=== PATIENT | male | born 1930 | race Two or more races ===

== ENCOUNTER 2016-12-10 23:02 | Inpatient (IN) | payer MEDICARE, MEDICAID ==
[~2016-12-10] VITALS: Ht 165.1 cm; Wt 61.0 kg
[~2016-12-10 23:02] MED LIST: ASPIR 8181 MG ORAL; COLCHICINE25 GM MC
[2016-12-11] LABS: BASOPHILS % (AUTO) 0.6 % (0.0-2.0); EOSINOPHILS % (AUTO) 0.4 % (0.0-3.0); LYMPHOCYTES % (AUTO) 7.7 % (20.0-45.0); MEAN CORPUSCULAR HEMOGLOBIN 25.7 PG (27.0-31.0); MEAN CORPUSCULAR HGB CONC 32.1 G/DL (32.0-36.0); MEAN CORPUSCULAR VOLUME 80 FL (80-99); MEAN PLATELET VOLUME 6.7 FL (6.5-10.1); NEUTROPHILS % (AUTO) 83.3 % (45.0-75.0); PLATELET COUNT 143 K/UL (150-450); RED BLOOD COUNT 4.65 M/UL (4.70-6.10); RED CELL DISTRIBUTION WIDTH 15.7 % (11.6-14.8); WHITE BLOOD COUNT 6.1 K/UL (4.8-10.8)
[2016-12-11 00:13] LABS: ALANINE AMINOTRANSFERASE 48 U/L (3-41); ALBUMIN/GLOBULIN RATIO 1.3 (1.0-2.7); ASPARTATE AMINO TRANSFERASE 95 U/L (5-40); CALCIUM 9.5 mg/dL (8.6-10.2); CARBON DIOXIDE 21 mEQ/L (20-30); CREATININE 1.8 mg/dL (0.7-1.2); HEMOLYSIS 18; INR 1.1 (0.9-1.1); PROTHROMBIN TIME 10.8 SEC (9.30-11.50); TOTAL PROTEIN 6.6 g/dL (6.6-8.7); TROPONIN I < 0.30 ng/mL (<=0.30)
[2016-12-11 00:14] LABS: ANION GAP 18 (5-15); CHLORIDE 98 mEQ/L (98-107); POTASSIUM 4.6 mEQ/L (3.4-4.9); SODIUM 137 mEQ/L (135-145)
[2016-12-11 00:24] LABS: CKMB 2.7 ng/mL (< 6.7)
[2016-12-11 00:38] VITALS: BP 106/73
[2016-12-11] MEDS ORDERED: Nitroglycerin Subl 0.4mg tab (Bottle Of 25) SL PRN (00:45)
[2016-12-11] MEDS ORDERED: Morphine Sulfate 2mg/ml Inj IVP PRN (00:45)
[2016-12-11] MEDS ORDERED: Mylanta II UD 30ml ORAL PRN (00:45)
[2016-12-11] MEDS ORDERED: Miralax 17gm pkt ORAL PRN (00:45)
[2016-12-11] MEDS ORDERED: LORazepam Inj 2mg/ml 1ml IV PRN (00:45)
[2016-12-11] MEDS ORDERED: DuoNeb 0.5-3(2.5)mg/3ml neb HHN PRN (00:45)
--- NOTE | 2016-12-11 00:53 | Emergency Room Report ---
History of Present Illness General Chief Complaint: Syncope Source: Patient, EMS Present Illness HPI Is an 86-year-old male with a history of CAD and aortic stenosis. He has previous stents. 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 He was doing well until tonight. He was watching TV and got up to go to the bathroom. He said he became very weak and dizzy. Was a little diaphoretic. [place] like his did not pass out. He sat down the toilet and was better. Now felt nauseous and weak. No had this problem before. No focal deficit. No chest pain. No palpitation. Allergies: Coded Allergies: CIPROFLOXACIN (Verified Allergy, Unknown, 12/10/16) PENICILLINS (Verified Allergy, Unknown, 12/10/16) Patient History Past Medical History: see triage record, old chart reviewed, CAD Past Surgical History: PTCA Pertinent Family History: none Social History: Denies: smoking Immunizations: other Reviewed Nursing Documentation: PMH: Agreed, PSxH: Agreed Nursing Documentation-PMH Past Medical History: No History, Except For Hx Cardiac Problems: Yes - STENTS Hx Hypertension: Yes Hx Pacemaker: No - GOUT Review of Systems Eye: Denies: blurred vision, eye pain ENT: Denies: ear pain, nose congestion, throat swelling Respiratory: Denies: cough, shortness of breath Cardiovascular: Denies: chest pain, palpitations Gastrointestinal: Denies: abdominal pain, diarrhea, nausea, vomiting Musculoskeletal: Denies: back pain, joint pain Skin: Denies: rash Neurological: Denies: headache, numbness Endocrine: Denies: increased thirst, increased urine Hematologic/Lymphatic: Denies: easy bruising All Other Systems: negative except mentioned in HPI Physical Exam Vital Signs Date Time Temp Pulse Resp B/P Pulse Ox O2 Delivery O2 Flow Rate FiO2 12/10/16 22:55 80 20 108/66 93 Room Air 12/11/16 00:38 97.1 vitals with mild hypoxia Sp02 EP Interpretation: abnormal General Appearance: well appearing, no apparent distress, alert Head: normocephalic, atraumatic Eyes: bilateral eye EOMI, bilateral eye PERRL ENT: hearing grossly normal, normal pharynx Neck: full range of motion, supple, no meningismus Respiratory: chest non-tender, rales Cardiovascular #1: regular rate, rhythm, systolic murmur Gastrointestinal: normal bowel sounds, non tender, no mass, no organomegaly, no bruit, non-distended Musculoskeletal: back normal, gait/station normal, normal range of motion Neurologic: alert, oriented x3 Psychiatric: mood/affect normal Skin: warm/dry Medical Decision Making Diagnostic Impression: Primary Impression: Syncope Qualified Codes: R55 - Syncope and collapse Additional Impressions: Aortic stenosis Qualified Codes: I35.0 - Nonrheumatic aortic (valve) stenosis CHF exacerbation Qualified Codes: I50.9 - Heart failure, unspecified Anemia in chronic illness Chronic kidney disease (CKD) Qualified Codes: N18.9 - Chronic kidney disease, unspecified ER Course Patient presents with syncope. He has severe aortic stenosis. This is concerning for poor prognosis. He may be bowel replacement sooner rather than later. He does have CHF. Lasix given. He felt better now. We'll admit for further workup. I discussed the case with Dr. Schwartz who will admit. This may be also a cardiac event. Initial troponin negative. Lab Results Impression labs with elevated bnp EKG Diagnostic Results Rate: normal Rhythm: NSR ST Segments: no acute changes Rhythm Strip Diag. Results EP Interpretation: yes Rate: 80 Rhythm: NSR, no PVC's, no ectopy Chest X-Ray Diagnostic Results EP Interpretation: Yes Findings: no consolidation, no effusion, no pneumothorax, other - cm with chf Number of Views: 1 CT/MRI/US Diagnostic Results CT/MRI/US Diagnostic Results : Imaging Test Ordered: ct head Impression neg per radiologist. Last Vital Signs Date Time Temp Pulse Resp B/P Pulse Ox O2 Delivery O2 Flow Rate FiO2 12/11/16 00:38 97.1 84 21 106/73 95 Room Air Status: improved Disposition: ADMITTED INPATIENT Condition: Serious Referrals: NOT CHOSEN ANUPAM/,REFERRING (PCP) TAMMY WAGNER M.D. Dec 11, 2016 00:53
[2016-12-11] MEDS ORDERED: ULORIC40 MG ORAL (01:44)
[2016-12-11 02:15] LABS: APPEARANCE,URINE CLEAR; KETONES,URINE NEGATIVE (NEGATIVE); LEUKOCYTE ESTERASE ,URINE NEGATIVE (NEGATIVE); NITRITE,URINE NEGATIVE (NEGATIVE); PH,URINE 6 (4.5-8.0); UROBILINOGEN,URINE NORMAL MG/DL (0.0-1.0)
[2016-12-11 02:16] LABS: PROTEIN,URINE NEGATIVE (NEGATIVE)
[2016-12-11 02:24] LABS: RBC,URINE 0-2 /HPF (0 - 0); WBC,URINE 0 /HPF (0 - 0)
[2016-12-11 04:06] VITALS: BP 105/63
[2016-12-11 07:43] VITALS: BP 107/66
[2016-12-11] MEDS: Heparin 5000 units/ml inj SUBQ SCH ×2 (08:25→22:01)
[2016-12-11 08:37] LABS: ALANINE AMINOTRANSFERASE 40 U/L (3-41); ALBUMIN/GLOBULIN RATIO 1.3 (1.0-2.7); ANION GAP 15 (5-15); ASPARTATE AMINO TRANSFERASE 45 U/L (5-40); CALCIUM 9.4 mg/dL (8.6-10.2); CARBON DIOXIDE 23 mEQ/L (20-30); CHLORIDE 101 mEQ/L (98-107); CREATININE 1.9 mg/dL (0.7-1.2); HEMOLYSIS 2; MAGNESIUM 1.9 mg/dL (1.7-2.5); PHOSPHORUS 4.1 mg/dL (2.5-4.8); POTASSIUM 4.2 mEQ/L (3.4-4.9); SODIUM 139 mEQ/L (135-145); TOTAL PROTEIN 6.7 g/dL (6.6-8.7); URIC ACID 5.7 mg/dL (3.0-7.5)
[2016-12-11 08:59] LABS: FREE T3 2.5 pg/mL (2.3-4.2); THYROID STIMULATING HORMONE 0.422 uIU/mL (0.300-4.500)
--- NOTE | 2016-12-11 10:58 | Diagnostic Imaging Report ---
Indication: SYNCOPE Technique: spiral acquisitions obtained through the brain. Angled axial and coronal 5 x 5 mm slices were reconstructed. No IV contrast utilized. Radiation dose was minimized using automated exposure control Total dose length product 1404 mGycm. CTDIvol(s) 70 mGy Comparison: none FINDINGS: No acute hemorrhage or edema. No mass effect or midline shift. There is age-related enlargement of the ventricles and extra axial CSF spaces. There is periventricular deep white matter ischemic change. Normal beckwith-white differentiation. Visualized orbits are unremarkable. Visualized sinuses are unremarkable. Intact calvarium. IMPRESSION: Chronic and age-related changes. Negative for acute intracranial bleed or mass effect This agrees with the preliminary interpretation provided overnight by [facility] teleradiology service. The CT scanner at [facility] is accredited by the [employer] and the scans are performed using protocols designed to limit radiation exposure to as low as reasonably achievable to attain images of sufficient resolution adequate for diagnostic evaluation
[2016-12-11 11:19] VITALS: BP 101/56
--- NOTE | 2016-12-11 12:13 | Cardiology Progress Note ---
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[place] to arrange has distant heart sound difficult oe clinically evlaute his arotic valve bu has known [id number] Objective Last 24 Hour Vital Signs Date Time Temp Pulse Resp B/P Pulse Ox O2 Delivery O2 Flow Rate FiO2 12/11/16 11:19 96.6 86 20 101/56 93 Room Air 12/11/16 07:43 96.1 85 20 107/66 92 Room Air 12/11/16 04:06 97.0 70 21 105/63 96 Room Air 12/11/16 04:00 79 12/11/16 01:05 84 21 106/73 95 Room Air 12/11/16 01:00 80 12/11/16 00:38 97.1 84 21 106/73 95 Room Air 12/10/16 22:55 80 20 108/66 93 Room Air Intake and Output 12/10/16 12/11/16 19:00 07:00 Output Total 600 ml Balance -600 ml Output Urine Total 600 ml Laboratory Tests Test 12/10/16 23:45 12/11/16 01:45 12/11/16 07:30 White Blood Count 6.1 K/UL (4.8-10.8) Red Blood Count 4.65 M/UL (4.70-6.10) L Hemoglobin 11.9 G/DL (14.2-18.0) L Hematocrit 37.3 % (42.0-52.0) L Mean Corpuscular Volume 80 FL (80-99) Mean Corpuscular Hemoglobin 25.7 PG (27.0-31.0) L Mean Corpuscular Hemoglobin Concent 32.1 G/DL (32.0-36.0) Red Cell Distribution Width 15.7 % (11.6-14.8) H Platelet Count 143 K/UL (150-450) L Mean Platelet Volume 6.7 FL (6.5-10.1) Neutrophils (%) (Auto) 83.3 % (45.0-75.0) H Lymphocytes (%) (Auto) 7.7 % (20.0-45.0) L Monocytes (%) (Auto) 8.0 % (1.0-10.0) Eosinophils (%) (Auto) 0.4 % (0.0-3.0) Basophils (%) (Auto) 0.6 % (0.0-2.0) Prothrombin Time 10.8 SEC (9.30-11.50) Prothromb Time International Ratio 1.1 (0.9-1.1) Activated Partial Thromboplast Time 26 SEC (23-33) Sodium Level 137 mEQ/L (135-145) 139 mEQ/L (135-145) Potassium Level 4.6 mEQ/L (3.4-4.9) 4.2 mEQ/L (3.4-4.9) Chloride Level 98 mEQ/L (98-107) 101 mEQ/L (98-107) Carbon Dioxide Level 21 mEQ/L (20-30) 23 mEQ/L (20-30) Anion Gap 18 (5-15) H 15 (5-15) Blood Urea Nitrogen 43 mg/dL (7-23) H 47 mg/dL (7-23) H Creatinine 1.8 mg/dL (0.7-1.2) H 1.9 mg/dL (0.7-1.2) H Estimat Glomerular Filtration Rate mL/min (>60) mL/min (>60) Glucose Level 200 mg/dL (74-106) H 116 mg/dL (74-106) H Calcium Level 9.5 mg/dL (8.6-10.2) 9.4 mg/dL (8.6-10.2) Total Bilirubin 0.7 mg/dL (0.0-1.2) 0.5 mg/dL (0.0-1.2) Aspartate Amino Transf (AST/SGOT) 95 U/L (5-40) H 45 U/L (5-40) H Alanine Aminotransferase (ALT/SGPT) 48 U/L (3-41) H 40 U/L (3-41) Alkaline Phosphatase 85 U/L (40-129) 83 U/L (40-129) Total Creatine Kinase 43 U/L (38-174) 38 U/L (38-174) Creatine Kinase MB 2.7 ng/mL (< 6.7) Creatine Kinase MB Relative Index 6.2 Troponin I < 0.30 ng/mL (<=0.30) Pro-B-Type Natriuretic Peptide 82810 pg/mL (0-450) H Total Protein 6.6 g/dL (6.6-8.7) 6.7 g/dL (6.6-8.7) Albumin 3.8 g/dL (3.5-5.2) 3.9 g/dL (3.5-5.2) Globulin 2.8 g/dL 2.8 g/dL Albumin/Globulin Ratio 1.3 (1.0-2.7) 1.3 (1.0-2.7) Urine Color Pale yellow Urine Appearance Clear Urine pH 6 (4.5-8.0) Urine Specific [place] 1.010 (1.005-1.035) Urine Protein Negative (NEGATIVE) Urine Glucose (UA) Negative (NEGATIVE) Urine Ketones Negative (NEGATIVE) Urine Occult Blood Negative (NEGATIVE) Urine Nitrite Negative (NEGATIVE) Urine Bilirubin Negative (NEGATIVE) Urine Urobilinogen Normal MG/DL (0.0-1.0) Urine Leukocyte Esterase Negative (NEGATIVE) Urine RBC 0-2 /HPF (0 - 0) H Urine WBC 0 /HPF (0 - 0) Urine Squamous Epithelial Cells None /LPF (NONE/OCC) Urine Bacteria None /HPF (NONE) Urine Eosinophils None seen Urine Osmolality Pending Urine Random Sodium 75 mmol/L Urine Random Chloride 90 mmol/L Urine Potassium Timed 61 mmol/L Plasma/Serum Osmolality Pending Uric Acid 5.7 mg/dL (3.0-7.5) Phosphorus Level 4.1 mg/dL (2.5-4.8) Magnesium Level 1.9 mg/dL (1.7-2.5) Thyroid Stimulating Hormone (TSH) 0.422 uIU/mL (0.300-4.500) Free Thyroxine 1.24 ng/dL (0.86-1.85) Free Triiodothyronine 2.5 pg/mL (2.3-4.2) Cortisol Pending MEY DELEON Dec 11, 2016 12:13
--- NOTE | 2016-12-11 15:36 | History and Physical ---
History of Present Illness General Date patient seen: Dec 11, 2016 Reason for Hospitalization: Syncope Present Illness HPI 86-year-old male with a history of CAD and aortic stenosis with multiple previous stents. . He was watching TV and got up to go to the bathroom. He said he became very weak and dizzy. Was a little diaphoretic. [place] like his did not pass out. He sat down the toilet and was better. He thought he is going to . He has been feeding sick for a few days with symptoms of stuffy nose and cold. Allergies: Coded Allergies: CIPROFLOXACIN (Verified Allergy, Unknown, 12/10/16) PENICILLINS (Verified Allergy, Unknown, 12/10/16) Medication History Scheduled Aspirin* (Aspir 81*), 81 MG ORAL DAILY, (Reported) Febuxostat (Uloric), 40 MG ORAL DAILY, (Reported) Miscellaneous Medications Colchicine (Colchicine), Unknown Dose MC, (Reported) Patient History History Provided By: Patient, Significant Other Healthcare decision maker Resuscitation status Full Code Advanced Directive on File Past Medical/Surgical History Past Medical/Surgical History: (1) Aortic stenosis (2) Anemia in chronic illness (3) Chronic kidney disease (CKD) Review of Systems Constitutional: Reports: no symptoms Eye: Reports: no symptoms ENT: Reports: no symptoms Respiratory: Reports: no symptoms Cardiovascular: Reports: no symptoms Gastrointestinal: Reports: no symptoms Physical Exam General Appearance: WD/WN Lines, tubes and drains: peripheral, central line HEENT: normocephalic, atraumatic Neck: non-tender, normal alignment Respiratory/Chest: chest wall non-tender, lungs clear Abdomen: normal bowel sounds, non tender Last 24 Hour Vital Signs Date Time Temp Pulse Resp B/P Pulse Ox O2 Delivery O2 Flow Rate FiO2 12/11/16 13:20 99 12/11/16 13:15 93 12/11/16 13:10 81 12/11/16 12:00 74 12/11/16 11:19 96.6 86 20 101/56 93 Room Air 12/11/16 08:00 85 12/11/16 07:43 96.1 85 20 107/66 92 Room Air 12/11/16 04:06 97.0 70 21 105/63 96 Room Air 12/11/16 04:00 79 12/11/16 01:05 84 21 106/73 95 Room Air 12/11/16 01:00 80 12/11/16 00:38 97.1 84 21 106/73 95 Room Air 12/10/16 22:55 80 20 108/66 93 Room Air Intake and Output 12/10/16 12/11/16 19:00 07:00 Output Total 600 ml Balance -600 ml Output Urine Total 600 ml Laboratory Tests Test 12/10/16 23:45 12/11/16 01:45 12/11/16 07:30 White Blood Count 6.1 K/UL (4.8-10.8) Red Blood Count 4.65 M/UL (4.70-6.10) L Hemoglobin 11.9 G/DL (14.2-18.0) L Hematocrit 37.3 % (42.0-52.0) L Mean Corpuscular Volume 80 FL (80-99) Mean Corpuscular Hemoglobin 25.7 PG (27.0-31.0) L Mean Corpuscular Hemoglobin Concent 32.1 G/DL (32.0-36.0) Red Cell Distribution Width 15.7 % (11.6-14.8) H Platelet Count 143 K/UL (150-450) L Mean Platelet Volume 6.7 FL (6.5-10.1) Neutrophils (%) (Auto) 83.3 % (45.0-75.0) H Lymphocytes (%) (Auto) 7.7 % (20.0-45.0) L Monocytes (%) (Auto) 8.0 % (1.0-10.0) Eosinophils (%) (Auto) 0.4 % (0.0-3.0) Basophils (%) (Auto) 0.6 % (0.0-2.0) Prothrombin Time 10.8 SEC (9.30-11.50) Prothromb Time International Ratio 1.1 (0.9-1.1) Activated Partial Thromboplast Time 26 SEC (23-33) Sodium Level 137 mEQ/L (135-145) 139 mEQ/L (135-145) Potassium Level 4.6 mEQ/L (3.4-4.9) 4.2 mEQ/L (3.4-4.9) Chloride Level 98 mEQ/L (98-107) 101 mEQ/L (98-107) Carbon Dioxide Level 21 mEQ/L (20-30) 23 mEQ/L (20-30) Anion Gap 18 (5-15) H 15 (5-15) Blood Urea Nitrogen 43 mg/dL (7-23) H 47 mg/dL (7-23) H Creatinine 1.8 mg/dL (0.7-1.2) H 1.9 mg/dL (0.7-1.2) H Estimat Glomerular Filtration Rate mL/min (>60) mL/min (>60) Glucose Level 200 mg/dL (74-106) H 116 mg/dL (74-106) H Calcium Level 9.5 mg/dL (8.6-10.2) 9.4 mg/dL (8.6-10.2) Total Bilirubin 0.7 mg/dL (0.0-1.2) 0.5 mg/dL (0.0-1.2) Aspartate Amino Transf (AST/SGOT) 95 U/L (5-40) H 45 U/L (5-40) H Alanine Aminotransferase (ALT/SGPT) 48 U/L (3-41) H 40 U/L (3-41) Alkaline Phosphatase 85 U/L (40-129) 83 U/L (40-129) Total Creatine Kinase 43 U/L (38-174) 38 U/L (38-174) Creatine Kinase MB 2.7 ng/mL (< 6.7) Creatine Kinase MB Relative Index 6.2 Troponin I < 0.30 ng/mL (<=0.30) Pro-B-Type Natriuretic Peptide 83567 pg/mL (0-450) H Total Protein 6.6 g/dL (6.6-8.7) 6.7 g/dL (6.6-8.7) Albumin 3.8 g/dL (3.5-5.2) 3.9 g/dL (3.5-5.2) Globulin 2.8 g/dL 2.8 g/dL Albumin/Globulin Ratio 1.3 (1.0-2.7) 1.3 (1.0-2.7) Urine Color Pale yellow Urine Appearance Clear Urine pH 6 (4.5-8.0) Urine Specific [place] 1.010 (1.005-1.035) Urine Protein Negative (NEGATIVE) Urine Glucose (UA) Negative (NEGATIVE) Urine Ketones Negative (NEGATIVE) Urine Occult Blood Negative (NEGATIVE) Urine Nitrite Negative (NEGATIVE) Urine Bilirubin Negative (NEGATIVE) Urine Urobilinogen Normal MG/DL (0.0-1.0) Urine Leukocyte Esterase Negative (NEGATIVE) Urine RBC 0-2 /HPF (0 - 0) H Urine WBC 0 /HPF (0 - 0) Urine Squamous Epithelial Cells None /LPF (NONE/OCC) Urine Bacteria None /HPF (NONE) Urine Eosinophils None seen Urine Osmolality Pending Urine Random Sodium 75 mmol/L Urine Random Chloride 90 mmol/L Urine Potassium Timed 61 mmol/L Plasma/Serum Osmolality Pending Uric Acid 5.7 mg/dL (3.0-7.5) Phosphorus Level 4.1 mg/dL (2.5-4.8) Magnesium Level 1.9 mg/dL (1.7-2.5) Thyroid Stimulating Hormone (TSH) 0.422 uIU/mL (0.300-4.500) Free Thyroxine 1.24 ng/dL (0.86-1.85) Free Triiodothyronine 2.5 pg/mL (2.3-4.2) Cortisol Pending Height (Feet): 5 Height (Inches): 5.00 Weight (Pounds): 139 Medications Current Medications Medications (Trade) Dose Ordered Sig/Curtis Route PRN Reason Start Time Stop Time Status Last Admin Dose Admin Acetaminophen (Tylenol) 650 mg Q4H PRN ORAL fever 12/11/16 00:45 01/10/17 00:44 Al Hydroxide/Mg Hydroxide (Mylanta II) 30 ml Q6H PRN ORAL dyspepsia 12/11/16 00:45 01/10/17 00:44 12/11/16 08:24 Albuterol/ Ipratropium (DuoNeb 0.5-3(2.5)mg/3ml) 3 ml EVERY 4 HOURS PRN HHN Shortness of Breath 12/11/16 00:45 12/16/16 00:44 Clonidine HCl (Catapres) 0.1 mg Q4H PRN ORAL For High Blood Pressure 12/11/16 00:45 01/10/17 00:44 Dextrose (Dextrose 50%) STAT PRN IV Hypoglycemia 12/11/16 00:45 01/10/17 00:44 Heparin Sodium (Porcine) (Heparin 5000 units/ml) 5,000 units EVERY 12 HOURS SUBQ 12/11/16 09:00 01/10/17 08:59 12/11/16 08:25 Lorazepam (Ativan 2mg/ml 1ml) 0.5 mg Q4H PRN IV For Anxiety 12/11/16 00:45 12/18/16 00:44 Morphine Sulfate (Morphine Sulfate) 1 mg EVERY 4 HOURS PRN IVP For Pain 7-10 12/11/16 00:45 12/18/16 00:44 Nitroglycerin (Ntg) 0.4 mg Q5M X 3 DOSES PRN SL Prn Chest Pain 12/11/16 00:45 01/10/17 00:44 Ondansetron HCl (Zofran) 4 mg Q6H PRN IVP Nausea & Vomiting 12/11/16 00:45 01/10/17 00:44 Polyethylene Glycol (Miralax) 17 gm HSPRN PRN ORAL Constipation 12/11/16 00:45 01/10/17 00:44 Temazepam (Restoril) 15 mg HSPRN PRN ORAL Insomnia 12/11/16 00:45 12/18/16 00:44 Assessment/Plan Problem List: (1) Acute encephalopathy ICD Codes: G93.40 - Encephalopathy, unspecified SNOMED: 5498514 (2) Pneumonia ICD Codes: J18.9 - Pneumonia, unspecified organism SNOMED: 234558479 (3) Aortic stenosis ICD Codes: I35.0 - Nonrheumatic aortic (valve) stenosis SNOMED: 45463716 Qualifiers: Qualified Codes: I35.0 - Nonrheumatic aortic (valve) stenosis (4) Anemia in chronic illness ICD Codes: D63.8 - Anemia in other chronic diseases classified elsewhere SNOMED: 252769905 (5) Chronic kidney disease (CKD) ICD Codes: N18.9 - Chronic kidney disease, unspecified SNOMED: 024640421 Qualifiers: Qualified Codes: N18.9 - Chronic kidney disease, unspecified (6) Syncope ICD Codes: R55 - Syncope and collapse SNOMED: 646006959 Qualifiers: Qualified Codes: R55 - Syncope and collapse (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
[2016-12-11 16:00] VITALS: BP 101/65
[2016-12-11] MEDS ORDERED: Promethazine/Codeine 5ml UD ORAL PRN (16:00)
[2016-12-11] MEDS ORDERED: AZTREONAM IVPB ONE (18:00)
[2016-12-11] MEDS ORDERED: NS IVPB ONE (18:00)
--- NOTE | 2016-12-11 18:37 | Consultation ---
Consult Note Consult Note asked to evaluate at the request of Dr Schwartz for renal failure- Chief Complaint: Syncope HPI Is an 86-year-old male with a history of CAD and aortic stenosis. He has previous stents. 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 He was doing well until tonight. He was watching TV and got up to go to the bathroom. He said he became very weak and dizzy. Was a little diaphoretic. [place] like his did not pass out. He sat down the toilet and was better. Now felt nauseous and weak. No had this problem before. No focal deficit. No chest pain. No palpitation. Allergies: CIPROFLOXACIN (Verified Allergy, Unknown, 12/10/16) PENICILLINS (Verified Allergy, Unknown, 12/10/16) Past Medical History: see triage record, old chart reviewed, CAD Past Surgical History: PTCA Past Medical History: No History, Except For Hx Cardiac Problems: Yes - STENTS Hx Hypertension: Yes Hx Pacemaker: No - GOUT Patient interviewed, and examined and data reviewed Assessment/Plan Renal failure , likely chronic . 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
[2016-12-11] MEDS: DuoNeb 0.5-3(2.5)mg/3ml neb HHN SCH (19:53)
[2016-12-11 20:00] VITALS: BP 114/79
--- NOTE | 2016-12-11 20:37 | Consultation ---
DATE OF CONSULTATION: 12/11/2016 REFERRING PHYSICIAN: Charlette Schwartz M.D. REASON FOR REFERRAL: Syncope. HISTORY OF PRESENT ILLNESS: This is an elderly gentleman who is a Holocaust survivor. The patient previously has been followed at [facility] for number of years and in [address] Mejia at [facility] for a second opinion regarding a bypass and aortic valve replacement, which has been recommended to him and corroborated by Dr. Mejia. However, the patient has declined to have an open heart surgery and signed himself out of [facility] insurance and has been followed by [facility] now. He has had several stents placed sometime ago at [facility], and most recently, his security attendant at [facility] has indicated that he needs to have his aortic valve taken care of. He apparently was watching TV yesterday when he suddenly developed generalized numbness. He was able to get himself up from the couch and went to the bedroom and he dropped himself on the bedroom. He started sweating significantly and he thinks he may have fallen asleep or passed out for few minutes because when he woke up, he had lost control of his urine and he finally called the paramedics. The paramedics noted a blood pressure of 106/72 with heart rate in the 80s, and the patient was transferred to the emergency room at [facility] where he was subsequently admitted and this consultation was requested. He is already feeling better. He is walking around and has no other problems. This has never happened to him before and he really has not had any chest pain. There is no PND or orthopnea. He does not have any dizziness or lightheadedness on standing. He has not had any heart pounding or palpitations. PAST MEDICAL HISTORY: Positive for history of aortic valve stenosis reported with three-vessel coronary disease as mentioned based on the records of [facility] and history of gout and possibly history of hypertension. 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 He does have history of gout as well. No heart attack. No cancer. No stroke, hepatitis, tuberculosis, asthma, emphysema, ulcers, liver problems, thyroid problems, anemia, or arthritis. ALLERGIES: He is allergic to penicillin and Cipro. SOCIAL HISTORY: He does not smoke now, he quit 50 years ago. He does not drink alcoholic beverages. No drug use. Lives with his . He has got seven daughters, one of which is here. REVIEW OF SYSTEMS: Gastrointestinal: Negative, although he did have nausea and vomiting yesterday. Genitourinary: Negative. Pulmonary: Negative. Constitutional: Negative. Neurologic: Negative. PHYSICAL EXAMINATION: VITAL SIGNS: His blood pressure has been anywhere between 101/56 and 105/63, temperature 96.6, respirations of 20, and pulse rate of 86. GENERAL: An elderly gentleman, in no apparent respiratory distress. NECK: Supple. No jugular venous distention. LUNGS: Decreased breath sounds are noted bilaterally with few basilar crackles on the left side. CARDIAC: Distant heart sounds. Regular rhythm. There is a systolic ejection murmur that is very difficult to hear. ABDOMEN: Soft and nontender. Positive bowel sounds. EXTREMITIES: There is no clubbing, cyanosis, nor is there any edema. NEUROLOGIC: He is awake, alert, responsive, and in no apparent respiratory distress. LABORATORY AND IMAGING DATA: His laboratory values here at [facility] showed chronic age-related changes, negative for acute intracranial bleed or mass effect. He has had blood tests. White count of 6.9, hemoglobin 12.9, and platelet count of 143,000. Sodium is 139, potassium 4.2, chloride 101, bicarbonate of 23, BUN of 47, creatinine 1.9, and glucose of 116. His liver function tests - AST is increased to 45, otherwise negative. His ProBNP was 18,000 at the time of admission and troponin less than 0.03. His albumin is 3.9 and his TSH is 0.42. His urinalysis appears to be fairly unremarkable. He has had an electrocardiogram that was performed showing normal sinus rhythm, right bundle-branch conduction defects, and some nonspecific T-wave changes are noted. His telemetry monitoring overnight has shown basically just sinus with occasional premature atrial complexes. ASSESSMENT AND PLAN: 1. Syncope. 2. Significant aortic stenosis. 3. History of coronary artery disease. 4. Renal insufficiency with a solitary kidney. 5. Probably a component of failure. PLAN: Dr. Schwartz, this patient was seen in cardiac consultation. The patient is known to have significant aortic stenosis and has been referred for possibly TAVR pending at [facility] possibly in month of December. In light of the fact that he has syncope, that procedure should be done sooner than later. He does have some renal insufficiency. I will not diurese him. He does not have any shortness of breath. In fact, if anything, he may need some intravenous fluid, although I am hesitant to administer that either because of his significant aortic stenosis and chance of pushing him into congestive heart failure with that. I have instructed the patient that when he gets discharged to make an appointment to see his security attendant at [facility], the plan is for a TAVR or others should be considered to be performed sooner than later. Because of aortic stenosis and possibility of pushing him into heart failure, I will recommend that he have orthostatic vitals to document that he is not orthostatic. If he is, in that case, that is the time to administer jean intravenous fluids. His heart exam is very difficult to evaluate because of the distant heart sounds. An echocardiogram maybe needed, although because of his known history of aortic stenosis, that may need to be performed in the future. Petar Garrett M.D. DR: COLLEEN JOB#: [id number] CC:
[2016-12-11] MEDS ORDERED: Theophylline ER 100mg ORAL SCH (21:00)
[2016-12-12] VITALS (42 sets, daily range): BP systolic 89–154; BP diastolic 40–98
[2016-12-12] MEDS ORDERED: Aztreonam 0.5gm in D5W 55ml IVPB SCH ×2
[2016-12-12] MEDS: DuoNeb 0.5-3(2.5)mg/3ml neb HHN SCH ×4 (00:06→18:54)
[2016-12-12] MEDS ORDERED: Amiodarone 200mg tab ORAL ONE (01:00)
[2016-12-12] MEDS ORDERED: Amiodarone 900 MG in D5W 500ml 482 ML IV SCH ×3 (03:30→06:46)
[2016-12-12] MEDS ORDERED: Nitroglycerin Subl 0.4mg tab (Bottle Of 25) SL PRN ×2 (03:30→06:30)
[2016-12-12] MEDS ORDERED: Promethazine/Codeine 5ml UD ORAL PRN (03:42)
[2016-12-12] MEDS ORDERED: Amiodarone 150mg/ml 3ml Amp ONE ×2 (03:44→03:48)
[2016-12-12] MEDS ORDERED: DuoNeb 0.5-3(2.5)mg/3ml neb HHN PRN ×2 (03:47→06:47)
[2016-12-12] MEDS ORDERED: Morphine Sulfate 2mg/ml Inj IVP PRN ×2 (03:48→06:48)
[2016-12-12] MEDS ORDERED: LORazepam Inj 2mg/ml 1ml IV PRN (03:48)
[2016-12-12] MEDS ORDERED: Miralax 17gm pkt ORAL PRN ×2 (03:49→06:49)
[2016-12-12] MEDS ORDERED: DuoNeb 0.5-3(2.5)mg/3ml neb HHN SCH (07:00)
[2016-12-12] MEDS: LORazepam Inj 2mg/ml 1ml IV PRN ×3 (07:22→20:53)
--- NOTE | 2016-12-12 07:54 | Cardiology Progress Note ---
Assessment/Plan Assessment/Plan 1. Syncope. 2. Significant aortic stenosis. 3. History of coronary artery disease. 4. Renal insufficiency with a solitary kidney. 5. Probably a component of failure. 6. afib rvr acute ui was called severl time last nite originally with in and out of afib subseq remain in afib amiod drip started pt transferred to icu this am remain in afib with rvr at times will bolus ivf limited an give metoprolol lsow dose fo hr control will need to start on anticoaguation will need cardioversion soon if not does so spont as i dont think he will tolerate this rhtym very long with keep npo repeat cardiac enzyme and ekg duration 45 min Subjective Cardiovascular: Denies: chest pain, lightheadedness Respiratory: Reports: shortness of breath - mild Gastrointestinal/Abdominal: Denies: abdominal pain Genitourinary: Denies: burning Objective Last 24 Hour Vital Signs Date Time Temp Pulse Resp B/P Pulse Ox O2 Delivery O2 Flow Rate FiO2 12/12/16 07:19 118 18 98 Nasal Cannula 4.0 12/12/16 07:17 112 16 12/12/16 07:17 112 16 99 Nasal Cannula 4.0 12/12/16 06:30 108 24 108/74 94 Nasal Cannula 2.0 12/12/16 06:00 125 22 98/82 94 Nasal Cannula 2.0 12/12/16 05:30 105 20 123/76 96 Nasal Cannula 2.0 12/12/16 05:00 120 25 116/78 96 Nasal Cannula 2.0 12/12/16 04:30 135 22 118/73 93 Nasal Cannula 2.0 12/12/16 04:00 140 12/12/16 04:00 140 25 134/77 95 Nasal Cannula 2.0 12/12/16 03:30 97.1 131 20 125/65 97 Nasal Cannula 2.0 12/12/16 00:09 105 18 99 Room Air 12/12/16 00:09 105 18 98 Room Air 12/12/16 00:08 98.5 79 20 116/77 98 Room Air 12/12/16 00:00 114 12/11/16 20:00 97.7 99 20 114/79 92 Room Air 12/11/16 20:00 97 12/11/16 19:56 91 18 99 Room Air 12/11/16 19:55 91 18 99 Room Air 12/11/16 19:54 99 18 Room Air 12/11/16 16:00 85 12/11/16 16:00 97.5 85 18 101/65 87 Room Air 12/11/16 13:20 99 12/11/16 13:15 93 12/11/16 13:10 81 12/11/16 12:00 74 12/11/16 11:19 96.6 86 20 101/56 93 Room Air 12/11/16 08:00 85 General Appearance: alert Cardiovascular: tachycardia, systolic murmur, irregularly irregular Respiratory/Chest: lungs clear Abdomen: normal bowel sounds, non tender, soft Extremities: no swelling Intake and Output 12/11/16 12/12/16 19:00 07:00 Intake Total 320 ml 986 ml Output Total 200 ml 550 ml Balance 120 ml 436 ml Intake Oral 320 ml 120 ml IV Total 866 ml Output Urine Total 200 ml 550 ml # Voids 2 # Bowel Movements 1 MEY DELEON Dec 12, 2016 07:54
[2016-12-12] MEDS ORDERED: Metoprolol 5mg/5ml Inj IVP ONE (08:00)
[2016-12-12] MEDS ORDERED: NS 250 ML IVPB ONE (08:00)
[2016-12-12] MEDS: Aztreonam Inj 0.5 GM in D5W 55 ML IVPB SCH ×2 (08:00→15:46)
[2016-12-12] MEDS ORDERED: Heparin 5000 units/ml inj IV ONE ×2 (08:00→17:45)
[2016-12-12] MEDS ORDERED: Aztreonam Inj 0.5 GM in D5W 55 ML IVPB SCH (08:00)
[2016-12-12] MEDS ORDERED: Amiodarone 200mg tab ORAL SCH ×3 (09:00→21:00)
[2016-12-12] MEDS ORDERED: Heparin 5000 units/ml inj SUBQ SCH ×2 (09:00)
[2016-12-12] MEDS ORDERED: Theophylline ER 100mg ORAL SCH (09:00)
[2016-12-12] MEDS: Theophylline ER 100mg ORAL SCH ×2 (09:35→21:00)
[2016-12-12 09:50] LABS: ALANINE AMINOTRANSFERASE 35 U/L (3-41); ALBUMIN/GLOBULIN RATIO 1.2 (1.0-2.7); ANION GAP 22 (5-15); ASPARTATE AMINO TRANSFERASE 33 U/L (5-40); CALCIUM 9.3 mg/dL (8.6-10.2); CARBON DIOXIDE 16 mEQ/L (20-30); CHLORIDE 98 mEQ/L (98-107); CHOLESTEROL 179 mg/dL (< 200); CHOLESTEROL/HDL RATIO 3.1 (3.3-4.4); CREATININE 1.9 mg/dL (0.7-1.2); HEMOLYSIS 4; LDL CHOLESTEROL (CALC.) 85 mg/dL (60-99); POTASSIUM 4.4 mEQ/L (3.4-4.9); SODIUM 136 mEQ/L (135-145); TOTAL PROTEIN 6.6 g/dL (6.6-8.7)
[2016-12-12 09:52] LABS: CRP QUANT 1.6 mg/dL (< 0.5)
[2016-12-12 09:53] LABS: TROPONIN I 0.76 ng/mL (<=0.30)
[2016-12-12 09:56] LABS: BASOPHILS % (AUTO) 0.7 % (0.0-2.0); EOSINOPHILS % (AUTO) 0.3 % (0.0-3.0); LYMPHOCYTES % (AUTO) 9.5 % (20.0-45.0); MEAN CORPUSCULAR HEMOGLOBIN 26.7 PG (27.0-31.0); MEAN CORPUSCULAR HGB CONC 32.5 G/DL (32.0-36.0); MEAN CORPUSCULAR VOLUME 82 FL (80-99); MEAN PLATELET VOLUME 6.8 FL (6.5-10.1); MONOCYTES % (AUTO) 9.3 % (1.0-10.0); NEUTROPHILS % (AUTO) 80.2 % (45.0-75.0); PLATELET COUNT 176 K/UL (150-450); RED BLOOD COUNT 5.28 M/UL (4.70-6.10); RED CELL DISTRIBUTION WIDTH 16.2 % (11.6-14.8); WHITE BLOOD COUNT 10.4 K/UL (4.8-10.8)
[2016-12-12 10:13] LABS: INR 1.1 (0.9-1.1); PROTHROMBIN TIME 10.7 SEC (9.30-11.50)
[2016-12-12] MEDS: Heparin 25,000u/D5W 500ml 500 ML IV SCH ×2 (10:21→17:47)
--- NOTE | 2016-12-12 11:05 | Pulmonolgy Critical Care Note ---
Critical Care - Asmt/Plan Problems: (1) Rapid atrial fibrillation (2) Syncope (3) Acute encephalopathy (4) Pneumonia (5) CHF exacerbation (6) Chronic kidney disease (CKD) (7) Anemia in chronic illness (8) Aortic stenosis (9) Solitary kidney Respiratory: monitor respiratory rate Cardiac: continue to monitor HR/BP, other - might need cardioversion Renal: F/U I&O Infectious Disease: check cultures, continue antibiotics Gastrointestinal: continue feedings/current rate Endocrine: monitor blood sugar, check HgA1C, continue sliding scale insulin Hematologic: transfuse if hgb<8.5 Neurologic: PRN Ativan, keep patient comfortable Affect: PRN ativan Prophylaxis: Protonix, Heparin Notes 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: 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, 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, 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 with: nurses, consultants, casework supervisormanager speech - Objective Last 24 Hour Vital Signs Date Time Temp Pulse Resp B/P Pulse Ox O2 Delivery O2 Flow Rate FiO2 12/12/16 08:20 106 110/87 12/12/16 08:00 98.5 96 29 110/87 94 Nasal Cannula 2.0 12/12/16 07:19 118 18 98 Nasal Cannula 4.0 12/12/16 07:17 112 16 12/12/16 07:17 112 16 99 Nasal Cannula 4.0 12/12/16 06:30 108 24 108/74 94 Nasal Cannula 2.0 12/12/16 06:00 125 22 98/82 94 Nasal Cannula 2.0 12/12/16 05:30 105 20 123/76 96 Nasal Cannula 2.0 12/12/16 05:00 120 25 116/78 96 Nasal Cannula 2.0 12/12/16 04:30 135 22 118/73 93 Nasal Cannula 2.0 12/12/16 04:00 140 12/12/16 04:00 140 25 134/77 95 Nasal Cannula 2.0 12/12/16 03:30 97.1 131 20 125/65 97 Nasal Cannula 2.0 12/12/16 00:09 105 18 99 Room Air 12/12/16 00:09 105 18 98 Room Air 12/12/16 00:08 98.5 79 20 116/77 98 Room Air 12/12/16 00:00 114 12/11/16 20:00 97.7 99 20 114/79 92 Room Air 12/11/16 20:00 97 12/11/16 19:56 91 18 99 Room Air 12/11/16 19:55 91 18 99 Room Air 12/11/16 19:54 99 18 Room Air 12/11/16 16:00 85 12/11/16 16:00 97.5 85 18 101/65 87 Room Air 12/11/16 13:20 99 12/11/16 13:15 93 12/11/16 13:10 81 12/11/16 12:00 74 12/11/16 11:19 96.6 86 20 101/56 93 Room Air Status: awake Condition: critical HEENT: atraumatic, normocephalic Lungs: clear Heart: HR/BP stable, HR/BP unstable Abdomen: soft, non-tender Extremities: no C/C/E Critical Care - Subjective ICU Day: 1 Interval Events: transferred to ICU because of rapid afib. low bp Drips: amiodarone I&O: Intake and Output 12/11/16 12/12/16 19:00 07:00 Intake Total 320 ml 986 ml Output Total 200 ml 550 ml Balance 120 ml 436 ml Intake Oral 320 ml 120 ml IV Total 866 ml Output Urine Total 200 ml 550 ml # Voids 2 # Bowel Movements 1 CXR: no change Labs: Laboratory Tests Test 12/12/16 08:40 White Blood Count 10.4 K/UL (4.8-10.8) # Red Blood Count 5.28 M/UL (4.70-6.10) Hemoglobin 14.1 G/DL (14.2-18.0) L Hematocrit 43.5 % (42.0-52.0) Mean Corpuscular Volume 82 FL (80-99) Mean Corpuscular Hemoglobin 26.7 PG (27.0-31.0) L Mean Corpuscular Hemoglobin Concent 32.5 G/DL (32.0-36.0) Red Cell Distribution Width 16.2 % (11.6-14.8) H Platelet Count 176 K/UL (150-450) Mean Platelet Volume 6.8 FL (6.5-10.1) Neutrophils (%) (Auto) 80.2 % (45.0-75.0) H Lymphocytes (%) (Auto) 9.5 % (20.0-45.0) L Monocytes (%) (Auto) 9.3 % (1.0-10.0) Eosinophils (%) (Auto) 0.3 % (0.0-3.0) Basophils (%) (Auto) 0.7 % (0.0-2.0) Prothrombin Time 10.7 SEC (9.30-11.50) Prothromb Time International Ratio 1.1 (0.9-1.1) Activated Partial Thromboplast Time 34 SEC (23-33) H Sodium Level 136 mEQ/L (135-145) Potassium Level 4.4 mEQ/L (3.4-4.9) Chloride Level 98 mEQ/L (98-107) Carbon Dioxide Level 16 mEQ/L (20-30) L Anion Gap 22 (5-15) H Blood Urea Nitrogen 45 mg/dL (7-23) H Creatinine 1.9 mg/dL (0.7-1.2) H Estimat Glomerular Filtration Rate mL/min (>60) Glucose Level 187 mg/dL (74-106) H Hemoglobin A1c 5.5 % (< 6.0) Calcium Level 9.3 mg/dL (8.6-10.2) Phosphorus Level 4.0 mg/dL (2.5-4.8) Magnesium Level 2.0 mg/dL (1.7-2.5) Total Bilirubin 1.0 mg/dL (0.0-1.2) Gamma Glutamyl Transpeptidase 65 U/L (8-61) H Aspartate Amino Transf (AST/SGOT) 33 U/L (5-40) Alanine Aminotransferase (ALT/SGPT) 35 U/L (3-41) Alkaline Phosphatase 87 U/L (40-129) Total Creatine Kinase 113 U/L (38-174) Troponin I 0.76 ng/mL (<=0.30) *H C-Reactive Protein, Quantitative 1.6 mg/dL (< 0.5) H Pro-B-Type Natriuretic Peptide 64531 pg/mL (0-450) H Total Protein 6.6 g/dL (6.6-8.7) Albumin 3.7 g/dL (3.5-5.2) Globulin 2.9 g/dL Albumin/Globulin Ratio 1.2 (1.0-2.7) Triglycerides Level 178 mg/dL (< 150) H Cholesterol Level 179 mg/dL (< 200) LDL Cholesterol 85 mg/dL (60-99) HDL Cholesterol 58 mg/dL (> 60) Cholesterol/HDL Ratio 3.1 (3.3-4.4) L Thyroid Stimulating Hormone (TSH) 1.050 uIU/mL (0.300-4.500) FRANNY MENDES Dec 12, 2016 11:05
--- NOTE | 2016-12-12 13:45 | Diagnostic Imaging Report ---
Indication: SYNCOPE Technique: One view of the chest Comparison: none Findings: Inspiration is suboptimal. There is infiltrate at the left mid and lower lung, as well as generalized mild interstitial prominence. Heart size is upper limits normal. The pleural spaces are probably clear. The aorta is calcified Impression: Left basilar infiltrate versus edema Nonspecific generalized mild interstitial prominence Other findings as noted This agrees with the preliminary interpretation provided by the emergency room physician
--- NOTE | 2016-12-12 15:16 | General Progress Note ---
Assessment/Plan Status: unchanged - renal status Status Narrative in ICU for management of Atrial Fib Assessment/Plan status; Renal failure , likely chronic . Has one functioning kidney- lost one after trauma in [place] at age 13- admitted for Syncope- CHF Anemia Gout Plan: Urine studies- Monitor renal parameters- Avoid Nephrotoxics- Kidney JOSÉ one liter IV Per orders Subjective ROS Limited/Unobtainable: No Constitutional: Reports: malaise, weakness Respiratory: Reports: shortness of breath Gastrointestinal/Abdominal: Reports: vomiting Allergies: Coded Allergies: CIPROFLOXACIN (Verified Allergy, Unknown, 12/10/16) PENICILLINS (Verified Allergy, Unknown, 12/10/16) Objective Last 24 Hour Vital Signs Date Time Temp Pulse Resp B/P Pulse Ox O2 Delivery O2 Flow Rate FiO2 12/12/16 15:00 76 29 109/76 92 Nasal Cannula 2.0 12/12/16 14:30 84 28 123/76 91 Nasal Cannula 2.0 12/12/16 14:00 75 30 94/63 91 Nasal Cannula 2.0 12/12/16 13:30 73 30 94/54 92 Nasal Cannula 2.0 12/12/16 13:07 73 18 96 Nasal Cannula 4.0 12/12/16 13:05 71 16 93 Nasal Cannula 4.0 12/12/16 13:00 71 30 96/62 92 Nasal Cannula 2.0 12/12/16 12:30 73 30 107/69 92 Nasal Cannula 2.0 12/12/16 12:00 98.9 80 32 98/40 94 Nasal Cannula 2.0 12/12/16 12:00 140 12/12/16 11:30 75 28 91/56 92 Nasal Cannula 2.0 12/12/16 11:00 70 29 89/57 91 Nasal Cannula 2.0 12/12/16 10:30 73 27 91/98 93 Nasal Cannula 2.0 12/12/16 10:00 71 25 99/45 92 Nasal Cannula 2.0 12/12/16 09:30 70 24 96/79 92 Nasal Cannula 2.0 12/12/16 09:00 61 24 94/82 94 Nasal Cannula 2.0 12/12/16 08:30 101 25 113/91 94 Nasal Cannula 2.0 12/12/16 08:20 106 110/87 12/12/16 08:00 98.5 96 29 110/87 94 Nasal Cannula 2.0 12/12/16 08:00 118 12/12/16 07:19 118 18 98 Nasal Cannula 4.0 12/12/16 07:17 112 16 12/12/16 07:17 112 16 99 Nasal Cannula 4.0 12/12/16 07:00 117 20 105/50 92 Nasal Cannula 2.0 12/12/16 06:30 108 24 108/74 94 Nasal Cannula 2.0 12/12/16 06:00 125 22 98/82 94 Nasal Cannula 2.0 12/12/16 05:30 105 20 123/76 96 Nasal Cannula 2.0 12/12/16 05:00 120 25 116/78 96 Nasal Cannula 2.0 12/12/16 04:30 135 22 118/73 93 Nasal Cannula 2.0 12/12/16 04:00 140 12/12/16 04:00 140 25 134/77 95 Nasal Cannula 2.0 12/12/16 03:30 97.1 131 20 125/65 97 Nasal Cannula 2.0 12/12/16 00:09 105 18 99 Room Air 12/12/16 00:09 105 18 98 Room Air 12/12/16 00:08 98.5 79 20 116/77 98 Room Air 12/12/16 00:00 114 12/11/16 20:00 97.7 99 20 114/79 92 Room Air 12/11/16 20:00 97 12/11/16 19:56 91 18 99 Room Air 12/11/16 19:55 91 18 99 Room Air 12/11/16 19:54 99 18 Room Air 12/11/16 16:00 85 12/11/16 16:00 97.5 85 18 101/65 87 Room Air Intake and Output 12/11/16 12/12/16 19:00 07:00 Intake Total 320 ml 986 ml Output Total 200 ml 550 ml Balance 120 ml 436 ml Intake Oral 320 ml 120 ml IV Total 866 ml Output Urine Total 200 ml 550 ml # Voids 2 # Bowel Movements 1 Laboratory Tests 12/12/16 08:40: White Blood Count 10.4#, Red Blood Count 5.28, Hemoglobin 14.1L, Hematocrit 43.5 , Mean Corpuscular Volume 82, Mean Corpuscular Hemoglobin 26.7L, Mean Corpuscular Hemoglobin Concent 32.5, Red Cell Distribution Width 16.2H, Platelet Count 176, Mean Platelet Volume 6.8, Neutrophils (%) (Auto) 80.2H, Lymphocytes (%) (Auto) 9.5L, Monocytes (%) (Auto) 9.3, Eosinophils (%) (Auto) 0.3, Basophils (%) (Auto) 0.7, Prothrombin Time 10.7, Prothromb Time International Ratio 1.1, Activated Partial Thromboplast Time 34H, Sodium Level 136, Potassium Level 4.4, Chloride Level 98, Carbon Dioxide Level 16L, Anion Gap 22H, Blood Urea Nitrogen 45H, Creatinine 1.9H, Estimat Glomerular Filtration Rate , Glucose Level 187H, Hemoglobin A1c 5.5, Calcium Level 9.3, Phosphorus Level 4.0, Magnesium Level 2.0, Total Bilirubin 1.0, Gamma Glutamyl Transpeptidase 65H, Aspartate Amino Transf (AST/SGOT) 33, Alanine Aminotransferase (ALT/SGPT) 35, Alkaline Phosphatase 87, Total Creatine Kinase 113, Troponin I 0.76*H, C-Reactive Protein, Quantitative 1.6H, Pro-B-Type Natriuretic Peptide 00070M, Total Protein 6.6, Albumin 3.7, Globulin 2.9, Albumin/Globulin Ratio 1.2, Triglycerides Level 178H, Cholesterol Level 179, LDL Cholesterol 85, HDL Cholesterol 58, Cholesterol/HDL Ratio 3.1L, Thyroid Stimulating Hormone (TSH) 1.050 Height (Feet): 5 Height (Inches): 5.00 Weight (Pounds): 139 General Appearance: mild distress Cardiovascular: arrhythmia Respiratory/Chest: decreased breath sounds Abdomen: soft KEESHA MOYER Dec 12, 2016 15:16
[2016-12-12] MEDS ORDERED: Heparin 25,000u/D5W 500ml 500 ML IV SCH (17:45)
[2016-12-12 17:56] LABS: TROPONIN I 2.83 ng/mL (<=0.30)
--- NOTE | 2016-12-12 19:38 | Consultation ---
Consult Note Consult Note ID Dic # [id number] ALY FALCON M.D. Dec 12, 2016 19:38
[2016-12-12 21:10] LABS: ABG PCO2 36.8 mmHg (35.0-45.0)
[2016-12-12 21:11] LABS: ABG ALLEN TEST POSITIVE; ABG BASE EXCESS -9.6
[2016-12-12 22:22] LABS: ABG BASE EXCESS -11.9
[2016-12-12 22:23] LABS: ABG ALLEN TEST POSITIVE
[2016-12-12 22:26] LABS: BASOPHILS % (AUTO) 0.8 % (0.0-2.0); EOSINOPHILS % (AUTO) 0.1 % (0.0-3.0); LYMPHOCYTES % (AUTO) 5.5 % (20.0-45.0); MEAN CORPUSCULAR HEMOGLOBIN 25.2 PG (27.0-31.0); MEAN CORPUSCULAR HGB CONC 30.5 G/DL (32.0-36.0); MEAN CORPUSCULAR VOLUME 82 FL (80-99); MEAN PLATELET VOLUME 6.7 FL (6.5-10.1); MONOCYTES % (AUTO) 9.5 % (1.0-10.0); NEUTROPHILS % (AUTO) 84.2 % (45.0-75.0); PLATELET COUNT 283 K/UL (150-450); RED BLOOD COUNT 6.17 M/UL (4.70-6.10); RED CELL DISTRIBUTION WIDTH 16.1 % (11.6-14.8); WHITE BLOOD COUNT 14.9 K/UL (4.8-10.8)
[2016-12-12 22:54] LABS: ALANINE AMINOTRANSFERASE 40 U/L (3-41); ALBUMIN/GLOBULIN RATIO 1.2 (1.0-2.7); ANION GAP 25 (5-15); ASPARTATE AMINO TRANSFERASE 44 U/L (5-40); CALCIUM 9.5 mg/dL (8.6-10.2); CARBON DIOXIDE 15 mEQ/L (20-30); CHLORIDE 96 mEQ/L (98-107); CREATININE 2.7 mg/dL (0.7-1.2); HEMOLYSIS 7; POTASSIUM 5.2 mEQ/L (3.4-4.9); SODIUM 136 mEQ/L (135-145); TOTAL PROTEIN 7.3 g/dL (6.6-8.7)
[2016-12-12 23:27] LABS: TROPONIN I 1.97 ng/mL (<=0.30)
[2016-12-12 23:39] LABS: BILIRUBIN,DIRECT 0.3 mg/dL (0.1-0.3)
[2016-12-13] VITALS (24 sets, daily range): BP systolic 90–140; BP diastolic 57–103
[2016-12-13] MEDS: DuoNeb 0.5-3(2.5)mg/3ml neb HHN SCH ×4 (01:15→19:00)
[2016-12-13] MEDS: Aztreonam Inj 0.5 GM in D5W 55 ML IVPB SCH ×3 (01:43→16:05)
[2016-12-13] MEDS: LORazepam Inj 2mg/ml 1ml IV PRN (01:44)
--- NOTE | 2016-12-13 03:07 | Consultation ---
DATE OF CONSULTATION: 12/12/2016 INFECTIOUS DISEASE CONSULTATION CONSULTING PHYSICIAN: Alex Herrera M.D. REFERRING PHYSICIAN: Charlette Schwartz M.D. REASON FOR CONSULTATION: Evaluation of patient with sepsis and antibiotic management. HISTORY OF PRESENT ILLNESS: The patient is an 86-year-old male with multiple medical problems, who has been admitted to this medical center. The patient was diagnosed for possible pneumonia and was started on intravenous antibiotics. Infectious Disease consultation has been requested for further evaluation of the patient's antibiotic management. PAST MEDICAL HISTORY: 1. History of aortic valve stenosis. 2. History of CAD. 3. Gout. 4. Hypertension. MEDICATIONS: Aztreonam. ALLERGIES: Penicillin and Cipro. SOCIAL HISTORY: Ex-smoker. No alcohol or drug abuse. FAMILY HISTORY: Noncontributory. REVIEW OF SYSTEMS: Limited.Pulmonary: The patient has cough and shortness of breath. Cardiovascular: As mentioned above. Renal: As mentioned above. PHYSICAL EXAMINATION: VITAL SIGNS: Temperature 97.6 degrees, blood pressure 114/80, pulse 86, and respiratory rate 16. HEENT: Mild pale conjunctivae. No icterus. NECK: No lymphadenopathy. CHEST: Coarse breathing sounds. HEART: S1 and S2. ABDOMEN: Soft. EXTREMITIES: No cyanosis. NEUROLOGIC: Awake. LABORATORY DATA: WBC 10, hemoglobin 14, and platelets 176,000. UA unremarkable. BUN 45 and creatinine 1.9. ALT, AST and alkaline phosphatase within normal range at 2.83. ASSESSMENT: The patient is an 86-year-old male with multiple medical problems, who was admitted to this medical center. The patient's chest x-ray showed left lower lobe basilar infiltrate. The patient has been started on aztreonam. We will add Zithromax for coverage since the patient community. PLAN: 1. We will monitor CBC. 2. We will monitor BMP. 3. Continue Aztreonam and Zithromax. 4. Monitor cultures (blood and sputum). 5. Monitor chest x-ray. 6. Based on patient's clinical course and laboratories, we will do further recommendations. Thank you, Dr. Schwartz, for allowing me to participate in the care of this patient. I will follow the patient with you during this consultation. Alex Herrera M.D. DR: SANAZ JOB#: [id number] CC:
[2016-12-13] MEDS ORDERED: Morphine Sulfate 2mg/ml Inj IVP ONE (04:45)
[2016-12-13] MEDS ORDERED: LORazepam Inj 2mg/ml 1ml IV ONE (04:45)
[2016-12-13 05:10] LABS: MEAN CORPUSCULAR HGB CONC 31.5 G/DL (32.0-36.0); MEAN CORPUSCULAR VOLUME 80 FL (80-99); MEAN PLATELET VOLUME 6.5 FL (6.5-10.1); PLATELET COUNT 179 K/UL (150-450); RED BLOOD COUNT 5.98 M/UL (4.70-6.10); RED CELL DISTRIBUTION WIDTH 16.5 % (11.6-14.8); WHITE BLOOD COUNT 14.7 K/UL (4.8-10.8)
[2016-12-13 05:34] LABS: ALANINE AMINOTRANSFERASE 384 U/L (3-41); ALBUMIN/GLOBULIN RATIO 1.1 (1.0-2.7); ANION GAP 23 (5-15); ASPARTATE AMINO TRANSFERASE 376 U/L (5-40); CALCIUM 8.9 mg/dL (8.6-10.2); CARBON DIOXIDE 15 mEQ/L (20-30); CHLORIDE 98 mEQ/L (98-107); CREATININE 2.9 mg/dL (0.7-1.2); HEMOLYSIS 12; POTASSIUM 4.7 mEQ/L (3.4-4.9); SODIUM 136 mEQ/L (135-145); TOTAL PROTEIN 6.7 g/dL (6.6-8.7)
[2016-12-13 06:53] LABS: BILIRUBIN,DIRECT 0.3 mg/dL (0.1-0.3)
[2016-12-13 07:10] LABS: TROPONIN I 3.4 ng/mL (<=0.30)
[2016-12-13 07:12] LABS: ABG ALLEN TEST POSITIVE; ABG BASE EXCESS -8.6; ABG PCO2 28.5 mmHg (35.0-45.0)
[2016-12-13] MEDS: Theophylline ER 100mg ORAL SCH ×2 (09:50→21:00)
--- NOTE | 2016-12-13 09:53 | Diagnostic Imaging Report ---
Indication: Abnormal chest sounds Technique: One view of the chest Comparison: 12/10/2016 Findings: There is increased interstitial edema, as well as some airspace edema. There may be oral fluid developing on the right. The heart is borderline enlarged. Impression: Increased interstitial and airspace edema over 2 days New or increased right-sided pleural effusion Cardiomegaly This agrees with the preliminary interpretation provided overnight by Dr. Nichole
--- NOTE | 2016-12-13 10:45 | Pulmonolgy Critical Care Note ---
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 Respiratory: monitor respiratory rate, adjust FIO2 Cardiac: continue to monitor HR/BP Renal: F/U I&O, other - start laxis drip Infectious Disease: check cultures Gastrointestinal: continue feedings/current rate Endocrine: monitor blood sugar, continue sliding scale insulin Hematologic: monitor H/H, transfuse if hgb<8.5 Neurologic: PRN Ativan, keep patient comfortable Disposition: keep in ICU 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, 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, 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 with: nurses, consultants, 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 - Objective Last 24 Hour Vital Signs Date Time Temp Pulse Resp B/P Pulse Ox O2 Delivery O2 Flow Rate FiO2 12/13/16 09:00 99.7 88 26 96/63 96 Non-Rebreather 100 12/13/16 08:00 87 26 108/66 97 Non-Rebreather 100 12/13/16 07:00 90 27 114/66 97 Non-Rebreather 100 12/13/16 06:32 Non-Rebreather 15.0 100 12/13/16 06:32 97 Non-Rebreather 15.0 100 12/13/16 06:30 87 25 95 Non-Rebreather 15.0 100 12/13/16 06:25 87 24 97 Non-Rebreather 15.0 100 12/13/16 06:00 88 28 108/70 95 Non-Rebreather 100 12/13/16 05:23 97.6 12/13/16 05:00 91 30 118/76 95 Non-Rebreather 100 12/13/16 04:00 93 12/13/16 04:00 97.8 93 30 119/75 94 Non-Rebreather 100 12/13/16 03:00 94 31 121/85 94 Non-Rebreather 100 12/13/16 02:16 97.6 12/13/16 02:00 91 31 116/74 95 Non-Rebreather 100 12/13/16 01:23 108 22 Non-Rebreather 15.0 100 12/13/16 01:15 104 22 Non-Rebreather 15.0 100 12/13/16 01:15 100 12/13/16 01:00 104 33 140/82 90 Non-Rebreather 100 12/13/16 00:00 97.8 99 38 129/103 88 Non-Rebreather 100 12/13/16 00:00 81 12/12/16 23:30 95 30 129/93 93 Non-Rebreather 100 12/12/16 23:00 98 32 119/67 91 Non-Rebreather 100 12/12/16 22:30 100 33 153/90 89 Non-Rebreather 100 12/12/16 22:00 95 33 150/98 85 Non-Rebreather 100 12/12/16 21:30 90 30 154/90 83 Non-Rebreather 100 12/12/16 21:00 88 32 112/65 82 Venturi Mask 55 12/12/16 20:30 100 33 108/60 85 Venturi Mask 55 12/12/16 20:27 95 12/12/16 20:00 97.6 95 30 114/88 92 Venturi Mask 55 12/12/16 19:30 84 29 99/52 97 Venturi Mask 14.0 55 12/12/16 19:04 88 22 93 Venturi Mask 14.0 55 12/12/16 19:00 87 29 128/78 95 Venturi Mask 14.0 55 12/12/16 18:55 88 22 92 Venturi Mask 10.0 45 12/12/16 18:55 45 12/12/16 18:30 80 33 129/74 90 Nasal Cannula 3.0 12/12/16 18:00 83 27 96/47 91 Nasal Cannula 3.0 12/12/16 17:30 90 24 100/63 90 Nasal Cannula 3.0 12/12/16 17:00 79 21 114/83 91 Nasal Cannula 2.0 12/12/16 16:30 78 33 112/69 93 Nasal Cannula 2.0 12/12/16 16:00 82 12/12/16 16:00 97.7 81 33 117/69 93 Nasal Cannula 2.0 12/12/16 15:30 79 32 100/56 91 Nasal Cannula 2.0 12/12/16 15:00 76 29 109/76 92 Nasal Cannula 2.0 12/12/16 14:30 84 28 123/76 91 Nasal Cannula 2.0 12/12/16 14:00 75 30 94/63 91 Nasal Cannula 2.0 12/12/16 13:30 73 30 94/54 92 Nasal Cannula 2.0 12/12/16 13:07 73 18 96 Nasal Cannula 4.0 12/12/16 13:05 71 16 93 Nasal Cannula 4.0 12/12/16 13:00 71 30 96/62 92 Nasal Cannula 2.0 12/12/16 12:30 73 30 107/69 92 Nasal Cannula 2.0 12/12/16 12:00 98.9 80 32 98/40 94 Nasal Cannula 2.0 12/12/16 12:00 140 12/12/16 11:30 75 28 91/56 92 Nasal Cannula 2.0 12/12/16 11:00 70 29 89/57 91 Nasal Cannula 2.0 Status: awake Condition: critical HEENT: normocephalic Neck: full ROM Heart: HR/BP stable Abdomen: soft Extremities: no C/C/E, edema Decubiti: location Critical Care - Subjective ROS Limited/Unobtainable: No ICU Day: 2 Interval Events: transferred to ICU because of rapid heart rate, 100% non-rebreathing mask Condition: critical FI02: 100 Sputum Amount: None Drips: starting lasix drip I&O: Intake and Output 12/12/16 12/13/16 19:00 07:00 Intake Total 1124.994 ml 201.50 ml Output Total 250 ml 345 ml Balance 874.994 ml -143.50 ml Intake Oral 240 ml 0 ml IV Total 884.994 ml 201.50 ml Output Urine Total 250 ml 345 ml # Bowel Movements 1 CXR: worsening pulmonary edema Labs: Laboratory Tests Test 12/12/16 16:15 12/12/16 21:05 12/12/16 21:55 12/12/16 22:15 Activated Partial Thromboplast Time 63 SEC (23-33) H Troponin I 2.83 ng/mL (<=0.30) *H 1.97 ng/mL (<=0.30) *H Arterial Blood pH 7.268 (7.350-7.450) 7.243 (7.350-7.450) Arterial Blood Partial Pressure CO2 36.8 mmHg (35.0-45.0) 34.0 mmHg (35.0-45.0) L Arterial Blood Partial Pressure O2 46.7 mmHg (75.0-100.0) 62.1 mmHg (75.0-100.0) L Arterial Blood HCO3 16.4 mmol/L (22.0-26.0) L 14.3 mmol/L (22.0-26.0) L Arterial Blood Oxygen Saturation 77.4 % (92.0-98.0) L 87.5 % (92.0-98.0) L Arterial Blood Base Excess -9.6 -11.9 Arnie Test Positive Positive White Blood Count 14.9 K/UL (4.8-10.8) H Red Blood Count 6.17 M/UL (4.70-6.10) H Hemoglobin 15.5 G/DL (14.2-18.0) Hematocrit 50.9 % (42.0-52.0) Mean Corpuscular Volume 82 FL (80-99) Mean Corpuscular Hemoglobin 25.2 PG (27.0-31.0) L Mean Corpuscular Hemoglobin Concent 30.5 G/DL (32.0-36.0) L Red Cell Distribution Width 16.1 % (11.6-14.8) H Platelet Count 283 K/UL (150-450) # Mean Platelet Volume 6.7 FL (6.5-10.1) Neutrophils (%) (Auto) 84.2 % (45.0-75.0) H Lymphocytes (%) (Auto) 5.5 % (20.0-45.0) L Monocytes (%) (Auto) 9.5 % (1.0-10.0) Eosinophils (%) (Auto) 0.1 % (0.0-3.0) Basophils (%) (Auto) 0.8 % (0.0-2.0) Sodium Level 136 mEQ/L (135-145) Potassium Level 5.2 mEQ/L (3.4-4.9) H Chloride Level 96 mEQ/L (98-107) L Carbon Dioxide Level 15 mEQ/L (20-30) L Anion Gap 25 (5-15) H Blood Urea Nitrogen 53 mg/dL (7-23) H Creatinine 2.7 mg/dL (0.7-1.2) H Estimat Glomerular Filtration Rate mL/min (>60) Glucose Level 173 mg/dL (74-106) H Calcium Level 9.5 mg/dL (8.6-10.2) Total Bilirubin 1.6 mg/dL (0.0-1.2) H Direct Bilirubin 0.3 mg/dL (0.1-0.3) Aspartate Amino Transf (AST/SGOT) 44 U/L (5-40) H Alanine Aminotransferase (ALT/SGPT) 40 U/L (3-41) Alkaline Phosphatase 98 U/L (40-129) Total Protein 7.3 g/dL (6.6-8.7) Albumin 4.0 g/dL (3.5-5.2) Globulin 3.3 g/dL Albumin/Globulin Ratio 1.2 (1.0-2.7) Test 12/12/16 23:15 12/13/16 03:00 12/13/16 06:55 12/13/16 08:00 Activated Partial Thromboplast Time 51 SEC (23-33) H White Blood Count 14.7 K/UL (4.8-10.8) H Red Blood Count 5.98 M/UL (4.70-6.10) Hemoglobin 15.0 G/DL (14.2-18.0) Hematocrit 47.5 % (42.0-52.0) Mean Corpuscular Volume 80 FL (80-99) Mean Corpuscular Hemoglobin 25.0 PG (27.0-31.0) L Mean Corpuscular Hemoglobin Concent 31.5 G/DL (32.0-36.0) L Red Cell Distribution Width 16.5 % (11.6-14.8) H Platelet Count 179 K/UL (150-450) Mean Platelet Volume 6.5 FL (6.5-10.1) Neutrophils (%) (Auto) % (45.0-75.0) Lymphocytes (%) (Auto) % (20.0-45.0) Monocytes (%) (Auto) % (1.0-10.0) Eosinophils (%) (Auto) % (0.0-3.0) Basophils (%) (Auto) % (0.0-2.0) Sodium Level 136 mEQ/L (135-145) Potassium Level 4.7 mEQ/L (3.4-4.9) Chloride Level 98 mEQ/L (98-107) Carbon Dioxide Level 15 mEQ/L (20-30) L Anion Gap 23 (5-15) H Blood Urea Nitrogen 57 mg/dL (7-23) H Creatinine 2.9 mg/dL (0.7-1.2) H Estimat Glomerular Filtration Rate mL/min (>60) Glucose Level 158 mg/dL (74-106) H Calcium Level 8.9 mg/dL (8.6-10.2) Total Bilirubin 1.6 mg/dL (0.0-1.2) H Direct Bilirubin 0.3 mg/dL (0.1-0.3) Aspartate Amino Transf (AST/SGOT) 376 U/L (5-40) H Alanine Aminotransferase (ALT/SGPT) 384 U/L (3-41) H Alkaline Phosphatase 89 U/L (40-129) Troponin I 3.40 ng/mL (<=0.30) *H Pro-B-Type Natriuretic Peptide 65862 pg/mL (0-450) H Total Protein 6.7 g/dL (6.6-8.7) Albumin 3.6 g/dL (3.5-5.2) Globulin 3.1 g/dL Albumin/Globulin Ratio 1.1 (1.0-2.7) Arterial Blood pH 7.350 (7.350-7.450) Arterial Blood Partial Pressure CO2 28.5 mmHg (35.0-45.0) L Arterial Blood Partial Pressure O2 122.3 mmHg (75.0-100.0) H Arterial Blood HCO3 15.4 mmol/L (22.0-26.0) L Arterial Blood Oxygen Saturation 98.0 % (92.0-98.0) Arterial Blood Base Excess -8.6 Arnie Test Positive Ammonia 57 umol/L (16-60) FRANNY MENDES Dec 13, 2016 10:45
--- NOTE | 2016-12-13 11:13 | Diagnostic Imaging Report ---
Indication: DYSPNEA Technique: One view of the chest Comparison: 12/12/2016 Findings: There is increased bilateral interstitial and alveolar edema. There are is increased pleural fluid on the right. Heart remains enlarged. Impression: Increased interstitial and alveolar edema and right-sided pleural effusion, over one day
--- NOTE | 2016-12-13 12:34 | Diagnostic Imaging Report ---
APPROVED REPORT CPT Code: 12782 Vascular Symptoms CVA/TIA: Doppler Spectral Velocity Analysis RightLeft RIGHT SIDE: CCA - Imaging reveals no significant plaque in the common carotid artery. ICA arteries. The Doppler signal indicates the degree of stenosis is minimal (10-20%) in the internal carotid, and external carotid arteries. VERTEBRAL - The vertebral artery is patent, without evidence of stenosis or steal. LEFT SIDE: CCA - Imaging reveals no significant plaque in the common carotid artery. ICA arteries. The Doppler signal indicates the degree of stenosis is minimal (15%) in the internal carotid, and external carotid arteries. VERTEBRAL - The vertebral artery is patent, without evidence of stenosis or steal.
--- NOTE | 2016-12-13 13:59 | Infectious Diseases Prog Note ---
Assessment/Plan Assessment/Plan A: The patient is an 86-year-old male with Leukocytosis sepsis probable Pneumonia C- x-ray: left lower lobe basilar infiltrate DANIEL CE + History of aortic valve stenosis. CAD. Gout HTN PLAN: Continue Aztreonam and Doxy d# 2 , add IV Vanco d# 1 monitor CBC. monitor BMP. Monitor cultures (blood and sputum). Monitor chest x-ray. Subjective Allergies: Coded Allergies: CIPROFLOXACIN (Verified Allergy, Unknown, 12/10/16) PENICILLINS (Verified Allergy, Unknown, 12/10/16) Objective Vital Signs Last 24 Hour Vital Signs Date Time Temp Pulse Resp B/P Pulse Ox O2 Delivery O2 Flow Rate FiO2 12/13/16 13:00 85 27 101/57 92 Non-Rebreather 100 12/13/16 12:45 88 22 97 Non-Rebreather 15.0 100 12/13/16 12:40 86 21 94 Non-Rebreather 15.0 100 12/13/16 12:00 99.4 86 27 113/71 96 Non-Rebreather 100 12/13/16 11:00 84 25 90/63 96 Non-Rebreather 100 12/13/16 10:00 86 25 111/72 96 Non-Rebreather 100 12/13/16 09:00 99.7 88 26 96/63 96 Non-Rebreather 100 12/13/16 08:00 87 26 108/66 97 Non-Rebreather 100 12/13/16 07:00 90 27 114/66 97 Non-Rebreather 100 12/13/16 06:32 Non-Rebreather 15.0 100 12/13/16 06:32 97 Non-Rebreather 15.0 100 12/13/16 06:30 87 25 95 Non-Rebreather 15.0 100 12/13/16 06:25 87 24 97 Non-Rebreather 15.0 100 12/13/16 06:00 88 28 108/70 95 Non-Rebreather 100 12/13/16 05:23 97.6 12/13/16 05:00 91 30 118/76 95 Non-Rebreather 100 12/13/16 04:00 93 12/13/16 04:00 97.8 93 30 119/75 94 Non-Rebreather 100 12/13/16 03:00 94 31 121/85 94 Non-Rebreather 100 12/13/16 02:16 97.6 12/13/16 02:00 91 31 116/74 95 Non-Rebreather 100 12/13/16 01:23 108 22 Non-Rebreather 15.0 100 12/13/16 01:15 104 22 Non-Rebreather 15.0 100 12/13/16 01:15 100 12/13/16 01:00 104 33 140/82 90 Non-Rebreather 100 12/13/16 00:00 97.8 99 38 129/103 88 Non-Rebreather 100 12/13/16 00:00 81 12/12/16 23:30 95 30 129/93 93 Non-Rebreather 100 12/12/16 23:00 98 32 119/67 91 Non-Rebreather 100 12/12/16 22:30 100 33 153/90 89 Non-Rebreather 100 12/12/16 22:00 95 33 150/98 85 Non-Rebreather 100 12/12/16 21:30 90 30 154/90 83 Non-Rebreather 100 12/12/16 21:00 88 32 112/65 82 Venturi Mask 55 12/12/16 20:30 100 33 108/60 85 Venturi Mask 55 12/12/16 20:27 95 12/12/16 20:00 97.6 95 30 114/88 92 Venturi Mask 55 12/12/16 19:30 84 29 99/52 97 Venturi Mask 14.0 55 12/12/16 19:04 88 22 93 Venturi Mask 14.0 55 12/12/16 19:00 87 29 128/78 95 Venturi Mask 14.0 55 12/12/16 18:55 88 22 92 Venturi Mask 10.0 45 12/12/16 18:55 45 12/12/16 18:30 80 33 129/74 90 Nasal Cannula 3.0 12/12/16 18:00 83 27 96/47 91 Nasal Cannula 3.0 12/12/16 17:30 90 24 100/63 90 Nasal Cannula 3.0 12/12/16 17:00 79 21 114/83 91 Nasal Cannula 2.0 12/12/16 16:30 78 33 112/69 93 Nasal Cannula 2.0 12/12/16 16:00 82 12/12/16 16:00 97.7 81 33 117/69 93 Nasal Cannula 2.0 12/12/16 15:30 79 32 100/56 91 Nasal Cannula 2.0 12/12/16 15:00 76 29 109/76 92 Nasal Cannula 2.0 12/12/16 14:30 84 28 123/76 91 Nasal Cannula 2.0 12/12/16 14:00 75 30 94/63 91 Nasal Cannula 2.0 Height (Feet): 5 Height (Inches): 5.00 Weight (Pounds): 139 Microbiology Date/Time Source Procedure Growth Status 12/12/16 02:50 Sputum Gram Stain - Final Resulted 12/12/16 02:50 Sputum Sputum Culture Pending Resulted Laboratory Tests Test 12/12/16 16:15 12/12/16 21:05 12/12/16 21:55 12/12/16 22:15 Activated Partial Thromboplast Time 63 SEC (23-33) H Troponin I 2.83 ng/mL (<=0.30) *H 1.97 ng/mL (<=0.30) *H Arterial Blood pH 7.268 (7.350-7.450) 7.243 (7.350-7.450) Arterial Blood Partial Pressure CO2 36.8 mmHg (35.0-45.0) 34.0 mmHg (35.0-45.0) L Arterial Blood Partial Pressure O2 46.7 mmHg (75.0-100.0) 62.1 mmHg (75.0-100.0) L Arterial Blood HCO3 16.4 mmol/L (22.0-26.0) L 14.3 mmol/L (22.0-26.0) L Arterial Blood Oxygen Saturation 77.4 % (92.0-98.0) L 87.5 % (92.0-98.0) L Arterial Blood Base Excess -9.6 -11.9 Arnie Test Positive Positive White Blood Count 14.9 K/UL (4.8-10.8) H Red Blood Count 6.17 M/UL (4.70-6.10) H Hemoglobin 15.5 G/DL (14.2-18.0) Hematocrit 50.9 % (42.0-52.0) Mean Corpuscular Volume 82 FL (80-99) Mean Corpuscular Hemoglobin 25.2 PG (27.0-31.0) L Mean Corpuscular Hemoglobin Concent 30.5 G/DL (32.0-36.0) L Red Cell Distribution Width 16.1 % (11.6-14.8) H Platelet Count 283 K/UL (150-450) # Mean Platelet Volume 6.7 FL (6.5-10.1) Neutrophils (%) (Auto) 84.2 % (45.0-75.0) H Lymphocytes (%) (Auto) 5.5 % (20.0-45.0) L Monocytes (%) (Auto) 9.5 % (1.0-10.0) Eosinophils (%) (Auto) 0.1 % (0.0-3.0) Basophils (%) (Auto) 0.8 % (0.0-2.0) Sodium Level 136 mEQ/L (135-145) Potassium Level 5.2 mEQ/L (3.4-4.9) H Chloride Level 96 mEQ/L (98-107) L Carbon Dioxide Level 15 mEQ/L (20-30) L Anion Gap 25 (5-15) H Blood Urea Nitrogen 53 mg/dL (7-23) H Creatinine 2.7 mg/dL (0.7-1.2) H Estimat Glomerular Filtration Rate mL/min (>60) Glucose Level 173 mg/dL (74-106) H Calcium Level 9.5 mg/dL (8.6-10.2) Total Bilirubin 1.6 mg/dL (0.0-1.2) H Direct Bilirubin 0.3 mg/dL (0.1-0.3) Aspartate Amino Transf (AST/SGOT) 44 U/L (5-40) H Alanine Aminotransferase (ALT/SGPT) 40 U/L (3-41) Alkaline Phosphatase 98 U/L (40-129) Total Protein 7.3 g/dL (6.6-8.7) Albumin 4.0 g/dL (3.5-5.2) Globulin 3.3 g/dL Albumin/Globulin Ratio 1.2 (1.0-2.7) Test 12/12/16 23:15 12/13/16 03:00 12/13/16 06:55 12/13/16 08:00 Activated Partial Thromboplast Time 51 SEC (23-33) H White Blood Count 14.7 K/UL (4.8-10.8) H Red Blood Count 5.98 M/UL (4.70-6.10) Hemoglobin 15.0 G/DL (14.2-18.0) Hematocrit 47.5 % (42.0-52.0) Mean Corpuscular Volume 80 FL (80-99) Mean Corpuscular Hemoglobin 25.0 PG (27.0-31.0) L Mean Corpuscular Hemoglobin Concent 31.5 G/DL (32.0-36.0) L Red Cell Distribution Width 16.5 % (11.6-14.8) H Platelet Count 179 K/UL (150-450) Mean Platelet Volume 6.5 FL (6.5-10.1) Neutrophils (%) (Auto) % (45.0-75.0) Lymphocytes (%) (Auto) % (20.0-45.0) Monocytes (%) (Auto) % (1.0-10.0) Eosinophils (%) (Auto) % (0.0-3.0) Basophils (%) (Auto) % (0.0-2.0) Sodium Level 136 mEQ/L (135-145) Potassium Level 4.7 mEQ/L (3.4-4.9) Chloride Level 98 mEQ/L (98-107) Carbon Dioxide Level 15 mEQ/L (20-30) L Anion Gap 23 (5-15) H Blood Urea Nitrogen 57 mg/dL (7-23) H Creatinine 2.9 mg/dL (0.7-1.2) H Estimat Glomerular Filtration Rate mL/min (>60) Glucose Level 158 mg/dL (74-106) H Calcium Level 8.9 mg/dL (8.6-10.2) Total Bilirubin 1.6 mg/dL (0.0-1.2) H Direct Bilirubin 0.3 mg/dL (0.1-0.3) Aspartate Amino Transf (AST/SGOT) 376 U/L (5-40) H Alanine Aminotransferase (ALT/SGPT) 384 U/L (3-41) H Alkaline Phosphatase 89 U/L (40-129) Troponin I 3.40 ng/mL (<=0.30) *H Pro-B-Type Natriuretic Peptide 15473 pg/mL (0-450) H Total Protein 6.7 g/dL (6.6-8.7) Albumin 3.6 g/dL (3.5-5.2) Globulin 3.1 g/dL Albumin/Globulin Ratio 1.1 (1.0-2.7) Arterial Blood pH 7.350 (7.350-7.450) Arterial Blood Partial Pressure CO2 28.5 mmHg (35.0-45.0) L Arterial Blood Partial Pressure O2 122.3 mmHg (75.0-100.0) H Arterial Blood HCO3 15.4 mmol/L (22.0-26.0) L Arterial Blood Oxygen Saturation 98.0 % (92.0-98.0) Arterial Blood Base Excess -8.6 Arnie Test Positive Ammonia 57 umol/L (16-60) Current Medications Medications (Trade) Dose Ordered Sig/Curtis Route PRN Reason Start Time Stop Time Status Last Admin Dose Admin Acetaminophen (Tylenol) 650 mg Q4H PRN ORAL fever 12/12/16 06:45 01/11/17 06:44 Albuterol/ Ipratropium (DuoNeb 0.5-3(2.5)mg/3ml) 3 ml Q4H PRN HHN Shortness of Breath 12/12/16 06:47 12/17/16 06:46 Albuterol/ Ipratropium (DuoNeb 0.5-3(2.5)mg/3ml) 3 ml Q6HRT HHN 12/12/16 07:00 12/17/16 06:59 12/13/16 12:49 Aztreonam/Dextrose (Azactam/D5W) 55 ml @ 110 mls/hr Q8H IVPB 12/12/16 08:00 12/19/16 07:59 12/13/16 08:02 Dextrose (Dextrose 50%) STAT PRN IV Hypoglycemia 12/12/16 06:47 01/11/17 06:46 Doxycycline Monohydrate 100 mg 100 mg EVERY 12 HOURS ORAL 12/12/16 22:30 12/19/16 22:29 12/13/16 09:50 Furosemide/ Dextrose (Lasix/D5W) 100 ml @ 10 mls/hr Q10H IV 12/13/16 13:00 01/12/17 12:59 12/13/16 13:44 Lorazepam (Ativan 2mg/ml 1ml) 0.5 mg Q4H PRN IV For Anxiety 12/12/16 06:48 12/19/16 06:47 12/13/16 01:44 Morphine Sulfate (Morphine Sulfate) 1 mg Q4H PRN IVP For Pain 7-10 12/12/16 06:48 12/19/16 06:47 12/13/16 01:45 Nitroglycerin (Ntg) 0.4 mg Q5M X 3 DOSES PRN SL Prn Chest Pain 12/12/16 06:30 01/11/17 06:29 Ondansetron HCl (Zofran) 4 mg Q6H PRN IVP Nausea & Vomiting 12/12/16 06:48 01/11/17 06:47 12/12/16 07:23 Polyethylene Glycol (Miralax) 17 gm HSPRN PRN ORAL Constipation 12/12/16 06:49 01/11/17 06:48 Promethazine HCl/ Codeine (Phenergan with Codeine) 5 ml Q4H PRN ORAL For Cough 12/12/16 06:49 01/11/17 06:48 Temazepam (Restoril) 15 mg HSPRN PRN ORAL Insomnia 12/12/16 06:49 12/19/16 06:48 12/12/16 09:31 Theophylline (Juan-Dur) 100 mg EVERY 12 HOURS ORAL 12/12/16 09:00 01/11/17 08:59 12/13/16 09:50 ALY FALCON M.D. Dec 13, 2016 13:59
--- NOTE | 2016-12-13 14:33 | General Progress Note ---
Assessment/Plan Status: deteriorating Status Narrative troponin gladys Assessment/Plan status; Renal failure , likely chronic . Has one functioning kidney- lost one after trauma in [place] at age 13- WORSENING ? [place] CHF worsening admitted for Syncope- Anemia Gout Plan: [place] Guillory, Optimize cardiac status Urine studies- Monitor renal parameters- Avoid Nephrotoxics- Kidney JOSÉ Per orders Subjective ROS Limited/Unobtainable: No Constitutional: Reports: malaise, other - on mask, weakness Respiratory: Reports: shortness of breath Allergies: Coded Allergies: CIPROFLOXACIN (Verified Allergy, Unknown, 12/10/16) PENICILLINS (Verified Allergy, Unknown, 12/10/16) Objective Last 24 Hour Vital Signs Date Time Temp Pulse Resp B/P Pulse Ox O2 Delivery O2 Flow Rate FiO2 12/13/16 14:00 88 28 127/71 95 Non-Rebreather 15.0 100 12/13/16 13:00 85 27 101/57 92 Non-Rebreather 100 12/13/16 12:45 88 22 97 Non-Rebreather 15.0 100 12/13/16 12:40 86 21 94 Non-Rebreather 15.0 100 12/13/16 12:00 99.4 86 27 113/71 96 Non-Rebreather 100 12/13/16 11:00 84 25 90/63 96 Non-Rebreather 100 12/13/16 10:00 86 25 111/72 96 Non-Rebreather 100 12/13/16 09:00 99.7 88 26 96/63 96 Non-Rebreather 100 12/13/16 08:00 87 26 108/66 97 Non-Rebreather 100 12/13/16 07:00 90 27 114/66 97 Non-Rebreather 100 12/13/16 06:32 Non-Rebreather 15.0 100 12/13/16 06:32 97 Non-Rebreather 15.0 100 12/13/16 06:30 87 25 95 Non-Rebreather 15.0 100 12/13/16 06:25 87 24 97 Non-Rebreather 15.0 100 12/13/16 06:00 88 28 108/70 95 Non-Rebreather 100 12/13/16 05:23 97.6 12/13/16 05:00 91 30 118/76 95 Non-Rebreather 100 12/13/16 04:00 93 12/13/16 04:00 97.8 93 30 119/75 94 Non-Rebreather 100 12/13/16 03:00 94 31 121/85 94 Non-Rebreather 100 12/13/16 02:16 97.6 12/13/16 02:00 91 31 116/74 95 Non-Rebreather 100 12/13/16 01:23 108 22 Non-Rebreather 15.0 100 12/13/16 01:15 104 22 Non-Rebreather 15.0 100 12/13/16 01:15 100 12/13/16 01:00 104 33 140/82 90 Non-Rebreather 100 12/13/16 00:00 97.8 99 38 129/103 88 Non-Rebreather 100 12/13/16 00:00 81 12/12/16 23:30 95 30 129/93 93 Non-Rebreather 100 12/12/16 23:00 98 32 119/67 91 Non-Rebreather 100 12/12/16 22:30 100 33 153/90 89 Non-Rebreather 100 12/12/16 22:00 95 33 150/98 85 Non-Rebreather 100 12/12/16 21:30 90 30 154/90 83 Non-Rebreather 100 12/12/16 21:00 88 32 112/65 82 Venturi Mask 55 12/12/16 20:30 100 33 108/60 85 Venturi Mask 55 12/12/16 20:27 95 12/12/16 20:00 97.6 95 30 114/88 92 Venturi Mask 55 12/12/16 19:30 84 29 99/52 97 Venturi Mask 14.0 55 12/12/16 19:04 88 22 93 Venturi Mask 14.0 55 12/12/16 19:00 87 29 128/78 95 Venturi Mask 14.0 55 12/12/16 18:55 88 22 92 Venturi Mask 10.0 45 12/12/16 18:55 45 12/12/16 18:30 80 33 129/74 90 Nasal Cannula 3.0 12/12/16 18:00 83 27 96/47 91 Nasal Cannula 3.0 12/12/16 17:30 90 24 100/63 90 Nasal Cannula 3.0 12/12/16 17:00 79 21 114/83 91 Nasal Cannula 2.0 12/12/16 16:30 78 33 112/69 93 Nasal Cannula 2.0 12/12/16 16:00 82 12/12/16 16:00 97.7 81 33 117/69 93 Nasal Cannula 2.0 12/12/16 15:30 79 32 100/56 91 Nasal Cannula 2.0 12/12/16 15:00 76 29 109/76 92 Nasal Cannula 2.0 Intake and Output 12/12/16 12/13/16 19:00 07:00 Intake Total 1124.994 ml 201.50 ml Output Total 250 ml 345 ml Balance 874.994 ml -143.50 ml Intake Oral 240 ml 0 ml IV Total 884.994 ml 201.50 ml Output Urine Total 250 ml 345 ml # Bowel Movements 1 Laboratory Tests 12/12/16 16:15: Activated Partial Thromboplast Time 63H, Troponin I 2.83*H 12/12/16 21:05: Arterial Blood pH 7.268L, Arterial Blood Partial Pressure CO2 36.8, Arterial Blood Partial Pressure O2 46.7*L, Arterial Blood HCO3 16.4L, Arterial Blood Oxygen Saturation 77.4L, Arterial Blood Base Excess -9.6, Arnie Test Positive 12/12/16 21:55: Troponin I 1.97*H, White Blood Count 14.9H, Red Blood Count 6.17H, Hemoglobin 15.5, Hematocrit 50.9, Mean Corpuscular Volume 82, Mean Corpuscular Hemoglobin 25.2L, Mean Corpuscular Hemoglobin Concent 30.5L, Red Cell Distribution Width 16.1H, Platelet Count 283#, Mean Platelet Volume 6.7, Neutrophils (%) (Auto) 84.2H, Lymphocytes (%) (Auto) 5.5L, Monocytes (%) (Auto) 9.5, Eosinophils (%) ( Auto) 0.1, Basophils (%) (Auto) 0.8, Sodium Level 136, Potassium Level 5.2H, Chloride Level 96L, Carbon Dioxide Level 15L, Anion Gap 25H, Blood Urea Nitrogen 53H, Creatinine 2.7H, Estimat Glomerular Filtration Rate , Glucose Level 173H, Calcium Level 9.5, Total Bilirubin 1.6H, Direct Bilirubin 0.3, Aspartate Amino Transf (AST/SGOT) 44H, Alanine Aminotransferase (ALT/SGPT) 40, Alkaline Phosphatase 98, Total Protein 7.3, Albumin 4.0, Globulin 3.3, Albumin/ Globulin Ratio 1.2 12/12/16 22:15: Arterial Blood pH 7.243*L, Arterial Blood Partial Pressure CO2 34.0L, Arterial Blood Partial Pressure O2 62.1L, Arterial Blood HCO3 14.3L, Arterial Blood Oxygen Saturation 87.5L, Arterial Blood Base Excess -11.9, Arnie Test Positive 12/12/16 23:15: Activated Partial Thromboplast Time 51H 12/13/16 03:00: White Blood Count 14.7H, Red Blood Count 5.98, Hemoglobin 15.0, Hematocrit 47.5 , Mean Corpuscular Volume 80, Mean Corpuscular Hemoglobin 25.0L, Mean Corpuscular Hemoglobin Concent 31.5L, Red Cell Distribution Width 16.5H, Platelet Count 179, Mean Platelet Volume 6.5, Neutrophils (%) (Auto) , Lymphocytes (%) (Auto) , Monocytes (%) (Auto) , Eosinophils (%) (Auto) , Basophils (%) (Auto) , Sodium Level 136, Potassium Level 4.7, Chloride Level 98 , Carbon Dioxide Level 15L, Anion Gap 23H, Blood Urea Nitrogen 57H, Creatinine 2.9H, Estimat Glomerular Filtration Rate , Glucose Level 158H, Calcium Level 8.9 , Total Bilirubin 1.6H, Direct Bilirubin 0.3, Aspartate Amino Transf (AST/SGOT) 376H, Alanine Aminotransferase (ALT/SGPT) 384H, Alkaline Phosphatase 89, Troponin I 3.40*H, Pro-B-Type Natriuretic Peptide 11082Y, Total Protein 6.7, Albumin 3.6, Globulin 3.1, Albumin/Globulin Ratio 1.1 12/13/16 06:55: Arterial Blood pH 7.350, Arterial Blood Partial Pressure CO2 28.5L, Arterial Blood Partial Pressure O2 122.3H, Arterial Blood HCO3 15.4L, Arterial Blood Oxygen Saturation 98.0, Arterial Blood Base Excess -8.6, Arnie Test Positive 12/13/16 08:00: Ammonia 57 Height (Feet): 5 Height (Inches): 5.00 Weight (Pounds): 139 General Appearance: lethargic, confused, mild distress Cardiovascular: tachycardia Respiratory/Chest: decreased breath sounds Abdomen: distended KEESHA MOYER Dec 13, 2016 14:33
--- NOTE | 2016-12-13 15:35 | Cardiology Report ---
APPROVED REPORT EKG Measurement Heart [id number] OR [id number] Normal sinus rhythm Possible Left atrial enlargement Left axis deviation Right bundle branch block Septal infarct, age undetermined Abnormal ECG
[2016-12-13] MEDS ORDERED: Vancomycin 1250mg/D5W 275ml IVPB ONE ×2 (16:00)
[2016-12-13] MEDS ORDERED: NS 275ml ONE ×2 (17:02→18:26)
[2016-12-13] MEDS ORDERED: Tubing IV Secondary IV ONE (17:02)
[2016-12-13] MEDS ORDERED: 1/2 NS 1000ml IV ONE (17:02)
[2016-12-13] MEDS ORDERED: NS 550ML IV ONE (17:02)
--- NOTE | 2016-12-13 18:03 | Cardiology Progress Note ---
Assessment/Plan Assessment/Plan 1. Syncope. 2. Significant aortic stenosis. 3. History of coronary artery disease. 4. hs of Renal insufficiency with a solitary kidney. 5. chf acute diastilic 6. afib rvr acute 7. abn lft shock liver ? 8. ARF atn related to transient hypotension due to afibb 9. transient hypotension 10. NSTEMI i checked on pt several time this am lab reviewed i dcd amiod with abn lfts lasix low dose last nite not very affective this am bp was fine oxygenation was better hr was normal now on lasix drip good response so far will need to be careful not to drop bp as sig aortic stenosis trop increased today may be related to renal failure and cad with demand is off amiod at risk of recurrent afib is being treated with abx empiric for pneumonia overall is better now than yest and certainly since my visit last nite no one form family at bedside i would transfer to [facility] for cath as well as TAVR once hemodynamically stable in near future tele reviwed ekg reviewed cxr reviewed ecotrin now that awake st depression lateral leads less remarkable d/w rn d/wdr hal duration 55 min Subjective Cardiovascular: Denies: chest pain, irregular heart rate, lightheadedness Respiratory: Denies: SOB with excertion Gastrointestinal/Abdominal: Denies: abdominal pain Genitourinary: Denies: burning Subjective much more awake now denies pain want to go home denies seeing dtr who have been here most of the day Objective Last 24 Hour Vital Signs Date Time Temp Pulse Resp B/P Pulse Ox O2 Delivery O2 Flow Rate FiO2 12/13/16 17:00 99.5 85 26 100/71 95 Non-Rebreather 15.0 100 12/13/16 16:00 88 29 119/77 96 Non-Rebreather 15.0 100 12/13/16 15:00 99.3 92 23 105/75 97 Non-Rebreather 15.0 100 12/13/16 14:00 88 28 127/71 95 Non-Rebreather 15.0 100 12/13/16 13:00 85 27 101/57 92 Non-Rebreather 100 12/13/16 12:45 88 22 97 Non-Rebreather 15.0 100 12/13/16 12:40 86 21 94 Non-Rebreather 15.0 100 12/13/16 12:00 99.4 86 27 113/71 96 Non-Rebreather 100 12/13/16 11:00 84 25 90/63 96 Non-Rebreather 100 12/13/16 10:00 86 25 111/72 96 Non-Rebreather 100 12/13/16 09:00 99.7 88 26 96/63 96 Non-Rebreather 100 12/13/16 08:00 87 26 108/66 97 Non-Rebreather 100 12/13/16 07:00 90 27 114/66 97 Non-Rebreather 100 12/13/16 06:32 Non-Rebreather 15.0 100 12/13/16 06:32 97 Non-Rebreather 15.0 100 12/13/16 06:30 87 25 95 Non-Rebreather 15.0 100 12/13/16 06:25 87 24 97 Non-Rebreather 15.0 100 12/13/16 06:00 88 28 108/70 95 Non-Rebreather 100 12/13/16 05:23 97.6 12/13/16 05:00 91 30 118/76 95 Non-Rebreather 100 12/13/16 04:00 93 12/13/16 04:00 97.8 93 30 119/75 94 Non-Rebreather 100 12/13/16 03:00 94 31 121/85 94 Non-Rebreather 100 12/13/16 02:16 97.6 12/13/16 02:00 91 31 116/74 95 Non-Rebreather 100 12/13/16 01:23 108 22 Non-Rebreather 15.0 100 12/13/16 01:15 104 22 Non-Rebreather 15.0 100 12/13/16 01:15 100 12/13/16 01:00 104 33 140/82 90 Non-Rebreather 100 12/13/16 00:00 97.8 99 38 129/103 88 Non-Rebreather 100 12/13/16 00:00 81 12/12/16 23:30 95 30 129/93 93 Non-Rebreather 100 12/12/16 23:00 98 32 119/67 91 Non-Rebreather 100 12/12/16 22:30 100 33 153/90 89 Non-Rebreather 100 12/12/16 22:00 95 33 150/98 85 Non-Rebreather 100 12/12/16 21:30 90 30 154/90 83 Non-Rebreather 100 12/12/16 21:00 88 32 112/65 82 Venturi Mask 55 12/12/16 20:30 100 33 108/60 85 Venturi Mask 55 12/12/16 20:27 95 12/12/16 20:00 97.6 95 30 114/88 92 Venturi Mask 55 12/12/16 19:30 84 29 99/52 97 Venturi Mask 14.0 55 12/12/16 19:04 88 22 93 Venturi Mask 14.0 55 12/12/16 19:00 87 29 128/78 95 Venturi Mask 14.0 55 12/12/16 18:55 88 22 92 Venturi Mask 10.0 45 12/12/16 18:55 45 12/12/16 18:30 80 33 129/74 90 Nasal Cannula 3.0 12/12/16 18:00 83 27 96/47 91 Nasal Cannula 3.0 General Appearance: no apparent distress, alert Neck: supple Cardiovascular: normal rate, regular rhythm Respiratory/Chest: crackles/rales Abdomen: normal bowel sounds, non tender, soft Extremities: no swelling Intake and Output 12/12/16 12/13/16 19:00 07:00 Intake Total 1124.994 ml 201.50 ml Output Total 250 ml 345 ml Balance 874.994 ml -143.50 ml Intake Oral 240 ml 0 ml IV Total 884.994 ml 201.50 ml Output Urine Total 250 ml 345 ml # Bowel Movements 1 Laboratory Tests Test 12/12/16 21:05 12/12/16 21:55 12/12/16 22:15 12/12/16 23:15 Arterial Blood pH 7.268 (7.350-7.450) 7.243 (7.350-7.450) Arterial Blood Partial Pressure CO2 36.8 mmHg (35.0-45.0) 34.0 mmHg (35.0-45.0) L Arterial Blood Partial Pressure O2 46.7 mmHg (75.0-100.0) 62.1 mmHg (75.0-100.0) L Arterial Blood HCO3 16.4 mmol/L (22.0-26.0) L 14.3 mmol/L (22.0-26.0) L Arterial Blood Oxygen Saturation 77.4 % (92.0-98.0) L 87.5 % (92.0-98.0) L Arterial Blood Base Excess -9.6 -11.9 Arnie Test Positive Positive White Blood Count 14.9 K/UL (4.8-10.8) H Red Blood Count 6.17 M/UL (4.70-6.10) H Hemoglobin 15.5 G/DL (14.2-18.0) Hematocrit 50.9 % (42.0-52.0) Mean Corpuscular Volume 82 FL (80-99) Mean Corpuscular Hemoglobin 25.2 PG (27.0-31.0) L Mean Corpuscular Hemoglobin Concent 30.5 G/DL (32.0-36.0) L Red Cell Distribution Width 16.1 % (11.6-14.8) H Platelet Count 283 K/UL (150-450) # Mean Platelet Volume 6.7 FL (6.5-10.1) Neutrophils (%) (Auto) 84.2 % (45.0-75.0) H Lymphocytes (%) (Auto) 5.5 % (20.0-45.0) L Monocytes (%) (Auto) 9.5 % (1.0-10.0) Eosinophils (%) (Auto) 0.1 % (0.0-3.0) Basophils (%) (Auto) 0.8 % (0.0-2.0) Sodium Level 136 mEQ/L (135-145) Potassium Level 5.2 mEQ/L (3.4-4.9) H Chloride Level 96 mEQ/L (98-107) L Carbon Dioxide Level 15 mEQ/L (20-30) L Anion Gap 25 (5-15) H Blood Urea Nitrogen 53 mg/dL (7-23) H Creatinine 2.7 mg/dL (0.7-1.2) H Estimat Glomerular Filtration Rate mL/min (>60) Glucose Level 173 mg/dL (74-106) H Calcium Level 9.5 mg/dL (8.6-10.2) Total Bilirubin 1.6 mg/dL (0.0-1.2) H Direct Bilirubin 0.3 mg/dL (0.1-0.3) Aspartate Amino Transf (AST/SGOT) 44 U/L (5-40) H Alanine Aminotransferase (ALT/SGPT) 40 U/L (3-41) Alkaline Phosphatase 98 U/L (40-129) Troponin I 1.97 ng/mL (<=0.30) *H Total Protein 7.3 g/dL (6.6-8.7) Albumin 4.0 g/dL (3.5-5.2) Globulin 3.3 g/dL Albumin/Globulin Ratio 1.2 (1.0-2.7) Activated Partial Thromboplast Time 51 SEC (23-33) H Test 12/13/16 03:00 12/13/16 06:55 12/13/16 08:00 White Blood Count 14.7 K/UL (4.8-10.8) H Red Blood Count 5.98 M/UL (4.70-6.10) Hemoglobin 15.0 G/DL (14.2-18.0) Hematocrit 47.5 % (42.0-52.0) Mean Corpuscular Volume 80 FL (80-99) Mean Corpuscular Hemoglobin 25.0 PG (27.0-31.0) L Mean Corpuscular Hemoglobin Concent 31.5 G/DL (32.0-36.0) L Red Cell Distribution Width 16.5 % (11.6-14.8) H Platelet Count 179 K/UL (150-450) Mean Platelet Volume 6.5 FL (6.5-10.1) Neutrophils (%) (Auto) % (45.0-75.0) Lymphocytes (%) (Auto) % (20.0-45.0) Monocytes (%) (Auto) % (1.0-10.0) Eosinophils (%) (Auto) % (0.0-3.0) Basophils (%) (Auto) % (0.0-2.0) Sodium Level 136 mEQ/L (135-145) Potassium Level 4.7 mEQ/L (3.4-4.9) Chloride Level 98 mEQ/L (98-107) Carbon Dioxide Level 15 mEQ/L (20-30) L Anion Gap 23 (5-15) H Blood Urea Nitrogen 57 mg/dL (7-23) H Creatinine 2.9 mg/dL (0.7-1.2) H Estimat Glomerular Filtration Rate mL/min (>60) Glucose Level 158 mg/dL (74-106) H Calcium Level 8.9 mg/dL (8.6-10.2) Total Bilirubin 1.6 mg/dL (0.0-1.2) H Direct Bilirubin 0.3 mg/dL (0.1-0.3) Aspartate Amino Transf (AST/SGOT) 376 U/L (5-40) H Alanine Aminotransferase (ALT/SGPT) 384 U/L (3-41) H Alkaline Phosphatase 89 U/L (40-129) Troponin I 3.40 ng/mL (<=0.30) *H Pro-B-Type Natriuretic Peptide 54935 pg/mL (0-450) H Total Protein 6.7 g/dL (6.6-8.7) Albumin 3.6 g/dL (3.5-5.2) Globulin 3.1 g/dL Albumin/Globulin Ratio 1.1 (1.0-2.7) Arterial Blood pH 7.350 (7.350-7.450) Arterial Blood Partial Pressure CO2 28.5 mmHg (35.0-45.0) L Arterial Blood Partial Pressure O2 122.3 mmHg (75.0-100.0) H Arterial Blood HCO3 15.4 mmol/L (22.0-26.0) L Arterial Blood Oxygen Saturation 98.0 % (92.0-98.0) Arterial Blood Base Excess -8.6 Arnie Test Positive Ammonia 57 umol/L (16-60) Microbiology Date/Time Source Procedure Growth Status 12/12/16 02:50 Sputum Gram Stain - Final Resulted 12/12/16 02:50 Sputum Sputum Culture Pending Resulted MEY DELEON Dec 13, 2016 18:03
[2016-12-13] MEDS ORDERED: D5W 550ml IV ONE (18:26)
[2016-12-13] MEDS: Aspirin EC 81mg tab ORAL SCH (18:47)
[2016-12-13] MEDS ORDERED: Metoprolol 5mg/5ml Inj IVP SCH (19:30)
[2016-12-13] MEDS: Metoprolol 5mg/5ml Inj IVP PRN (19:34)
[2016-12-13] MEDS ORDERED: Metoprolol 5mg/5ml Inj IVP ONE (20:30)
[2016-12-14] VITALS (33 sets, daily range): BP systolic 90–132; BP diastolic 50–88
[2016-12-14] MEDS: DuoNeb 0.5-3(2.5)mg/3ml neb HHN SCH ×5 (00:51→19:18)
[2016-12-14] MEDS: Aztreonam Inj 0.5 GM in D5W 55 ML IVPB SCH ×3 (01:17→17:15)
[2016-12-14] MEDS: Metoprolol 5mg/5ml Inj IVP PRN (04:41)
[2016-12-14 06:28] LABS: ABG PCO2 28.1 mmHg (35.0-45.0)
[2016-12-14 06:29] LABS: ABG ALLEN TEST POSITIVE
[2016-12-14 06:38] LABS: INR 1.2 (0.9-1.1); PROTHROMBIN TIME 12.5 SEC (9.30-11.50)
[2016-12-14 06:50] LABS: BASOPHILS % (AUTO) 0.4 % (0.0-2.0); EOSINOPHILS % (AUTO) 0.1 % (0.0-3.0); LYMPHOCYTES % (AUTO) 7.3 % (20.0-45.0); MEAN CORPUSCULAR HGB CONC 32.1 G/DL (32.0-36.0); MEAN CORPUSCULAR VOLUME 78 FL (80-99); MONOCYTES % (AUTO) 7.7 % (1.0-10.0); NEUTROPHILS % (AUTO) 84.5 % (45.0-75.0); PLATELET COUNT 173 K/UL (150-450); RED BLOOD COUNT 5.47 M/UL (4.70-6.10); WHITE BLOOD COUNT 10.2 K/UL (4.8-10.8)
[2016-12-14 07:00] LABS: CRP QUANT 21.8 mg/dL (< 0.5); URIC ACID 9.2 mg/dL (3.0-7.5)
[2016-12-14 07:27] LABS: ALANINE AMINOTRANSFERASE 14 U/L (3-41); ALBUMIN/GLOBULIN RATIO 0.6 (1.0-2.7); ANION GAP 28 (5-15); ASPARTATE AMINO TRANSFERASE 51 U/L (5-40); CALCIUM 7.5 mg/dL (8.6-10.2); CHLORIDE 85 mEQ/L (98-107); CREATININE 4.4 mg/dL (0.7-1.2); HEMOLYSIS 28; MAGNESIUM 2.2 mg/dL (1.7-2.5); PHOSPHORUS 7.8 mg/dL (2.5-4.8); POTASSIUM 4.5 mEQ/L (3.4-4.9); SODIUM 121 mEQ/L (135-145)
[2016-12-14 07:43] LABS: CARBON DIOXIDE 8 mEQ/L (20-30)
[2016-12-14 07:55] LABS: BILIRUBIN,DIRECT 0.9 mg/dL (0.1-0.3)
--- NOTE | 2016-12-14 08:20 | Cardiology Progress Note ---
Assessment/Plan Assessment/Plan 1. Syncope. 2. Significant aortic stenosis. 3. History of coronary artery disease. 4. hs of Renal insufficiency with a solitary kidney. 5. chf acute diastilic 6. afib rvr acute recurrent 7. abn lft shock liver ? imporved 8. ARF worsening 9. transient hypotension 10. NSTEMI 11. metabolic acidosis ? ? on bp is better , he is awake and responsive and abg shows good oxygenation , however bmp is abn errror ? went back into afib last nite i started bb responded to a degree but still rapid off amiod yest due to sig increase in lft now better bun / cr sig increased so i will 'will dc lasix drip will need those repeated as not make sense with her abg may be a lab error may be ok to resume amiod drip again now that lfts are better but will have ep see as well needs to be on anitcoagulation as well but will need to see if need any invasive lines in light of sig increae in bun /cr will await trop will repeat cxr ekg noted afib has tachy bb but care in light of wheezing will d/w dr de la paz if no lines needed will sstart on anticoagualtion d/w rn 45 min Subjective Cardiovascular: Denies: chest pain Respiratory: Denies: shortness of breath Gastrointestinal/Abdominal: Denies: abdominal pain Genitourinary: Denies: burning Subjective awake now denies pain want to go home overnite back into afib Objective Last 24 Hour Vital Signs Date Time Temp Pulse Resp B/P Pulse Ox O2 Delivery O2 Flow Rate FiO2 12/14/16 07:00 108 24 124/68 96 Non-Rebreather 15.0 100 12/14/16 07:00 110 22 124/68 97 Non-Rebreather 15.0 100 12/14/16 06:30 109 24 96 Non-Rebreather 15.0 100 12/14/16 06:25 98 Non-Rebreather 15.0 100 12/14/16 06:25 Non-Rebreather 15.0 100 12/14/16 06:25 116 26 96 Non-Rebreather 100 12/14/16 06:00 102 24 106/79 96 Non-Rebreather 15.0 100 12/14/16 05:00 111 24 132/67 96 Non-Rebreather 15.0 100 12/14/16 04:41 133 110/80 12/14/16 04:00 92 12/14/16 04:00 98.2 117 24 110/77 96 Non-Rebreather 15.0 100 12/14/16 03:00 119 24 116/85 96 Non-Rebreather 15.0 100 12/14/16 02:00 111 24 97/81 96 Non-Rebreather 15.0 100 12/14/16 01:10 114 18 93 Venturi Mask 15.0 55 12/14/16 01:00 120 24 90/52 96 Non-Rebreather 15.0 100 12/14/16 00:52 113 22 94 Non-Rebreather 100 12/14/16 00:00 92 12/14/16 00:00 97.5 114 24 98/64 96 Non-Rebreather 15.0 100 12/13/16 23:00 91 24 106/72 96 Non-Rebreather 15.0 100 12/13/16 22:00 90 24 96/61 96 Non-Rebreather 15.0 100 12/13/16 21:00 90 24 106/92 96 Non-Rebreather 15.0 100 12/13/16 20:31 134 135/77 12/13/16 20:20 Non-Rebreather 15.0 100 12/13/16 20:20 93 Non-Rebreather 15.0 100 12/13/16 20:20 120 12/13/16 20:19 120 24 93 Non-Rebreather 15.0 100 12/13/16 20:00 114 12/13/16 20:00 97.2 116 29 135/77 93 Non-Rebreather 15.0 100 12/13/16 19:34 130 114/97 12/13/16 19:00 126 24 106/92 96 Non-Rebreather 15.0 100 12/13/16 18:00 95 24 112/72 96 Non-Rebreather 15.0 100 12/13/16 17:00 99.5 85 26 100/71 95 Non-Rebreather 15.0 100 12/13/16 16:00 88 29 119/77 96 Non-Rebreather 15.0 100 12/13/16 15:00 99.3 92 23 105/75 97 Non-Rebreather 15.0 100 12/13/16 14:00 88 28 127/71 95 Non-Rebreather 15.0 100 12/13/16 13:00 85 27 101/57 92 Non-Rebreather 100 12/13/16 12:45 88 22 97 Non-Rebreather 15.0 100 12/13/16 12:40 86 21 94 Non-Rebreather 15.0 100 12/13/16 12:00 99.4 86 27 113/71 96 Non-Rebreather 100 12/13/16 11:00 84 25 90/63 96 Non-Rebreather 100 12/13/16 10:00 86 25 111/72 96 Non-Rebreather 100 12/13/16 09:00 99.7 88 26 96/63 96 Non-Rebreather 100 12/13/16 08:00 87 26 108/66 97 Non-Rebreather 100 General Appearance: no apparent distress, alert Neck: supple Cardiovascular: tachycardia, irregularly irregular Respiratory/Chest: expiratory wheezing Abdomen: normal bowel sounds, non tender, soft Extremities: no swelling Intake and Output 12/13/16 12/14/16 19:00 07:00 Intake Total 800 ml 280 ml Output Total 805 ml 1470 ml Balance -5 ml -1190 ml Intake Oral 790 ml 50 ml IV Total 10 ml 230 ml Output Urine Total 805 ml 1470 ml Laboratory Tests Test 12/13/16 08:00 12/14/16 05:30 12/14/16 06:20 Ammonia 57 umol/L (16-60) White Blood Count 10.2 K/UL (4.8-10.8) Red Blood Count 5.47 M/UL (4.70-6.10) Hemoglobin 13.7 G/DL (14.2-18.0) L Hematocrit 42.7 % (42.0-52.0) Mean Corpuscular Volume 78 FL (80-99) L Mean Corpuscular Hemoglobin 25.0 PG (27.0-31.0) L Mean Corpuscular Hemoglobin Concent 32.1 G/DL (32.0-36.0) Red Cell Distribution Width 16.0 % (11.6-14.8) H Platelet Count 173 K/UL (150-450) Mean Platelet Volume 7.0 FL (6.5-10.1) Neutrophils (%) (Auto) 84.5 % (45.0-75.0) H Lymphocytes (%) (Auto) 7.3 % (20.0-45.0) L Monocytes (%) (Auto) 7.7 % (1.0-10.0) Eosinophils (%) (Auto) 0.1 % (0.0-3.0) Basophils (%) (Auto) 0.4 % (0.0-2.0) Prothrombin Time 12.5 SEC (9.30-11.50) H Prothromb Time International Ratio 1.2 (0.9-1.1) H Sodium Level 121 mEQ/L (135-145) L Potassium Level 4.5 mEQ/L (3.4-4.9) Chloride Level 85 mEQ/L (98-107) L Carbon Dioxide Level 8 mEQ/L (20-30) *L Anion Gap 28 (5-15) H Blood Urea Nitrogen 95 mg/dL (7-23) #H Creatinine 4.4 mg/dL (0.7-1.2) #H Estimat Glomerular Filtration Rate mL/min (>60) Glucose Level 286 mg/dL (74-106) #H Uric Acid 9.2 mg/dL (3.0-7.5) H Calcium Level 7.5 mg/dL (8.6-10.2) L Phosphorus Level 7.8 mg/dL (2.5-4.8) H Magnesium Level 2.2 mg/dL (1.7-2.5) Total Bilirubin 1.4 mg/dL (0.0-1.2) H Direct Bilirubin 0.9 mg/dL (0.1-0.3) H Aspartate Amino Transf (AST/SGOT) 51 U/L (5-40) H Alanine Aminotransferase (ALT/SGPT) 14 U/L (3-41) Alkaline Phosphatase 202 U/L (40-129) H Total Creatine Kinase 91 U/L (38-174) C-Reactive Protein, Quantitative 21.8 mg/dL (< 0.5) H Pro-B-Type Natriuretic Peptide 02505 pg/mL (0-450) H Total Protein 4.0 g/dL (6.6-8.7) #L Albumin 1.6 g/dL (3.5-5.2) L Globulin 2.4 g/dL Albumin/Globulin Ratio 0.6 (1.0-2.7) L Random Vancomycin Level 2.9 ug/mL Arterial Blood pH 7.440 (7.350-7.450) Arterial Blood Partial Pressure CO2 28.1 mmHg (35.0-45.0) L Arterial Blood Partial Pressure O2 214.2 mmHg (75.0-100.0) H Arterial Blood HCO3 18.7 mmol/L (22.0-26.0) L Arterial Blood Oxygen Saturation 99.1 % (92.0-98.0) H Arterial Blood Base Excess -4.0 Arnie Test Positive Microbiology Date/Time Source Procedure Growth Status 12/12/16 23:15 Blood Blood Culture - Preliminary NO GROWTH AFTER 24 HOURS Resulted 12/12/16 23:10 Blood Blood Culture - Preliminary NO GROWTH AFTER 24 HOURS Resulted 12/12/16 02:50 Sputum Gram Stain - Final Complete 12/12/16 02:50 Sputum Sputum Culture - Final NORMAL UPPER RESPIRATORY EDITH AT 48 ... Complete MEY DELEON Dec 14, 2016 08:20
[2016-12-14] MEDS: Aspirin EC 81mg tab ORAL SCH (08:25)
[2016-12-14] MEDS: Theophylline ER 100mg ORAL SCH ×2 (08:25→21:52)
[2016-12-14 08:56] LABS: TROPONIN I 3.43 ng/mL (<=0.30)
[2016-12-14 09:03] LABS: ALANINE AMINOTRANSFERASE 365 U/L (3-41); ALBUMIN/GLOBULIN RATIO 1.2 (1.0-2.7); ANION GAP 23 (5-15); ASPARTATE AMINO TRANSFERASE 194 U/L (5-40); CALCIUM 8.8 mg/dL (8.6-10.2); CARBON DIOXIDE 18 mEQ/L (20-30); CHLORIDE 93 mEQ/L (98-107); CREATININE 2.7 mg/dL (0.7-1.2); HEMOLYSIS 6; POTASSIUM 3.7 mEQ/L (3.4-4.9); SODIUM 134 mEQ/L (135-145); TOTAL PROTEIN 6.4 g/dL (6.6-8.7)
[2016-12-14 09:16] LABS: BILIRUBIN,DIRECT 0.3 mg/dL (0.1-0.3)
--- NOTE | 2016-12-14 09:40 | Pulmonolgy Critical Care Note ---
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 Respiratory: monitor respiratory rate, adjust FIO2, CXR Cardiac: continue to monitor HR/BP Renal: F/U I&O, keep IV fluid Infectious Disease: check cultures, continue antibiotics Gastrointestinal: continue feedings/current rate Endocrine: monitor blood sugar, continue sliding scale insulin Hematologic: monitor H/H, transfuse if hgb<8.5 Neurologic: PRN Ativan, PRN Morphine Affect: PRN ativan Notes Reviewed: cardio, renal, ID Discussed with: nurses, consultants, bilingual patient support caseworkercombat control manager - Objective Last 24 Hour Vital Signs Date Time Temp Pulse Resp B/P Pulse Ox O2 Delivery O2 Flow Rate FiO2 12/14/16 09:00 113 22 117/69 93 Venturi Mask 50 12/14/16 08:25 117 117/71 12/14/16 08:00 97.0 111 22 121/88 93 Nasal Cannula 4.0 12/14/16 07:00 108 24 124/68 96 Non-Rebreather 15.0 100 12/14/16 07:00 110 22 124/68 97 Non-Rebreather 15.0 100 12/14/16 06:30 109 24 96 Non-Rebreather 15.0 100 12/14/16 06:25 98 Non-Rebreather 15.0 100 12/14/16 06:25 Non-Rebreather 15.0 100 12/14/16 06:25 116 26 96 Non-Rebreather 100 12/14/16 06:00 102 24 106/79 96 Non-Rebreather 15.0 100 12/14/16 05:00 111 24 132/67 96 Non-Rebreather 15.0 100 12/14/16 04:41 133 110/80 12/14/16 04:00 92 12/14/16 04:00 98.2 117 24 110/77 96 Non-Rebreather 15.0 100 12/14/16 03:00 119 24 116/85 96 Non-Rebreather 15.0 100 12/14/16 02:00 111 24 97/81 96 Non-Rebreather 15.0 100 12/14/16 01:10 114 18 93 Venturi Mask 15.0 55 12/14/16 01:00 120 24 90/52 96 Non-Rebreather 15.0 100 12/14/16 00:52 113 22 94 Non-Rebreather 100 12/14/16 00:00 92 12/14/16 00:00 97.5 114 24 98/64 96 Non-Rebreather 15.0 100 12/13/16 23:00 91 24 106/72 96 Non-Rebreather 15.0 100 12/13/16 22:00 90 24 96/61 96 Non-Rebreather 15.0 100 12/13/16 21:00 90 24 106/92 96 Non-Rebreather 15.0 100 12/13/16 20:31 134 135/77 12/13/16 20:20 Non-Rebreather 15.0 100 12/13/16 20:20 93 Non-Rebreather 15.0 100 12/13/16 20:20 120 12/13/16 20:19 120 24 93 Non-Rebreather 15.0 100 12/13/16 20:00 114 12/13/16 20:00 97.2 116 29 135/77 93 Non-Rebreather 15.0 100 12/13/16 19:34 130 114/97 12/13/16 19:00 126 24 106/92 96 Non-Rebreather 15.0 100 12/13/16 18:00 95 24 112/72 96 Non-Rebreather 15.0 100 12/13/16 17:00 99.5 85 26 100/71 95 Non-Rebreather 15.0 100 12/13/16 16:00 88 29 119/77 96 Non-Rebreather 15.0 100 12/13/16 15:00 99.3 92 23 105/75 97 Non-Rebreather 15.0 100 12/13/16 14:00 88 28 127/71 95 Non-Rebreather 15.0 100 12/13/16 13:00 85 27 101/57 92 Non-Rebreather 100 12/13/16 12:45 88 22 97 Non-Rebreather 15.0 100 12/13/16 12:40 86 21 94 Non-Rebreather 15.0 100 12/13/16 12:00 99.4 86 27 113/71 96 Non-Rebreather 100 12/13/16 11:00 84 25 90/63 96 Non-Rebreather 100 12/13/16 10:00 86 25 111/72 96 Non-Rebreather 100 Status: awake Condition: critical HEENT: atraumatic Neck: full ROM Lungs: chest wall tender Heart: HR/BP stable, regular Extremities: edema Decubiti: stage Micro: Microbiology Date/Time Source Procedure Growth Status 12/12/16 23:15 Blood Blood Culture - Preliminary NO GROWTH AFTER 24 HOURS Resulted 12/12/16 23:10 Blood Blood Culture - Preliminary NO GROWTH AFTER 24 HOURS Resulted 12/12/16 02:50 Sputum Gram Stain - Final Complete 12/12/16 02:50 Sputum Sputum Culture - Final NORMAL UPPER RESPIRATORY EDITH AT 48 ... Complete Critical Care - Subjective ROS Limited/Unobtainable: No ICU Day: 3 Intubation Day: 3 EKG Rhythm: Sinus Rhythm FI02: 50 Sputum Amount: None Drips: lasix drip I&O: Intake and Output 12/13/16 12/14/16 19:00 07:00 Intake Total 800 ml 280 ml Output Total 805 ml 1470 ml Balance -5 ml -1190 ml Intake Oral 790 ml 50 ml IV Total 10 ml 230 ml Output Urine Total 805 ml 1470 ml CXR: slightly better Labs: Laboratory Tests Test 12/14/16 05:30 12/14/16 06:20 12/14/16 08:05 White Blood Count 10.2 K/UL (4.8-10.8) Red Blood Count 5.47 M/UL (4.70-6.10) Hemoglobin 13.7 G/DL (14.2-18.0) L Hematocrit 42.7 % (42.0-52.0) Mean Corpuscular Volume 78 FL (80-99) L Mean Corpuscular Hemoglobin 25.0 PG (27.0-31.0) L Mean Corpuscular Hemoglobin Concent 32.1 G/DL (32.0-36.0) Red Cell Distribution Width 16.0 % (11.6-14.8) H Platelet Count 173 K/UL (150-450) Mean Platelet Volume 7.0 FL (6.5-10.1) Neutrophils (%) (Auto) 84.5 % (45.0-75.0) H Lymphocytes (%) (Auto) 7.3 % (20.0-45.0) L Monocytes (%) (Auto) 7.7 % (1.0-10.0) Eosinophils (%) (Auto) 0.1 % (0.0-3.0) Basophils (%) (Auto) 0.4 % (0.0-2.0) Prothrombin Time 12.5 SEC (9.30-11.50) H Prothromb Time International Ratio 1.2 (0.9-1.1) H Sodium Level 121 mEQ/L (135-145) L 134 mEQ/L (135-145) #L Potassium Level 4.5 mEQ/L (3.4-4.9) 3.7 mEQ/L (3.4-4.9) Chloride Level 85 mEQ/L (98-107) L 93 mEQ/L (98-107) L Carbon Dioxide Level 8 mEQ/L (20-30) *L 18 mEQ/L (20-30) L Anion Gap 28 (5-15) H 23 (5-15) H Blood Urea Nitrogen 95 mg/dL (7-23) #H 71 mg/dL (7-23) H Creatinine 4.4 mg/dL (0.7-1.2) #H 2.7 mg/dL (0.7-1.2) H Estimat Glomerular Filtration Rate mL/min (>60) mL/min (>60) Glucose Level 286 mg/dL (74-106) #H 113 mg/dL (74-106) #H Uric Acid 9.2 mg/dL (3.0-7.5) H Calcium Level 7.5 mg/dL (8.6-10.2) L 8.8 mg/dL (8.6-10.2) Phosphorus Level 7.8 mg/dL (2.5-4.8) H Magnesium Level 2.2 mg/dL (1.7-2.5) Total Bilirubin 1.4 mg/dL (0.0-1.2) H 1.1 mg/dL (0.0-1.2) Direct Bilirubin 0.9 mg/dL (0.1-0.3) H 0.3 mg/dL (0.1-0.3) Aspartate Amino Transf (AST/SGOT) 51 U/L (5-40) H 194 U/L (5-40) H Alanine Aminotransferase (ALT/SGPT) 14 U/L (3-41) 365 U/L (3-41) H Alkaline Phosphatase 202 U/L (40-129) H 79 U/L (40-129) Total Creatine Kinase 91 U/L (38-174) Troponin I Pending 3.43 ng/mL (<=0.30) *H C-Reactive Protein, Quantitative 21.8 mg/dL (< 0.5) H Pro-B-Type Natriuretic Peptide 60712 pg/mL (0-450) H Total Protein 4.0 g/dL (6.6-8.7) #L 6.4 g/dL (6.6-8.7) #L Albumin 1.6 g/dL (3.5-5.2) L 3.5 g/dL (3.5-5.2) Globulin 2.4 g/dL 2.9 g/dL Albumin/Globulin Ratio 0.6 (1.0-2.7) L 1.2 (1.0-2.7) Random Vancomycin Level 2.9 ug/mL Arterial Blood pH 7.440 (7.350-7.450) Arterial Blood Partial Pressure CO2 28.1 mmHg (35.0-45.0) L Arterial Blood Partial Pressure O2 214.2 mmHg (75.0-100.0) H Arterial Blood HCO3 18.7 mmol/L (22.0-26.0) L Arterial Blood Oxygen Saturation 99.1 % (92.0-98.0) H Arterial Blood Base Excess -4.0 Arnie Test Positive FRANNY MENDES Dec 14, 2016 09:40
--- NOTE | 2016-12-14 09:49 | General Progress Note ---
Assessment/Plan Status: stable Status Narrative clinically improved with lasix drip- Troponin higher Cr 1.1 to 2.9 today 2.7 . Assessment/Plan status; Renal failure , likely chronic . Has one functioning kidney- lost one after trauma in [place] at age 13- WORSENING ? AL, rising Troponin CHF improved- At fib admitted for Syncope- Anemia Gout Plan: Guillory, Lasix, Optimize cardiac status discussed with Dr Garrett- Urine studies- Monitor renal parameters- Avoid Nephrotoxics- Kidney JOSÉ- pending Per orders Subjective ROS Limited/Unobtainable: No Constitutional: Reports: malaise, other, weakness Allergies: Coded Allergies: CIPROFLOXACIN (Verified Allergy, Unknown, 12/10/16) PENICILLINS (Verified Allergy, Unknown, 12/10/16) Objective Last 24 Hour Vital Signs Date Time Temp Pulse Resp B/P Pulse Ox O2 Delivery O2 Flow Rate FiO2 12/14/16 09:00 113 22 117/69 93 Venturi Mask 50 12/14/16 08:25 117 117/71 12/14/16 08:00 97.0 111 22 121/88 93 Nasal Cannula 4.0 12/14/16 07:00 108 24 124/68 96 Non-Rebreather 15.0 100 12/14/16 07:00 110 22 124/68 97 Non-Rebreather 15.0 100 12/14/16 06:30 109 24 96 Non-Rebreather 15.0 100 12/14/16 06:25 98 Non-Rebreather 15.0 100 12/14/16 06:25 Non-Rebreather 15.0 100 12/14/16 06:25 116 26 96 Non-Rebreather 100 12/14/16 06:00 102 24 106/79 96 Non-Rebreather 15.0 100 12/14/16 05:00 111 24 132/67 96 Non-Rebreather 15.0 100 12/14/16 04:41 133 110/80 12/14/16 04:00 92 12/14/16 04:00 98.2 117 24 110/77 96 Non-Rebreather 15.0 100 12/14/16 03:00 119 24 116/85 96 Non-Rebreather 15.0 100 12/14/16 02:00 111 24 97/81 96 Non-Rebreather 15.0 100 12/14/16 01:10 114 18 93 Venturi Mask 15.0 55 12/14/16 01:00 120 24 90/52 96 Non-Rebreather 15.0 100 12/14/16 00:52 113 22 94 Non-Rebreather 100 12/14/16 00:00 92 12/14/16 00:00 97.5 114 24 98/64 96 Non-Rebreather 15.0 100 12/13/16 23:00 91 24 106/72 96 Non-Rebreather 15.0 100 12/13/16 22:00 90 24 96/61 96 Non-Rebreather 15.0 100 12/13/16 21:00 90 24 106/92 96 Non-Rebreather 15.0 100 12/13/16 20:31 134 135/77 12/13/16 20:20 Non-Rebreather 15.0 100 12/13/16 20:20 93 Non-Rebreather 15.0 100 12/13/16 20:20 120 12/13/16 20:19 120 24 93 Non-Rebreather 15.0 100 12/13/16 20:00 114 12/13/16 20:00 97.2 116 29 135/77 93 Non-Rebreather 15.0 100 12/13/16 19:34 130 114/97 12/13/16 19:00 126 24 106/92 96 Non-Rebreather 15.0 100 12/13/16 18:00 95 24 112/72 96 Non-Rebreather 15.0 100 12/13/16 17:00 99.5 85 26 100/71 95 Non-Rebreather 15.0 100 12/13/16 16:00 88 29 119/77 96 Non-Rebreather 15.0 100 12/13/16 15:00 99.3 92 23 105/75 97 Non-Rebreather 15.0 100 12/13/16 14:00 88 28 127/71 95 Non-Rebreather 15.0 100 12/13/16 13:00 85 27 101/57 92 Non-Rebreather 100 12/13/16 12:45 88 22 97 Non-Rebreather 15.0 100 12/13/16 12:40 86 21 94 Non-Rebreather 15.0 100 12/13/16 12:00 99.4 86 27 113/71 96 Non-Rebreather 100 12/13/16 11:00 84 25 90/63 96 Non-Rebreather 100 12/13/16 10:00 86 25 111/72 96 Non-Rebreather 100 Intake and Output 12/13/16 12/14/16 19:00 07:00 Intake Total 800 ml 280 ml Output Total 805 ml 1470 ml Balance -5 ml -1190 ml Intake Oral 790 ml 50 ml IV Total 10 ml 230 ml Output Urine Total 805 ml 1470 ml Laboratory Tests 12/14/16 05:30: White Blood Count 10.2, Red Blood Count 5.47, Hemoglobin 13.7L, Hematocrit 42.7 , Mean Corpuscular Volume 78L, Mean Corpuscular Hemoglobin 25.0L, Mean Corpuscular Hemoglobin Concent 32.1, Red Cell Distribution Width 16.0H, Platelet Count 173, Mean Platelet Volume 7.0, Neutrophils (%) (Auto) 84.5H, Lymphocytes (%) (Auto) 7.3L, Monocytes (%) (Auto) 7.7, Eosinophils (%) (Auto) 0.1, Basophils (%) (Auto) 0.4, Prothrombin Time 12.5H, Prothromb Time International Ratio 1.2H, Sodium Level 121L, Potassium Level 4.5, Chloride Level 85L, Carbon Dioxide Level 8*L, Anion Gap 28H, Blood Urea Nitrogen 95#H, Creatinine 4.4#H, Estimat Glomerular Filtration Rate , Glucose Level 286#H, Uric Acid 9.2H, Calcium Level 7.5L, Phosphorus Level 7.8H, Magnesium Level 2.2, Total Bilirubin 1.4H, Direct Bilirubin 0.9H, Aspartate Amino Transf (AST/SGOT) 51H, Alanine Aminotransferase (ALT/SGPT) 14, Alkaline Phosphatase 202H, Total Creatine Kinase 91, Troponin I [Pending], C-Reactive Protein, Quantitative 21.8H , Pro-B-Type Natriuretic Peptide 08863Q, Total Protein 4.0#L, Albumin 1.6L, Globulin 2.4, Albumin/Globulin Ratio 0.6L, Random Vancomycin Level 2.9 12/14/16 06:20: Arterial Blood pH 7.440, Arterial Blood Partial Pressure CO2 28.1L, Arterial Blood Partial Pressure O2 214.2H, Arterial Blood HCO3 18.7L, Arterial Blood Oxygen Saturation 99.1H, Arterial Blood Base Excess -4.0, Arnie Test Positive 12/14/16 08:05: Sodium Level 134#L, Potassium Level 3.7, Chloride Level 93L, Carbon Dioxide Level 18L, Anion Gap 23H, Blood Urea Nitrogen 71H, Creatinine 2.7H, Estimat Glomerular Filtration Rate , Glucose Level 113#H, Calcium Level 8.8, Total Bilirubin 1.1, Direct Bilirubin 0.3, Aspartate Amino Transf (AST/SGOT) 194H, Alanine Aminotransferase (ALT/SGPT) 365H, Alkaline Phosphatase 79, Troponin I 3.43*H, Total Protein 6.4#L, Albumin 3.5, Globulin 2.9, Albumin/Globulin Ratio 1.2 Height (Feet): 5 Height (Inches): 5.00 Weight (Pounds): 138 General Appearance: no apparent distress, lethargic, confused Cardiovascular: arrhythmia Respiratory/Chest: decreased breath sounds Abdomen: soft KEESHA MOYER Dec 14, 2016 09:49
[2016-12-14] MEDS ORDERED: Vancomycin 1.25 GM in NS 275 ML IVPB ONE (10:00)
[2016-12-14] MEDS ORDERED: D5W IV SCH (10:00)
[2016-12-14] MEDS ORDERED: AMIODARONE IV SCH (10:00)
--- NOTE | 2016-12-14 10:03 | Diagnostic Imaging Report ---
Indication: Abnormal renal function test Technique: Grayscale and duplex images of the kidneys, retroperitoneum, and bladder were obtained. Comparison:None Findings: Right kidney measures 6.1 cm in length. Left kidney measures 11.9 cm in length. Kidney demonstrates markedly increased echogenicity. No hydronephrosis. The right kidney demonstrates multiple calcifications. The left kidney demonstrates multiple cysts. Normal inferior vena cava. Bladder is empty, contains a Guillory catheter. There is severe prostatomegaly, with the prostate volume measuring 292 mL There are bilateral pleural effusions, larger on the right than on left. Impression: Negative for hydronephrosis Echogenic atrophic right kidney. Massive prostatomegaly Multiple renal calcifications, may be parenchymal or calyceal Incidental finding of left renal cysts
--- NOTE | 2016-12-14 11:07 | Infectious Diseases Prog Note ---
Assessment/Plan Assessment/Plan A: The patient is an 86-year-old male with Leukocytosis improving sepsis, SP probable Pneumonia SCx: no sig growth C- x-ray: left lower lobe basilar infiltrate DANIEL Cr improved CE + History of aortic valve stenosis. CAD. Gout HTN PLAN: Continue Aztreonam and Doxy d# 3 , add IV Vanco d# 2 monitor CBC. monitor BMP. Monitor cultures (blood ) Monitor chest x-ray. Subjective Constitutional: Denies: anorexia, chills, drenching sweats, fatigue, fever, no symptoms, other Allergies: Coded Allergies: CIPROFLOXACIN (Verified Allergy, Unknown, 12/10/16) PENICILLINS (Verified Allergy, Unknown, 12/10/16) Subjective no significant cough Objective Vital Signs Last 24 Hour Vital Signs Date Time Temp Pulse Resp B/P Pulse Ox O2 Delivery O2 Flow Rate FiO2 12/14/16 10:00 101 23 122/81 93 Venturi Mask 50 12/14/16 09:00 113 22 117/69 93 Venturi Mask 50 12/14/16 08:25 117 117/71 12/14/16 08:00 116 12/14/16 08:00 97.0 111 22 121/88 93 Nasal Cannula 4.0 12/14/16 07:00 108 24 124/68 96 Non-Rebreather 15.0 100 12/14/16 07:00 110 22 124/68 97 Non-Rebreather 15.0 100 12/14/16 06:30 109 24 96 Non-Rebreather 15.0 100 12/14/16 06:25 98 Non-Rebreather 15.0 100 12/14/16 06:25 Non-Rebreather 15.0 100 12/14/16 06:25 116 26 96 Non-Rebreather 100 12/14/16 06:00 102 24 106/79 96 Non-Rebreather 15.0 100 12/14/16 05:00 111 24 132/67 96 Non-Rebreather 15.0 100 12/14/16 04:41 133 110/80 12/14/16 04:00 92 12/14/16 04:00 98.2 117 24 110/77 96 Non-Rebreather 15.0 100 12/14/16 03:00 119 24 116/85 96 Non-Rebreather 15.0 100 12/14/16 02:00 111 24 97/81 96 Non-Rebreather 15.0 100 12/14/16 01:10 114 18 93 Venturi Mask 15.0 55 12/14/16 01:00 120 24 90/52 96 Non-Rebreather 15.0 100 12/14/16 00:52 113 22 94 Non-Rebreather 100 12/14/16 00:00 92 12/14/16 00:00 97.5 114 24 98/64 96 Non-Rebreather 15.0 100 12/13/16 23:00 91 24 106/72 96 Non-Rebreather 15.0 100 12/13/16 22:00 90 24 96/61 96 Non-Rebreather 15.0 100 12/13/16 21:00 90 24 106/92 96 Non-Rebreather 15.0 100 12/13/16 20:31 134 135/77 12/13/16 20:20 Non-Rebreather 15.0 100 12/13/16 20:20 93 Non-Rebreather 15.0 100 12/13/16 20:20 120 12/13/16 20:19 120 24 93 Non-Rebreather 15.0 100 12/13/16 20:00 114 12/13/16 20:00 97.2 116 29 135/77 93 Non-Rebreather 15.0 100 12/13/16 19:34 130 114/97 12/13/16 19:00 126 24 106/92 96 Non-Rebreather 15.0 100 12/13/16 18:00 95 24 112/72 96 Non-Rebreather 15.0 100 12/13/16 17:00 99.5 85 26 100/71 95 Non-Rebreather 15.0 100 12/13/16 16:00 88 29 119/77 96 Non-Rebreather 15.0 100 12/13/16 15:00 99.3 92 23 105/75 97 Non-Rebreather 15.0 100 12/13/16 14:00 88 28 127/71 95 Non-Rebreather 15.0 100 12/13/16 13:00 85 27 101/57 92 Non-Rebreather 100 12/13/16 12:45 88 22 97 Non-Rebreather 15.0 100 12/13/16 12:40 86 21 94 Non-Rebreather 15.0 100 12/13/16 12:00 99.4 86 27 113/71 96 Non-Rebreather 100 Height (Feet): 5 Height (Inches): 5.00 Weight (Pounds): 138 HEENT: anicteric Respiratory/Chest: normal breath sounds Cardiovascular: regular rhythm Abdomen: no organomegaly Microbiology Date/Time Source Procedure Growth Status 12/12/16 23:15 Blood Blood Culture - Preliminary NO GROWTH AFTER 24 HOURS Resulted 12/12/16 23:10 Blood Blood Culture - Preliminary NO GROWTH AFTER 24 HOURS Resulted 12/12/16 02:50 Sputum Gram Stain - Final Complete 12/12/16 02:50 Sputum Sputum Culture - Final NORMAL UPPER RESPIRATORY EDITH AT 48 ... Complete Laboratory Tests Test 12/14/16 05:30 12/14/16 06:20 12/14/16 08:05 White Blood Count 10.2 K/UL (4.8-10.8) Red Blood Count 5.47 M/UL (4.70-6.10) Hemoglobin 13.7 G/DL (14.2-18.0) L Hematocrit 42.7 % (42.0-52.0) Mean Corpuscular Volume 78 FL (80-99) L Mean Corpuscular Hemoglobin 25.0 PG (27.0-31.0) L Mean Corpuscular Hemoglobin Concent 32.1 G/DL (32.0-36.0) Red Cell Distribution Width 16.0 % (11.6-14.8) H Platelet Count 173 K/UL (150-450) Mean Platelet Volume 7.0 FL (6.5-10.1) Neutrophils (%) (Auto) 84.5 % (45.0-75.0) H Lymphocytes (%) (Auto) 7.3 % (20.0-45.0) L Monocytes (%) (Auto) 7.7 % (1.0-10.0) Eosinophils (%) (Auto) 0.1 % (0.0-3.0) Basophils (%) (Auto) 0.4 % (0.0-2.0) Prothrombin Time 12.5 SEC (9.30-11.50) H Prothromb Time International Ratio 1.2 (0.9-1.1) H Sodium Level 121 mEQ/L (135-145) L 134 mEQ/L (135-145) #L Potassium Level 4.5 mEQ/L (3.4-4.9) 3.7 mEQ/L (3.4-4.9) Chloride Level 85 mEQ/L (98-107) L 93 mEQ/L (98-107) L Carbon Dioxide Level 8 mEQ/L (20-30) *L 18 mEQ/L (20-30) L Anion Gap 28 (5-15) H 23 (5-15) H Blood Urea Nitrogen 95 mg/dL (7-23) #H 71 mg/dL (7-23) H Creatinine 4.4 mg/dL (0.7-1.2) #H 2.7 mg/dL (0.7-1.2) H Estimat Glomerular Filtration Rate mL/min (>60) mL/min (>60) Glucose Level 286 mg/dL (74-106) #H 113 mg/dL (74-106) #H Uric Acid 9.2 mg/dL (3.0-7.5) H Calcium Level 7.5 mg/dL (8.6-10.2) L 8.8 mg/dL (8.6-10.2) Phosphorus Level 7.8 mg/dL (2.5-4.8) H Magnesium Level 2.2 mg/dL (1.7-2.5) Total Bilirubin 1.4 mg/dL (0.0-1.2) H 1.1 mg/dL (0.0-1.2) Direct Bilirubin 0.9 mg/dL (0.1-0.3) H 0.3 mg/dL (0.1-0.3) Aspartate Amino Transf (AST/SGOT) 51 U/L (5-40) H 194 U/L (5-40) H Alanine Aminotransferase (ALT/SGPT) 14 U/L (3-41) 365 U/L (3-41) H Alkaline Phosphatase 202 U/L (40-129) H 79 U/L (40-129) Total Creatine Kinase 91 U/L (38-174) Troponin I Pending 3.43 ng/mL (<=0.30) *H C-Reactive Protein, Quantitative 21.8 mg/dL (< 0.5) H Pro-B-Type Natriuretic Peptide 89137 pg/mL (0-450) H Total Protein 4.0 g/dL (6.6-8.7) #L 6.4 g/dL (6.6-8.7) #L Albumin 1.6 g/dL (3.5-5.2) L 3.5 g/dL (3.5-5.2) Globulin 2.4 g/dL 2.9 g/dL Albumin/Globulin Ratio 0.6 (1.0-2.7) L 1.2 (1.0-2.7) Random Vancomycin Level 2.9 ug/mL Arterial Blood pH 7.440 (7.350-7.450) Arterial Blood Partial Pressure CO2 28.1 mmHg (35.0-45.0) L Arterial Blood Partial Pressure O2 214.2 mmHg (75.0-100.0) H Arterial Blood HCO3 18.7 mmol/L (22.0-26.0) L Arterial Blood Oxygen Saturation 99.1 % (92.0-98.0) H Arterial Blood Base Excess -4.0 Arnie Test Positive Current Medications Medications (Trade) Dose Ordered Sig/Curtis Route PRN Reason Start Time Stop Time Status Last Admin Dose Admin Acetaminophen (Tylenol) 650 mg Q4H PRN ORAL fever 12/12/16 06:45 01/11/17 06:44 Albuterol/ Ipratropium (DuoNeb 0.5-3(2.5)mg/3ml) 3 ml Q4H PRN HHN Shortness of Breath 12/12/16 06:47 12/17/16 06:46 Albuterol/ Ipratropium (DuoNeb 0.5-3(2.5)mg/3ml) 3 ml Q6HRT HHN 12/12/16 07:00 12/17/16 06:59 12/14/16 06:44 Amiodarone HCl/ Dextrose (Cordarone/D5W 500ml) 500 ml @ 0 mls/hr Q24H IV 12/14/16 10:00 12/15/16 09:59 Aspirin (Ecotrin) 81 mg DAILY ORAL 12/13/16 19:00 01/12/17 18:59 12/14/16 08:25 Aztreonam 0.5 gm/ Dextrose 55 ml @ 110 mls/hr Q8H IVPB 12/14/16 01:00 12/19/16 07:59 12/14/16 09:18 Dextrose (Dextrose 50%) STAT PRN IV Hypoglycemia 12/12/16 06:47 01/11/17 06:46 Doxycycline Monohydrate (Vibramycin) 100 mg EVERY 12 HOURS ORAL 12/12/16 22:30 12/19/16 22:29 12/14/16 09:45 Lorazepam (Ativan 2mg/ml 1ml) 0.5 mg Q4H PRN IV For Anxiety 12/12/16 06:48 12/19/16 06:47 12/13/16 01:44 Metoprolol Succinate 25 mg 25 mg DAILY ORAL 12/14/16 09:00 01/13/17 08:59 12/14/16 08:25 Metoprolol Tartrate (Lopressor) 2.5 mg Q3H PRN IVP HR > 120 12/13/16 19:00 01/12/17 18:59 12/14/16 04:41 Morphine Sulfate (Morphine Sulfate) 1 mg Q4H PRN IVP For Pain 7-10 12/12/16 06:48 12/19/16 06:47 12/13/16 01:45 Nitroglycerin (Ntg) 0.4 mg Q5M X 3 DOSES PRN SL Prn Chest Pain 12/12/16 06:30 01/11/17 06:29 Ondansetron HCl (Zofran) 4 mg Q6H PRN IVP Nausea & Vomiting 12/12/16 06:48 01/11/17 06:47 12/12/16 07:23 Polyethylene Glycol (Miralax) 17 gm HSPRN PRN ORAL Constipation 12/12/16 06:49 01/11/17 06:48 Promethazine HCl/ Codeine (Phenergan with Codeine) 5 ml Q4H PRN ORAL For Cough 12/12/16 06:49 01/11/17 06:48 Temazepam (Restoril) 15 mg HSPRN PRN ORAL Insomnia 12/12/16 06:49 12/19/16 06:48 12/12/16 09:31 Theophylline (Juan-Dur) 100 mg EVERY 12 HOURS ORAL 12/12/16 09:00 01/11/17 08:59 12/14/16 08:25 Vancomycin HCl (Vanco rx to dose) 1 ea DAILY PRN MISC Per rx protocol 12/13/16 14:00 01/12/17 13:59 Vancomycin HCl 1.25 gm/Sodium Chloride 275 ml @ 183.708 mls/hr ONCE ONCE IVPB 12/14/16 10:00 12/14/16 11:29 12/14/16 09:18 ALY FALCON M.D. Dec 14, 2016 11:07
--- NOTE | 2016-12-14 13:36 | Diagnostic Imaging Report ---
Indication: Dyspnea Comparison: 12/13/16 A single view chest radiograph was obtained. Findings: Pulmonary edema has improved since the last study. There is a moderate residual disease present mainly interstitial. Heart is enlarged. Bones are osteopenic. Impression: Mild to moderate pulmonary edema. Some improvement since the previous day
[2016-12-14] MEDS ORDERED: Heparin 25,000u/D5W 500ml 500 ML IV SCH (16:00)
[2016-12-14] MEDS ORDERED: Heparin 5000 units/ml inj IV ONE (16:00)
[2016-12-14 16:35] LABS: MEAN CORPUSCULAR HEMOGLOBIN 25.5 PG (27.0-31.0); MEAN CORPUSCULAR HGB CONC 32.6 G/DL (32.0-36.0); MEAN CORPUSCULAR VOLUME 78 FL (80-99); MEAN PLATELET VOLUME 6.9 FL (6.5-10.1); PLATELET COUNT 201 K/UL (150-450); RED BLOOD COUNT 5.67 M/UL (4.70-6.10); RED CELL DISTRIBUTION WIDTH 15.6 % (11.6-14.8)
[2016-12-14 16:40] LABS: BASOPHILS % (AUTO) 0.7 % (0.0-2.0); EOSINOPHILS % (AUTO) 0.2 % (0.0-3.0); LYMPHOCYTES % (AUTO) 6.9 % (20.0-45.0); MONOCYTES % (AUTO) 6.5 % (1.0-10.0); NEUTROPHILS % (AUTO) 85.8 % (45.0-75.0)
--- NOTE | 2016-12-14 21:29 | Consultation ---
Consult Note Consult Note Cardiac EP Full note dictated #[id number] DEANGELO MACK Dec 14, 2016 21:29
[2016-12-14] MEDS ORDERED: Tums 500mg ORAL PRN (22:00)
[2016-12-14] MEDS: Promethazine/Codeine 5ml UD ORAL PRN (22:36)
--- NOTE | 2016-12-14 23:27 | Consultation ---
DATE OF CONSULTATION: CARDIAC ELECTROPHYSIOLOGY CONSULT CONSULTING PHYSICIAN: Cristine Siddiqi M.D. REQUESTING PHYSICIAN: Petar Garrett M.D. REASON FOR CONSULT: Atrial fibrillation. HISTORY OF PRESENT ILLNESS: The patient is an 86-year-old, white male with a history of critical aortic stenosis and coronary artery disease status post multi-vessel PCI. He was admitted following a syncopal episode. On admission, he was in normal sinus rhythm and normotensive, however, he subsequently developed atrial fibrillation with rapid ventricular rates. This was associated with hemodynamic deterioration, heart failure, and hypotension. He also had an increase in troponin level to a peak of 3.4. He was placed on amiodarone intravenously and after several hours, did convert back to normal sinus rhythm, however, he was noted to have an elevation in transaminases from the 40s up to over 300 and amiodarone was discontinued. His rhythm reverted back to atrial fibrillation subsequently. Cardiac electrophysiology consultation was requested with regard to management of his atrial fibrillation. His cardiac evaluation here included an echo, which showed his left ventricular ejection fraction of about 50% and confirmed severe aortic stenosis with a peak gradient of 81 mmHg and mean gradient across the valve of 46 mmHg. PAST MEDICAL HISTORY: As noted above. Also, history of CKD with one functioning kidney and history of gout. MEDICATIONS: Intravenous heparin per pharmacy, metoprolol 25 mg daily, aztreonam 1 g IV q.8 h., aspirin 81 mg daily, vancomycin per pharmacy, doxycycline 100 mg twice daily, theophylline 100 mg q.12 hours, albuterol and ipratropium DuoNeb q.6 h., Tylenol p.r.n., morphine p.r.n., Ativan p.r.n., Restoril at bedtime p.r.n. ALLERGIES: Ciprofloxacin and penicillin. SOCIAL HISTORY: The patient has a remote history of tobacco use. No history of alcohol or drug use. PHYSICAL EXAMINATION: VITAL SIGNS: Blood pressure is 124/68, pulse 110 and irregularly irregular, respirations 22, and afebrile. GENERAL: Alert, elderly appearing white male, in no acute distress. HEENT: Normocephalic and atraumatic. Pupils are equal, round, and reactive to light. Sclerae anicteric. Oral mucosa are moist. NECK: Supple. There is no jugular venous distention. LUNGS: Scattered expiratory wheezes bilaterally. Fair air movement. HEART: Irregularly irregular. Tachycardic. S1 and S2 with a 1/6 systolic ejection murmur, late peaking at the right upper sternal border. No radiation to carotids. Carotid volumes are diminished 1+ with delayed upstrokes bilaterally. No bruits. No S3. ABDOMEN: Soft and nontender. No palpable mass. EXTREMITIES: No cyanosis, clubbing, or edema. LABORATORY AND DIAGNOSTIC DATA: Hemoglobin 14, white blood count 10,000, and platelets 201,000. Sodium 134, potassium 3.7, BUN 71, and creatinine 2.7. AST 194 and ALT 365. Troponin 3.43. EKG from 12/13/2016 shows sinus rhythm, left atrial enlargement, and right bundle branch block, left axis. Telemetry today shows atrial fibrillation with rapid ventricular rates 110 to 120 beats per minute. Chest x-ray today shows pulmonary edema, improved from the previous x-ray of 12/13/2016 and cardiomegaly. ASSESSMENT AND RECOMMENDATIONS: The patient is an 86-year-old man with critical aortic stenosis, admitted with syncope, which is likely due to aortic stenosis. While hospitalized, he developed atrial fibrillation, which was associated with severe hemodynamic decompensation. While his rhythm reverted back to normal sinus with some improvement in pulmonary edema and overall hemodynamics, his liver function tests were noted to be elevated specifically transaminases have increased to about 300. It is not clear if this was due to amiodarone versus due to some component of hepatic congestion in the setting of heart failure. Given that he is now having a recurrence of rapid atrial fibrillation and concerned for recurrent pulmonary edema, I would restart amiodarone intravenously and continue to follow liver function tests. We would continue diuresis with Lasix and follow intake and output as well as renal function closely. As soon as he is stabilized, I would favor transfer for aortic valve replacement. He had previously been accepted for transcatheter aortic valve replacement, which had been scheduled at [facility]. I would continue versus hepatic congestion in the setting of acute decompensated heart failure from severe aortic stenosis. However given the risk of recurrent deterioration with atrial fibrillation in this setting, I would favor restarting intravenous amiodarone and attempt to titrate off and change to oral as soon as the patient has stabilized. I would continue intravenous heparin for stroke prevention. I would continue intravenous diuretics for pulmonary vascular congestion. I would continue to monitor renal function, liver function, electrolytes, and intake and output closely. The patient had previously been evaluated and accepted for transcatheter aortic valve replacement at [facility] per the notes. I would favor transfer as soon as the patient has hemodynamically stabilized, for definitive treatment of his aortic stenosis. Thank you for allowing me to see him in electrophysiology consultation. I will be happy to follow him with you. Cristine Siddiqi M.D. DR: HANSA JOB#: [id number] CC:
[2016-12-15] VITALS (42 sets, daily range): BP systolic 96–143; BP diastolic 57–104
[2016-12-15] MEDS: Heparin 25,000u/D5W 500ml 500 ML IV SCH ×2 (00:15→09:08)
[2016-12-15] MEDS ORDERED: Heparin 5000 units/ml inj IV ONE ×3 (00:30→16:30)
[2016-12-15] MEDS: Aztreonam Inj 0.5 GM in D5W 55 ML IVPB SCH ×3 (01:00→17:54)
[2016-12-15] MEDS: DuoNeb 0.5-3(2.5)mg/3ml neb HHN SCH ×4 (01:22→19:00)
[2016-12-15] MEDS: Promethazine/Codeine 5ml UD ORAL PRN ×3 (03:17→15:40)
[2016-12-15 06:43] LABS: BASOPHILS % (AUTO) 0.7 % (0.0-2.0); EOSINOPHILS % (AUTO) 0.6 % (0.0-3.0); LYMPHOCYTES % (AUTO) 7.9 % (20.0-45.0); MEAN CORPUSCULAR HEMOGLOBIN 25.2 PG (27.0-31.0); MEAN CORPUSCULAR HGB CONC 32.5 G/DL (32.0-36.0); MEAN CORPUSCULAR VOLUME 78 FL (80-99); MEAN PLATELET VOLUME 7.4 FL (6.5-10.1); MONOCYTES % (AUTO) 9.2 % (1.0-10.0); NEUTROPHILS % (AUTO) 81.6 % (45.0-75.0); PLATELET COUNT 236 K/UL (150-450); RED BLOOD COUNT 5.76 M/UL (4.70-6.10); WHITE BLOOD COUNT 10.6 K/UL (4.8-10.8)
[2016-12-15 07:18] LABS: CRP QUANT 16.5 mg/dL (< 0.5); MAGNESIUM 2.1 mg/dL (1.7-2.5); PHOSPHORUS 4.2 mg/dL (2.5-4.8); URIC ACID 10.9 mg/dL (3.0-7.5)
[2016-12-15 07:20] LABS: ALANINE AMINOTRANSFERASE 448 U/L (3-41); ANION GAP 22 (5-15); ASPARTATE AMINO TRANSFERASE 245 U/L (5-40); CALCIUM 9.2 mg/dL (8.6-10.2); CARBON DIOXIDE 18 mEQ/L (20-30); CHLORIDE 95 mEQ/L (98-107); CREATININE 2.5 mg/dL (0.7-1.2); HEMOLYSIS 4; POTASSIUM 3.8 mEQ/L (3.4-4.9); SODIUM 135 mEQ/L (135-145); TOTAL PROTEIN 6.5 g/dL (6.6-8.7)
[2016-12-15 07:25] LABS: TROPONIN I 0.54 ng/mL (<=0.30)
[2016-12-15 07:40] LABS: BILIRUBIN,DIRECT 0.3 mg/dL (0.1-0.3)
[2016-12-15] MEDS: Aspirin EC 81mg tab ORAL SCH (08:15)
[2016-12-15] MEDS: Theophylline ER 100mg ORAL SCH ×2 (08:15→21:36)
[2016-12-15 10:05] LABS: ABG ALLEN TEST POSITIVE; ABG BASE EXCESS -4.1; ABG PCO2 28.3 mmHg (35.0-45.0)
--- NOTE | 2016-12-15 10:41 | Pulmonolgy Critical Care Note ---
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 Respiratory: monitor respiratory rate Cardiac: continue to monitor HR/BP Renal: F/U I&O, keep IV fluid, check electrolytes Infectious Disease: check cultures Gastrointestinal: continue feedings/current rate Endocrine: monitor blood sugar, start insulin drip, continue sliding scale insulin Hematologic: monitor H/H, transfuse if hgb<8.5 Neurologic: PRN Ativan, keep patient comfortable Prophylaxis: Protonix Disposition: keep in ICU Notes Reviewed: vehicle check in clerk, cardio Discussed with: nurses, consultants, 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 - Objective Last 24 Hour Vital Signs Date Time Temp Pulse Resp B/P Pulse Ox O2 Delivery O2 Flow Rate FiO2 12/15/16 09:30 85 24 143/95 93 Venturi Mask 50 12/15/16 09:00 78 24 97/57 95 Venturi Mask 50 12/15/16 08:30 85 23 130/96 97 Venturi Mask 50 12/15/16 08:16 82 134/101 12/15/16 08:00 97.1 82 25 134/101 93 Venturi Mask 50 12/15/16 08:00 92 12/15/16 07:52 85 23 130/96 97 Venturi Mask 50 12/15/16 07:30 86 24 130/96 91 Venturi Mask 50 12/15/16 07:25 90 24 97 Venturi Mask 15.0 50 12/15/16 07:15 97 Venturi Mask 12.0 50 12/15/16 07:15 Venturi Mask 12.0 50 12/15/16 07:15 89 22 97 Venturi Mask 12.0 50 12/15/16 07:00 90 26 129/91 94 Venturi Mask 50 12/15/16 06:30 89 26 129/75 96 Venturi Mask 50 12/15/16 06:00 89 26 127/63 96 Venturi Mask 50 12/15/16 05:30 87 26 127/63 96 Venturi Mask 50 12/15/16 05:00 87 27 133/90 96 Venturi Mask 50 12/15/16 04:30 85 27 115/70 96 Venturi Mask 50 12/15/16 04:00 97.5 85 29 134/104 91 Venturi Mask 50 12/15/16 04:00 86 12/15/16 03:30 84 28 132/76 96 Venturi Mask 50 12/15/16 03:00 85 27 116/76 95 Venturi Mask 50 12/15/16 02:30 85 29 99/61 95 Venturi Mask 50 12/15/16 02:00 85 26 124/85 95 Venturi Mask 50 12/15/16 01:30 86 26 119/83 94 Venturi Mask 50 12/15/16 01:28 83 24 92 Venturi Mask 15.0 50 12/15/16 01:22 84 24 93 Venturi Mask 12.0 50 12/15/16 01:00 81 20 107/73 94 Venturi Mask 50 12/15/16 00:30 86 24 117/76 99 Venturi Mask 50 12/15/16 00:00 97.6 85 29 115/83 96 Venturi Mask 50 12/14/16 23:30 78 29 107/79 99 Venturi Mask 50 12/14/16 23:15 86 12/14/16 23:00 78 25 115/73 99 Venturi Mask 50 12/14/16 22:30 80 25 110/75 94 Venturi Mask 50 12/14/16 22:00 86 25 117/77 97 Venturi Mask 50 12/14/16 21:30 86 25 112/74 90 Venturi Mask 50 12/14/16 21:00 86 27 116/64 88 Nasal Cannula 5.0 12/14/16 20:30 97.0 103 25 110/50 93 Venturi Mask 50 12/14/16 20:00 81 27 121/83 93 Nasal Cannula 5.0 12/14/16 20:00 82 12/14/16 19:30 85 27 115/63 93 Venturi Mask 50 12/14/16 19:30 85 24 92 Nasal Cannula 4.0 36 12/14/16 19:18 Venturi Mask 12.0 50 12/14/16 19:18 98 Venturi Mask 12.0 50 12/14/16 19:18 78 24 96 Venturi Mask 12.0 50 12/14/16 19:00 79 25 115/66 95 Venturi Mask 50 12/14/16 18:30 81 24 106/65 95 Venturi Mask 50 12/14/16 18:00 77 25 110/60 94 Venturi Mask 50 12/14/16 17:30 81 25 111/77 90 Venturi Mask 50 12/14/16 17:00 79 25 113/80 95 Venturi Mask 50 12/14/16 16:30 79 26 113/80 92 Venturi Mask 50 12/14/16 16:00 92 12/14/16 16:00 97.0 83 27 118/75 97 Venturi Mask 50 12/14/16 15:30 81 26 118/75 95 Venturi Mask 50 12/14/16 15:00 86 21 113/78 95 Venturi Mask 50 12/14/16 14:00 80 24 101/70 93 Venturi Mask 50 12/14/16 13:00 83 26 100/65 97 Venturi Mask 50 12/14/16 12:04 97 26 97 Venturi Mask 15.0 50 12/14/16 12:00 96 26 98 Venturi Mask 15.0 50 12/14/16 12:00 99 12/14/16 12:00 97.5 81 25 101/84 97 Nasal Cannula 4.0 12/14/16 11:00 114 26 104/56 95 Venturi Mask 50 Status: awake Condition: critical HEENT: atraumatic Neck: full ROM Lungs: clear Heart: HR/BP stable, HR/BP unstable Abdomen: soft, non-tender, feeding tube Extremities: no C/C/E Micro: Microbiology Date/Time Source Procedure Growth Status 12/12/16 23:15 Blood Blood Culture - Preliminary NO GROWTH AFTER 48 HOURS Resulted 12/12/16 23:10 Blood Blood Culture - Preliminary NO GROWTH AFTER 48 HOURS Resulted Critical Care - Subjective ROS Limited/Unobtainable: No ICU Day: 4 Interval Events: improving, needs less oxygen FI02: 50 Sputum Amount: Small Drips: amiodarone and heparin drip I&O: Intake and Output 12/14/16 12/15/16 19:00 07:00 Intake Total 1154.890 ml 637.825 ml Output Total 1330 ml 770 ml Balance -175.110 ml -132.175 ml Intake Oral 450 ml 65 ml IV Total 704.890 ml 572.825 ml Output Urine Total 1330 ml 770 ml CXR: improving, less edema Labs: Laboratory Tests Test 12/14/16 15:50 12/14/16 23:05 12/15/16 06:25 12/15/16 09:58 White Blood Count 10.0 K/UL (4.8-10.8) 10.6 K/UL (4.8-10.8) Red Blood Count 5.67 M/UL (4.70-6.10) 5.76 M/UL (4.70-6.10) Hemoglobin 14.5 G/DL (14.2-18.0) 14.5 G/DL (14.2-18.0) Hematocrit 44.4 % (42.0-52.0) 44.7 % (42.0-52.0) Mean Corpuscular Volume 78 FL (80-99) L 78 FL (80-99) L Mean Corpuscular Hemoglobin 25.5 PG (27.0-31.0) L 25.2 PG (27.0-31.0) L Mean Corpuscular Hemoglobin Concent 32.6 G/DL (32.0-36.0) 32.5 G/DL (32.0-36.0) Red Cell Distribution Width 15.6 % (11.6-14.8) H 16.0 % (11.6-14.8) H Platelet Count 201 K/UL (150-450) 236 K/UL (150-450) Mean Platelet Volume 6.9 FL (6.5-10.1) 7.4 FL (6.5-10.1) Neutrophils (%) (Auto) 85.8 % (45.0-75.0) H 81.6 % (45.0-75.0) H Lymphocytes (%) (Auto) 6.9 % (20.0-45.0) L 7.9 % (20.0-45.0) L Monocytes (%) (Auto) 6.5 % (1.0-10.0) 9.2 % (1.0-10.0) Eosinophils (%) (Auto) 0.2 % (0.0-3.0) 0.6 % (0.0-3.0) Basophils (%) (Auto) 0.7 % (0.0-2.0) 0.7 % (0.0-2.0) Activated Partial Thromboplast Time 34 SEC (23-33) H 59 SEC (23-33) H 53 SEC (23-33) H Sodium Level 135 mEQ/L (135-145) Potassium Level 3.8 mEQ/L (3.4-4.9) Chloride Level 95 mEQ/L (98-107) L Carbon Dioxide Level 18 mEQ/L (20-30) L Anion Gap 22 (5-15) H Blood Urea Nitrogen 71 mg/dL (7-23) H Creatinine 2.5 mg/dL (0.7-1.2) H Estimat Glomerular Filtration Rate mL/min (>60) Glucose Level 146 mg/dL (74-106) H Uric Acid 10.9 mg/dL (3.0-7.5) H Calcium Level 9.2 mg/dL (8.6-10.2) Phosphorus Level 4.2 mg/dL (2.5-4.8) Magnesium Level 2.1 mg/dL (1.7-2.5) Total Bilirubin 1.2 mg/dL (0.0-1.2) Direct Bilirubin 0.3 mg/dL (0.1-0.3) Aspartate Amino Transf (AST/SGOT) 245 U/L (5-40) H Alanine Aminotransferase (ALT/SGPT) 448 U/L (3-41) H Alkaline Phosphatase 97 U/L (40-129) Troponin I 0.54 ng/mL (<=0.30) *H C-Reactive Protein, Quantitative 16.5 mg/dL (< 0.5) H Pro-B-Type Natriuretic Peptide 77325 pg/mL (0-450) H Total Protein 6.5 g/dL (6.6-8.7) L Albumin 3.4 g/dL (3.5-5.2) L Globulin 3.1 g/dL Albumin/Globulin Ratio 1.0 (1.0-2.7) Arterial Blood pH 7.437 (7.350-7.450) Arterial Blood Partial Pressure CO2 28.3 mmHg (35.0-45.0) L Arterial Blood Partial Pressure O2 55.3 mmHg (75.0-100.0) L Arterial Blood HCO3 18.7 mmol/L (22.0-26.0) L Arterial Blood Oxygen Saturation 88.4 % (92.0-98.0) L Arterial Blood Base Excess -4.1 Arnie Test Positive FRANNY MENDES Dec 15, 2016 10:41
--- NOTE | 2016-12-15 11:56 | General Progress Note ---
Assessment/Plan Status: stable Status Narrative Cr stable Assessment/Plan status; Renal failure , likely chronic . Has one functioning kidney- lost one after trauma in [place] at age 13- WORSENING ? SC, rising Troponin CHF improved- At fib admitted for Syncope- Anemia Gout Plan: Easton Guillory, Optimize cardiac status discussed with Dr Garrett- Urine studies- Monitor renal parameters- Avoid Nephrotoxics- Kidney JOSÉ- : Impression: Negative for hydronephrosis Echogenic atrophic right kidney. Massive prostatomegaly Multiple renal calcifications, may be parenchymal or calyceal Incidental finding of left renal cysts Per orders Subjective ROS Limited/Unobtainable: No Constitutional: Reports: malaise, weakness Allergies: Coded Allergies: CIPROFLOXACIN (Verified Allergy, Unknown, 12/10/16) PENICILLINS (Verified Allergy, Unknown, 12/10/16) Objective Last 24 Hour Vital Signs Date Time Temp Pulse Resp B/P Pulse Ox O2 Delivery O2 Flow Rate FiO2 12/15/16 11:30 79 23 96/59 95 Room Air 12/15/16 11:00 82 26 112/58 95 Venturi Mask 50 12/15/16 10:30 89 26 109/79 91 Venturi Mask 50 12/15/16 10:00 87 27 115/87 89 Room Air 12/15/16 09:30 85 24 143/95 93 Venturi Mask 50 12/15/16 09:00 78 24 97/57 95 Venturi Mask 50 12/15/16 08:30 85 23 130/96 97 Venturi Mask 50 12/15/16 08:16 82 134/101 12/15/16 08:00 97.1 82 25 134/101 93 Venturi Mask 50 12/15/16 08:00 92 12/15/16 07:52 85 23 130/96 97 Venturi Mask 50 12/15/16 07:30 86 24 130/96 91 Venturi Mask 50 12/15/16 07:25 90 24 97 Venturi Mask 15.0 50 12/15/16 07:15 97 Venturi Mask 12.0 50 12/15/16 07:15 Venturi Mask 12.0 50 12/15/16 07:15 89 22 97 Venturi Mask 12.0 50 12/15/16 07:00 90 26 129/91 94 Venturi Mask 50 12/15/16 06:30 89 26 129/75 96 Venturi Mask 50 12/15/16 06:00 89 26 127/63 96 Venturi Mask 50 12/15/16 05:30 87 26 127/63 96 Venturi Mask 50 12/15/16 05:00 87 27 133/90 96 Venturi Mask 50 12/15/16 04:30 85 27 115/70 96 Venturi Mask 50 12/15/16 04:00 97.5 85 29 134/104 91 Venturi Mask 50 12/15/16 04:00 86 12/15/16 03:30 84 28 132/76 96 Venturi Mask 50 12/15/16 03:00 85 27 116/76 95 Venturi Mask 50 12/15/16 02:30 85 29 99/61 95 Venturi Mask 50 12/15/16 02:00 85 26 124/85 95 Venturi Mask 50 12/15/16 01:30 86 26 119/83 94 Venturi Mask 50 12/15/16 01:28 83 24 92 Venturi Mask 15.0 50 12/15/16 01:22 84 24 93 Venturi Mask 12.0 50 12/15/16 01:00 81 20 107/73 94 Venturi Mask 50 12/15/16 00:30 86 24 117/76 99 Venturi Mask 50 12/15/16 00:00 97.6 85 29 115/83 96 Venturi Mask 50 12/14/16 23:30 78 29 107/79 99 Venturi Mask 50 12/14/16 23:15 86 12/14/16 23:00 78 25 115/73 99 Venturi Mask 50 12/14/16 22:30 80 25 110/75 94 Venturi Mask 50 12/14/16 22:00 86 25 117/77 97 Venturi Mask 50 12/14/16 21:30 86 25 112/74 90 Venturi Mask 50 12/14/16 21:00 86 27 116/64 88 Nasal Cannula 5.0 12/14/16 20:30 97.0 103 25 110/50 93 Venturi Mask 50 12/14/16 20:00 81 27 121/83 93 Nasal Cannula 5.0 12/14/16 20:00 82 12/14/16 19:30 85 27 115/63 93 Venturi Mask 50 12/14/16 19:30 85 24 92 Nasal Cannula 4.0 36 12/14/16 19:18 Venturi Mask 12.0 50 12/14/16 19:18 98 Venturi Mask 12.0 50 12/14/16 19:18 78 24 96 Venturi Mask 12.0 50 12/14/16 19:00 79 25 115/66 95 Venturi Mask 50 12/14/16 18:30 81 24 106/65 95 Venturi Mask 50 12/14/16 18:00 77 25 110/60 94 Venturi Mask 50 12/14/16 17:30 81 25 111/77 90 Venturi Mask 50 12/14/16 17:00 79 25 113/80 95 Venturi Mask 50 12/14/16 16:30 79 26 113/80 92 Venturi Mask 50 12/14/16 16:00 92 12/14/16 16:00 97.0 83 27 118/75 97 Venturi Mask 50 12/14/16 15:30 81 26 118/75 95 Venturi Mask 50 12/14/16 15:00 86 21 113/78 95 Venturi Mask 50 12/14/16 14:00 80 24 101/70 93 Venturi Mask 50 12/14/16 13:00 83 26 100/65 97 Venturi Mask 50 12/14/16 12:04 97 26 97 Venturi Mask 15.0 50 12/14/16 12:00 96 26 98 Venturi Mask 15.0 50 12/14/16 12:00 99 12/14/16 12:00 97.5 81 25 101/84 97 Nasal Cannula 4.0 Intake and Output 12/14/16 12/15/16 19:00 07:00 Intake Total 1154.890 ml 637.825 ml Output Total 1330 ml 770 ml Balance -175.110 ml -132.175 ml Intake Oral 450 ml 65 ml IV Total 704.890 ml 572.825 ml Output Urine Total 1330 ml 770 ml Laboratory Tests 12/14/16 15:50: White Blood Count 10.0, Red Blood Count 5.67, Hemoglobin 14.5, Hematocrit 44.4, Mean Corpuscular Volume 78L, Mean Corpuscular Hemoglobin 25.5L, Mean Corpuscular Hemoglobin Concent 32.6, Red Cell Distribution Width 15.6H, Platelet Count 201, Mean Platelet Volume 6.9, Neutrophils (%) (Auto) 85.8H, Lymphocytes (%) (Auto) 6.9L, Monocytes (%) (Auto) 6.5, Eosinophils (%) (Auto) 0.2, Basophils (%) (Auto) 0.7, Activated Partial Thromboplast Time 34H 12/14/16 23:05: Activated Partial Thromboplast Time 59H 12/15/16 06:25: White Blood Count 10.6, Red Blood Count 5.76, Hemoglobin 14.5, Hematocrit 44.7, Mean Corpuscular Volume 78L, Mean Corpuscular Hemoglobin 25.2L, Mean Corpuscular Hemoglobin Concent 32.5, Red Cell Distribution Width 16.0H, Platelet Count 236, Mean Platelet Volume 7.4, Neutrophils (%) (Auto) 81.6H, Lymphocytes (%) (Auto) 7.9L, Monocytes (%) (Auto) 9.2, Eosinophils (%) (Auto) 0.6, Basophils (%) (Auto) 0.7, Activated Partial Thromboplast Time 53H, Sodium Level 135, Potassium Level 3.8, Chloride Level 95L, Carbon Dioxide Level 18L, Anion Gap 22H, Blood Urea Nitrogen 71H, Creatinine 2.5H, Estimat Glomerular Filtration Rate , Glucose Level 146H, Uric Acid 10.9H, Calcium Level 9.2, Phosphorus Level 4.2, Magnesium Level 2.1, Total Bilirubin 1.2, Direct Bilirubin 0.3, Aspartate Amino Transf (AST/SGOT) 245H, Alanine Aminotransferase (ALT/SGPT) 448H, Alkaline Phosphatase 97, Troponin I 0.54*H, C-Reactive Protein , Quantitative 16.5H, Pro-B-Type Natriuretic Peptide 11019U, Total Protein 6.5L , Albumin 3.4L, Globulin 3.1, Albumin/Globulin Ratio 1.0 12/15/16 09:58: Arterial Blood pH 7.437, Arterial Blood Partial Pressure CO2 28.3L, Arterial Blood Partial Pressure O2 55.3L, Arterial Blood HCO3 18.7L, Arterial Blood Oxygen Saturation 88.4L, Arterial Blood Base Excess -4.1, Arnie Test Positive Height (Feet): 5 Height (Inches): 5.00 Weight (Pounds): 135 General Appearance: mild distress Cardiovascular: normal rate, arrhythmia Respiratory/Chest: decreased breath sounds Abdomen: distended KEESHA MOYER Dec 15, 2016 11:56
--- NOTE | 2016-12-15 11:56 | Diagnostic Imaging Report ---
Indication: Dyspnea Comparison: 12/14/69 A single view chest radiograph was obtained. Findings: Pulmonary vascular congestion and interstitial edema present. Cardiomegaly is present. Suspect small bilateral pleural effusions. Impression: Worsening CHF
[2016-12-15] MEDS ORDERED: Heparin 25,000u/D5W 500ml 500 ML IV SCH (12:46)
[2016-12-15] MEDS ORDERED: NS 275ml ONE ×3 (13:35→13:44)
[2016-12-15] MEDS ORDERED: Tubing IV Secondary IV ONE ×2 (13:35→13:44)
[2016-12-15] MEDS: Amiodarone 900 MG in D5W 500ml 482 ML IV SCH ×2 (16:00→21:42)
[2016-12-15] MEDS ORDERED: Amiodarone 200mg tab ORAL SCH (16:30)
--- NOTE | 2016-12-15 18:21 | Cardiology Progress Note ---
Assessment/Plan Status: deteriorating Status Narrative Pt w/ critical , now w/ rapid AF. Recent deterioration w/ acute pulm edema in setting of rapid af He is on iv heparin. Has no iv access for iv amiodarone. Received po amiodarone 400 mg without effect on hr Assessment/Plan Would favor central line for iv amiodarone - attempt chem conversion back to SR Continue iv heparin. Transfer to tertiary care hosp when more stable, for aortic valve intervention - valvuloplasty or TAVR d/w RN Subjective ROS Limited/Unobtainable: Yes Subjective Events noted. Pt now back in AF, tachycardic, lethargic Objective Last 24 Hour Vital Signs Date Time Temp Pulse Resp B/P Pulse Ox O2 Delivery O2 Flow Rate FiO2 12/15/16 15:00 111 21 114/70 97 Venturi Mask 50 12/15/16 14:30 118 23 114/70 99 Venturi Mask 50 12/15/16 14:00 127 23 116/61 90 Venturi Mask 50 12/15/16 13:30 114 23 129/80 95 Venturi Mask 50 12/15/16 13:22 102 24 97 Venturi Mask 15.0 50 12/15/16 13:15 101 24 97 Venturi Mask 12.0 50 12/15/16 13:00 86 23 107/76 94 Room Air 12/15/16 12:30 90 23 107/76 94 Room Air 12/15/16 12:00 97.0 89 26 113/87 90 Room Air 12/15/16 12:00 87 12/15/16 11:30 79 23 96/59 95 Room Air 12/15/16 11:00 82 26 112/58 95 Venturi Mask 50 12/15/16 10:30 89 26 109/79 91 Venturi Mask 50 12/15/16 10:00 87 27 115/87 89 Room Air 12/15/16 09:30 85 24 143/95 93 Venturi Mask 50 12/15/16 09:00 78 24 97/57 95 Venturi Mask 50 12/15/16 08:30 85 23 130/96 97 Venturi Mask 50 12/15/16 08:16 82 134/101 12/15/16 08:00 97.1 82 25 134/101 93 Venturi Mask 50 12/15/16 08:00 92 12/15/16 07:52 85 23 130/96 97 Venturi Mask 50 12/15/16 07:30 86 24 130/96 91 Venturi Mask 50 12/15/16 07:25 90 24 97 Venturi Mask 15.0 50 12/15/16 07:15 97 Venturi Mask 12.0 50 12/15/16 07:15 Venturi Mask 12.0 50 12/15/16 07:15 89 22 97 Venturi Mask 12.0 50 12/15/16 07:00 90 26 129/91 94 Venturi Mask 50 12/15/16 06:30 89 26 129/75 96 Venturi Mask 50 12/15/16 06:00 89 26 127/63 96 Venturi Mask 50 12/15/16 05:30 87 26 127/63 96 Venturi Mask 50 12/15/16 05:00 87 27 133/90 96 Venturi Mask 50 12/15/16 04:30 85 27 115/70 96 Venturi Mask 50 12/15/16 04:00 97.5 85 29 134/104 91 Venturi Mask 50 12/15/16 04:00 86 12/15/16 03:30 84 28 132/76 96 Venturi Mask 50 12/15/16 03:00 85 27 116/76 95 Venturi Mask 50 12/15/16 02:30 85 29 99/61 95 Venturi Mask 50 12/15/16 02:00 85 26 124/85 95 Venturi Mask 50 12/15/16 01:30 86 26 119/83 94 Venturi Mask 50 12/15/16 01:28 83 24 92 Venturi Mask 15.0 50 12/15/16 01:22 84 24 93 Venturi Mask 12.0 50 12/15/16 01:00 81 20 107/73 94 Venturi Mask 50 12/15/16 00:30 86 24 117/76 99 Venturi Mask 50 12/15/16 00:00 97.6 85 29 115/83 96 Venturi Mask 50 12/14/16 23:30 78 29 107/79 99 Venturi Mask 50 12/14/16 23:15 86 12/14/16 23:00 78 25 115/73 99 Venturi Mask 50 12/14/16 22:30 80 25 110/75 94 Venturi Mask 50 12/14/16 22:00 86 25 117/77 97 Venturi Mask 50 12/14/16 21:30 86 25 112/74 90 Venturi Mask 50 12/14/16 21:00 86 27 116/64 88 Nasal Cannula 5.0 12/14/16 20:30 97.0 103 25 110/50 93 Venturi Mask 50 12/14/16 20:00 81 27 121/83 93 Nasal Cannula 5.0 12/14/16 20:00 82 12/14/16 19:30 85 27 115/63 93 Venturi Mask 50 12/14/16 19:30 85 24 92 Nasal Cannula 4.0 36 12/14/16 19:18 Venturi Mask 12.0 50 12/14/16 19:18 98 Venturi Mask 12.0 50 12/14/16 19:18 78 24 96 Venturi Mask 12.0 50 12/14/16 19:00 79 25 115/66 95 Venturi Mask 50 12/14/16 18:30 81 24 106/65 95 Venturi Mask 50 General Appearance: lethargic Neck: JVD Rhythm: Afib Cardiovascular: tachycardia, systolic murmur - i/vi MILA R second ics, irregularly irregular Respiratory/Chest: other - shallow respirations. no rales Abdomen: non tender, soft Extremities: no swelling Intake and Output 12/14/16 12/15/16 19:00 07:00 Intake Total 1154.890 ml 637.825 ml Output Total 1330 ml 770 ml Balance -175.110 ml -132.175 ml Intake Oral 450 ml 65 ml IV Total 704.890 ml 572.825 ml Output Urine Total 1330 ml 770 ml Laboratory Tests Test 12/14/16 23:05 12/15/16 06:25 12/15/16 09:58 12/15/16 15:15 Activated Partial Thromboplast Time 59 SEC (23-33) H 53 SEC (23-33) H 50 SEC (23-33) H White Blood Count 10.6 K/UL (4.8-10.8) Red Blood Count 5.76 M/UL (4.70-6.10) Hemoglobin 14.5 G/DL (14.2-18.0) Hematocrit 44.7 % (42.0-52.0) Mean Corpuscular Volume 78 FL (80-99) L Mean Corpuscular Hemoglobin 25.2 PG (27.0-31.0) L Mean Corpuscular Hemoglobin Concent 32.5 G/DL (32.0-36.0) Red Cell Distribution Width 16.0 % (11.6-14.8) H Platelet Count 236 K/UL (150-450) Mean Platelet Volume 7.4 FL (6.5-10.1) Neutrophils (%) (Auto) 81.6 % (45.0-75.0) H Lymphocytes (%) (Auto) 7.9 % (20.0-45.0) L Monocytes (%) (Auto) 9.2 % (1.0-10.0) Eosinophils (%) (Auto) 0.6 % (0.0-3.0) Basophils (%) (Auto) 0.7 % (0.0-2.0) Sodium Level 135 mEQ/L (135-145) Potassium Level 3.8 mEQ/L (3.4-4.9) Chloride Level 95 mEQ/L (98-107) L Carbon Dioxide Level 18 mEQ/L (20-30) L Anion Gap 22 (5-15) H Blood Urea Nitrogen 71 mg/dL (7-23) H Creatinine 2.5 mg/dL (0.7-1.2) H Estimat Glomerular Filtration Rate mL/min (>60) Glucose Level 146 mg/dL (74-106) H Uric Acid 10.9 mg/dL (3.0-7.5) H Calcium Level 9.2 mg/dL (8.6-10.2) Phosphorus Level 4.2 mg/dL (2.5-4.8) Magnesium Level 2.1 mg/dL (1.7-2.5) Total Bilirubin 1.2 mg/dL (0.0-1.2) Direct Bilirubin 0.3 mg/dL (0.1-0.3) Aspartate Amino Transf (AST/SGOT) 245 U/L (5-40) H Alanine Aminotransferase (ALT/SGPT) 448 U/L (3-41) H Alkaline Phosphatase 97 U/L (40-129) Troponin I 0.54 ng/mL (<=0.30) *H C-Reactive Protein, Quantitative 16.5 mg/dL (< 0.5) H Pro-B-Type Natriuretic Peptide 21954 pg/mL (0-450) H Total Protein 6.5 g/dL (6.6-8.7) L Albumin 3.4 g/dL (3.5-5.2) L Globulin 3.1 g/dL Albumin/Globulin Ratio 1.0 (1.0-2.7) Arterial Blood pH 7.437 (7.350-7.450) Arterial Blood Partial Pressure CO2 28.3 mmHg (35.0-45.0) L Arterial Blood Partial Pressure O2 55.3 mmHg (75.0-100.0) L Arterial Blood HCO3 18.7 mmol/L (22.0-26.0) L Arterial Blood Oxygen Saturation 88.4 % (92.0-98.0) L Arterial Blood Base Excess -4.1 Arnie Test Positive Microbiology Date/Time Source Procedure Growth Status 12/12/16 23:15 Blood Blood Culture - Preliminary NO GROWTH AFTER 48 HOURS Resulted 12/12/16 23:10 Blood Blood Culture - Preliminary NO GROWTH AFTER 48 HOURS Resulted DEANGELO MACK Dec 15, 2016 18:21
[2016-12-15] MEDS ORDERED: Lidocaine 1% MPF 10mg/ml 5ml INJ ONE (19:00)
--- NOTE | 2016-12-15 19:30 | Emergency Room Report ---
History of Present Illness General Chief Complaint: Syncope Source: Patient, Significant Other Present Illness Allergies: Coded Allergies: CIPROFLOXACIN (Verified Allergy, Unknown, SEVERE SHORTNESS OF BREATH, 12/15) PENICILLINS (Verified Allergy, Unknown, SEVERE SHORTNESS OF BREATH, ) Nursing Documentation-[facility] Past Medical History: No History, Except For Hx Cardiac Problems: Yes - STENTS Hx Hypertension: Yes Hx Pacemaker: No - GOUT Hx Cancer: No Hx Gastrointestinal Problems: No Hx Neurological Problems: No Physical Exam Vital Signs Date Time Temp Pulse Resp B/P Pulse Ox O2 Delivery O2 Flow Rate FiO2 12/10/16 22:55 80 20 108/66 93 Room Air 12/11/16 00:38 97.1 12/12/16 03:30 2.0 12/12/16 18:55 45 Procedures Central Line Central Line : Consent: Written Central Line Lumen: triple Maximal Sterile Barrier Tech: yes cap, yes mask, yes sterile gown, yes sterile gloves, yes large sterile sheet, yes hand hygiene, yes chlorhexidine prep No Max Barrier Tech Because: emergency insertion Central Line Postion: subclavian (R) Anesthesia: Lidocaine - 5 cc's of anesthesia: 5 Complications: none Central Line Post Position: sutured, good blood return Attempts: One Patient Tolerated: Well Complications: None Medical Decision Making Diagnostic Impression: Primary Impression: Syncope Qualified Codes: R55 - Syncope and collapse Additional Impressions: Aortic stenosis Qualified Codes: I35.0 - Nonrheumatic aortic (valve) stenosis Anemia in chronic illness Chronic kidney disease (CKD) Qualified Codes: N18.9 - Chronic kidney disease, unspecified CHF exacerbation Qualified Codes: I50.9 - Heart failure, unspecified Last Vital Signs Date Time Temp Pulse Resp B/P Pulse Ox O2 Delivery O2 Flow Rate FiO2 12/15/16 18:00 109 25 96/67 97 Venturi Mask 50 12/15/16 13:22 15.0 12/15/16 12:00 97.0 Disposition: ADMITTED INPATIENT Condition: Serious Referrals: NOT CHOSEN IPA/,REFERRING (PCP) Scar Kenny Dec 15, 2016 19:30
[2016-12-16] VITALS (47 sets, daily range): BP systolic 91–130; BP diastolic 51–108
[2016-12-16] MEDS: Aztreonam Inj 0.5 GM in D5W 55 ML IVPB SCH ×3 (01:03→16:25)
[2016-12-16] MEDS: DuoNeb 0.5-3(2.5)mg/3ml neb HHN SCH ×4 (01:08→19:25)
[2016-12-16] MEDS: Heparin 25,000u/D5W 500ml 500 ML IV SCH ×2 (03:09→11:34)
[2016-12-16 04:41] LABS: BASOPHILS % (AUTO) 0.6 % (0.0-2.0); EOSINOPHILS % (AUTO) 0.5 % (0.0-3.0); LYMPHOCYTES % (AUTO) 5.1 % (20.0-45.0); MEAN CORPUSCULAR HEMOGLOBIN 26.1 PG (27.0-31.0); MEAN CORPUSCULAR HGB CONC 33.8 G/DL (32.0-36.0); MEAN CORPUSCULAR VOLUME 77 FL (80-99); MONOCYTES % (AUTO) 11.1 % (1.0-10.0); NEUTROPHILS % (AUTO) 82.7 % (45.0-75.0); PLATELET COUNT 241 K/UL (150-450); RED BLOOD COUNT 5.36 M/UL (4.70-6.10)
[2016-12-16 05:06] LABS: ALANINE AMINOTRANSFERASE 562 U/L (3-41); ANION GAP 20 (5-15); ASPARTATE AMINO TRANSFERASE 316 U/L (5-40); CALCIUM 8.9 mg/dL (8.6-10.2); CARBON DIOXIDE 21 mEQ/L (20-30); CHLORIDE 94 mEQ/L (98-107); HEMOLYSIS 7; MAGNESIUM 1.9 mg/dL (1.7-2.5); POTASSIUM 3.4 mEQ/L (3.4-4.9); SODIUM 135 mEQ/L (135-145); TOTAL PROTEIN 6.2 g/dL (6.6-8.7)
[2016-12-16] MEDS ORDERED: Vancomycin 1.25 GM in NS 275 ML IVPB ONE (06:00)
[2016-12-16 06:52] LABS: CRP QUANT 12.1 mg/dL (< 0.5); URIC ACID 11.4 mg/dL (3.0-7.5)
[2016-12-16 06:54] LABS: BILIRUBIN,DIRECT 0.3 mg/dL (0.1-0.3)
[2016-12-16 08:42] LABS: ABG PCO2 27.8 mmHg (35.0-45.0)
[2016-12-16 08:43] LABS: ABG ALLEN TEST POSITIVE; ABG BASE EXCESS -4.5
[2016-12-16] MEDS: Aspirin EC 81mg tab ORAL SCH (09:04)
[2016-12-16] MEDS: Theophylline ER 100mg ORAL SCH (09:04)
--- NOTE | 2016-12-16 11:10 | Pulmonolgy Critical Care Note ---
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 Respiratory: monitor respiratory rate, CXR Cardiac: continue to monitor HR/BP, other - contrine amiodarone, heart rate is controlled Renal: F/U I&O, keep IV fluid Infectious Disease: check cultures, other - on aztreonam, no cultures are available Gastrointestinal: continue feedings/current rate, hold feedings Endocrine: monitor blood sugar Hematologic: monitor H/H Affect: PRN ativan Prophylaxis: Protonix, Heparin Notes Reviewed: cardio, 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 with: nurses, consultants, 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 - Objective Last 24 Hour Vital Signs Date Time Temp Pulse Resp B/P Pulse Ox O2 Delivery O2 Flow Rate FiO2 12/16/16 10:30 90 27 94/67 93 Nasal Cannula 5.0 12/16/16 10:00 90 28 113/73 93 Nasal Cannula 5.0 12/16/16 09:30 95 27 94/73 93 Nasal Cannula 5.0 12/16/16 09:05 97 98/73 12/16/16 09:00 95 32 94/72 93 Nasal Cannula 5.0 12/16/16 08:30 94 27 119/71 93 Nasal Cannula 5.0 12/16/16 08:00 92 12/16/16 08:00 98.6 96 27 113/71 93 Nasal Cannula 5.0 12/16/16 07:30 95 27 118/84 93 Nasal Cannula 5.0 12/16/16 07:17 95 22 96 Nasal Cannula 6.0 44 12/16/16 07:16 Nasal Cannula 6.0 44 12/16/16 07:16 94 22 98 Nasal Cannula 6.0 44 12/16/16 07:15 94 Nasal Cannula 6.0 44 12/16/16 07:00 97 27 118/84 93 Nasal Cannula 5.0 12/16/16 06:30 91 26 104/86 92 Nasal Cannula 5.0 12/16/16 06:00 88 23 97/52 94 Nasal Cannula 5.0 12/16/16 05:30 91 24 109/76 92 Nasal Cannula 5.0 12/16/16 05:00 93 23 118/68 94 Nasal Cannula 5.0 12/16/16 04:30 93 24 114/78 92 Nasal Cannula 5.0 12/16/16 04:00 90 12/16/16 04:00 98.3 90 22 107/60 93 Nasal Cannula 5.0 12/16/16 03:30 96 24 106/52 94 Nasal Cannula 5.0 12/16/16 03:00 98 26 108/79 96 Nasal Cannula 5.0 12/16/16 02:58 93 18 Nasal Cannula 6.0 44 12/16/16 02:30 94 25 108/79 94 Nasal Cannula 5.0 12/16/16 02:00 94 24 108/79 95 Venturi Mask 50 12/16/16 01:18 104 25 94 Nasal Cannula 6.0 44 12/16/16 01:09 95 29 98 Nasal Cannula 6.0 44 12/16/16 01:00 94 26 113/79 94 Venturi Mask 50 12/16/16 00:30 97 26 117/68 94 Venturi Mask 50 12/16/16 00:00 93 12/16/16 00:00 97.2 93 28 112/71 94 Venturi Mask 50 12/15/16 23:30 114 26 120/92 95 Venturi Mask 50 12/15/16 23:00 112 24 103/79 90 Venturi Mask 50 12/15/16 22:00 133 28 122/93 97 Venturi Mask 50 12/15/16 21:00 119 26 107/91 97 Venturi Mask 50 12/15/16 20:00 98.2 116 23 128/79 94 Venturi Mask 50 12/15/16 20:00 116 12/15/16 19:02 Venturi Mask 12.0 50 12/15/16 19:01 94 Venturi Mask 12.0 50 12/15/16 19:00 113 27 96/67 98 Venturi Mask 50 12/15/16 19:00 104 25 94 Venturi Mask 15.0 50 12/15/16 19:00 104 25 94 Venturi Mask 12.0 50 12/15/16 18:00 109 25 96/67 97 Venturi Mask 50 12/15/16 17:00 110 25 117/84 97 Venturi Mask 50 12/15/16 16:01 97.7 112 26 99/81 97 Venturi Mask 50 12/15/16 16:00 117 12/15/16 16:00 112 26 99/81 97 Venturi Mask 50 12/15/16 15:00 111 21 114/70 97 Venturi Mask 50 12/15/16 14:30 118 23 114/70 99 Venturi Mask 50 12/15/16 14:00 127 23 116/61 90 Venturi Mask 50 12/15/16 13:30 114 23 129/80 95 Venturi Mask 50 12/15/16 13:22 102 24 97 Venturi Mask 15.0 50 12/15/16 13:15 101 24 97 Venturi Mask 12.0 50 12/15/16 13:00 86 23 107/76 94 Room Air 12/15/16 12:30 90 23 107/76 94 Room Air 12/15/16 12:00 97.0 89 26 113/87 90 Room Air 12/15/16 12:00 87 12/15/16 11:30 79 23 96/59 95 Room Air Status: awake, sedated Condition: critical HEENT: atraumatic Lungs: chest wall tender Heart: HR/BP stable Abdomen: soft, non-tender Extremities: no C/C/E, edema Decubiti: location Critical Care - Subjective ROS Limited/Unobtainable: No ICU Day: 4 Intubation Day: 4 Interval Events: got a central line last night by ER physician EKG Rhythm: Sinus Rhythm FI02: 44 Sputum Amount: None Drips: heparin drip, amiodarone drip I&O: Intake and Output 12/15/16 12/16/16 19:00 07:00 Intake Total 544.375 ml 1027.881 ml Output Total 705 ml 485 ml Balance -160.625 ml 542.881 ml Intake Oral 90 ml 230 ml IV Total 454.375 ml 797.881 ml Output Urine Total 705 ml 485 ml CXR: pulmonary edema Labs: Laboratory Tests Test 12/15/16 15:15 12/16/16 00:30 12/16/16 03:50 12/16/16 08:30 Activated Partial Thromboplast Time 50 SEC (23-33) H 125 SEC (23-33) H 82 SEC (23-33) H White Blood Count 9.0 K/UL (4.8-10.8) Red Blood Count 5.36 M/UL (4.70-6.10) Hemoglobin 14.0 G/DL (14.2-18.0) L Hematocrit 41.4 % (42.0-52.0) L Mean Corpuscular Volume 77 FL (80-99) L Mean Corpuscular Hemoglobin 26.1 PG (27.0-31.0) L Mean Corpuscular Hemoglobin Concent 33.8 G/DL (32.0-36.0) Red Cell Distribution Width 16.0 % (11.6-14.8) H Platelet Count 241 K/UL (150-450) Mean Platelet Volume 7.0 FL (6.5-10.1) Neutrophils (%) (Auto) 82.7 % (45.0-75.0) H Lymphocytes (%) (Auto) 5.1 % (20.0-45.0) L Monocytes (%) (Auto) 11.1 % (1.0-10.0) H Eosinophils (%) (Auto) 0.5 % (0.0-3.0) Basophils (%) (Auto) 0.6 % (0.0-2.0) Sodium Level 135 mEQ/L (135-145) Potassium Level 3.4 mEQ/L (3.4-4.9) Chloride Level 94 mEQ/L (98-107) L Carbon Dioxide Level 21 mEQ/L (20-30) Anion Gap 20 (5-15) H Blood Urea Nitrogen 62 mg/dL (7-23) H Creatinine 2.0 mg/dL (0.7-1.2) H Estimat Glomerular Filtration Rate mL/min (>60) Glucose Level 146 mg/dL (74-106) H Uric Acid 11.4 mg/dL (3.0-7.5) H Calcium Level 8.9 mg/dL (8.6-10.2) Phosphorus Level 4.0 mg/dL (2.5-4.8) Magnesium Level 1.9 mg/dL (1.7-2.5) Total Bilirubin 1.3 mg/dL (0.0-1.2) H Direct Bilirubin 0.3 mg/dL (0.1-0.3) Gamma Glutamyl Transpeptidase 64 U/L (8-61) H Aspartate Amino Transf (AST/SGOT) 316 U/L (5-40) H Alanine Aminotransferase (ALT/SGPT) 562 U/L (3-41) H Alkaline Phosphatase 81 U/L (40-129) Total Creatine Kinase 125 U/L (38-174) C-Reactive Protein, Quantitative 12.1 mg/dL (< 0.5) H Pro-B-Type Natriuretic Peptide 80781 pg/mL (0-450) H Total Protein 6.2 g/dL (6.6-8.7) L Albumin 3.2 g/dL (3.5-5.2) L Globulin 3.0 g/dL Albumin/Globulin Ratio 1.0 (1.0-2.7) Random Vancomycin Level 13.6 ug/mL Test 12/16/16 08:34 Arterial Blood pH 7.434 (7.350-7.450) Arterial Blood Partial Pressure CO2 27.8 mmHg (35.0-45.0) L Arterial Blood Partial Pressure O2 82.4 mmHg (75.0-100.0) Arterial Blood HCO3 18.2 mmol/L (22.0-26.0) L Arterial Blood Oxygen Saturation 95.5 % (92.0-98.0) Arterial Blood Base Excess -4.5 Arnie Test Positive FRANNY MENDES Dec 16, 2016 11:10
--- NOTE | 2016-12-16 11:15 | Diagnostic Imaging Report ---
Indication: Line placement Comparison: None A single view chest radiograph was obtained. Findings: Right subclavian line is present with the tip in the right atrium. There is no pneumothorax. Pulmonary edema again demonstrated. Impression: Subclavian line in good position. No pneumothorax
--- NOTE | 2016-12-16 12:59 | General Progress Note ---
Assessment/Plan Status: stable - from renal stand, unchanged - from cardiac stand Status Narrative Cr lower Assessment/Plan status; Renal failure , likely chronic . Has one functioning kidney- lost one after trauma in [place] at age 13- WORSENING ? [place], rising Troponin CHF improved- At fib admitted for Syncope- Anemia Gout Plan: KCL and Allopurinol On Amiodarone drip Optimize cardiac status Urine studies- Monitor renal parameters- Avoid Nephrotoxics- Kidney JOSÉ- : Impression: Negative for hydronephrosis Echogenic atrophic right kidney. Massive prostatomegaly Multiple renal calcifications, may be parenchymal or calyceal Incidental finding of left renal cysts Per orders Subjective ROS Limited/Unobtainable: No Constitutional: Reports: malaise, weakness Allergies: Coded Allergies: CIPROFLOXACIN (Verified Allergy, Unknown, SEVERE SHORTNESS OF BREATH, 12/15) PENICILLINS (Verified Allergy, Unknown, SEVERE SHORTNESS OF BREATH, ) Objective Last 24 Hour Vital Signs Date Time Temp Pulse Resp B/P Pulse Ox O2 Delivery O2 Flow Rate FiO2 12/16/16 12:50 90 22 96 Nasal Cannula 6.0 44 12/16/16 12:45 88 22 88 Nasal Cannula 6.0 44 12/16/16 12:00 94 12/16/16 11:30 94 27 98/67 93 Nasal Cannula 5.0 12/16/16 11:07 95 27 100/67 93 Nasal Cannula 5.0 12/16/16 10:30 90 27 94/67 93 Nasal Cannula 5.0 12/16/16 10:00 90 28 113/73 93 Nasal Cannula 5.0 12/16/16 09:30 95 27 94/73 93 Nasal Cannula 5.0 12/16/16 09:05 97 98/73 12/16/16 09:00 95 32 94/72 93 Nasal Cannula 5.0 12/16/16 08:30 94 27 119/71 93 Nasal Cannula 5.0 12/16/16 08:00 92 12/16/16 08:00 98.6 96 27 113/71 93 Nasal Cannula 5.0 12/16/16 07:30 95 27 118/84 93 Nasal Cannula 5.0 12/16/16 07:17 95 22 96 Nasal Cannula 6.0 44 12/16/16 07:16 Nasal Cannula 6.0 44 12/16/16 07:16 94 22 98 Nasal Cannula 6.0 44 12/16/16 07:15 94 Nasal Cannula 6.0 44 12/16/16 07:00 97 27 118/84 93 Nasal Cannula 5.0 12/16/16 06:30 91 26 104/86 92 Nasal Cannula 5.0 12/16/16 06:00 88 23 97/52 94 Nasal Cannula 5.0 12/16/16 05:30 91 24 109/76 92 Nasal Cannula 5.0 12/16/16 05:00 93 23 118/68 94 Nasal Cannula 5.0 12/16/16 04:30 93 24 114/78 92 Nasal Cannula 5.0 12/16/16 04:00 90 12/16/16 04:00 98.3 90 22 107/60 93 Nasal Cannula 5.0 12/16/16 03:30 96 24 106/52 94 Nasal Cannula 5.0 12/16/16 03:00 98 26 108/79 96 Nasal Cannula 5.0 12/16/16 02:58 93 18 Nasal Cannula 6.0 44 12/16/16 02:30 94 25 108/79 94 Nasal Cannula 5.0 12/16/16 02:00 94 24 108/79 95 Venturi Mask 50 12/16/16 01:18 104 25 94 Nasal Cannula 6.0 44 12/16/16 01:09 95 29 98 Nasal Cannula 6.0 44 12/16/16 01:00 94 26 113/79 94 Venturi Mask 50 12/16/16 00:30 97 26 117/68 94 Venturi Mask 50 12/16/16 00:00 93 12/16/16 00:00 97.2 93 28 112/71 94 Venturi Mask 50 12/15/16 23:30 114 26 120/92 95 Venturi Mask 50 12/15/16 23:00 112 24 103/79 90 Venturi Mask 50 12/15/16 22:00 133 28 122/93 97 Venturi Mask 50 12/15/16 21:00 119 26 107/91 97 Venturi Mask 50 12/15/16 20:00 98.2 116 23 128/79 94 Venturi Mask 50 12/15/16 20:00 116 12/15/16 19:02 Venturi Mask 12.0 50 12/15/16 19:01 94 Venturi Mask 12.0 50 12/15/16 19:00 113 27 96/67 98 Venturi Mask 50 12/15/16 19:00 104 25 94 Venturi Mask 15.0 50 12/15/16 19:00 104 25 94 Venturi Mask 12.0 50 12/15/16 18:00 109 25 96/67 97 Venturi Mask 50 12/15/16 17:00 110 25 117/84 97 Venturi Mask 50 12/15/16 16:01 97.7 112 26 99/81 97 Venturi Mask 50 12/15/16 16:00 117 12/15/16 16:00 112 26 99/81 97 Venturi Mask 50 12/15/16 15:00 111 21 114/70 97 Venturi Mask 50 12/15/16 14:30 118 23 114/70 99 Venturi Mask 50 12/15/16 14:00 127 23 116/61 90 Venturi Mask 50 12/15/16 13:30 114 23 129/80 95 Venturi Mask 50 12/15/16 13:22 102 24 97 Venturi Mask 15.0 50 12/15/16 13:15 101 24 97 Venturi Mask 12.0 50 12/15/16 13:00 86 23 107/76 94 Room Air Intake and Output 12/15/16 12/16/16 19:00 07:00 Intake Total 544.375 ml 1027.881 ml Output Total 705 ml 485 ml Balance -160.625 ml 542.881 ml Intake Oral 90 ml 230 ml IV Total 454.375 ml 797.881 ml Output Urine Total 705 ml 485 ml Laboratory Tests 12/15/16 15:15: Activated Partial Thromboplast Time 50H 12/16/16 00:30: Activated Partial Thromboplast Time 125H 12/16/16 03:50: White Blood Count 9.0, Red Blood Count 5.36, Hemoglobin 14.0L, Hematocrit 41.4L , Mean Corpuscular Volume 77L, Mean Corpuscular Hemoglobin 26.1L, Mean Corpuscular Hemoglobin Concent 33.8, Red Cell Distribution Width 16.0H, Platelet Count 241, Mean Platelet Volume 7.0, Neutrophils (%) (Auto) 82.7H, Lymphocytes (%) (Auto) 5.1L, Monocytes (%) (Auto) 11.1H, Eosinophils (%) (Auto) 0.5, Basophils (%) (Auto) 0.6, Sodium Level 135, Potassium Level 3.4, Chloride Level 94L, Carbon Dioxide Level 21, Anion Gap 20H, Blood Urea Nitrogen 62H, Creatinine 2.0H, Estimat Glomerular Filtration Rate , Glucose Level 146H, Uric Acid 11.4H, Calcium Level 8.9, Phosphorus Level 4.0, Magnesium Level 1.9, Total Bilirubin 1.3H, Direct Bilirubin 0.3, Gamma Glutamyl Transpeptidase 64H, Aspartate Amino Transf (AST/SGOT) 316H, Alanine Aminotransferase (ALT/SGPT) 562H , Alkaline Phosphatase 81, Total Creatine Kinase 125, C-Reactive Protein, Quantitative 12.1H, Pro-B-Type Natriuretic Peptide 05860I, Total Protein 6.2L, Albumin 3.2L, Globulin 3.0, Albumin/Globulin Ratio 1.0, Random Vancomycin Level 13.6 12/16/16 08:30: Activated Partial Thromboplast Time 82H 12/16/16 08:34: Arterial Blood pH 7.434, Arterial Blood Partial Pressure CO2 27.8L, Arterial Blood Partial Pressure O2 82.4, Arterial Blood HCO3 18.2L, Arterial Blood Oxygen Saturation 95.5, Arterial Blood Base Excess -4.5, Arnie Test Positive Height (Feet): 5 Height (Inches): 5.00 Weight (Pounds): 136 General Appearance: mild distress Cardiovascular: tachycardia, arrhythmia Respiratory/Chest: decreased breath sounds Abdomen: soft KEESHA MOYER Dec 16, 2016 12:59
[2016-12-16] MEDS: Allopurinol 100mg Tab ORAL SCH (14:44)
[2016-12-16] MEDS: Amiodarone 900 MG in D5W 500ml 482 ML IV SCH ×2 (16:00→23:34)
--- NOTE | 2016-12-16 17:36 | Cardiology Progress Note ---
Assessment/Plan Status: stable, unchanged Status Narrative Pt w/ critical , hemodynamically improved, normotensive, in SR, on iv maintenance amiodarone at 0.5 mg/min on anticoagulation w/ iv heparin Renal parameters improving. Assessment/Plan Continue maintenance iv amiodarone at 0.5 mg/min for PAF Supplement K Diurese as needed for pulm congestion. followup labs in am. Eventual plan for transfer to tertiary hospital for TAVR or valvuloplasty Subjective ROS Limited/Unobtainable: No Subjective Events noted. Pt is s/p central line placement ( R sc) last pm, and is now back on iv amiodarone, in SR Objective Last 24 Hour Vital Signs Date Time Temp Pulse Resp B/P Pulse Ox O2 Delivery O2 Flow Rate FiO2 12/16/16 17:00 88 29 111/82 93 Nasal Cannula 5.0 12/16/16 16:30 88 28 111/82 93 Nasal Cannula 5.0 12/16/16 16:00 91 12/16/16 16:00 97.2 91 27 108/74 96 Nasal Cannula 5.0 12/16/16 15:30 82 22 116/51 99 Nasal Cannula 5.0 12/16/16 15:00 93 27 121/80 93 Nasal Cannula 5.0 12/16/16 14:30 93 27 110/72 93 Nasal Cannula 5.0 12/16/16 14:00 93 27 97/72 93 Nasal Cannula 5.0 12/16/16 13:30 94 28 98/71 93 Nasal Cannula 5.0 12/16/16 13:00 94 27 98/67 93 Nasal Cannula 5.0 12/16/16 12:50 90 22 96 Nasal Cannula 6.0 44 12/16/16 12:45 88 22 88 Nasal Cannula 6.0 44 12/16/16 12:30 94 26 112/84 93 Nasal Cannula 5.0 12/16/16 12:00 98.6 94 27 111/77 93 Nasal Cannula 5.0 12/16/16 12:00 94 12/16/16 11:30 94 27 98/67 93 Nasal Cannula 5.0 12/16/16 11:07 95 27 100/67 93 Nasal Cannula 5.0 12/16/16 10:30 90 27 94/67 93 Nasal Cannula 5.0 12/16/16 10:00 90 28 113/73 93 Nasal Cannula 5.0 12/16/16 09:30 95 27 94/73 93 Nasal Cannula 5.0 12/16/16 09:05 97 98/73 12/16/16 09:00 95 32 94/72 93 Nasal Cannula 5.0 12/16/16 08:30 94 27 119/71 93 Nasal Cannula 5.0 12/16/16 08:00 92 12/16/16 08:00 98.6 96 27 113/71 93 Nasal Cannula 5.0 12/16/16 07:30 95 27 118/84 93 Nasal Cannula 5.0 12/16/16 07:17 95 22 96 Nasal Cannula 6.0 44 12/16/16 07:16 Nasal Cannula 6.0 44 12/16/16 07:16 94 22 98 Nasal Cannula 6.0 44 12/16/16 07:15 94 Nasal Cannula 6.0 44 12/16/16 07:00 97 27 118/84 93 Nasal Cannula 5.0 12/16/16 06:30 91 26 104/86 92 Nasal Cannula 5.0 12/16/16 06:00 88 23 97/52 94 Nasal Cannula 5.0 12/16/16 05:30 91 24 109/76 92 Nasal Cannula 5.0 12/16/16 05:00 93 23 118/68 94 Nasal Cannula 5.0 12/16/16 04:30 93 24 114/78 92 Nasal Cannula 5.0 12/16/16 04:00 90 12/16/16 04:00 98.3 90 22 107/60 93 Nasal Cannula 5.0 12/16/16 03:30 96 24 106/52 94 Nasal Cannula 5.0 12/16/16 03:00 98 26 108/79 96 Nasal Cannula 5.0 12/16/16 02:58 93 18 Nasal Cannula 6.0 44 12/16/16 02:30 94 25 108/79 94 Nasal Cannula 5.0 12/16/16 02:00 94 24 108/79 95 Venturi Mask 50 12/16/16 01:18 104 25 94 Nasal Cannula 6.0 44 12/16/16 01:09 95 29 98 Nasal Cannula 6.0 44 12/16/16 01:00 94 26 113/79 94 Venturi Mask 50 12/16/16 00:30 97 26 117/68 94 Venturi Mask 50 12/16/16 00:00 93 12/16/16 00:00 97.2 93 28 112/71 94 Venturi Mask 50 12/15/16 23:30 114 26 120/92 95 Venturi Mask 50 12/15/16 23:00 112 24 103/79 90 Venturi Mask 50 12/15/16 22:00 133 28 122/93 97 Venturi Mask 50 12/15/16 21:00 119 26 107/91 97 Venturi Mask 50 12/15/16 20:00 98.2 116 23 128/79 94 Venturi Mask 50 12/15/16 20:00 116 12/15/16 19:02 Venturi Mask 12.0 50 12/15/16 19:01 94 Venturi Mask 12.0 50 12/15/16 19:00 113 27 96/67 98 Venturi Mask 50 12/15/16 19:00 104 25 94 Venturi Mask 15.0 50 12/15/16 19:00 104 25 94 Venturi Mask 12.0 50 12/15/16 18:00 109 25 96/67 97 Venturi Mask 50 General Appearance: WD/WN, alert Neck: no JVD Rhythm: NSR Cardiovascular: normal rate, regular rhythm, systolic murmur - i/vi late peaking MILA R second ics Respiratory/Chest: other - coarse BS bilat Abdomen: non tender, soft Intake and Output 12/15/16 12/16/16 19:00 07:00 Intake Total 544.375 ml 1027.881 ml Output Total 705 ml 485 ml Balance -160.625 ml 542.881 ml Intake Oral 90 ml 230 ml IV Total 454.375 ml 797.881 ml Output Urine Total 705 ml 485 ml Laboratory Tests Test 12/16/16 00:30 12/16/16 03:50 12/16/16 08:30 12/16/16 08:34 Activated Partial Thromboplast Time 125 SEC (23-33) H 82 SEC (23-33) H White Blood Count 9.0 K/UL (4.8-10.8) Red Blood Count 5.36 M/UL (4.70-6.10) Hemoglobin 14.0 G/DL (14.2-18.0) L Hematocrit 41.4 % (42.0-52.0) L Mean Corpuscular Volume 77 FL (80-99) L Mean Corpuscular Hemoglobin 26.1 PG (27.0-31.0) L Mean Corpuscular Hemoglobin Concent 33.8 G/DL (32.0-36.0) Red Cell Distribution Width 16.0 % (11.6-14.8) H Platelet Count 241 K/UL (150-450) Mean Platelet Volume 7.0 FL (6.5-10.1) Neutrophils (%) (Auto) 82.7 % (45.0-75.0) H Lymphocytes (%) (Auto) 5.1 % (20.0-45.0) L Monocytes (%) (Auto) 11.1 % (1.0-10.0) H Eosinophils (%) (Auto) 0.5 % (0.0-3.0) Basophils (%) (Auto) 0.6 % (0.0-2.0) Sodium Level 135 mEQ/L (135-145) Potassium Level 3.4 mEQ/L (3.4-4.9) Chloride Level 94 mEQ/L (98-107) L Carbon Dioxide Level 21 mEQ/L (20-30) Anion Gap 20 (5-15) H Blood Urea Nitrogen 62 mg/dL (7-23) H Creatinine 2.0 mg/dL (0.7-1.2) H Estimat Glomerular Filtration Rate mL/min (>60) Glucose Level 146 mg/dL (74-106) H Uric Acid 11.4 mg/dL (3.0-7.5) H Calcium Level 8.9 mg/dL (8.6-10.2) Phosphorus Level 4.0 mg/dL (2.5-4.8) Magnesium Level 1.9 mg/dL (1.7-2.5) Total Bilirubin 1.3 mg/dL (0.0-1.2) H Direct Bilirubin 0.3 mg/dL (0.1-0.3) Gamma Glutamyl Transpeptidase 64 U/L (8-61) H Aspartate Amino Transf (AST/SGOT) 316 U/L (5-40) H Alanine Aminotransferase (ALT/SGPT) 562 U/L (3-41) H Alkaline Phosphatase 81 U/L (40-129) Total Creatine Kinase 125 U/L (38-174) C-Reactive Protein, Quantitative 12.1 mg/dL (< 0.5) H Pro-B-Type Natriuretic Peptide 26249 pg/mL (0-450) H Total Protein 6.2 g/dL (6.6-8.7) L Albumin 3.2 g/dL (3.5-5.2) L Globulin 3.0 g/dL Albumin/Globulin Ratio 1.0 (1.0-2.7) Random Vancomycin Level 13.6 ug/mL Arterial Blood pH 7.434 (7.350-7.450) Arterial Blood Partial Pressure CO2 27.8 mmHg (35.0-45.0) L Arterial Blood Partial Pressure O2 82.4 mmHg (75.0-100.0) Arterial Blood HCO3 18.2 mmol/L (22.0-26.0) L Arterial Blood Oxygen Saturation 95.5 % (92.0-98.0) Arterial Blood Base Excess -4.5 Arnie Test Positive DEANGELO MACK Dec 16, 2016 17:36
[2016-12-16] MEDS: Promethazine/Codeine 5ml UD ORAL PRN (17:49)
[2016-12-16] MEDS ORDERED: Amiodarone 900 MG in D5W 500ml 482 ML IV SCH (21:31)
[2016-12-16] MEDS: LORazepam Inj 2mg/ml 1ml IV PRN (22:08)
--- NOTE | 2016-12-16 22:20 | Infectious Diseases Prog Note ---
Assessment/Plan Assessment/Plan A: The patient is an 86-year-old male with Leukocytosis improving sepsis, SP probable Pneumonia SCx: no sig growth C- x-ray: left lower lobe basilar infiltrate DANIEL Cr improved CE + History of aortic valve stenosis. CAD. Gout HTN PLAN: Continue Aztreonam and Doxy d# 5 , add IV Vanco d# 4 ( may stop AB Rx in AM ) monitor CBC. monitor BMP. Monitor cultures (blood ) Monitor chest x-ray. Subjective Allergies: Coded Allergies: CIPROFLOXACIN (Verified Allergy, Unknown, SEVERE SHORTNESS OF BREATH, 12/15) PENICILLINS (Verified Allergy, Unknown, SEVERE SHORTNESS OF BREATH, ) Subjective no significant cough Objective Vital Signs Last 24 Hour Vital Signs Date Time Temp Pulse Resp B/P Pulse Ox O2 Delivery O2 Flow Rate FiO2 12/16/16 20:30 89 27 97/75 93 Nasal Cannula 5.0 12/16/16 20:00 83 25 119/71 89 Nasal Cannula 5.0 12/16/16 20:00 91 12/16/16 19:30 87 28 119/71 93 Nasal Cannula 5.0 12/16/16 19:25 87 26 93 Nasal Cannula 6.0 44 12/16/16 19:17 Nasal Cannula 6.0 44 12/16/16 19:16 94 Nasal Cannula 6.0 44 12/16/16 19:00 88 28 130/108 94 Nasal Cannula 5.0 12/16/16 18:30 90 29 112/80 95 Nasal Cannula 5.0 12/16/16 18:00 93 26 112/80 95 Nasal Cannula 5.0 12/16/16 17:30 89 28 107/81 97 Nasal Cannula 5.0 12/16/16 17:00 88 29 111/82 93 Nasal Cannula 5.0 12/16/16 16:30 88 28 111/82 93 Nasal Cannula 5.0 12/16/16 16:00 91 12/16/16 16:00 97.2 91 27 108/74 96 Nasal Cannula 5.0 12/16/16 15:30 82 22 116/51 99 Nasal Cannula 5.0 12/16/16 15:00 93 27 121/80 93 Nasal Cannula 5.0 12/16/16 14:30 93 27 110/72 93 Nasal Cannula 5.0 12/16/16 14:00 93 27 97/72 93 Nasal Cannula 5.0 12/16/16 13:30 94 28 98/71 93 Nasal Cannula 5.0 12/16/16 13:00 94 27 98/67 93 Nasal Cannula 5.0 12/16/16 12:50 90 22 96 Nasal Cannula 6.0 44 12/16/16 12:45 88 22 88 Nasal Cannula 6.0 44 12/16/16 12:30 94 26 112/84 93 Nasal Cannula 5.0 12/16/16 12:00 98.6 94 27 111/77 93 Nasal Cannula 5.0 12/16/16 12:00 94 12/16/16 11:30 94 27 98/67 93 Nasal Cannula 5.0 12/16/16 11:07 95 27 100/67 93 Nasal Cannula 5.0 12/16/16 10:30 90 27 94/67 93 Nasal Cannula 5.0 12/16/16 10:00 90 28 113/73 93 Nasal Cannula 5.0 12/16/16 09:30 95 27 94/73 93 Nasal Cannula 5.0 12/16/16 09:05 97 98/73 12/16/16 09:00 95 32 94/72 93 Nasal Cannula 5.0 12/16/16 08:30 94 27 119/71 93 Nasal Cannula 5.0 12/16/16 08:00 92 12/16/16 08:00 98.6 96 27 113/71 93 Nasal Cannula 5.0 12/16/16 07:30 95 27 118/84 93 Nasal Cannula 5.0 12/16/16 07:17 95 22 96 Nasal Cannula 6.0 44 12/16/16 07:16 Nasal Cannula 6.0 44 12/16/16 07:16 94 22 98 Nasal Cannula 6.0 44 12/16/16 07:15 94 Nasal Cannula 6.0 44 12/16/16 07:00 97 27 118/84 93 Nasal Cannula 5.0 12/16/16 06:30 91 26 104/86 92 Nasal Cannula 5.0 12/16/16 06:00 88 23 97/52 94 Nasal Cannula 5.0 12/16/16 05:30 91 24 109/76 92 Nasal Cannula 5.0 12/16/16 05:00 93 23 118/68 94 Nasal Cannula 5.0 12/16/16 04:30 93 24 114/78 92 Nasal Cannula 5.0 12/16/16 04:00 90 12/16/16 04:00 98.3 90 22 107/60 93 Nasal Cannula 5.0 12/16/16 03:30 96 24 106/52 94 Nasal Cannula 5.0 12/16/16 03:00 98 26 108/79 96 Nasal Cannula 5.0 12/16/16 02:58 93 18 Nasal Cannula 6.0 44 12/16/16 02:30 94 25 108/79 94 Nasal Cannula 5.0 12/16/16 02:00 94 24 108/79 95 Venturi Mask 50 12/16/16 01:18 104 25 94 Nasal Cannula 6.0 44 12/16/16 01:09 95 29 98 Nasal Cannula 6.0 44 12/16/16 01:00 94 26 113/79 94 Venturi Mask 50 12/16/16 00:30 97 26 117/68 94 Venturi Mask 50 12/16/16 00:00 93 12/16/16 00:00 97.2 93 28 112/71 94 Venturi Mask 50 12/15/16 23:30 114 26 120/92 95 Venturi Mask 50 12/15/16 23:00 112 24 103/79 90 Venturi Mask 50 Height (Feet): 5 Height (Inches): 5.00 Weight (Pounds): 136 HEENT: atraumatic Respiratory/Chest: no respiratory distress Cardiovascular: regular rhythm Abdomen: no organomegaly Laboratory Tests Test 12/16/16 00:30 12/16/16 03:50 12/16/16 08:30 12/16/16 08:34 Activated Partial Thromboplast Time 125 SEC (23-33) H 82 SEC (23-33) H White Blood Count 9.0 K/UL (4.8-10.8) Red Blood Count 5.36 M/UL (4.70-6.10) Hemoglobin 14.0 G/DL (14.2-18.0) L Hematocrit 41.4 % (42.0-52.0) L Mean Corpuscular Volume 77 FL (80-99) L Mean Corpuscular Hemoglobin 26.1 PG (27.0-31.0) L Mean Corpuscular Hemoglobin Concent 33.8 G/DL (32.0-36.0) Red Cell Distribution Width 16.0 % (11.6-14.8) H Platelet Count 241 K/UL (150-450) Mean Platelet Volume 7.0 FL (6.5-10.1) Neutrophils (%) (Auto) 82.7 % (45.0-75.0) H Lymphocytes (%) (Auto) 5.1 % (20.0-45.0) L Monocytes (%) (Auto) 11.1 % (1.0-10.0) H Eosinophils (%) (Auto) 0.5 % (0.0-3.0) Basophils (%) (Auto) 0.6 % (0.0-2.0) Sodium Level 135 mEQ/L (135-145) Potassium Level 3.4 mEQ/L (3.4-4.9) Chloride Level 94 mEQ/L (98-107) L Carbon Dioxide Level 21 mEQ/L (20-30) Anion Gap 20 (5-15) H Blood Urea Nitrogen 62 mg/dL (7-23) H Creatinine 2.0 mg/dL (0.7-1.2) H Estimat Glomerular Filtration Rate mL/min (>60) Glucose Level 146 mg/dL (74-106) H Uric Acid 11.4 mg/dL (3.0-7.5) H Calcium Level 8.9 mg/dL (8.6-10.2) Phosphorus Level 4.0 mg/dL (2.5-4.8) Magnesium Level 1.9 mg/dL (1.7-2.5) Total Bilirubin 1.3 mg/dL (0.0-1.2) H Direct Bilirubin 0.3 mg/dL (0.1-0.3) Gamma Glutamyl Transpeptidase 64 U/L (8-61) H Aspartate Amino Transf (AST/SGOT) 316 U/L (5-40) H Alanine Aminotransferase (ALT/SGPT) 562 U/L (3-41) H Alkaline Phosphatase 81 U/L (40-129) Total Creatine Kinase 125 U/L (38-174) C-Reactive Protein, Quantitative 12.1 mg/dL (< 0.5) H Pro-B-Type Natriuretic Peptide 53999 pg/mL (0-450) H Total Protein 6.2 g/dL (6.6-8.7) L Albumin 3.2 g/dL (3.5-5.2) L Globulin 3.0 g/dL Albumin/Globulin Ratio 1.0 (1.0-2.7) Random Vancomycin Level 13.6 ug/mL Arterial Blood pH 7.434 (7.350-7.450) Arterial Blood Partial Pressure CO2 27.8 mmHg (35.0-45.0) L Arterial Blood Partial Pressure O2 82.4 mmHg (75.0-100.0) Arterial Blood HCO3 18.2 mmol/L (22.0-26.0) L Arterial Blood Oxygen Saturation 95.5 % (92.0-98.0) Arterial Blood Base Excess -4.5 Arnie Test Positive Current Medications Medications (Trade) Dose Ordered Sig/Curtis Route PRN Reason Start Time Stop Time Status Last Admin Dose Admin Acetaminophen (Tylenol) 650 mg Q4H PRN ORAL fever 12/12/16 06:45 01/11/17 06:44 Albuterol/ Ipratropium (DuoNeb 0.5-3(2.5)mg/3ml) 3 ml Q4H PRN HHN Shortness of Breath 12/12/16 06:47 12/17/16 06:46 Albuterol/ Ipratropium (DuoNeb 0.5-3(2.5)mg/3ml) 3 ml Q6HRT HHN 12/12/16 07:00 12/17/16 06:59 12/16/16 19:25 Allopurinol 200 mg 200 mg DAILY ORAL 12/16/16 14:00 01/15/17 13:59 12/16/16 14:44 Amiodarone HCl 900 mg/Dextrose 500 ml @ 16.66 mls/ hr Q24H IV 12/15/16 16:00 12/16/16 23:00 Future hold 12/15/16 21:42 Amiodarone HCl/ Dextrose (Cordarone/D5W 500ml) 500 ml @ 16.66 mls/ hr Q24H IV 12/16/16 23:01 01/15/17 23:00 Aspirin (Ecotrin) 81 mg DAILY ORAL 12/13/16 19:00 01/12/17 18:59 12/16/16 09:04 Aztreonam 0.5 gm/ Dextrose 55 ml @ 110 mls/hr Q8H IVPB 12/14/16 01:00 12/19/16 07:59 12/16/16 16:25 Dextrose (Dextrose 50%) STAT PRN IV Hypoglycemia 12/12/16 06:47 01/11/17 06:46 Doxycycline Monohydrate (Vibramycin) 100 mg EVERY 12 HOURS ORAL 12/12/16 22:30 12/19/16 22:29 12/16/16 21:23 Heparin Sodium/ Dextrose (Heparin) 500 ml @ 28.181 mls/ hr adjust per protocol IV 12/16/16 01:58 01/13/17 15:59 12/16/16 11:34 Lorazepam (Ativan 2mg/ml 1ml) 0.5 mg Q4H PRN IV For Anxiety 12/12/16 06:48 12/19/16 06:47 12/16/16 22:08 Metoprolol Succinate 25 mg 25 mg DAILY ORAL 12/14/16 09:00 01/13/17 08:59 12/16/16 09:05 Metoprolol Tartrate (Lopressor) 2.5 mg Q3H PRN IVP HR > 120 12/13/16 19:00 01/12/17 18:59 12/14/16 04:41 Morphine Sulfate (Morphine Sulfate) 1 mg Q4H PRN IVP For Pain 7-10 12/12/16 06:48 12/19/16 06:47 12/13/16 01:45 Nitroglycerin (Ntg) 0.4 mg Q5M X 3 DOSES PRN SL Prn Chest Pain 12/12/16 06:30 01/11/17 06:29 Ondansetron HCl (Zofran) 4 mg Q6H PRN IVP Nausea & Vomiting 12/12/16 06:48 01/11/17 06:47 12/16/16 15:40 Polyethylene Glycol (Miralax) 17 gm HSPRN PRN ORAL Constipation 12/12/16 06:49 01/11/17 06:48 Promethazine HCl/ Codeine (Phenergan with Codeine) 5 ml Q4H PRN ORAL For Cough 12/12/16 06:49 01/11/17 06:48 12/16/16 17:49 Temazepam (Restoril) 15 mg HSPRN PRN ORAL Insomnia 12/12/16 06:49 12/19/16 06:48 12/12/16 09:31 Vancomycin HCl (Vanco rx to dose) 1 ea DAILY PRN MISC Per rx protocol 12/13/16 14:00 01/12/17 13:59 ALY FALCON M.D. Dec 16, 2016 22:20
[2016-12-17] VITALS (46 sets, daily range): BP systolic 84–130; BP diastolic 42–97
[2016-12-17] MEDS: Aztreonam Inj 0.5 GM in D5W 55 ML IVPB SCH ×3 (02:10→16:56)
[2016-12-17 04:08] LABS: BASOPHILS % (AUTO) 0.5 % (0.0-2.0); LYMPHOCYTES % (AUTO) 4.1 % (20.0-45.0); MEAN CORPUSCULAR HEMOGLOBIN 25.5 PG (27.0-31.0); MEAN CORPUSCULAR HGB CONC 32.3 G/DL (32.0-36.0); MEAN CORPUSCULAR VOLUME 79 FL (80-99); MEAN PLATELET VOLUME 7.2 FL (6.5-10.1); MONOCYTES % (AUTO) 15.1 % (1.0-10.0); NEUTROPHILS % (AUTO) 80.3 % (45.0-75.0); PLATELET COUNT 248 K/UL (150-450); RED BLOOD COUNT 5.66 M/UL (4.70-6.10); WHITE BLOOD COUNT 11.7 K/UL (4.8-10.8)
[2016-12-17 04:28] LABS: ANION GAP 30 (5-15); CALCIUM 8.7 mg/dL (8.6-10.2); CARBON DIOXIDE 13 mEQ/L (20-30); CHLORIDE 85 mEQ/L (98-107); CREATININE 2.8 mg/dL (0.7-1.2); HEMOLYSIS 5; MAGNESIUM 2.2 mg/dL (1.7-2.5); PHOSPHORUS 7.2 mg/dL (2.5-4.8); POTASSIUM 4.6 mEQ/L (3.4-4.9); SODIUM 128 mEQ/L (135-145); TOTAL PROTEIN 6.3 g/dL (6.6-8.7)
[2016-12-17 04:29] LABS: CRP QUANT 14.5 mg/dL (< 0.5); URIC ACID 11.9 mg/dL (3.0-7.5)
[2016-12-17 05:01] LABS: ALANINE AMINOTRANSFERASE 1216 U/L (3-41); ASPARTATE AMINO TRANSFERASE 1158 U/L (5-40)
[2016-12-17] MEDS: Heparin 25,000u/D5W 500ml 500 ML IV SCH ×2 (05:51→23:50)
[2016-12-17 06:47] LABS: BILIRUBIN,DIRECT 0.6 mg/dL (0.1-0.3)
--- NOTE | 2016-12-17 08:16 | Pulmonolgy Critical Care Note ---
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 Respiratory: monitor respiratory rate, adjust FIO2, CXR Cardiac: continue to monitor HR/BP Renal: F/U I&O, keep IV fluid, check electrolytes Infectious Disease: check cultures, continue antibiotics Gastrointestinal: continue feedings/current rate Endocrine: check TSH, continue sliding scale insulin Hematologic: monitor H/H Neurologic: PRN Ativan, PRN Morphine Affect: PRN ativan Time Spent (Minutes): 40 Discussed with: nurses, 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, 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 - Objective Last 24 Hour Vital Signs Date Time Temp Pulse Resp B/P Pulse Ox O2 Delivery O2 Flow Rate FiO2 12/17/16 08:00 97.0 71 26 96/62 94 Nasal Cannula 5.0 12/17/16 08:00 74 12/17/16 07:30 76 28 104/81 92 Nasal Cannula 5.0 12/17/16 07:00 74 26 94/57 89 Nasal Cannula 5.0 12/17/16 06:30 73 26 103/54 89 Nasal Cannula 5.0 12/17/16 06:00 73 26 102/71 89 Nasal Cannula 5.0 12/17/16 05:30 74 30 106/54 89 Nasal Cannula 5.0 12/17/16 05:00 76 30 94/53 89 Nasal Cannula 5.0 12/17/16 04:30 71 30 120/60 89 Nasal Cannula 5.0 12/17/16 04:00 85 12/17/16 04:00 98.2 80 24 99/59 89 Nasal Cannula 5.0 12/17/16 03:30 79 24 97/58 89 Nasal Cannula 5.0 12/17/16 03:00 81 24 98/61 89 Nasal Cannula 5.0 12/17/16 02:30 87 24 116/92 89 Nasal Cannula 5.0 12/17/16 02:00 85 24 119/90 89 Nasal Cannula 5.0 12/17/16 01:00 88 24 106/68 89 Nasal Cannula 5.0 12/17/16 00:30 84 24 115/73 89 Nasal Cannula 5.0 12/17/16 00:05 76 26 90 Nasal Cannula 6.0 44 12/17/16 00:02 79 28 90 Nasal Cannula 6.0 44 12/17/16 00:00 98.9 81 24 109/75 89 Nasal Cannula 5.0 12/17/16 00:00 79 12/16/16 23:30 79 24 96/65 89 Nasal Cannula 5.0 12/16/16 23:00 81 24 108/80 89 Nasal Cannula 5.0 12/16/16 22:30 89 28 91/61 89 Nasal Cannula 5.0 12/16/16 22:00 89 24 91/61 89 Nasal Cannula 5.0 12/16/16 21:30 90 25 112/82 89 Nasal Cannula 5.0 12/16/16 21:00 83 30 117/86 89 Nasal Cannula 5.0 12/16/16 20:30 89 27 97/75 93 Nasal Cannula 5.0 12/16/16 20:30 98.1 89 25 97/75 89 Nasal Cannula 5.0 12/16/16 20:00 83 25 119/71 89 Nasal Cannula 5.0 12/16/16 20:00 91 12/16/16 19:30 87 28 119/71 93 Nasal Cannula 5.0 12/16/16 19:25 87 26 93 Nasal Cannula 6.0 44 12/16/16 19:17 Nasal Cannula 6.0 44 12/16/16 19:16 94 Nasal Cannula 6.0 44 12/16/16 19:00 88 28 130/108 94 Nasal Cannula 5.0 12/16/16 18:30 90 29 112/80 95 Nasal Cannula 5.0 12/16/16 18:00 93 26 112/80 95 Nasal Cannula 5.0 12/16/16 17:30 89 28 107/81 97 Nasal Cannula 5.0 12/16/16 17:00 88 29 111/82 93 Nasal Cannula 5.0 12/16/16 16:30 88 28 111/82 93 Nasal Cannula 5.0 12/16/16 16:00 91 12/16/16 16:00 97.2 91 27 108/74 96 Nasal Cannula 5.0 12/16/16 15:30 82 22 116/51 99 Nasal Cannula 5.0 12/16/16 15:00 93 27 121/80 93 Nasal Cannula 5.0 12/16/16 14:30 93 27 110/72 93 Nasal Cannula 5.0 12/16/16 14:00 93 27 97/72 93 Nasal Cannula 5.0 12/16/16 13:30 94 28 98/71 93 Nasal Cannula 5.0 12/16/16 13:00 94 27 98/67 93 Nasal Cannula 5.0 12/16/16 12:50 90 22 96 Nasal Cannula 6.0 44 12/16/16 12:45 88 22 88 Nasal Cannula 6.0 44 12/16/16 12:30 94 26 112/84 93 Nasal Cannula 5.0 12/16/16 12:00 98.6 94 27 111/77 93 Nasal Cannula 5.0 12/16/16 12:00 94 12/16/16 11:30 94 27 98/67 93 Nasal Cannula 5.0 12/16/16 11:07 95 27 100/67 93 Nasal Cannula 5.0 12/16/16 10:30 90 27 94/67 93 Nasal Cannula 5.0 12/16/16 10:00 90 28 113/73 93 Nasal Cannula 5.0 12/16/16 09:30 95 27 94/73 93 Nasal Cannula 5.0 12/16/16 09:05 97 98/73 12/16/16 09:00 95 32 94/72 93 Nasal Cannula 5.0 12/16/16 08:30 94 27 119/71 93 Nasal Cannula 5.0 Status: awake Condition: critical HEENT: atraumatic Neck: full ROM Lungs: chest wall tender Heart: HR/BP stable, HR/BP unstable Abdomen: soft, non-tender Extremities: no C/C/E, edema Critical Care - Subjective ROS Limited/Unobtainable: No ICU Day: 5 Intubation Day: 5 Condition: critical FI02: 44 Sputum Amount: None Fluids: off lasix drip, on amiodarone and heparin drip I&O: Intake and Output 12/16/16 12/17/16 18:59 06:59 Intake Total 1013.505 ml 684.792 ml Output Total 350 ml 300 ml Balance 663.505 ml 384.792 ml Intake Oral 130 ml 120 ml IV Total 883.505 ml 564.792 ml Output Urine Total 350 ml 300 ml CXR: pulmonary edema Labs: Laboratory Tests Test 12/16/16 08:30 12/16/16 08:34 12/17/16 03:40 Activated Partial Thromboplast Time 82 SEC (23-33) H 87 SEC (23-33) H Arterial Blood pH 7.434 (7.350-7.450) Arterial Blood Partial Pressure CO2 27.8 mmHg (35.0-45.0) L Arterial Blood Partial Pressure O2 82.4 mmHg (75.0-100.0) Arterial Blood HCO3 18.2 mmol/L (22.0-26.0) L Arterial Blood Oxygen Saturation 95.5 % (92.0-98.0) Arterial Blood Base Excess -4.5 Arnie Test Positive White Blood Count 11.7 K/UL (4.8-10.8) H Red Blood Count 5.66 M/UL (4.70-6.10) Hemoglobin 14.5 G/DL (14.2-18.0) Hematocrit 44.7 % (42.0-52.0) Mean Corpuscular Volume 79 FL (80-99) L Mean Corpuscular Hemoglobin 25.5 PG (27.0-31.0) L Mean Corpuscular Hemoglobin Concent 32.3 G/DL (32.0-36.0) Red Cell Distribution Width 16.0 % (11.6-14.8) H Platelet Count 248 K/UL (150-450) Mean Platelet Volume 7.2 FL (6.5-10.1) Neutrophils (%) (Auto) 80.3 % (45.0-75.0) H Lymphocytes (%) (Auto) 4.1 % (20.0-45.0) L Monocytes (%) (Auto) 15.1 % (1.0-10.0) H Eosinophils (%) (Auto) 0.0 % (0.0-3.0) Basophils (%) (Auto) 0.5 % (0.0-2.0) Sodium Level 128 mEQ/L (135-145) L Potassium Level 4.6 mEQ/L (3.4-4.9) Chloride Level 85 mEQ/L (98-107) L Carbon Dioxide Level 13 mEQ/L (20-30) L Anion Gap 30 (5-15) H Blood Urea Nitrogen 77 mg/dL (7-23) H Creatinine 2.8 mg/dL (0.7-1.2) H Estimat Glomerular Filtration Rate mL/min (>60) Glucose Level 158 mg/dL (74-106) H Uric Acid 11.9 mg/dL (3.0-7.5) H Calcium Level 8.7 mg/dL (8.6-10.2) Phosphorus Level 7.2 mg/dL (2.5-4.8) H Magnesium Level 2.2 mg/dL (1.7-2.5) Total Bilirubin 2.1 mg/dL (0.0-1.2) H Direct Bilirubin 0.6 mg/dL (0.1-0.3) H Aspartate Amino Transf (AST/SGOT) 1158 U/L (5-40) H Alanine Aminotransferase (ALT/SGPT) 1216 U/L (3-41) H Alkaline Phosphatase 84 U/L (40-129) C-Reactive Protein, Quantitative 14.5 mg/dL (< 0.5) H Pro-B-Type Natriuretic Peptide 11920 pg/mL (0-450) H Total Protein 6.3 g/dL (6.6-8.7) L Albumin 3.2 g/dL (3.5-5.2) L Globulin 3.1 g/dL Albumin/Globulin Ratio 1.0 (1.0-2.7) FRANNY MENDES Dec 17, 2016 08:16
[2016-12-17] MEDS: Allopurinol 100mg Tab ORAL SCH ×2 (08:22→08:34)
[2016-12-17] MEDS: Aspirin EC 81mg tab ORAL SCH (08:22)
[2016-12-17 08:50] LABS: ABG ALLEN TEST POSITIVE; ABG BASE EXCESS -8.9
--- NOTE | 2016-12-17 09:34 | Diagnostic Imaging Report ---
Indication: Altered mental status, trauma, status post fall Technique: spiral acquisitions obtained through the brain. Angled axial and coronal 5 x 5 mm slices were reconstructed. No IV contrast utilized. Radiation dose was minimized using automated exposure control Total dose length product 1386 mGycm. CTDIvol(s) 70 mGy Comparison: none FINDINGS: No acute hemorrhage or edema. No mass effect or midline shift. There is age-related enlargement of the ventricles and extra axial CSF spaces. There is periventricular deep white matter ischemic change. Normal beckwith-white differentiation. Visualized orbits are unremarkable. Visualized sinuses are unremarkable. Intact calvarium. IMPRESSION: Chronic and age-related changes. Negative for acute intracranial bleed or mass effect This agrees with the preliminary interpretation provided overnight by [facility]. The CT scanner at [facility] is accredited by the [employer] and the scans are performed using protocols designed to limit radiation exposure to as low as reasonably achievable to attain images of sufficient resolution adequate for diagnostic evaluation
[2016-12-17] MEDS: LORazepam Inj 2mg/ml 1ml IV PRN ×3 (09:39→22:44)
--- NOTE | 2016-12-17 10:29 | Diagnostic Imaging Report ---
Indication: PAIN STATUS post fall Technique: 3 views of the left knee Comparison: None Findings:No suprapatellar effusion. No acute fracture. No dislocation. Joint spaces are preserved. There are vascular calcifications Impression:No acute process This agrees with the preliminary interpretation provided overnight by [facility].
--- NOTE | 2016-12-17 10:32 | Diagnostic Imaging Report ---
Indication: PAIN, status post fall Technique: 3 views of the right knee Comparison: None Findings:No acute fractures. No dislocations. No suprapatellar effusion. Small superior pole patellar osteophyte noted. Small lucency in the superolateral patella is probably developmental Impression:No acute process This agrees with the preliminary interpretation provided overnight by [facility].
--- NOTE | 2016-12-17 10:35 | Diagnostic Imaging Report ---
Indication: PAIN, status post fall Technique: 3 views of the lumbar spine Comparison: None Findings:There is probably a bilateral L5 pars defect, although this area is not well-seen. There is grade 1 anterolisthesis of L5 on S1 with severe secondary degenerative change noted. The remainder of the bony alignment is normal. There is degenerative disc narrowing at L2-3. The remaining disc spaces are preserved. No acute fractures. No dislocations. Pedicles are intact. 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
--- NOTE | 2016-12-17 12:42 | General Progress Note ---
Assessment/Plan Status: unchanged, deteriorating Status Narrative renal function deteriorated Assessment/Plan status; Renal failure , likely chronic . Has one functioning kidney- lost one after trauma in [place] at age 13- WORSENING ? [facility], rising Troponin CHF improved- At fib admitted for Syncope- Anemia Gout Plan: KCL and Allopurinol On Amiodarone and heparin drip Optimize cardiac status Urine studies- Monitor renal parameters- Avoid Nephrotoxics- Kidney JOSÉ- : Impression: Negative for hydronephrosis Echogenic atrophic right kidney. Massive prostatomegaly Multiple renal calcifications, may be parenchymal or calyceal Incidental finding of left renal cysts Per orders Subjective ROS Limited/Unobtainable: No Constitutional: Reports: malaise, weakness Cardiovascular: Reports: irregular heart rate Allergies: Coded Allergies: CIPROFLOXACIN (Verified Allergy, Unknown, SEVERE SHORTNESS OF BREATH, 12/15) PENICILLINS (Verified Allergy, Unknown, SEVERE SHORTNESS OF BREATH, ) Objective Last 24 Hour Vital Signs Date Time Temp Pulse Resp B/P Pulse Ox O2 Delivery O2 Flow Rate FiO2 12/17/16 12:00 97.2 68 30 119/60 93 Nasal Cannula 5.0 12/17/16 11:30 66 28 84/50 95 Nasal Cannula 5.0 12/17/16 11:00 66 25 128/95 93 Venturi Mask 50 12/17/16 10:30 68 29 107/75 92 Nasal Cannula 5.0 12/17/16 10:00 71 23 91/59 94 Nasal Cannula 5.0 12/17/16 09:30 73 30 108/81 92 Nasal Cannula 5.0 12/17/16 09:00 69 26 99/49 91 Nasal Cannula 5.0 12/17/16 08:30 74 26 97/76 94 Nasal Cannula 5.0 12/17/16 08:00 97.0 71 26 96/62 94 Nasal Cannula 5.0 12/17/16 08:00 74 12/17/16 07:30 76 28 104/81 92 Nasal Cannula 5.0 12/17/16 07:00 74 26 94/57 89 Nasal Cannula 5.0 12/17/16 06:30 73 26 103/54 89 Nasal Cannula 5.0 12/17/16 06:30 Nasal Cannula 6.0 44 12/17/16 06:30 92 Nasal Cannula 6.0 44 12/17/16 06:00 73 26 102/71 89 Nasal Cannula 5.0 12/17/16 05:30 74 30 106/54 89 Nasal Cannula 5.0 12/17/16 05:00 76 30 94/53 89 Nasal Cannula 5.0 12/17/16 04:30 71 30 120/60 89 Nasal Cannula 5.0 12/17/16 04:00 85 12/17/16 04:00 98.2 80 24 99/59 89 Nasal Cannula 5.0 12/17/16 03:30 79 24 97/58 89 Nasal Cannula 5.0 12/17/16 03:00 81 24 98/61 89 Nasal Cannula 5.0 12/17/16 02:30 87 24 116/92 89 Nasal Cannula 5.0 12/17/16 02:00 85 24 119/90 89 Nasal Cannula 5.0 12/17/16 01:00 88 24 106/68 89 Nasal Cannula 5.0 12/17/16 00:30 84 24 115/73 89 Nasal Cannula 5.0 12/17/16 00:05 76 26 90 Nasal Cannula 6.0 44 12/17/16 00:02 79 28 90 Nasal Cannula 6.0 44 12/17/16 00:00 98.9 81 24 109/75 89 Nasal Cannula 5.0 12/17/16 00:00 79 12/16/16 23:30 79 24 96/65 89 Nasal Cannula 5.0 12/16/16 23:00 81 24 108/80 89 Nasal Cannula 5.0 12/16/16 22:30 89 28 91/61 89 Nasal Cannula 5.0 12/16/16 22:00 89 24 91/61 89 Nasal Cannula 5.0 12/16/16 21:30 90 25 112/82 89 Nasal Cannula 5.0 12/16/16 21:00 83 30 117/86 89 Nasal Cannula 5.0 12/16/16 20:30 89 27 97/75 93 Nasal Cannula 5.0 12/16/16 20:30 98.1 89 25 97/75 89 Nasal Cannula 5.0 12/16/16 20:00 83 25 119/71 89 Nasal Cannula 5.0 12/16/16 20:00 91 12/16/16 19:30 87 28 119/71 93 Nasal Cannula 5.0 12/16/16 19:25 87 26 93 Nasal Cannula 6.0 44 12/16/16 19:17 Nasal Cannula 6.0 44 12/16/16 19:16 94 Nasal Cannula 6.0 44 12/16/16 19:00 88 28 130/108 94 Nasal Cannula 5.0 12/16/16 18:30 90 29 112/80 95 Nasal Cannula 5.0 12/16/16 18:00 93 26 112/80 95 Nasal Cannula 5.0 12/16/16 17:30 89 28 107/81 97 Nasal Cannula 5.0 12/16/16 17:00 88 29 111/82 93 Nasal Cannula 5.0 12/16/16 16:30 88 28 111/82 93 Nasal Cannula 5.0 12/16/16 16:00 91 12/16/16 16:00 97.2 91 27 108/74 96 Nasal Cannula 5.0 12/16/16 15:30 82 22 116/51 99 Nasal Cannula 5.0 12/16/16 15:00 93 27 121/80 93 Nasal Cannula 5.0 12/16/16 14:30 93 27 110/72 93 Nasal Cannula 5.0 12/16/16 14:00 93 27 97/72 93 Nasal Cannula 5.0 12/16/16 13:30 94 28 98/71 93 Nasal Cannula 5.0 12/16/16 13:00 94 27 98/67 93 Nasal Cannula 5.0 12/16/16 12:50 90 22 96 Nasal Cannula 6.0 44 12/16/16 12:45 88 22 88 Nasal Cannula 6.0 44 Intake and Output 12/16/16 12/17/16 19:00 07:00 Intake Total 721.986 ml 701.452 ml Output Total 320 ml 300 ml Balance 401.986 ml 401.452 ml Intake Oral 130 ml 120 ml IV Total 591.986 ml 581.452 ml Output Urine Total 320 ml 300 ml Laboratory Tests 12/17/16 03:40: White Blood Count 11.7H, Red Blood Count 5.66, Hemoglobin 14.5, Hematocrit 44.7 , Mean Corpuscular Volume 79L, Mean Corpuscular Hemoglobin 25.5L, Mean Corpuscular Hemoglobin Concent 32.3, Red Cell Distribution Width 16.0H, Platelet Count 248, Mean Platelet Volume 7.2, Neutrophils (%) (Auto) 80.3H, Lymphocytes (%) (Auto) 4.1L, Monocytes (%) (Auto) 15.1H, Eosinophils (%) (Auto) 0.0, Basophils (%) (Auto) 0.5, Activated Partial Thromboplast Time 87H, Sodium Level 128L, Potassium Level 4.6, Chloride Level 85L, Carbon Dioxide Level 13L, Anion Gap 30H, Blood Urea Nitrogen 77H, Creatinine 2.8H, Estimat Glomerular Filtration Rate , Glucose Level 158H, Uric Acid 11.9H, Calcium Level 8.7, Phosphorus Level 7.2H, Magnesium Level 2.2, Total Bilirubin 2.1H, Direct Bilirubin 0.6H, Aspartate Amino Transf (AST/SGOT) 1158H, Alanine Aminotransferase (ALT/SGPT) 1216H, Alkaline Phosphatase 84, C-Reactive Protein, Quantitative 14.5H, Pro-B-Type Natriuretic Peptide [id number], Total Protein 6.3L, Albumin 3.2L, Globulin 3.1, Albumin/Globulin Ratio 1.0 12/17/16 08:30: Arterial Blood pH 7.367, Arterial Blood Partial Pressure CO2 26.0L, Arterial Blood Partial Pressure O2 79.3, Arterial Blood HCO3 14.6L, Arterial Blood Oxygen Saturation 94.6, Arterial Blood Base Excess -8.9, Arnie Test Positive Height (Feet): 5 Height (Inches): 5.00 Weight (Pounds): 134 Cardiovascular: tachycardia, arrhythmia Respiratory/Chest: decreased breath sounds Abdomen: distended KEESHA MOYER Dec 17, 2016 12:42
--- NOTE | 2016-12-17 19:16 | Cardiology Report ---
APPROVED REPORT EKG Measurement Heart [id number] Normal sinus rhythm Possible Left atrial enlargement Left axis deviation Right bundle branch block LASH Bifasc block T wave abnormality, consider lateral ischemia Abnormal ECG
--- NOTE | 2016-12-17 19:51 | Cardiology Progress Note ---
Assessment/Plan Assessment/Plan 1. Syncope. 2. Significant aortic stenosis. 3. History of coronary artery disease. 4. hs of Renal insufficiency with a solitary kidney. 5. chf acute diastilic 6. afib rvr paroxysmal 7. abn lft shock liver ? imporved 8. ARF 9. transient hypotension 10. NSTEMI 11. metabolic acidosis ? ? on 12. Transaminitis bp on the lower side if drop will bolus remain in sinus now weekend had issues with refufing lines now has a line is on heparin cr up a little dtr left message wanting him transferred to [facility] once hemodynamically stable will work toward the goal as well his lfts are up agian will d/s ep as to the need to dc amiod but alternative are limited Subjective Cardiovascular: Denies: chest pain, lightheadedness, palpitations Respiratory: Denies: SOB with excertion, shortness of breath Gastrointestinal/Abdominal: Reports: nausea Genitourinary: Reports: burning Objective Last 24 Hour Vital Signs Date Time Temp Pulse Resp B/P Pulse Ox O2 Delivery O2 Flow Rate FiO2 12/17/16 19:40 Nasal Cannula 4.0 36 12/17/16 19:38 93 Nasal Cannula 4.0 36 12/17/16 18:30 69 28 102/67 93 Nasal Cannula 5.0 12/17/16 18:00 67 28 91/53 93 Nasal Cannula 5.0 12/17/16 17:30 67 29 87/56 93 Nasal Cannula 5.0 12/17/16 17:00 66 29 97/59 93 Nasal Cannula 5.0 12/17/16 16:30 70 30 103/69 93 Nasal Cannula 5.0 12/17/16 16:00 97.0 67 29 100/42 93 Nasal Cannula 5.0 12/17/16 16:00 67 12/17/16 15:30 67 29 92/57 94 Nasal Cannula 5.0 12/17/16 15:00 70 24 130/78 96 Nasal Cannula 5.0 12/17/16 14:00 70 30 114/97 93 Nasal Cannula 5.0 12/17/16 13:30 67 27 85/51 97 Nasal Cannula 5.0 12/17/16 13:00 70 30 105/77 94 Nasal Cannula 5.0 12/17/16 12:30 73 28 115/75 94 Nasal Cannula 5.0 12/17/16 12:00 97.2 68 30 119/60 93 Nasal Cannula 5.0 12/17/16 12:00 69 12/17/16 11:30 66 28 84/50 95 Nasal Cannula 5.0 12/17/16 11:00 66 25 128/95 93 Venturi Mask 50 12/17/16 10:30 68 29 107/75 92 Nasal Cannula 5.0 12/17/16 10:00 71 23 91/59 94 Nasal Cannula 5.0 12/17/16 09:30 73 30 108/81 92 Nasal Cannula 5.0 12/17/16 09:00 69 26 99/49 91 Nasal Cannula 5.0 12/17/16 08:30 74 26 97/76 94 Nasal Cannula 5.0 12/17/16 08:00 97.0 71 26 96/62 94 Nasal Cannula 5.0 12/17/16 08:00 74 12/17/16 07:30 76 28 104/81 92 Nasal Cannula 5.0 12/17/16 07:00 74 26 94/57 89 Nasal Cannula 5.0 12/17/16 06:30 73 26 103/54 89 Nasal Cannula 5.0 12/17/16 06:30 Nasal Cannula 6.0 44 12/17/16 06:30 92 Nasal Cannula 6.0 44 12/17/16 06:00 73 26 102/71 89 Nasal Cannula 5.0 12/17/16 05:30 74 30 106/54 89 Nasal Cannula 5.0 12/17/16 05:00 76 30 94/53 89 Nasal Cannula 5.0 12/17/16 04:30 71 30 120/60 89 Nasal Cannula 5.0 12/17/16 04:00 85 12/17/16 04:00 98.2 80 24 99/59 89 Nasal Cannula 5.0 12/17/16 03:30 79 24 97/58 89 Nasal Cannula 5.0 12/17/16 03:00 81 24 98/61 89 Nasal Cannula 5.0 12/17/16 02:30 87 24 116/92 89 Nasal Cannula 5.0 12/17/16 02:00 85 24 119/90 89 Nasal Cannula 5.0 12/17/16 01:00 88 24 106/68 89 Nasal Cannula 5.0 12/17/16 00:30 84 24 115/73 89 Nasal Cannula 5.0 12/17/16 00:05 76 26 90 Nasal Cannula 6.0 44 12/17/16 00:02 79 28 90 Nasal Cannula 6.0 44 12/17/16 00:00 98.9 81 24 109/75 89 Nasal Cannula 5.0 12/17/16 00:00 79 12/16/16 23:30 79 24 96/65 89 Nasal Cannula 5.0 12/16/16 23:00 81 24 108/80 89 Nasal Cannula 5.0 12/16/16 22:30 89 28 91/61 89 Nasal Cannula 5.0 12/16/16 22:00 89 24 91/61 89 Nasal Cannula 5.0 12/16/16 21:30 90 25 112/82 89 Nasal Cannula 5.0 12/16/16 21:00 83 30 117/86 89 Nasal Cannula 5.0 12/16/16 20:30 89 27 97/75 93 Nasal Cannula 5.0 12/16/16 20:30 98.1 89 25 97/75 89 Nasal Cannula 5.0 12/16/16 20:00 83 25 119/71 89 Nasal Cannula 5.0 12/16/16 20:00 91 General Appearance: no apparent distress Neck: supple Cardiovascular: normal rate, regular rhythm Respiratory/Chest: lungs clear Abdomen: normal bowel sounds, non tender, soft Extremities: no swelling Intake and Output 12/16/16 12/17/16 19:00 07:00 Intake Total 721.986 ml 701.452 ml Output Total 320 ml 300 ml Balance 401.986 ml 401.452 ml Intake Oral 130 ml 120 ml IV Total 591.986 ml 581.452 ml Output Urine Total 320 ml 300 ml Laboratory Tests Test 12/17/16 03:40 12/17/16 08:30 White Blood Count 11.7 K/UL (4.8-10.8) H Red Blood Count 5.66 M/UL (4.70-6.10) Hemoglobin 14.5 G/DL (14.2-18.0) Hematocrit 44.7 % (42.0-52.0) Mean Corpuscular Volume 79 FL (80-99) L Mean Corpuscular Hemoglobin 25.5 PG (27.0-31.0) L Mean Corpuscular Hemoglobin Concent 32.3 G/DL (32.0-36.0) Red Cell Distribution Width 16.0 % (11.6-14.8) H Platelet Count 248 K/UL (150-450) Mean Platelet Volume 7.2 FL (6.5-10.1) Neutrophils (%) (Auto) 80.3 % (45.0-75.0) H Lymphocytes (%) (Auto) 4.1 % (20.0-45.0) L Monocytes (%) (Auto) 15.1 % (1.0-10.0) H Eosinophils (%) (Auto) 0.0 % (0.0-3.0) Basophils (%) (Auto) 0.5 % (0.0-2.0) Activated Partial Thromboplast Time 87 SEC (23-33) H Sodium Level 128 mEQ/L (135-145) L Potassium Level 4.6 mEQ/L (3.4-4.9) Chloride Level 85 mEQ/L (98-107) L Carbon Dioxide Level 13 mEQ/L (20-30) L Anion Gap 30 (5-15) H Blood Urea Nitrogen 77 mg/dL (7-23) H Creatinine 2.8 mg/dL (0.7-1.2) H Estimat Glomerular Filtration Rate mL/min (>60) Glucose Level 158 mg/dL (74-106) H Uric Acid 11.9 mg/dL (3.0-7.5) H Calcium Level 8.7 mg/dL (8.6-10.2) Phosphorus Level 7.2 mg/dL (2.5-4.8) H Magnesium Level 2.2 mg/dL (1.7-2.5) Total Bilirubin 2.1 mg/dL (0.0-1.2) H Direct Bilirubin 0.6 mg/dL (0.1-0.3) H Aspartate Amino Transf (AST/SGOT) 1158 U/L (5-40) H Alanine Aminotransferase (ALT/SGPT) 1216 U/L (3-41) H Alkaline Phosphatase 84 U/L (40-129) C-Reactive Protein, Quantitative 14.5 mg/dL (< 0.5) H Pro-B-Type Natriuretic Peptide 51477 pg/mL (0-450) H Total Protein 6.3 g/dL (6.6-8.7) L Albumin 3.2 g/dL (3.5-5.2) L Globulin 3.1 g/dL Albumin/Globulin Ratio 1.0 (1.0-2.7) Arterial Blood pH 7.367 (7.350-7.450) Arterial Blood Partial Pressure CO2 26.0 mmHg (35.0-45.0) L Arterial Blood Partial Pressure O2 79.3 mmHg (75.0-100.0) Arterial Blood HCO3 14.6 mmol/L (22.0-26.0) L Arterial Blood Oxygen Saturation 94.6 % (92.0-98.0) Arterial Blood Base Excess -8.9 Arnie Test Positive MEY DELEON Dec 17, 2016 19:51
[2016-12-17] MEDS ORDERED: DuoNeb 0.5-3(2.5)mg/3ml neb HHN PRN (20:00)
--- NOTE | 2016-12-17 21:44 | Infectious Diseases Prog Note ---
Assessment/Plan Assessment/Plan A: The patient is an 86-year-old male with Leukocytosis, SP sepsis, SP probable Pneumonia SCx: no sig growth C- x-ray: left lower lobe basilar infiltrate DANIEL Cr improved CE + History of aortic valve stenosis. CAD. Gout HTN PLAN: DC Aztreonam and Doxy d# 6 , add IV Vanco d# 5 , monitor pt off of AB Rx monitor CBC. monitor BMP. Monitor chest x-ray. Subjective Allergies: Coded Allergies: CIPROFLOXACIN (Verified Allergy, Unknown, SEVERE SHORTNESS OF BREATH, 12/15) PENICILLINS (Verified Allergy, Unknown, SEVERE SHORTNESS OF BREATH, ) Subjective comfortable Objective Vital Signs Last 24 Hour Vital Signs Date Time Temp Pulse Resp B/P Pulse Ox O2 Delivery O2 Flow Rate FiO2 12/17/16 21:32 63 16 Nasal Cannula 4.0 36 12/17/16 21:30 67 16 96 Nasal Cannula 4.0 36 12/17/16 19:40 Nasal Cannula 4.0 36 12/17/16 19:38 93 Nasal Cannula 4.0 36 12/17/16 18:30 69 28 102/67 93 Nasal Cannula 5.0 12/17/16 18:00 67 28 91/53 93 Nasal Cannula 5.0 12/17/16 17:30 67 29 87/56 93 Nasal Cannula 5.0 12/17/16 17:00 66 29 97/59 93 Nasal Cannula 5.0 12/17/16 16:30 70 30 103/69 93 Nasal Cannula 5.0 12/17/16 16:00 97.0 67 29 100/42 93 Nasal Cannula 5.0 12/17/16 16:00 67 12/17/16 15:30 67 29 92/57 94 Nasal Cannula 5.0 12/17/16 15:00 70 24 130/78 96 Nasal Cannula 5.0 12/17/16 14:00 70 30 114/97 93 Nasal Cannula 5.0 12/17/16 13:30 67 27 85/51 97 Nasal Cannula 5.0 12/17/16 13:00 70 30 105/77 94 Nasal Cannula 5.0 12/17/16 12:30 73 28 115/75 94 Nasal Cannula 5.0 12/17/16 12:00 97.2 68 30 119/60 93 Nasal Cannula 5.0 1/30/17 12:00 69 12/17/16 11:30 66 28 84/50 95 Nasal Cannula 5.0 12/17/16 11:00 66 25 128/95 93 Venturi Mask 50 12/17/16 10:30 68 29 107/75 92 Nasal Cannula 5.0 12/17/16 10:00 71 23 91/59 94 Nasal Cannula 5.0 12/17/16 09:30 73 30 108/81 92 Nasal Cannula 5.0 12/17/16 09:00 69 26 99/49 91 Nasal Cannula 5.0 12/17/16 08:30 74 26 97/76 94 Nasal Cannula 5.0 12/17/16 08:00 97.0 71 26 96/62 94 Nasal Cannula 5.0 12/17/16 08:00 74 12/17/16 07:30 76 28 104/81 92 Nasal Cannula 5.0 12/17/16 07:00 74 26 94/57 89 Nasal Cannula 5.0 12/17/16 06:30 73 26 103/54 89 Nasal Cannula 5.0 12/17/16 06:30 Nasal Cannula 6.0 44 12/17/16 06:30 92 Nasal Cannula 6.0 44 12/17/16 06:00 73 26 102/71 89 Nasal Cannula 5.0 12/17/16 05:30 74 30 106/54 89 Nasal Cannula 5.0 12/17/16 05:00 76 30 94/53 89 Nasal Cannula 5.0 12/17/16 04:30 71 30 120/60 89 Nasal Cannula 5.0 12/17/16 04:00 85 12/17/16 04:00 98.2 80 24 99/59 89 Nasal Cannula 5.0 12/17/16 03:30 79 24 97/58 89 Nasal Cannula 5.0 12/17/16 03:00 81 24 98/61 89 Nasal Cannula 5.0 12/17/16 02:30 87 24 116/92 89 Nasal Cannula 5.0 12/17/16 02:00 85 24 119/90 89 Nasal Cannula 5.0 12/17/16 01:00 88 24 106/68 89 Nasal Cannula 5.0 12/17/16 00:30 84 24 115/73 89 Nasal Cannula 5.0 12/17/16 00:05 76 26 90 Nasal Cannula 6.0 44 12/17/16 00:02 79 28 90 Nasal Cannula 6.0 44 12/17/16 00:00 98.9 81 24 109/75 89 Nasal Cannula 5.0 12/17/16 00:00 79 12/16/16 23:30 79 24 96/65 89 Nasal Cannula 5.0 12/16/16 23:00 81 24 108/80 89 Nasal Cannula 5.0 12/16/16 22:30 89 28 91/61 89 Nasal Cannula 5.0 12/16/16 22:00 89 24 91/61 89 Nasal Cannula 5.0 Height (Feet): 5 Height (Inches): 5.00 Weight (Pounds): 134 HEENT: atraumatic Respiratory/Chest: normal breath sounds Cardiovascular: normal rate Laboratory Tests Test 12/17/16 03:40 12/17/16 08:30 White Blood Count 11.7 K/UL (4.8-10.8) H Red Blood Count 5.66 M/UL (4.70-6.10) Hemoglobin 14.5 G/DL (14.2-18.0) Hematocrit 44.7 % (42.0-52.0) Mean Corpuscular Volume 79 FL (80-99) L Mean Corpuscular Hemoglobin 25.5 PG (27.0-31.0) L Mean Corpuscular Hemoglobin Concent 32.3 G/DL (32.0-36.0) Red Cell Distribution Width 16.0 % (11.6-14.8) H Platelet Count 248 K/UL (150-450) Mean Platelet Volume 7.2 FL (6.5-10.1) Neutrophils (%) (Auto) 80.3 % (45.0-75.0) H Lymphocytes (%) (Auto) 4.1 % (20.0-45.0) L Monocytes (%) (Auto) 15.1 % (1.0-10.0) H Eosinophils (%) (Auto) 0.0 % (0.0-3.0) Basophils (%) (Auto) 0.5 % (0.0-2.0) Activated Partial Thromboplast Time 87 SEC (23-33) H Sodium Level 128 mEQ/L (135-145) L Potassium Level 4.6 mEQ/L (3.4-4.9) Chloride Level 85 mEQ/L (98-107) L Carbon Dioxide Level 13 mEQ/L (20-30) L Anion Gap 30 (5-15) H Blood Urea Nitrogen 77 mg/dL (7-23) H Creatinine 2.8 mg/dL (0.7-1.2) H Estimat Glomerular Filtration Rate mL/min (>60) Glucose Level 158 mg/dL (74-106) H Uric Acid 11.9 mg/dL (3.0-7.5) H Calcium Level 8.7 mg/dL (8.6-10.2) Phosphorus Level 7.2 mg/dL (2.5-4.8) H Magnesium Level 2.2 mg/dL (1.7-2.5) Total Bilirubin 2.1 mg/dL (0.0-1.2) H Direct Bilirubin 0.6 mg/dL (0.1-0.3) H Aspartate Amino Transf (AST/SGOT) 1158 U/L (5-40) H Alanine Aminotransferase (ALT/SGPT) 1216 U/L (3-41) H Alkaline Phosphatase 84 U/L (40-129) C-Reactive Protein, Quantitative 14.5 mg/dL (< 0.5) H Pro-B-Type Natriuretic Peptide 94318 pg/mL (0-450) H Total Protein 6.3 g/dL (6.6-8.7) L Albumin 3.2 g/dL (3.5-5.2) L Globulin 3.1 g/dL Albumin/Globulin Ratio 1.0 (1.0-2.7) Arterial Blood pH 7.367 (7.350-7.450) Arterial Blood Partial Pressure CO2 26.0 mmHg (35.0-45.0) L Arterial Blood Partial Pressure O2 79.3 mmHg (75.0-100.0) Arterial Blood HCO3 14.6 mmol/L (22.0-26.0) L Arterial Blood Oxygen Saturation 94.6 % (92.0-98.0) Arterial Blood Base Excess -8.9 Arnie Test Positive Current Medications Medications (Trade) Dose Ordered Sig/Curtis Route PRN Reason Start Time Stop Time Status Last Admin Dose Admin Acetaminophen (Tylenol) 650 mg Q4H PRN ORAL fever 12/12/16 06:45 01/11/17 06:44 Albuterol/ Ipratropium (DuoNeb 0.5-3(2.5)mg/3ml) 3 ml Q4HR PRN HHN Shortness of breath 12/17/16 20:00 12/22/16 19:59 12/17/16 20:58 Albuterol/ Ipratropium (DuoNeb 0.5-3(2.5)mg/3ml) 3 ml Q4HRT HHN 12/17/16 23:00 12/22/16 22:59 Allopurinol 200 mg 200 mg DAILY ORAL 12/16/16 14:00 01/15/17 13:59 12/16/16 14:44 Amiodarone HCl/ Dextrose (Cordarone/D5W 500ml) 500 ml @ 16.66 mls/ hr Q24H IV 12/16/16 23:01 01/15/17 23:00 12/16/16 23:34 Aspirin (Ecotrin) 81 mg DAILY ORAL 12/13/16 19:00 01/12/17 18:59 12/17/16 08:22 Aztreonam 0.5 gm/ Dextrose 55 ml @ 110 mls/hr Q8H IVPB 12/14/16 01:00 12/19/16 07:59 12/17/16 16:56 Dextrose (Dextrose 50%) STAT PRN IV Hypoglycemia 12/12/16 06:47 01/11/17 06:46 Doxycycline Monohydrate (Vibramycin) 100 mg EVERY 12 HOURS ORAL 12/12/16 22:30 12/19/16 22:29 12/17/16 08:22 Heparin Sodium/ Dextrose (Heparin) 500 ml @ 28.181 mls/ hr adjust per protocol IV 12/16/16 01:58 01/13/17 15:59 12/17/16 05:51 Lorazepam (Ativan 2mg/ml 1ml) 0.5 mg Q4H PRN IV For Anxiety 12/12/16 06:48 12/19/16 06:47 12/17/16 15:10 Metoprolol Succinate 25 mg 25 mg DAILY ORAL 12/14/16 09:00 01/13/17 08:59 12/16/16 09:05 Metoprolol Tartrate (Lopressor) 2.5 mg Q3H PRN IVP HR > 120 12/13/16 19:00 01/12/17 18:59 12/14/16 04:41 Morphine Sulfate (Morphine Sulfate) 1 mg Q4H PRN IVP For Pain 7-10 12/12/16 06:48 12/19/16 06:47 12/13/16 01:45 Nitroglycerin (Ntg) 0.4 mg Q5M X 3 DOSES PRN SL Prn Chest Pain 12/12/16 06:30 01/11/17 06:29 Ondansetron HCl (Zofran) 4 mg Q6H PRN IVP Nausea & Vomiting 12/12/16 06:48 01/11/17 06:47 12/17/16 21:04 Polyethylene Glycol (Miralax) 17 gm HSPRN PRN ORAL Constipation 12/12/16 06:49 01/11/17 06:48 Promethazine HCl/ Codeine (Phenergan with Codeine) 5 ml Q4H PRN ORAL For Cough 12/12/16 06:49 01/11/17 06:48 12/16/16 17:49 Temazepam (Restoril) 15 mg HSPRN PRN ORAL Insomnia 12/12/16 06:49 12/19/16 06:48 12/12/16 09:31 Vancomycin HCl (Vanco rx to dose) 1 ea DAILY PRN MISC Per rx protocol 12/13/16 14:00 01/12/17 13:59 ALY FALCON M.D. Dec 17, 2016 21:44
[2016-12-17] MEDS: DuoNeb 0.5-3(2.5)mg/3ml neb HHN SCH ×2 (23:45)
[2016-12-18] VITALS (32 sets, daily range): BP systolic 78–122; BP diastolic 48–75
[2016-12-18 01:34] LABS: ABG ALLEN TEST POSITIVE; ABG BASE EXCESS -12.3; ABG PCO2 26.9 mmHg (35.0-45.0)
[2016-12-18] MEDS: DuoNeb 0.5-3(2.5)mg/3ml neb HHN SCH ×6 (02:41→23:31)
[2016-12-18] MEDS: Amiodarone 900 MG in D5W 500ml 482 ML IV SCH (03:15)
[2016-12-18 05:16] LABS: MEAN CORPUSCULAR HEMOGLOBIN 25.9 PG (27.0-31.0); MEAN CORPUSCULAR HGB CONC 32.8 G/DL (32.0-36.0); MEAN CORPUSCULAR VOLUME 79 FL (80-99); MEAN PLATELET VOLUME 7.7 FL (6.5-10.1); PLATELET COUNT 191 K/UL (150-450); RED BLOOD COUNT 5.14 M/UL (4.70-6.10); RED CELL DISTRIBUTION WIDTH 16.2 % (11.6-14.8); WHITE BLOOD COUNT 19.1 K/UL (4.8-10.8)
[2016-12-18 05:42] LABS: ALBUMIN/GLOBULIN RATIO 1.1 (1.0-2.7); ANION GAP 29 (5-15); CALCIUM 7.7 mg/dL (8.6-10.2); CARBON DIOXIDE 12 mEQ/L (20-30); CHLORIDE 87 mEQ/L (98-107); HEMOLYSIS 13; SODIUM 128 mEQ/L (135-145); TOTAL PROTEIN 5.7 g/dL (6.6-8.7)
[2016-12-18 06:12] LABS: ALANINE AMINOTRANSFERASE 3402 U/L (3-41); ASPARTATE AMINO TRANSFERASE 4894 U/L (5-40)
[2016-12-18 06:54] LABS: MAGNESIUM 2.2 mg/dL (1.7-2.5); PHOSPHORUS 9.6 mg/dL (2.5-4.8)
[2016-12-18 07:48] LABS: ANISOCYTOSIS 1+; BAND NEUTROPHILS % (MANUAL) 0 % (0-8); BASOPHILS % (MANUAL) 0 % (0-2); EOSINOPHILS % (MANUAL) 0 % (0-3); LYMPHOCYTES % (MANUAL) 3 % (20-45); NEUTROPHILS % (MANUAL) 86 % (45-75); PLATELET ESTIMATE ADEQUATE; PLATELET MORPHOLOGY NORMAL; TOTAL CELLS COUNTED 100
--- NOTE | 2016-12-18 08:11 | Cardiology Progress Note ---
Assessment/Plan Assessment/Plan 1. Syncope. 2. Significant aortic stenosis. 3. History of coronary artery disease. 4. hs of Renal insufficiency with a solitary kidney. 5. chf acute diastolic 6. afib rvr paroxysmal recurrent now appears intolerant of amiod 7. abn lft shock liver vs amiod induced 8. ARF 9. transient hypotension 10. NSTEMI 11. metabolic acidosis bp remain on the lower side not been diuresed for the past few days remain in sinus now cr elevated between yest and today may need dialysis soon now has a line is on heparin but is being on hold for possible placment of a dialysis catheter lft up further d/w ep will dc amiod no other choice for maintenance of sinus in light of structural heart disease without sinus he deteriorates d/w dr brain stephenson d/w [facility] transfer center last nite i just called them again now an put on the list again nothing further can be done at this hospital will need to consider at least valvuloplasty await d/w accepting md once a bed is available to see if they wall accept him despite all that is going on with him message left for heraclio pts dtr about the possibility of transfer to [facility] Subjective Cardiovascular: Denies: chest pain, lightheadedness, palpitations Respiratory: Denies: shortness of breath Gastrointestinal/Abdominal: Denies: abdominal pain Genitourinary: Denies: burning Subjective refuses to be on bipap Objective Last 24 Hour Vital Signs Date Time Temp Pulse Resp B/P Pulse Ox O2 Delivery O2 Flow Rate FiO2 12/18/16 07:00 68 26 113/60 93 Nasal Cannula 5.0 12/18/16 06:30 70 26 108/50 93 Nasal Cannula 5.0 12/18/16 06:26 70 18 Bi-pap 40 12/18/16 06:23 68 18 99 Facial 40 12/18/16 06:00 72 26 105/50 93 Nasal Cannula 5.0 12/18/16 05:30 67 26 81/50 93 Nasal Cannula 5.0 12/18/16 05:00 69 26 85/55 93 Nasal Cannula 5.0 12/18/16 04:30 69 26 78/51 93 Nasal Cannula 5.0 12/18/16 04:15 97.6 70 26 106/71 93 Nasal Cannula 5.0 12/18/16 04:00 70 26 106/71 93 Nasal Cannula 5.0 12/18/16 04:00 70 12/18/16 03:30 70 26 106/71 93 Nasal Cannula 5.0 12/18/16 03:00 69 26 102/53 93 Nasal Cannula 5.0 12/18/16 02:51 68 16 99 Nasal Cannula 4.0 36 12/18/16 02:43 36 12/18/16 02:43 67 20 99 Nasal Cannula 4.0 36 12/18/16 02:30 67 26 122/66 93 Nasal Cannula 5.0 12/18/16 02:00 67 26 122/66 93 Nasal Cannula 5.0 12/18/16 01:30 66 26 111/62 93 Nasal Cannula 5.0 12/18/16 01:00 66 27 111/60 93 Nasal Cannula 5.0 12/18/16 00:30 66 27 117/70 93 Nasal Cannula 5.0 12/18/16 00:13 66 16 94 Nasal Cannula 4.0 36 12/18/16 00:00 67 12/18/16 00:00 97.6 67 28 112/63 93 Nasal Cannula 5.0 12/18/16 00:00 67 28 112/63 93 Nasal Cannula 5.0 12/17/16 23:46 36 12/17/16 23:46 66 20 96 Nasal Cannula 4.0 36 12/17/16 23:30 67 28 95/53 93 Nasal Cannula 5.0 12/17/16 23:00 66 31 95/53 93 Nasal Cannula 5.0 12/17/16 22:30 66 31 95/53 93 Nasal Cannula 5.0 12/17/16 22:00 68 31 119/76 93 Nasal Cannula 5.0 12/17/16 21:32 63 16 Nasal Cannula 4.0 36 12/17/16 21:30 67 16 96 Nasal Cannula 4.0 36 12/17/16 21:30 68 31 109/76 93 Nasal Cannula 5.0 12/17/16 21:00 69 31 109/76 93 Nasal Cannula 5.0 12/17/16 20:30 68 28 109/89 91 Nasal Cannula 5.0 12/17/16 20:00 66 12/17/16 20:00 98.2 68 28 109/89 91 Nasal Cannula 5.0 12/17/16 19:40 Nasal Cannula 4.0 36 12/17/16 19:38 93 Nasal Cannula 4.0 36 12/17/16 19:30 69 28 86/53 91 Nasal Cannula 5.0 12/17/16 19:00 67 28 102/67 93 Nasal Cannula 5.0 12/17/16 18:30 69 28 102/67 93 Nasal Cannula 5.0 12/17/16 18:00 67 28 91/53 93 Nasal Cannula 5.0 12/17/16 17:30 67 29 87/56 93 Nasal Cannula 5.0 12/17/16 17:00 66 29 97/59 93 Nasal Cannula 5.0 12/17/16 16:30 70 30 103/69 93 Nasal Cannula 5.0 12/17/16 16:00 97.0 67 29 100/42 93 Nasal Cannula 5.0 12/17/16 16:00 67 12/17/16 15:30 67 29 92/57 94 Nasal Cannula 5.0 12/17/16 15:00 70 24 130/78 96 Nasal Cannula 5.0 12/17/16 14:00 70 30 114/97 93 Nasal Cannula 5.0 12/17/16 13:30 67 27 85/51 97 Nasal Cannula 5.0 12/17/16 13:00 70 30 105/77 94 Nasal Cannula 5.0 12/17/16 12:30 73 28 115/75 94 Nasal Cannula 5.0 12/17/16 12:00 97.2 68 30 119/60 93 Nasal Cannula 5.0 12/17/16 12:00 69 12/17/16 11:30 66 28 84/50 95 Nasal Cannula 5.0 12/17/16 11:00 66 25 128/95 93 Venturi Mask 50 12/17/16 10:30 68 29 107/75 92 Nasal Cannula 5.0 12/17/16 10:00 71 23 91/59 94 Nasal Cannula 5.0 12/17/16 09:30 73 30 108/81 92 Nasal Cannula 5.0 12/17/16 09:00 69 26 99/49 91 Nasal Cannula 5.0 12/17/16 08:30 74 26 97/76 94 Nasal Cannula 5.0 General Appearance: no apparent distress Neck: supple Cardiovascular: normal rate, regular rhythm Respiratory/Chest: expiratory wheezing Abdomen: normal bowel sounds, non tender, soft Extremities: no swelling Intake and Output 12/17/16 12/18/16 19:00 07:00 Intake Total 882.848 ml 591.76 ml Output Total 680 ml 450 ml Balance 202.848 ml 141.76 ml Intake Oral 240 ml 100 ml IV Total 592.848 ml 491.76 ml Other 50 ml Output Urine Total 680 ml 450 ml Laboratory Tests Test 12/17/16 08:30 12/18/16 01:25 12/18/16 04:20 Arterial Blood pH 7.367 (7.350-7.450) 7.287 (7.350-7.450) Arterial Blood Partial Pressure CO2 26.0 mmHg (35.0-45.0) L 26.9 mmHg (35.0-45.0) L Arterial Blood Partial Pressure O2 79.3 mmHg (75.0-100.0) 75.1 mmHg (75.0-100.0) Arterial Blood HCO3 14.6 mmol/L (22.0-26.0) L 12.6 mmol/L (22.0-26.0) L Arterial Blood Oxygen Saturation 94.6 % (92.0-98.0) 92.2 % (92.0-98.0) Arterial Blood Base Excess -8.9 -12.3 Arnie Test Positive Positive White Blood Count 19.1 K/UL (4.8-10.8) #H Red Blood Count 5.14 M/UL (4.70-6.10) Hemoglobin 13.3 G/DL (14.2-18.0) L Hematocrit 40.6 % (42.0-52.0) L Mean Corpuscular Volume 79 FL (80-99) L Mean Corpuscular Hemoglobin 25.9 PG (27.0-31.0) L Mean Corpuscular Hemoglobin Concent 32.8 G/DL (32.0-36.0) Red Cell Distribution Width 16.2 % (11.6-14.8) H Platelet Count 191 K/UL (150-450) Mean Platelet Volume 7.7 FL (6.5-10.1) Neutrophils (%) (Auto) % (45.0-75.0) Lymphocytes (%) (Auto) % (20.0-45.0) Monocytes (%) (Auto) % (1.0-10.0) Eosinophils (%) (Auto) % (0.0-3.0) Basophils (%) (Auto) % (0.0-2.0) Differential Total Cells Counted 100 Neutrophils % (Manual) 86 % (45-75) H Lymphocytes % (Manual) 3 % (20-45) L Monocytes % (Manual) 11 % (1-10) H Eosinophils % (Manual) 0 % (0-3) Basophils % (Manual) 0 % (0-2) Band Neutrophils 0 % (0-8) Platelet Estimate Adequate Platelet Morphology Normal Anisocytosis 1+ Activated Partial Thromboplast Time 59 SEC (23-33) H Sodium Level 128 mEQ/L (135-145) L Potassium Level 5.0 mEQ/L (3.4-4.9) H Chloride Level 87 mEQ/L (98-107) L Carbon Dioxide Level 12 mEQ/L (20-30) L Anion Gap 29 (5-15) H Blood Urea Nitrogen 95 mg/dL (7-23) H Creatinine 4.0 mg/dL (0.7-1.2) H Estimat Glomerular Filtration Rate mL/min (>60) Glucose Level 119 mg/dL (74-106) H Uric Acid Pending Calcium Level 7.7 mg/dL (8.6-10.2) L Phosphorus Level 9.6 mg/dL (2.5-4.8) H Magnesium Level 2.2 mg/dL (1.7-2.5) Total Bilirubin 2.2 mg/dL (0.0-1.2) H Direct Bilirubin Pending Gamma Glutamyl Transpeptidase Pending Aspartate Amino Transf (AST/SGOT) 4894 U/L (5-40) H Alanine Aminotransferase (ALT/SGPT) 3402 U/L (3-41) H Alkaline Phosphatase 107 U/L (40-129) C-Reactive Protein, Quantitative Pending Pro-B-Type Natriuretic Peptide 52993 pg/mL (0-450) H Total Protein 5.7 g/dL (6.6-8.7) L Albumin 3.1 g/dL (3.5-5.2) L Globulin 2.6 g/dL Albumin/Globulin Ratio 1.1 (1.0-2.7) Random Vancomycin Level 13.3 ug/mL MEY DELEON Dec 18, 2016 08:11
[2016-12-18] MEDS: Aspirin EC 81mg tab ORAL SCH (09:18)
--- NOTE | 2016-12-18 09:48 | Pulmonolgy Critical Care Note ---
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 Respiratory: monitor respiratory rate, adjust FIO2 Cardiac: continue to monitor HR/BP Renal: keep IV fluid, check electrolytes, other - pt will get [facility] Cath for HD today Infectious Disease: check cultures Gastrointestinal: continue feedings/current rate Endocrine: monitor blood sugar, continue sliding scale insulin Hematologic: transfuse if hgb<8.5 Neurologic: PRN Ativan, keep patient comfortable Prophylaxis: Protonix, Heparin Notes Reviewed: cardio, 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 with: nurses, consultants, case management assistantpersonnel manager - Objective Last 24 Hour Vital Signs Date Time Temp Pulse Resp B/P Pulse Ox O2 Delivery O2 Flow Rate FiO2 12/18/16 09:00 68 28 100/59 90 Nasal Cannula 5.0 12/18/16 08:55 68 102/44 12/18/16 08:15 93 Nasal Cannula 5.0 40 12/18/16 08:15 72 22 95 Nasal Cannula 5.0 40 12/18/16 08:15 Nasal Cannula 5.0 40 12/18/16 08:00 40 12/18/16 08:00 70 12/18/16 08:00 70 24 93 Nasal Cannula 5.0 40 12/18/16 08:00 97.0 70 26 109/75 95 Nasal Cannula 5.0 12/18/16 07:00 68 26 113/60 93 Nasal Cannula 5.0 12/18/16 06:30 70 26 108/50 93 Nasal Cannula 5.0 12/18/16 06:26 70 18 Bi-pap 40 12/18/16 06:23 68 18 99 Facial 40 12/18/16 06:00 72 26 105/50 93 Nasal Cannula 5.0 12/18/16 05:30 67 26 81/50 93 Nasal Cannula 5.0 12/18/16 05:00 69 26 85/55 93 Nasal Cannula 5.0 12/18/16 04:30 69 26 78/51 93 Nasal Cannula 5.0 12/18/16 04:15 97.6 70 26 106/71 93 Nasal Cannula 5.0 12/18/16 04:00 70 26 106/71 93 Nasal Cannula 5.0 12/18/16 04:00 70 12/18/16 03:30 70 26 106/71 93 Nasal Cannula 5.0 12/18/16 03:00 69 26 102/53 93 Nasal Cannula 5.0 12/18/16 02:51 68 16 99 Nasal Cannula 4.0 36 12/18/16 02:43 36 12/18/16 02:43 67 20 99 Nasal Cannula 4.0 36 12/18/16 02:30 67 26 122/66 93 Nasal Cannula 5.0 12/18/16 02:00 67 26 122/66 93 Nasal Cannula 5.0 12/18/16 01:30 66 26 111/62 93 Nasal Cannula 5.0 12/18/16 01:00 66 27 111/60 93 Nasal Cannula 5.0 12/18/16 00:30 66 27 117/70 93 Nasal Cannula 5.0 12/18/16 00:13 66 16 94 Nasal Cannula 4.0 36 12/18/16 00:00 67 12/18/16 00:00 97.6 67 28 112/63 93 Nasal Cannula 5.0 12/18/16 00:00 67 28 112/63 93 Nasal Cannula 5.0 12/17/16 23:46 36 12/17/16 23:46 66 20 96 Nasal Cannula 4.0 36 12/17/16 23:30 67 28 95/53 93 Nasal Cannula 5.0 12/17/16 23:00 66 31 95/53 93 Nasal Cannula 5.0 12/17/16 22:30 66 31 95/53 93 Nasal Cannula 5.0 12/17/16 22:00 68 31 119/76 93 Nasal Cannula 5.0 12/17/16 21:32 63 16 Nasal Cannula 4.0 36 12/17/16 21:30 67 16 96 Nasal Cannula 4.0 36 12/17/16 21:30 68 31 109/76 93 Nasal Cannula 5.0 12/17/16 21:00 69 31 109/76 93 Nasal Cannula 5.0 12/17/16 20:30 68 28 109/89 91 Nasal Cannula 5.0 12/17/16 20:00 66 12/17/16 20:00 98.2 68 28 109/89 91 Nasal Cannula 5.0 12/17/16 19:40 Nasal Cannula 4.0 36 12/17/16 19:38 93 Nasal Cannula 4.0 36 12/17/16 19:30 69 28 86/53 91 Nasal Cannula 5.0 12/17/16 19:00 67 28 102/67 93 Nasal Cannula 5.0 12/17/16 18:30 69 28 102/67 93 Nasal Cannula 5.0 12/17/16 18:00 67 28 91/53 93 Nasal Cannula 5.0 12/17/16 17:30 67 29 87/56 93 Nasal Cannula 5.0 12/17/16 17:00 66 29 97/59 93 Nasal Cannula 5.0 12/17/16 16:30 70 30 103/69 93 Nasal Cannula 5.0 12/17/16 16:00 97.0 67 29 100/42 93 Nasal Cannula 5.0 12/17/16 16:00 67 12/17/16 15:30 67 29 92/57 94 Nasal Cannula 5.0 12/17/16 15:00 70 24 130/78 96 Nasal Cannula 5.0 12/17/16 14:00 70 30 114/97 93 Nasal Cannula 5.0 12/17/16 13:30 67 27 85/51 97 Nasal Cannula 5.0 12/17/16 13:00 70 30 105/77 94 Nasal Cannula 5.0 12/17/16 12:30 73 28 115/75 94 Nasal Cannula 5.0 12/17/16 12:00 97.2 68 30 119/60 93 Nasal Cannula 5.0 12/17/16 12:00 69 12/17/16 11:30 66 28 84/50 95 Nasal Cannula 5.0 12/17/16 11:00 66 25 128/95 93 Venturi Mask 50 12/17/16 10:30 68 29 107/75 92 Nasal Cannula 5.0 12/17/16 10:00 71 23 91/59 94 Nasal Cannula 5.0 Status: awake Condition: critical HEENT: atraumatic Neck: full ROM Heart: HR/BP stable, HR/BP unstable Abdomen: soft, non-tender Extremities: no C/C/E, edema Decubiti: location Critical Care - Subjective ROS Limited/Unobtainable: No Interval Events: was dyspnic earlier, started on BIPAP Condition: critical FI02: 40 Sputum Amount: None Drips: off amiodarone, and heparin drip I&O: Intake and Output 12/17/16 12/18/16 19:00 07:00 Intake Total 882.848 ml 591.76 ml Output Total 680 ml 450 ml Balance 202.848 ml 141.76 ml Intake Oral 240 ml 100 ml IV Total 592.848 ml 491.76 ml Other 50 ml Output Urine Total 680 ml 450 ml CXR: worsening right effusion Labs: Laboratory Tests Test 12/18/16 01:25 12/18/16 04:20 Arterial Blood pH 7.287 (7.350-7.450) Arterial Blood Partial Pressure CO2 26.9 mmHg (35.0-45.0) L Arterial Blood Partial Pressure O2 75.1 mmHg (75.0-100.0) Arterial Blood HCO3 12.6 mmol/L (22.0-26.0) L Arterial Blood Oxygen Saturation 92.2 % (92.0-98.0) Arterial Blood Base Excess -12.3 Arnie Test Positive White Blood Count 19.1 K/UL (4.8-10.8) #H Red Blood Count 5.14 M/UL (4.70-6.10) Hemoglobin 13.3 G/DL (14.2-18.0) L Hematocrit 40.6 % (42.0-52.0) L Mean Corpuscular Volume 79 FL (80-99) L Mean Corpuscular Hemoglobin 25.9 PG (27.0-31.0) L Mean Corpuscular Hemoglobin Concent 32.8 G/DL (32.0-36.0) Red Cell Distribution Width 16.2 % (11.6-14.8) H Platelet Count 191 K/UL (150-450) Mean Platelet Volume 7.7 FL (6.5-10.1) Neutrophils (%) (Auto) % (45.0-75.0) Lymphocytes (%) (Auto) % (20.0-45.0) Monocytes (%) (Auto) % (1.0-10.0) Eosinophils (%) (Auto) % (0.0-3.0) Basophils (%) (Auto) % (0.0-2.0) Differential Total Cells Counted 100 Neutrophils % (Manual) 86 % (45-75) H Lymphocytes % (Manual) 3 % (20-45) L Monocytes % (Manual) 11 % (1-10) H Eosinophils % (Manual) 0 % (0-3) Basophils % (Manual) 0 % (0-2) Band Neutrophils 0 % (0-8) Platelet Estimate Adequate Platelet Morphology Normal Anisocytosis 1+ Activated Partial Thromboplast Time 59 SEC (23-33) H Sodium Level 128 mEQ/L (135-145) L Potassium Level 5.0 mEQ/L (3.4-4.9) H Chloride Level 87 mEQ/L (98-107) L Carbon Dioxide Level 12 mEQ/L (20-30) L Anion Gap 29 (5-15) H Blood Urea Nitrogen 95 mg/dL (7-23) H Creatinine 4.0 mg/dL (0.7-1.2) H Estimat Glomerular Filtration Rate mL/min (>60) Glucose Level 119 mg/dL (74-106) H Uric Acid Pending Calcium Level 7.7 mg/dL (8.6-10.2) L Phosphorus Level 9.6 mg/dL (2.5-4.8) H Magnesium Level 2.2 mg/dL (1.7-2.5) Total Bilirubin 2.2 mg/dL (0.0-1.2) H Direct Bilirubin Pending Gamma Glutamyl Transpeptidase Pending Aspartate Amino Transf (AST/SGOT) 4894 U/L (5-40) H Alanine Aminotransferase (ALT/SGPT) 3402 U/L (3-41) H Alkaline Phosphatase 107 U/L (40-129) C-Reactive Protein, Quantitative Pending Pro-B-Type Natriuretic Peptide 25535 pg/mL (0-450) H Total Protein 5.7 g/dL (6.6-8.7) L Albumin 3.1 g/dL (3.5-5.2) L Globulin 2.6 g/dL Albumin/Globulin Ratio 1.1 (1.0-2.7) Random Vancomycin Level 13.3 ug/mL FRANNY MENDES Dec 18, 2016 09:48
--- NOTE | 2016-12-18 11:59 | Infectious Diseases Prog Note ---
Assessment/Plan Assessment/Plan A: The patient is an 86-year-old male with Leukocytosis, ( m/l due to Urinary retentions ,SP Guillory ) sepsis, SP probable Pneumonia SCx: no sig growth C- x-ray: left lower lobe basilar infiltrate DANIEL Cr improved CE + History of aortic valve stenosis. CAD. Gout HTN PLAN: monitor pt off of AB Rx ( 12/17 SP Aztreonam and Doxy d# 6, IV Vanco d# 5 ) monitor CBC. monitor BMP. Monitor chest x-ray Cultures ( blood and Ur). Subjective Constitutional: Denies: anorexia, chills, drenching sweats, fatigue, fever, no symptoms, other Allergies: Coded Allergies: CIPROFLOXACIN (Verified Allergy, Unknown, SEVERE SHORTNESS OF BREATH, 12/15) PENICILLINS (Verified Allergy, Unknown, SEVERE SHORTNESS OF BREATH, ) Subjective comfortable Objective Vital Signs Last 24 Hour Vital Signs Date Time Temp Pulse Resp B/P Pulse Ox O2 Delivery O2 Flow Rate FiO2 12/18/16 11:00 68 28 88/52 93 Nasal Cannula 3.0 12/18/16 10:00 72 30 109/69 91 Nasal Cannula 3.0 12/18/16 09:00 68 28 100/59 90 Nasal Cannula 5.0 12/18/16 08:55 68 102/44 12/18/16 08:15 93 Nasal Cannula 5.0 40 12/18/16 08:15 72 22 95 Nasal Cannula 5.0 40 12/18/16 08:15 Nasal Cannula 5.0 40 12/18/16 08:00 40 12/18/16 08:00 70 12/18/16 08:00 70 24 93 Nasal Cannula 5.0 40 12/18/16 08:00 97.0 70 26 109/75 95 Nasal Cannula 5.0 12/18/16 07:00 68 26 113/60 93 Nasal Cannula 5.0 12/18/16 06:30 70 26 108/50 93 Nasal Cannula 5.0 12/18/16 06:26 70 18 Bi-pap 40 12/18/16 06:23 68 18 99 Facial 40 12/18/16 06:00 72 26 105/50 93 Nasal Cannula 5.0 12/18/16 05:30 67 26 81/50 93 Nasal Cannula 5.0 12/18/16 05:00 69 26 85/55 93 Nasal Cannula 5.0 12/18/16 04:30 69 26 78/51 93 Nasal Cannula 5.0 12/18/16 04:15 97.6 70 26 106/71 93 Nasal Cannula 5.0 12/18/16 04:00 70 26 106/71 93 Nasal Cannula 5.0 12/18/16 04:00 70 12/18/16 03:30 70 26 106/71 93 Nasal Cannula 5.0 12/18/16 03:00 69 26 102/53 93 Nasal Cannula 5.0 12/18/16 02:51 68 16 99 Nasal Cannula 4.0 36 12/18/16 02:43 36 12/18/16 02:43 67 20 99 Nasal Cannula 4.0 36 12/18/16 02:30 67 26 122/66 93 Nasal Cannula 5.0 12/18/16 02:00 67 26 122/66 93 Nasal Cannula 5.0 12/18/16 01:30 66 26 111/62 93 Nasal Cannula 5.0 12/18/16 01:00 66 27 111/60 93 Nasal Cannula 5.0 12/18/16 00:30 66 27 117/70 93 Nasal Cannula 5.0 12/18/16 00:13 66 16 94 Nasal Cannula 4.0 36 12/18/16 00:00 67 12/18/16 00:00 97.6 67 28 112/63 93 Nasal Cannula 5.0 12/18/16 00:00 67 28 112/63 93 Nasal Cannula 5.0 12/17/16 23:46 36 12/17/16 23:46 66 20 96 Nasal Cannula 4.0 36 12/17/16 23:30 67 28 95/53 93 Nasal Cannula 5.0 12/17/16 23:00 66 31 95/53 93 Nasal Cannula 5.0 12/17/16 22:30 66 31 95/53 93 Nasal Cannula 5.0 12/17/16 22:00 68 31 119/76 93 Nasal Cannula 5.0 12/17/16 21:32 63 16 Nasal Cannula 4.0 36 12/17/16 21:30 67 16 96 Nasal Cannula 4.0 36 12/17/16 21:30 68 31 109/76 93 Nasal Cannula 5.0 12/17/16 21:00 69 31 109/76 93 Nasal Cannula 5.0 12/17/16 20:30 68 28 109/89 91 Nasal Cannula 5.0 12/17/16 20:00 66 12/17/16 20:00 98.2 68 28 109/89 91 Nasal Cannula 5.0 12/17/16 19:40 Nasal Cannula 4.0 36 12/17/16 19:38 93 Nasal Cannula 4.0 36 12/17/16 19:30 69 28 86/53 91 Nasal Cannula 5.0 12/17/16 19:00 67 28 102/67 93 Nasal Cannula 5.0 12/17/16 18:30 69 28 102/67 93 Nasal Cannula 5.0 12/17/16 18:00 67 28 91/53 93 Nasal Cannula 5.0 12/17/16 17:30 67 29 87/56 93 Nasal Cannula 5.0 12/17/16 17:00 66 29 97/59 93 Nasal Cannula 5.0 12/17/16 16:30 70 30 103/69 93 Nasal Cannula 5.0 12/17/16 16:00 97.0 67 29 100/42 93 Nasal Cannula 5.0 12/17/16 16:00 67 12/17/16 15:30 67 29 92/57 94 Nasal Cannula 5.0 12/17/16 15:00 70 24 130/78 96 Nasal Cannula 5.0 12/17/16 14:00 70 30 114/97 93 Nasal Cannula 5.0 12/17/16 13:30 67 27 85/51 97 Nasal Cannula 5.0 12/17/16 13:00 70 30 105/77 94 Nasal Cannula 5.0 12/17/16 12:30 73 28 115/75 94 Nasal Cannula 5.0 12/17/16 12:00 97.2 68 30 119/60 93 Nasal Cannula 5.0 12/17/16 12:00 69 Height (Feet): 5 Height (Inches): 5.00 Weight (Pounds): 142 HEENT: anicteric Respiratory/Chest: accessory muscle use Cardiovascular: regularly irregular Abdomen: soft, non tender Laboratory Tests Test 12/18/16 01:25 12/18/16 04:20 Arterial Blood pH 7.287 (7.350-7.450) Arterial Blood Partial Pressure CO2 26.9 mmHg (35.0-45.0) L Arterial Blood Partial Pressure O2 75.1 mmHg (75.0-100.0) Arterial Blood HCO3 12.6 mmol/L (22.0-26.0) L Arterial Blood Oxygen Saturation 92.2 % (92.0-98.0) Arterial Blood Base Excess -12.3 Arnie Test Positive White Blood Count 19.1 K/UL (4.8-10.8) #H Red Blood Count 5.14 M/UL (4.70-6.10) Hemoglobin 13.3 G/DL (14.2-18.0) L Hematocrit 40.6 % (42.0-52.0) L Mean Corpuscular Volume 79 FL (80-99) L Mean Corpuscular Hemoglobin 25.9 PG (27.0-31.0) L Mean Corpuscular Hemoglobin Concent 32.8 G/DL (32.0-36.0) Red Cell Distribution Width 16.2 % (11.6-14.8) H Platelet Count 191 K/UL (150-450) Mean Platelet Volume 7.7 FL (6.5-10.1) Neutrophils (%) (Auto) % (45.0-75.0) Lymphocytes (%) (Auto) % (20.0-45.0) Monocytes (%) (Auto) % (1.0-10.0) Eosinophils (%) (Auto) % (0.0-3.0) Basophils (%) (Auto) % (0.0-2.0) Differential Total Cells Counted 100 Neutrophils % (Manual) 86 % (45-75) H Lymphocytes % (Manual) 3 % (20-45) L Monocytes % (Manual) 11 % (1-10) H Eosinophils % (Manual) 0 % (0-3) Basophils % (Manual) 0 % (0-2) Band Neutrophils 0 % (0-8) Platelet Estimate Adequate Platelet Morphology Normal Anisocytosis 1+ Activated Partial Thromboplast Time 59 SEC (23-33) H Sodium Level 128 mEQ/L (135-145) L Potassium Level 5.0 mEQ/L (3.4-4.9) H Chloride Level 87 mEQ/L (98-107) L Carbon Dioxide Level 12 mEQ/L (20-30) L Anion Gap 29 (5-15) H Blood Urea Nitrogen 95 mg/dL (7-23) H Creatinine 4.0 mg/dL (0.7-1.2) H Estimat Glomerular Filtration Rate mL/min (>60) Glucose Level 119 mg/dL (74-106) H Uric Acid Pending Calcium Level 7.7 mg/dL (8.6-10.2) L Phosphorus Level 9.6 mg/dL (2.5-4.8) H Magnesium Level 2.2 mg/dL (1.7-2.5) Total Bilirubin 2.2 mg/dL (0.0-1.2) H Direct Bilirubin Pending Gamma Glutamyl Transpeptidase Pending Aspartate Amino Transf (AST/SGOT) 4894 U/L (5-40) H Alanine Aminotransferase (ALT/SGPT) 3402 U/L (3-41) H Alkaline Phosphatase 107 U/L (40-129) C-Reactive Protein, Quantitative Pending Pro-B-Type Natriuretic Peptide 30045 pg/mL (0-450) H Total Protein 5.7 g/dL (6.6-8.7) L Albumin 3.1 g/dL (3.5-5.2) L Globulin 2.6 g/dL Albumin/Globulin Ratio 1.1 (1.0-2.7) Random Vancomycin Level 13.3 ug/mL Current Medications Medications (Trade) Dose Ordered Sig/Curtis Route PRN Reason Start Time Stop Time Status Last Admin Dose Admin Albuterol/ Ipratropium (DuoNeb 0.5-3(2.5)mg/3ml) 3 ml Q4HRT HHN 12/17/16 23:00 12/22/16 22:59 12/18/16 11:47 Albuterol/ Ipratropium 3 ml 3 ml Q4HR PRN HHN Shortness of breath 12/17/16 20:00 12/22/16 19:59 12/17/16 20:58 Aspirin (Ecotrin) 81 mg DAILY ORAL 12/13/16 19:00 01/12/17 18:59 12/18/16 09:18 Dextrose (Dextrose 50%) STAT PRN IV Hypoglycemia 12/12/16 06:47 01/11/17 06:46 Lorazepam (Ativan 2mg/ml 1ml) 0.5 mg Q4H PRN IV For Anxiety 12/12/16 06:48 12/19/16 06:47 12/17/16 22:44 Metoprolol Succinate (Toprol XL) 25 mg DAILY ORAL 12/14/16 09:00 01/13/17 08:59 12/16/16 09:05 Metoprolol Tartrate (Lopressor) 2.5 mg Q3H PRN IVP HR > 120 12/13/16 19:00 01/12/17 18:59 12/14/16 04:41 Morphine Sulfate (Morphine Sulfate) 1 mg Q4H PRN IVP For Pain 7-10 12/12/16 06:48 12/19/16 06:47 12/13/16 01:45 Nitroglycerin (Ntg) 0.4 mg Q5M X 3 DOSES PRN SL Prn Chest Pain 12/12/16 06:30 01/11/17 06:29 Ondansetron HCl (Zofran) 4 mg Q6H PRN IVP Nausea & Vomiting 12/12/16 06:48 01/11/17 06:47 12/17/16 21:04 Polyethylene Glycol (Miralax) 17 gm HSPRN PRN ORAL Constipation 12/12/16 06:49 01/11/17 06:48 Promethazine HCl/ Codeine (Phenergan with Codeine) 5 ml Q4H PRN ORAL For Cough 12/12/16 06:49 01/11/17 06:48 12/16/16 17:49 Sodium Chloride (Sodium Chloride) 250 ml @ 999 mls/hr ONCE ONCE IVPB 12/18/16 22:00 12/18/16 22:15 Temazepam (Restoril) 15 mg HSPRN PRN ORAL Insomnia 12/12/16 06:49 12/19/16 06:48 12/12/16 09:31 ALY FALCON M.D. Dec 18, 2016 11:59
--- NOTE | 2016-12-18 12:35 | Diagnostic Imaging Report ---
Indication: DYSPNEA Technique: One view of the chest Comparison: 12/17/2016 Findings: The heart is enlarged. There is increased right-sided pleural fluid. There is suggestion of increasing interstitial and alveolar congestive change, particularly on the right. There is probably increased small left pleural fluid, as well. Right subclavian central venous catheter remains.. Impression: Worsening bilateral interstitial and alveolar infiltrates versus edema and bilateral pleural fluid, over one day Other stable findings as described
--- NOTE | 2016-12-18 18:29 | Cardiac Electrophysiology PN ---
Assessment/Plan Status: stable, not improved Status Narrative Pt w/ critical . He became hemodynamically unstable when he went into rapid AF. Rhythm reverted back to NSR w/ iv amiodarone. However, he now has significant elevation of transaminases, which are likely due to amiodarone. Assessment/Plan Amiodarone has been dc/d. Amiodarone induced liver toxicity is very uncommon and should reverse w/ dc of med Follow serial LFTS. Diuresis w/ lasix prn for pulm congestion. Plan for transfer to [facility] for treatment of noted. Subjective ROS Limited/Unobtainable: No Subjective Events noted.Pt is sedated. Objective Last 24 Hour Vital Signs Date Time Temp Pulse Resp B/P Pulse Ox O2 Delivery O2 Flow Rate FiO2 12/18/16 17:52 78 22 95 Nasal Cannula 5.0 40 12/18/16 17:52 40 12/18/16 17:00 76 26 104/65 92 Nasal Cannula 3.0 12/18/16 16:00 73 12/18/16 16:00 97.1 76 29 92/60 90 Nasal Cannula 3.0 12/18/16 15:40 81 24 95 Nasal Cannula 5.0 40 12/18/16 15:27 40 12/18/16 15:27 79 26 94 Nasal Cannula 5.0 40 12/18/16 15:00 71 26 93/57 91 Nasal Cannula 3.0 12/18/16 14:00 77 26 101/66 94 Nasal Cannula 3.0 12/18/16 13:00 72 25 107/66 97 Nasal Cannula 3.0 12/18/16 12:00 72 24 94 Nasal Cannula 5.0 40 12/18/16 12:00 97.1 71 28 111/74 95 Nasal Cannula 5.0 12/18/16 12:00 70 12/18/16 11:00 68 28 88/52 93 Nasal Cannula 3.0 12/18/16 10:00 72 30 109/69 91 Nasal Cannula 3.0 12/18/16 09:00 68 28 100/59 90 Nasal Cannula 5.0 12/18/16 08:55 68 102/44 12/18/16 08:15 93 Nasal Cannula 5.0 40 12/18/16 08:15 72 22 95 Nasal Cannula 5.0 40 12/18/16 08:15 Nasal Cannula 5.0 40 12/18/16 08:00 40 12/18/16 08:00 70 12/18/16 08:00 70 24 93 Nasal Cannula 5.0 40 12/18/16 08:00 97.0 70 26 109/75 95 Nasal Cannula 5.0 12/18/16 07:00 68 26 113/60 93 Nasal Cannula 5.0 12/18/16 06:30 70 26 108/50 93 Nasal Cannula 5.0 12/18/16 06:26 70 18 Bi-pap 40 12/18/16 06:23 68 18 99 Facial 40 12/18/16 06:00 72 26 105/50 93 Nasal Cannula 5.0 12/18/16 05:30 67 26 81/50 93 Nasal Cannula 5.0 12/18/16 05:00 69 26 85/55 93 Nasal Cannula 5.0 12/18/16 04:30 69 26 78/51 93 Nasal Cannula 5.0 12/18/16 04:15 97.6 70 26 106/71 93 Nasal Cannula 5.0 12/18/16 04:00 70 26 106/71 93 Nasal Cannula 5.0 12/18/16 04:00 70 12/18/16 03:30 70 26 106/71 93 Nasal Cannula 5.0 12/18/16 03:00 69 26 102/53 93 Nasal Cannula 5.0 12/18/16 02:51 68 16 99 Nasal Cannula 4.0 36 12/18/16 02:43 36 12/18/16 02:43 67 20 99 Nasal Cannula 4.0 36 12/18/16 02:30 67 26 122/66 93 Nasal Cannula 5.0 12/18/16 02:00 67 26 122/66 93 Nasal Cannula 5.0 12/18/16 01:30 66 26 111/62 93 Nasal Cannula 5.0 12/18/16 01:00 66 27 111/60 93 Nasal Cannula 5.0 12/18/16 00:30 66 27 117/70 93 Nasal Cannula 5.0 12/18/16 00:13 66 16 94 Nasal Cannula 4.0 36 12/18/16 00:00 67 12/18/16 00:00 97.6 67 28 112/63 93 Nasal Cannula 5.0 12/18/16 00:00 67 28 112/63 93 Nasal Cannula 5.0 12/17/16 23:46 36 12/17/16 23:46 66 20 96 Nasal Cannula 4.0 36 12/17/16 23:30 67 28 95/53 93 Nasal Cannula 5.0 12/17/16 23:00 66 31 95/53 93 Nasal Cannula 5.0 12/17/16 22:30 66 31 95/53 93 Nasal Cannula 5.0 12/17/16 22:00 68 31 119/76 93 Nasal Cannula 5.0 12/17/16 21:32 63 16 Nasal Cannula 4.0 36 12/17/16 21:30 67 16 96 Nasal Cannula 4.0 36 12/17/16 21:30 68 31 109/76 93 Nasal Cannula 5.0 12/17/16 21:00 69 31 109/76 93 Nasal Cannula 5.0 12/17/16 20:30 68 28 109/89 91 Nasal Cannula 5.0 12/17/16 20:00 66 12/17/16 20:00 98.2 68 28 109/89 91 Nasal Cannula 5.0 12/17/16 19:40 Nasal Cannula 4.0 36 12/17/16 19:38 93 Nasal Cannula 4.0 36 12/17/16 19:30 69 28 86/53 91 Nasal Cannula 5.0 12/17/16 19:00 67 28 102/67 93 Nasal Cannula 5.0 12/17/16 18:30 69 28 102/67 93 Nasal Cannula 5.0 General Appearance: WD/WN, no apparent distress, thin EENT: PERRL/EOMI Neck: supple, no JVD Rhythm: NSR Cardiovascular: normal rate, regular rhythm, systolic murmur - ii/vi MILA R second ics to LSB Respiratory/Chest: lungs clear - clear anteriorly, no respiratory distress Abdomen: non tender, soft Extremities: other - no edema. ecchymoses over upper extrem Intake and Output 12/17/16 12/18/16 19:00 07:00 Intake Total 882.848 ml 591.76 ml Output Total 680 ml 450 ml Balance 202.848 ml 141.76 ml Intake Oral 240 ml 100 ml IV Total 592.848 ml 491.76 ml Other 50 ml Output Urine Total 680 ml 450 ml Laboratory Tests Test 12/18/16 01:25 12/18/16 04:20 Arterial Blood pH 7.287 (7.350-7.450) Arterial Blood Partial Pressure CO2 26.9 mmHg (35.0-45.0) L Arterial Blood Partial Pressure O2 75.1 mmHg (75.0-100.0) Arterial Blood HCO3 12.6 mmol/L (22.0-26.0) L Arterial Blood Oxygen Saturation 92.2 % (92.0-98.0) Arterial Blood Base Excess -12.3 Arnie Test Positive White Blood Count 19.1 K/UL (4.8-10.8) #H Red Blood Count 5.14 M/UL (4.70-6.10) Hemoglobin 13.3 G/DL (14.2-18.0) L Hematocrit 40.6 % (42.0-52.0) L Mean Corpuscular Volume 79 FL (80-99) L Mean Corpuscular Hemoglobin 25.9 PG (27.0-31.0) L Mean Corpuscular Hemoglobin Concent 32.8 G/DL (32.0-36.0) Red Cell Distribution Width 16.2 % (11.6-14.8) H Platelet Count 191 K/UL (150-450) Mean Platelet Volume 7.7 FL (6.5-10.1) Neutrophils (%) (Auto) % (45.0-75.0) Lymphocytes (%) (Auto) % (20.0-45.0) Monocytes (%) (Auto) % (1.0-10.0) Eosinophils (%) (Auto) % (0.0-3.0) Basophils (%) (Auto) % (0.0-2.0) Differential Total Cells Counted 100 Neutrophils % (Manual) 86 % (45-75) H Lymphocytes % (Manual) 3 % (20-45) L Monocytes % (Manual) 11 % (1-10) H Eosinophils % (Manual) 0 % (0-3) Basophils % (Manual) 0 % (0-2) Band Neutrophils 0 % (0-8) Platelet Estimate Adequate Platelet Morphology Normal Anisocytosis 1+ Activated Partial Thromboplast Time 59 SEC (23-33) H Sodium Level 128 mEQ/L (135-145) L Potassium Level 5.0 mEQ/L (3.4-4.9) H Chloride Level 87 mEQ/L (98-107) L Carbon Dioxide Level 12 mEQ/L (20-30) L Anion Gap 29 (5-15) H Blood Urea Nitrogen 95 mg/dL (7-23) H Creatinine 4.0 mg/dL (0.7-1.2) H Estimat Glomerular Filtration Rate mL/min (>60) Glucose Level 119 mg/dL (74-106) H Uric Acid Pending Calcium Level 7.7 mg/dL (8.6-10.2) L Phosphorus Level 9.6 mg/dL (2.5-4.8) H Magnesium Level 2.2 mg/dL (1.7-2.5) Total Bilirubin 2.2 mg/dL (0.0-1.2) H Direct Bilirubin Pending Gamma Glutamyl Transpeptidase Pending Aspartate Amino Transf (AST/SGOT) 4894 U/L (5-40) H Alanine Aminotransferase (ALT/SGPT) 3402 U/L (3-41) H Alkaline Phosphatase 107 U/L (40-129) C-Reactive Protein, Quantitative Pending Pro-B-Type Natriuretic Peptide 79766 pg/mL (0-450) H Total Protein 5.7 g/dL (6.6-8.7) L Albumin 3.1 g/dL (3.5-5.2) L Globulin 2.6 g/dL Albumin/Globulin Ratio 1.1 (1.0-2.7) Random Vancomycin Level 13.3 ug/mL DEANGELO MACK Dec 18, 2016 18:29
[2016-12-18] MEDS ORDERED: NS 250 ML IVPB ONE (22:00)
[2016-12-19] VITALS (19 sets, daily range): BP systolic 87–137; BP diastolic 41–99
[2016-12-19] MEDS: DuoNeb 0.5-3(2.5)mg/3ml neb HHN SCH ×5 (07:00→23:18)
--- NOTE | 2016-12-19 07:04 | Cardiology Progress Note ---
Assessment/Plan Assessment/Plan 1. Syncope. 2. Significant aortic stenosis. 3. History of coronary artery disease. 4. hs of Renal insufficiency with a solitary kidney. 5. chf acute diastolic 6. afib rvr paroxysmal recurrent now appears intolerant of amiod 7. abn lft shock liver vs amiod induced 8. ARF 9. transient hypotension 10. NSTEMI 11. metabolic acidosis multiple phone call s to [facility] d/w rn cardiology at [facility] re transfer d/w attending at [facility] dr serrano both dr at [facility] accepted pt for transfer pending bed availably i have appraised then both of pt nature overnite i was called pot went back into afib now back to sinus labs for this am are pending heparin was dcd yest pending line placement if no need dialysis urgently or dialysis catheter will resume heparin d/w dtr yest on several occasions ekg noted tele noted at the moment bp and hr seem fine but that could change check pt ptt later to day Subjective Cardiovascular: Denies: chest pain, lightheadedness Respiratory: Denies: shortness of breath Gastrointestinal/Abdominal: Denies: abdominal pain Subjective just not feel good Objective Last 24 Hour Vital Signs Date Time Temp Pulse Resp B/P Pulse Ox O2 Delivery O2 Flow Rate FiO2 12/19/16 06:00 89 31 124/72 93 Nasal Cannula 3.0 12/19/16 05:00 83 27 130/62 93 Nasal Cannula 3.0 12/19/16 04:00 97.8 107 30 113/68 93 Nasal Cannula 3.0 12/19/16 03:58 106 20 96 Nasal Cannula 5.0 40 12/19/16 03:30 36 12/19/16 03:30 102 24 96 Nasal Cannula 4.0 36 12/19/16 03:00 86 27 127/77 93 Nasal Cannula 3.0 12/19/16 02:00 89 27 100/83 93 Nasal Cannula 3.0 12/19/16 01:00 100 28 118/73 90 Nasal Cannula 3.0 12/19/16 00:00 88 12/19/16 00:00 97.0 90 28 118/72 90 Nasal Cannula 3.0 12/18/16 23:40 88 20 92 Nasal Cannula 5.0 40 12/18/16 23:30 36 12/18/16 23:30 83 23 98 Nasal Cannula 4.0 36 12/18/16 23:00 86 28 106/72 90 Nasal Cannula 3.0 12/18/16 22:00 99 28 114/71 90 Nasal Cannula 3.0 12/18/16 21:00 85 28 105/60 90 Nasal Cannula 3.0 12/18/16 20:35 85 20 93 Nasal Cannula 5.0 40 12/18/16 20:21 36 12/18/16 20:20 82 22 96 Nasal Cannula 4.0 36 12/18/16 20:00 96.9 79 28 116/53 93 Nasal Cannula 3.0 12/18/16 20:00 86 12/18/16 19:00 82 Nasal Cannula 4.0 36 12/18/16 19:00 79 28 120/58 90 Nasal Cannula 3.0 12/18/16 19:00 82 18 Nasal Cannula 4.0 36 12/18/16 19:00 Nasal Cannula 4.0 32 12/18/16 18:00 80 28 84/48 92 Nasal Cannula 3.0 12/18/16 17:52 78 22 95 Nasal Cannula 5.0 40 12/18/16 17:52 40 12/18/16 17:00 76 26 104/65 92 Nasal Cannula 3.0 12/18/16 16:00 73 12/18/16 16:00 97.1 76 29 92/60 90 Nasal Cannula 3.0 12/18/16 15:40 81 24 95 Nasal Cannula 5.0 40 12/18/16 15:27 40 12/18/16 15:27 79 26 94 Nasal Cannula 5.0 40 12/18/16 15:00 71 26 93/57 91 Nasal Cannula 3.0 12/18/16 14:00 77 26 101/66 94 Nasal Cannula 3.0 12/18/16 13:00 72 25 107/66 97 Nasal Cannula 3.0 12/18/16 12:00 72 24 94 Nasal Cannula 5.0 40 12/18/16 12:00 97.1 71 28 111/74 95 Nasal Cannula 5.0 12/18/16 12:00 70 12/18/16 11:00 68 28 88/52 93 Nasal Cannula 3.0 12/18/16 10:00 72 30 109/69 91 Nasal Cannula 3.0 12/18/16 09:00 68 28 100/59 90 Nasal Cannula 5.0 12/18/16 08:55 68 102/44 12/18/16 08:15 93 Nasal Cannula 5.0 40 12/18/16 08:15 72 22 95 Nasal Cannula 5.0 40 12/18/16 08:15 Nasal Cannula 5.0 40 12/18/16 08:00 40 12/18/16 08:00 70 12/18/16 08:00 70 24 93 Nasal Cannula 5.0 40 12/18/16 08:00 97.0 70 26 109/75 95 Nasal Cannula 5.0 12/18/16 07:00 68 26 113/60 93 Nasal Cannula 5.0 General Appearance: no apparent distress, other - slight tachypnea Cardiovascular: normal rate, systolic murmur Respiratory/Chest: expiratory wheezing Abdomen: normal bowel sounds, non tender, soft Extremities: no swelling Intake and Output 12/18/16 12/19/16 19:00 07:00 Intake Total 160 ml 175 ml Output Total 327 ml 305 ml Balance -167 ml -130 ml Intake Oral 160 ml 175 ml Output Urine Total 327 ml 305 ml Laboratory Tests Test 12/19/16 05:30 White Blood Count Pending Red Blood Count Pending Hemoglobin Pending Hematocrit Pending Mean Corpuscular Volume Pending Mean Corpuscular Hemoglobin Pending Mean Corpuscular Hemoglobin Concent Pending Red Cell Distribution Width Pending Platelet Count Pending Mean Platelet Volume Pending Neutrophils (%) (Auto) Pending Lymphocytes (%) (Auto) Pending Monocytes (%) (Auto) Pending Eosinophils (%) (Auto) Pending Basophils (%) (Auto) Pending Sodium Level Pending Potassium Level Pending Chloride Level Pending Carbon Dioxide Level Pending Blood Urea Nitrogen Pending Creatinine Pending Estimat Glomerular Filtration Rate Pending Glucose Level Pending Calcium Level Pending Total Bilirubin Pending Aspartate Amino Transf (AST/SGOT) Pending Alanine Aminotransferase (ALT/SGPT) Pending Alkaline Phosphatase Pending Total Protein Pending Albumin Pending Globulin Pending MEY DELEON Dec 19, 2016 07:04
[2016-12-19 07:09] LABS: BASOPHILS % (AUTO) 0.5 % (0.0-2.0); EOSINOPHILS % (AUTO) 0.9 % (0.0-3.0); LYMPHOCYTES % (AUTO) 3.9 % (20.0-45.0); MEAN CORPUSCULAR HEMOGLOBIN 25.8 PG (27.0-31.0); MEAN CORPUSCULAR HGB CONC 33.5 G/DL (32.0-36.0); MEAN CORPUSCULAR VOLUME 77 FL (80-99); NEUTROPHILS % (AUTO) 83.8 % (45.0-75.0); PLATELET COUNT 217 K/UL (150-450); RED BLOOD COUNT 5.35 M/UL (4.70-6.10); RED CELL DISTRIBUTION WIDTH 15.8 % (11.6-14.8); WHITE BLOOD COUNT 13.1 K/UL (4.8-10.8)
[2016-12-19 07:29] LABS: ALBUMIN/GLOBULIN RATIO 1.2 (1.0-2.7); ANION GAP 22 (5-15); CALCIUM 7.2 mg/dL (8.6-10.2); CARBON DIOXIDE 19 mEQ/L (20-30); CHLORIDE 88 mEQ/L (98-107); CREATININE 4.1 mg/dL (0.7-1.2); HEMOLYSIS 8; POTASSIUM 4.1 mEQ/L (3.4-4.9); SODIUM 129 mEQ/L (135-145); TOTAL PROTEIN 5.5 g/dL (6.6-8.7)
[2016-12-19 07:47] LABS: ASPARTATE AMINO TRANSFERASE 1625 U/L (5-40)
[2016-12-19 07:48] LABS: ALANINE AMINOTRANSFERASE 2671 U/L (3-41)
[2016-12-19 09:04] LABS: INR 2.3 (0.9-1.1); PROTHROMBIN TIME 23.5 SEC (9.30-11.50)
[2016-12-19] MEDS: Aspirin EC 81mg tab ORAL SCH (09:10)
--- NOTE | 2016-12-19 09:34 | Diagnostic Imaging Report ---
Indication: DYSPNEA Technique: One view of the chest Comparison: 12/16/2016 Findings: Since prior exam, there is interim marked decrease in previously demonstrated bilateral interstitial and alveolar infiltrates versus edema, although considerable disease persists. Bilateral pleural effusions are noted, possibly slightly increased. The heart remains enlarged. Right subclavian central venous catheter remains Impression: Persistent but improved interstitial and alveolar infiltrates versus edema, over one day Slightly increased bilateral pleural fluid
[2016-12-19] MEDS: Promethazine/Codeine 5ml UD ORAL PRN ×2 (09:50→19:59)
--- NOTE | 2016-12-19 11:03 | Pulmonolgy Critical Care Note ---
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 Respiratory: monitor respiratory rate, adjust FIO2 Cardiac: continue to monitor HR/BP Renal: keep IV fluid Infectious Disease: check cultures Gastrointestinal: continue feedings/current rate, hold feedings Endocrine: monitor blood sugar, check TSH Hematologic: monitor H/H, transfuse if hgb<8.5 Neurologic: PRN Ativan, keep patient comfortable Affect: PRN ativan Prophylaxis: Heparin Notes Reviewed: customer leader, cardio, 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 with: nurses, consultants, machine adjuster leader case trimfield case manager - Objective Last 24 Hour Vital Signs Date Time Temp Pulse Resp B/P Pulse Ox O2 Delivery O2 Flow Rate FiO2 12/19/16 10:00 108 31 124/60 90 Nasal Cannula 3.0 12/19/16 09:00 83 22 101/41 90 Nasal Cannula 3.0 12/19/16 09:00 86 101/41 12/19/16 08:00 92 12/19/16 08:00 97.1 85 25 115/47 92 Nasal Cannula 3.0 12/19/16 07:04 89 26 96 Nasal Cannula 4.0 36 12/19/16 07:03 Nasal Cannula 4.0 36 12/19/16 07:00 88 30 137/99 96 Nasal Cannula 3.0 12/19/16 06:55 91 25 91 Nasal Cannula 4.0 36 12/19/16 06:55 36 12/19/16 06:54 91 Nasal Cannula 4.0 36 12/19/16 06:00 89 31 124/72 93 Nasal Cannula 3.0 12/19/16 05:00 83 27 130/62 93 Nasal Cannula 3.0 12/19/16 04:00 97.8 107 30 113/68 93 Nasal Cannula 3.0 12/19/16 04:00 106 12/19/16 03:58 106 20 96 Nasal Cannula 5.0 40 12/19/16 03:30 36 12/19/16 03:30 102 24 96 Nasal Cannula 4.0 36 12/19/16 03:00 86 27 127/77 93 Nasal Cannula 3.0 12/19/16 02:00 89 27 100/83 93 Nasal Cannula 3.0 12/19/16 01:00 100 28 118/73 90 Nasal Cannula 3.0 12/19/16 00:00 88 12/19/16 00:00 97.0 90 28 118/72 90 Nasal Cannula 3.0 12/18/16 23:40 88 20 92 Nasal Cannula 5.0 40 12/18/16 23:30 36 12/18/16 23:30 83 23 98 Nasal Cannula 4.0 36 12/18/16 23:00 86 28 106/72 90 Nasal Cannula 3.0 12/18/16 22:00 99 28 114/71 90 Nasal Cannula 3.0 12/18/16 21:00 85 28 105/60 90 Nasal Cannula 3.0 12/18/16 20:35 85 20 93 Nasal Cannula 5.0 40 12/18/16 20:21 36 12/18/16 20:20 82 22 96 Nasal Cannula 4.0 36 12/18/16 20:00 96.9 79 28 116/53 93 Nasal Cannula 3.0 12/18/16 20:00 86 12/18/16 19:00 82 Nasal Cannula 4.0 36 12/18/16 19:00 79 28 120/58 90 Nasal Cannula 3.0 12/18/16 19:00 82 18 Nasal Cannula 4.0 36 12/18/16 19:00 Nasal Cannula 4.0 32 12/18/16 18:00 80 28 84/48 92 Nasal Cannula 3.0 12/18/16 17:52 78 22 95 Nasal Cannula 5.0 40 12/18/16 17:52 40 12/18/16 17:00 76 26 104/65 92 Nasal Cannula 3.0 12/18/16 16:00 73 12/18/16 16:00 97.1 76 29 92/60 90 Nasal Cannula 3.0 12/18/16 15:40 81 24 95 Nasal Cannula 5.0 40 12/18/16 15:27 40 12/18/16 15:27 79 26 94 Nasal Cannula 5.0 40 12/18/16 15:00 71 26 93/57 91 Nasal Cannula 3.0 12/18/16 14:00 77 26 101/66 94 Nasal Cannula 3.0 12/18/16 13:00 72 25 107/66 97 Nasal Cannula 3.0 12/18/16 12:00 72 24 94 Nasal Cannula 5.0 40 12/18/16 12:00 97.1 71 28 111/74 95 Nasal Cannula 5.0 12/18/16 12:00 70 Status: awake Condition: critical HEENT: atraumatic, normocephalic Neck: full ROM Lungs: chest wall tender Heart: HR/BP stable Abdomen: soft, non-tender, feeding tube Extremities: no C/C/E, edema Micro: Microbiology Date/Time Source Procedure Growth Status 12/18/16 13:00 Urine,Clean Catch Urine Culture - Preliminary NO GROWTH Resulted Critical Care - Subjective ROS Limited/Unobtainable: No Interval Events: no new complains Condition: critical FI02: 36 Sputum Amount: None Drips: off drips, off amiodarone, I&O: Intake and Output 12/18/16 12/19/16 19:00 07:00 Intake Total 160 ml 175 ml Output Total 327 ml 505 ml Balance -167 ml -330 ml Intake Oral 160 ml 175 ml Output Urine Total 327 ml 505 ml CXR: cxr better Labs: Laboratory Tests Test 12/19/16 05:30 12/19/16 07:40 White Blood Count 13.1 K/UL (4.8-10.8) H Red Blood Count 5.35 M/UL (4.70-6.10) Hemoglobin 13.8 G/DL (14.2-18.0) L Hematocrit 41.3 % (42.0-52.0) L Mean Corpuscular Volume 77 FL (80-99) L Mean Corpuscular Hemoglobin 25.8 PG (27.0-31.0) L Mean Corpuscular Hemoglobin Concent 33.5 G/DL (32.0-36.0) Red Cell Distribution Width 15.8 % (11.6-14.8) H Platelet Count 217 K/UL (150-450) Mean Platelet Volume 7.0 FL (6.5-10.1) Neutrophils (%) (Auto) 83.8 % (45.0-75.0) H Lymphocytes (%) (Auto) 3.9 % (20.0-45.0) L Monocytes (%) (Auto) 11.0 % (1.0-10.0) H Eosinophils (%) (Auto) 0.9 % (0.0-3.0) Basophils (%) (Auto) 0.5 % (0.0-2.0) Sodium Level 129 mEQ/L (135-145) L Potassium Level 4.1 mEQ/L (3.4-4.9) Chloride Level 88 mEQ/L (98-107) L Carbon Dioxide Level 19 mEQ/L (20-30) L Anion Gap 22 (5-15) H Blood Urea Nitrogen 109 mg/dL (7-23) H Creatinine 4.1 mg/dL (0.7-1.2) H Estimat Glomerular Filtration Rate mL/min (>60) Glucose Level 113 mg/dL (74-106) H Calcium Level 7.2 mg/dL (8.6-10.2) L Total Bilirubin 1.8 mg/dL (0.0-1.2) H Direct Bilirubin Pending Aspartate Amino Transf (AST/SGOT) 1625 U/L (5-40) H Alanine Aminotransferase (ALT/SGPT) 2671 U/L (3-41) H Alkaline Phosphatase 131 U/L (40-129) H Total Protein 5.5 g/dL (6.6-8.7) L Albumin 3.0 g/dL (3.5-5.2) L Globulin 2.5 g/dL Albumin/Globulin Ratio 1.2 (1.0-2.7) Prothrombin Time 23.5 SEC (9.30-11.50) H Prothromb Time International Ratio 2.3 (0.9-1.1) H Activated Partial Thromboplast Time 40 SEC (23-33) H FRANNY MENDES Dec 19, 2016 11:03
[2016-12-19] MEDS ORDERED: LORazepam Inj 2mg/ml 1ml IV PRN (11:15)
--- NOTE | 2016-12-19 11:24 | Infectious Diseases Prog Note ---
Assessment/Plan Assessment/Plan A: The patient is an 86-year-old male with Leukocytosis, ( m/l due to Urinary retentions ,SP Guillory ) improving sepsis, SP probable Pneumonia SCx: no sig growth C- x-ray: left lower lobe basilar infiltrate DANIEL CE + History of aortic valve stenosis. CAD. Gout HTN PLAN: monitor pt off of AB Rx ( 12/17 SP Aztreonam and Doxy d# 6, IV Vanco d# 5 ) monitor CBC. monitor BMP. Monitor chest x-ray Cultures ( blood and Ur). Subjective Constitutional: Denies: anorexia, chills, drenching sweats, fatigue, fever, no symptoms, other Allergies: Coded Allergies: CIPROFLOXACIN (Verified Allergy, Unknown, SEVERE SHORTNESS OF BREATH, 12/15) PENICILLINS (Verified Allergy, Unknown, SEVERE SHORTNESS OF BREATH, ) Subjective comfortable Objective Vital Signs Last 24 Hour Vital Signs Date Time Temp Pulse Resp B/P Pulse Ox O2 Delivery O2 Flow Rate FiO2 12/19/16 10:00 108 31 124/60 90 Nasal Cannula 3.0 12/19/16 09:00 83 22 101/41 90 Nasal Cannula 3.0 12/19/16 09:00 86 101/41 12/19/16 08:00 92 12/19/16 08:00 97.1 85 25 115/47 92 Nasal Cannula 3.0 12/19/16 07:04 89 26 96 Nasal Cannula 4.0 36 12/19/16 07:03 Nasal Cannula 4.0 36 12/19/16 07:00 88 30 137/99 96 Nasal Cannula 3.0 12/19/16 06:55 91 25 91 Nasal Cannula 4.0 36 12/19/16 06:55 36 12/19/16 06:54 91 Nasal Cannula 4.0 36 12/19/16 06:00 89 31 124/72 93 Nasal Cannula 3.0 12/19/16 05:00 83 27 130/62 93 Nasal Cannula 3.0 12/19/16 04:00 97.8 107 30 113/68 93 Nasal Cannula 3.0 12/19/16 04:00 106 12/19/16 03:58 106 20 96 Nasal Cannula 5.0 40 12/19/16 03:30 36 12/19/16 03:30 102 24 96 Nasal Cannula 4.0 36 12/19/16 03:00 86 27 127/77 93 Nasal Cannula 3.0 12/19/16 02:00 89 27 100/83 93 Nasal Cannula 3.0 12/19/16 01:00 100 28 118/73 90 Nasal Cannula 3.0 12/19/16 00:00 88 12/19/16 00:00 97.0 90 28 118/72 90 Nasal Cannula 3.0 12/18/16 23:40 88 20 92 Nasal Cannula 5.0 40 12/18/16 23:30 36 12/18/16 23:30 83 23 98 Nasal Cannula 4.0 36 12/18/16 23:00 86 28 106/72 90 Nasal Cannula 3.0 12/18/16 22:00 99 28 114/71 90 Nasal Cannula 3.0 12/18/16 21:00 85 28 105/60 90 Nasal Cannula 3.0 12/18/16 20:35 85 20 93 Nasal Cannula 5.0 40 12/18/16 20:21 36 12/18/16 20:20 82 22 96 Nasal Cannula 4.0 36 12/18/16 20:00 96.9 79 28 116/53 93 Nasal Cannula 3.0 12/18/16 20:00 86 12/18/16 19:00 82 Nasal Cannula 4.0 36 12/18/16 19:00 79 28 120/58 90 Nasal Cannula 3.0 12/18/16 19:00 82 18 Nasal Cannula 4.0 36 12/18/16 19:00 Nasal Cannula 4.0 32 12/18/16 18:00 80 28 84/48 92 Nasal Cannula 3.0 12/18/16 17:52 78 22 95 Nasal Cannula 5.0 40 12/18/16 17:52 40 12/18/16 17:00 76 26 104/65 92 Nasal Cannula 3.0 12/18/16 16:00 73 12/18/16 16:00 97.1 76 29 92/60 90 Nasal Cannula 3.0 12/18/16 15:40 81 24 95 Nasal Cannula 5.0 40 12/18/16 15:27 40 12/18/16 15:27 79 26 94 Nasal Cannula 5.0 40 12/18/16 15:00 71 26 93/57 91 Nasal Cannula 3.0 12/18/16 14:00 77 26 101/66 94 Nasal Cannula 3.0 12/18/16 13:00 72 25 107/66 97 Nasal Cannula 3.0 12/18/16 12:00 72 24 94 Nasal Cannula 5.0 40 12/18/16 12:00 97.1 71 28 111/74 95 Nasal Cannula 5.0 12/18/16 12:00 70 Height (Feet): 5 Height (Inches): 5.00 Weight (Pounds): 142 HEENT: anicteric Respiratory/Chest: normal breath sounds Cardiovascular: regular rhythm Abdomen: non distended Microbiology Date/Time Source Procedure Growth Status 12/18/16 13:00 Urine,Clean Catch Urine Culture - Preliminary NO GROWTH Resulted Laboratory Tests Test 12/19/16 05:30 12/19/16 07:40 White Blood Count 13.1 K/UL (4.8-10.8) H Red Blood Count 5.35 M/UL (4.70-6.10) Hemoglobin 13.8 G/DL (14.2-18.0) L Hematocrit 41.3 % (42.0-52.0) L Mean Corpuscular Volume 77 FL (80-99) L Mean Corpuscular Hemoglobin 25.8 PG (27.0-31.0) L Mean Corpuscular Hemoglobin Concent 33.5 G/DL (32.0-36.0) Red Cell Distribution Width 15.8 % (11.6-14.8) H Platelet Count 217 K/UL (150-450) Mean Platelet Volume 7.0 FL (6.5-10.1) Neutrophils (%) (Auto) 83.8 % (45.0-75.0) H Lymphocytes (%) (Auto) 3.9 % (20.0-45.0) L Monocytes (%) (Auto) 11.0 % (1.0-10.0) H Eosinophils (%) (Auto) 0.9 % (0.0-3.0) Basophils (%) (Auto) 0.5 % (0.0-2.0) Sodium Level 129 mEQ/L (135-145) L Potassium Level 4.1 mEQ/L (3.4-4.9) Chloride Level 88 mEQ/L (98-107) L Carbon Dioxide Level 19 mEQ/L (20-30) L Anion Gap 22 (5-15) H Blood Urea Nitrogen 109 mg/dL (7-23) H Creatinine 4.1 mg/dL (0.7-1.2) H Estimat Glomerular Filtration Rate mL/min (>60) Glucose Level 113 mg/dL (74-106) H Calcium Level 7.2 mg/dL (8.6-10.2) L Total Bilirubin 1.8 mg/dL (0.0-1.2) H Direct Bilirubin Pending Aspartate Amino Transf (AST/SGOT) 1625 U/L (5-40) H Alanine Aminotransferase (ALT/SGPT) 2671 U/L (3-41) H Alkaline Phosphatase 131 U/L (40-129) H Total Protein 5.5 g/dL (6.6-8.7) L Albumin 3.0 g/dL (3.5-5.2) L Globulin 2.5 g/dL Albumin/Globulin Ratio 1.2 (1.0-2.7) Prothrombin Time 23.5 SEC (9.30-11.50) H Prothromb Time International Ratio 2.3 (0.9-1.1) H Activated Partial Thromboplast Time 40 SEC (23-33) H Current Medications Medications (Trade) Dose Ordered Sig/Curtis Route PRN Reason Start Time Stop Time Status Last Admin Dose Admin Albuterol/ Ipratropium (DuoNeb 0.5-3(2.5)mg/3ml) 3 ml Q4HR PRN HHN Shortness of breath 12/17/16 20:00 12/22/16 19:59 12/17/16 20:58 Albuterol/ Ipratropium (DuoNeb 0.5-3(2.5)mg/3ml) 3 ml Q4HRT HHN 12/17/16 23:00 12/22/16 22:59 12/19/16 07:00 Aspirin (Ecotrin) 81 mg DAILY ORAL 12/13/16 19:00 01/12/17 18:59 12/19/16 09:10 Dextrose (Dextrose 50%) STAT PRN IV Hypoglycemia 12/12/16 06:47 01/11/17 06:46 Heparin Sodium (Porcine) (Heparin 5000 units/ml) 5,000 units EVERY 12 HOURS SUBQ 12/19/16 21:00 01/18/17 20:59 Lorazepam (Ativan 2mg/ml 1ml) 0.5 mg Q4H PRN IV For Anxiety 12/19/16 11:15 12/26/16 11:14 Metoprolol Succinate (Toprol XL) 25 mg DAILY ORAL 12/14/16 09:00 01/13/17 08:59 12/16/16 09:05 Metoprolol Tartrate (Lopressor) 2.5 mg Q3H PRN IVP HR > 120 12/13/16 19:00 01/12/17 18:59 12/14/16 04:41 Nitroglycerin (Ntg) 0.4 mg Q5M X 3 DOSES PRN SL Prn Chest Pain 12/12/16 06:30 01/11/17 06:29 Ondansetron HCl (Zofran) 4 mg Q6H PRN IVP Nausea & Vomiting 12/12/16 06:48 01/11/17 06:47 12/19/16 05:58 Pantoprazole (Protonix) 40 mg DAILY IVP 12/20/16 09:00 01/19/17 08:59 Polyethylene Glycol (Miralax) 17 gm HSPRN PRN ORAL Constipation 12/12/16 06:49 01/11/17 06:48 Promethazine HCl/ Codeine (Phenergan with Codeine) 5 ml Q4H PRN ORAL For Cough 12/12/16 06:49 01/11/17 06:48 12/19/16 09:50 ALY FALCON M.D. Dec 19, 2016 11:24
[2016-12-19 12:58] LABS: BILIRUBIN,DIRECT 0.8 mg/dL (0.1-0.3)
[2016-12-19 14:29] LABS: CRP QUANT 13.3 mg/dL (< 0.5)
[2016-12-19] MEDS ORDERED: Nitroglycerin Subl 0.4mg tab (Bottle Of 25) SL PRN (14:30)
[2016-12-19] MEDS ORDERED: DuoNeb 0.5-3(2.5)mg/3ml neb HHN PRN (15:00)
[2016-12-19] MEDS ORDERED: Metoprolol 5mg/5ml Inj IVP PRN (15:00)
--- NOTE | 2016-12-19 15:19 | Diagnostic Imaging Report ---
Indication: DYSPNEA Technique: One view of the chest Comparison: 12/18/2016 Findings: There is interim marked improvement of previously demonstrated interstitial and alveolar edema, although considerable disease persists. There is decreased pleural fluid bilaterally. The heart size is borderline enlarged. Right arm PICC is again demonstrated. Impression: Markedly improved but persistent pulmonary parenchyma infiltrates versus edema, and bilateral pleural fluid, over one day
--- NOTE | 2016-12-19 15:48 | General Progress Note ---
Assessment/Plan Status: unchanged Status Narrative SCr stable LFTs declining Assessment/Plan status; Renal failure , likely chronic . Has one functioning kidney- lost one after trauma in [place] at age 13- WORSENING ? MA, rising Troponin CHF improved- At fib admitted for Syncope- Anemia Gout Plan: still on list for [facility] KCL and Allopurinol Off Amiodarone due to high LFTs Optimize cardiac status Urine studies- Monitor renal parameters- Avoid Nephrotoxics- Kidney JOSÉ- : Impression: Negative for hydronephrosis Echogenic atrophic right kidney. Massive prostatomegaly Multiple renal calcifications, may be parenchymal or calyceal Incidental finding of left renal cysts Per orders Subjective ROS Limited/Unobtainable: No Constitutional: Reports: malaise, weakness Respiratory: Reports: shortness of breath Allergies: Coded Allergies: CIPROFLOXACIN (Verified Allergy, Unknown, SEVERE SHORTNESS OF BREATH, 12/15) PENICILLINS (Verified Allergy, Unknown, SEVERE SHORTNESS OF BREATH, ) Objective Last 24 Hour Vital Signs Date Time Temp Pulse Resp B/P Pulse Ox O2 Delivery O2 Flow Rate FiO2 12/19/16 15:18 99 24 95 Nasal Cannula 4.0 36 12/19/16 15:10 36 12/19/16 15:10 95 24 94 Nasal Cannula 4.0 36 12/19/16 14:00 85 25 98/70 95 Nasal Cannula 3.0 12/19/16 13:00 103 25 110/75 93 Nasal Cannula 3.0 12/19/16 12:00 96.9 110 25 103/73 93 Nasal Cannula 3.0 12/19/16 12:00 93 12/19/16 11:42 102 24 95 Nasal Cannula 4.0 36 12/19/16 11:30 36 12/19/16 11:30 104 24 94 Nasal Cannula 4.0 36 12/19/16 11:00 94 25 87/45 95 Nasal Cannula 3.0 12/19/16 10:00 108 31 124/60 90 Nasal Cannula 3.0 12/19/16 09:00 83 22 101/41 90 Nasal Cannula 3.0 12/19/16 09:00 86 101/41 12/19/16 08:00 92 12/19/16 08:00 97.1 85 25 115/47 92 Nasal Cannula 3.0 12/19/16 07:04 89 26 96 Nasal Cannula 4.0 36 12/19/16 07:03 Nasal Cannula 4.0 36 12/19/16 07:00 88 30 137/99 96 Nasal Cannula 3.0 12/19/16 06:55 91 25 91 Nasal Cannula 4.0 36 12/19/16 06:55 36 12/19/16 06:54 91 Nasal Cannula 4.0 36 12/19/16 06:00 89 31 124/72 93 Nasal Cannula 3.0 12/19/16 05:00 83 27 130/62 93 Nasal Cannula 3.0 12/19/16 04:00 97.8 107 30 113/68 93 Nasal Cannula 3.0 12/19/16 04:00 106 12/19/16 03:58 106 20 96 Nasal Cannula 5.0 40 12/19/16 03:30 36 12/19/16 03:30 102 24 96 Nasal Cannula 4.0 36 12/19/16 03:00 86 27 127/77 93 Nasal Cannula 3.0 12/19/16 02:00 89 27 100/83 93 Nasal Cannula 3.0 12/19/16 01:00 100 28 118/73 90 Nasal Cannula 3.0 12/19/16 00:00 88 12/19/16 00:00 97.0 90 28 118/72 90 Nasal Cannula 3.0 12/18/16 23:40 88 20 92 Nasal Cannula 5.0 40 12/18/16 23:30 36 12/18/16 23:30 83 23 98 Nasal Cannula 4.0 36 12/18/16 23:00 86 28 106/72 90 Nasal Cannula 3.0 12/18/16 22:00 99 28 114/71 90 Nasal Cannula 3.0 12/18/16 21:00 85 28 105/60 90 Nasal Cannula 3.0 12/18/16 20:35 85 20 93 Nasal Cannula 5.0 40 12/18/16 20:21 36 12/18/16 20:20 82 22 96 Nasal Cannula 4.0 36 12/18/16 20:00 96.9 79 28 116/53 93 Nasal Cannula 3.0 12/18/16 20:00 86 12/18/16 19:00 82 Nasal Cannula 4.0 36 12/18/16 19:00 79 28 120/58 90 Nasal Cannula 3.0 12/18/16 19:00 82 18 Nasal Cannula 4.0 36 12/18/16 19:00 Nasal Cannula 4.0 32 12/18/16 18:00 80 28 84/48 92 Nasal Cannula 3.0 12/18/16 17:52 78 22 95 Nasal Cannula 5.0 40 12/18/16 17:52 40 12/18/16 17:00 76 26 104/65 92 Nasal Cannula 3.0 12/18/16 16:00 73 12/18/16 16:00 97.1 76 29 92/60 90 Nasal Cannula 3.0 Intake and Output 12/18/16 12/19/16 19:00 07:00 Intake Total 160 ml 175 ml Output Total 327 ml 505 ml Balance -167 ml -330 ml Intake Oral 160 ml 175 ml Output Urine Total 327 ml 505 ml Laboratory Tests 12/19/16 05:30: White Blood Count 13.1H, Red Blood Count 5.35, Hemoglobin 13.8L, Hematocrit 41.3L, Mean Corpuscular Volume 77L, Mean Corpuscular Hemoglobin 25.8L, Mean Corpuscular Hemoglobin Concent 33.5, Red Cell Distribution Width 15.8H, Platelet Count 217, Mean Platelet Volume 7.0, Neutrophils (%) (Auto) 83.8H, Lymphocytes (%) (Auto) 3.9L, Monocytes (%) (Auto) 11.0H, Eosinophils (%) (Auto) 0.9, Basophils (%) (Auto) 0.5, Sodium Level 129L, Potassium Level 4.1, Chloride Level 88L, Carbon Dioxide Level 19L, Anion Gap 22H, Blood Urea Nitrogen 109H, Creatinine 4.1H, Estimat Glomerular Filtration Rate , Glucose Level 113H, Calcium Level 7.2L, Total Bilirubin 1.8H, Direct Bilirubin 0.8H, Aspartate Amino Transf (AST/SGOT) 1625H, Alanine Aminotransferase (ALT/SGPT) 2671H, Alkaline Phosphatase 131H, Total Protein 5.5L, Albumin 3.0L, Globulin 2.5, Albumin/Globulin Ratio 1.2 12/19/16 07:40: Prothrombin Time 23.5H, Prothromb Time International Ratio 2.3H, Activated Partial Thromboplast Time 40H Height (Feet): 5 Height (Inches): 5.00 Weight (Pounds): 142 General Appearance: mild distress Neck: stiff neck Cardiovascular: tachycardia Respiratory/Chest: decreased breath sounds Abdomen: soft FOULADIAN,KEESHA Dec 19, 2016 15:48
[2016-12-19] MEDS ORDERED: Morphine Sulfate 2mg/ml Inj IVP PRN (17:15)
[2016-12-19] MEDS: LORazepam Inj 2mg/ml 1ml IV PRN (18:59)
--- NOTE | 2016-12-19 19:23 | Cardiac Electrophysiology PN ---
Assessment/Plan Status: not improved, deteriorating Status Narrative Pt w/ critical . He is now back in AF w/ RVR, developing pulm congestion and w / worsening renal failure. He cannot be re-started on amiodarone due to liver toxicity, w/ transaminases over 4000 on amiodarone - now decreasing Assessment/Plan Diurese w/ iv lasix. Hemodialysis may be needed. Can give digoxin iv x1 for rate control, but would not give maintenance dose due to RF and risk for dig toxicity. continue b blockers, as tolerated by BP Transfer to [facility] when bed available. d/w RN Subjective Subjective Events noted.Pt agitated, appears tachypneic. He is back in AF w/ RVR Transferred from ICU today Objective Last 24 Hour Vital Signs Date Time Temp Pulse Resp B/P Pulse Ox O2 Delivery O2 Flow Rate FiO2 12/19/16 17:02 97.9 86 20 110/75 92 12/19/16 16:00 104 12/19/16 16:00 97.5 99 20 96/54 90 Nasal Cannula 12/19/16 15:18 99 24 95 Nasal Cannula 4.0 36 12/19/16 15:10 36 12/19/16 15:10 95 24 94 Nasal Cannula 4.0 36 12/19/16 14:00 85 25 98/70 95 Nasal Cannula 3.0 12/19/16 13:00 103 25 110/75 93 Nasal Cannula 3.0 12/19/16 12:00 96.9 110 25 103/73 93 Nasal Cannula 3.0 12/19/16 12:00 93 12/19/16 11:42 102 24 95 Nasal Cannula 4.0 36 12/19/16 11:30 36 12/19/16 11:30 104 24 94 Nasal Cannula 4.0 36 12/19/16 11:00 94 25 87/45 95 Nasal Cannula 3.0 12/19/16 10:00 108 31 124/60 90 Nasal Cannula 3.0 12/19/16 09:00 83 22 101/41 90 Nasal Cannula 3.0 12/19/16 09:00 86 101/41 12/19/16 08:00 92 12/19/16 08:00 97.1 85 25 115/47 92 Nasal Cannula 3.0 12/19/16 07:04 89 26 96 Nasal Cannula 4.0 36 12/19/16 07:03 Nasal Cannula 4.0 36 12/19/16 07:00 88 30 137/99 96 Nasal Cannula 3.0 12/19/16 06:55 91 25 91 Nasal Cannula 4.0 36 12/19/16 06:55 36 12/19/16 06:54 91 Nasal Cannula 4.0 36 12/19/16 06:00 89 31 124/72 93 Nasal Cannula 3.0 12/19/16 05:00 83 27 130/62 93 Nasal Cannula 3.0 12/19/16 04:00 97.8 107 30 113/68 93 Nasal Cannula 3.0 12/19/16 04:00 106 12/19/16 03:58 106 20 96 Nasal Cannula 5.0 40 12/19/16 03:30 36 12/19/16 03:30 102 24 96 Nasal Cannula 4.0 36 12/19/16 03:00 86 27 127/77 93 Nasal Cannula 3.0 12/19/16 02:00 89 27 100/83 93 Nasal Cannula 3.0 12/19/16 01:00 100 28 118/73 90 Nasal Cannula 3.0 12/19/16 00:00 88 12/19/16 00:00 97.0 90 28 118/72 90 Nasal Cannula 3.0 12/18/16 23:40 88 20 92 Nasal Cannula 5.0 40 12/18/16 23:30 36 12/18/16 23:30 83 23 98 Nasal Cannula 4.0 36 12/18/16 23:00 86 28 106/72 90 Nasal Cannula 3.0 12/18/16 22:00 99 28 114/71 90 Nasal Cannula 3.0 12/18/16 21:00 85 28 105/60 90 Nasal Cannula 3.0 12/18/16 20:35 85 20 93 Nasal Cannula 5.0 40 12/18/16 20:21 36 12/18/16 20:20 82 22 96 Nasal Cannula 4.0 36 12/18/16 20:00 96.9 79 28 116/53 93 Nasal Cannula 3.0 12/18/16 20:00 86 General Appearance: WD/WN, mild distress, thin Neck: supple, no JVD Rhythm: Afib Cardiovascular: tachycardia, systolic murmur - i/vi tosin R second ics to lsb Respiratory/Chest: rhonchi - bilaterally Abdomen: non tender, soft Extremities: other - ecchymoses upper ext bilat Intake and Output 12/18/16 12/19/16 19:00 07:00 Intake Total 160 ml 175 ml Output Total 327 ml 505 ml Balance -167 ml -330 ml Intake Oral 160 ml 175 ml Output Urine Total 327 ml 505 ml Laboratory Tests Test 12/19/16 05:30 12/19/16 07:40 White Blood Count 13.1 K/UL (4.8-10.8) H Red Blood Count 5.35 M/UL (4.70-6.10) Hemoglobin 13.8 G/DL (14.2-18.0) L Hematocrit 41.3 % (42.0-52.0) L Mean Corpuscular Volume 77 FL (80-99) L Mean Corpuscular Hemoglobin 25.8 PG (27.0-31.0) L Mean Corpuscular Hemoglobin Concent 33.5 G/DL (32.0-36.0) Red Cell Distribution Width 15.8 % (11.6-14.8) H Platelet Count 217 K/UL (150-450) Mean Platelet Volume 7.0 FL (6.5-10.1) Neutrophils (%) (Auto) 83.8 % (45.0-75.0) H Lymphocytes (%) (Auto) 3.9 % (20.0-45.0) L Monocytes (%) (Auto) 11.0 % (1.0-10.0) H Eosinophils (%) (Auto) 0.9 % (0.0-3.0) Basophils (%) (Auto) 0.5 % (0.0-2.0) Sodium Level 129 mEQ/L (135-145) L Potassium Level 4.1 mEQ/L (3.4-4.9) Chloride Level 88 mEQ/L (98-107) L Carbon Dioxide Level 19 mEQ/L (20-30) L Anion Gap 22 (5-15) H Blood Urea Nitrogen 109 mg/dL (7-23) H Creatinine 4.1 mg/dL (0.7-1.2) H Estimat Glomerular Filtration Rate mL/min (>60) Glucose Level 113 mg/dL (74-106) H Calcium Level 7.2 mg/dL (8.6-10.2) L Total Bilirubin 1.8 mg/dL (0.0-1.2) H Direct Bilirubin 0.8 mg/dL (0.1-0.3) H Aspartate Amino Transf (AST/SGOT) 1625 U/L (5-40) H Alanine Aminotransferase (ALT/SGPT) 2671 U/L (3-41) H Alkaline Phosphatase 131 U/L (40-129) H Total Protein 5.5 g/dL (6.6-8.7) L Albumin 3.0 g/dL (3.5-5.2) L Globulin 2.5 g/dL Albumin/Globulin Ratio 1.2 (1.0-2.7) Prothrombin Time 23.5 SEC (9.30-11.50) H Prothromb Time International Ratio 2.3 (0.9-1.1) H Activated Partial Thromboplast Time 40 SEC (23-33) H Microbiology Date/Time Source Procedure Growth Status 12/18/16 13:00 Urine,Clean Catch Urine Culture - Preliminary NO GROWTH Resulted DEANGELO MACK Dec 19, 2016 19:23
[2016-12-19] MEDS: Heparin 5000 units/ml inj SUBQ SCH (20:02)
[2016-12-19] MEDS ORDERED: Miralax 17gm pkt ORAL PRN (21:00)
[2016-12-19] MEDS ORDERED: Heparin 5000 units/ml inj SUBQ SCH (21:00)
[2016-12-19 23:52] LABS: BILIRUBIN,DIRECT 0.9 mg/dL (0.1-0.3)
[2016-12-20] MEDS: DuoNeb 0.5-3(2.5)mg/3ml neb HHN SCH ×6 (02:45→23:44)
[2016-12-20 04:00] VITALS: BP 98/63
[2016-12-20 05:42] LABS: BASOPHILS % (AUTO) 0.8 % (0.0-2.0); EOSINOPHILS % (AUTO) 0.9 % (0.0-3.0); LYMPHOCYTES % (AUTO) 3.7 % (20.0-45.0); MEAN CORPUSCULAR HEMOGLOBIN 25.3 PG (27.0-31.0); MEAN CORPUSCULAR HGB CONC 32.5 G/DL (32.0-36.0); MEAN CORPUSCULAR VOLUME 78 FL (80-99); MEAN PLATELET VOLUME 6.7 FL (6.5-10.1); MONOCYTES % (AUTO) 12.1 % (1.0-10.0); NEUTROPHILS % (AUTO) 82.5 % (45.0-75.0); PLATELET COUNT 206 K/UL (150-450); RED BLOOD COUNT 5.52 M/UL (4.70-6.10); RED CELL DISTRIBUTION WIDTH 16.4 % (11.6-14.8); WHITE BLOOD COUNT 9.4 K/UL (4.8-10.8)
[2016-12-20 06:10] LABS: ALBUMIN/GLOBULIN RATIO 1.1 (1.0-2.7); ANION GAP 22 (5-15); ASPARTATE AMINO TRANSFERASE 500 U/L (5-40); CALCIUM 8.2 mg/dL (8.6-10.2); CARBON DIOXIDE 20 mEQ/L (20-30); CHLORIDE 92 mEQ/L (98-107); CREATININE 3.7 mg/dL (0.7-1.2); HEMOLYSIS 3; MAGNESIUM 2.5 mg/dL (1.7-2.5); POTASSIUM 3.8 mEQ/L (3.4-4.9); SODIUM 134 mEQ/L (135-145); TOTAL PROTEIN 5.4 g/dL (6.6-8.7)
[2016-12-20 06:24] LABS: ALANINE AMINOTRANSFERASE 1727 U/L (3-41)
[2016-12-20 08:00] VITALS: BP 99/65
[2016-12-20 08:48] LABS: ABG PCO2 34.1 mmHg (35.0-45.0)
[2016-12-20 08:49] LABS: ABG ALLEN TEST POSITIVE; ABG BASE EXCESS -4.8
[2016-12-20] MEDS ORDERED: Pantoprazole Inj IVP SCH (09:00)
--- NOTE | 2016-12-20 09:24 | Infectious Diseases Prog Note ---
Assessment/Plan Assessment/Plan A: The patient is an 86-year-old male with Leukocytosis, ( m/l due to Urinary retentions ,SP Guillory ) improved sepsis, SP probable Pneumonia SCx: no sig growth SP Rx C- x-ray: left lower lobe basilar infiltrate Off Amiodarone due to high LFTs , improving DANIEL CE + History of aortic valve stenosis. CAD. Gout HTN PLAN: monitor pt off of AB Rx ( 12/17 SP Aztreonam and Doxy d# 6, IV Vanco d# 5 ) monitor CBC. monitor BMP. Monitor chest x-ray Cultures ( blood ) Transfer to [facility] Subjective Allergies: Coded Allergies: CIPROFLOXACIN (Verified Allergy, Unknown, SEVERE SHORTNESS OF BREATH, 12/15) PENICILLINS (Verified Allergy, Unknown, SEVERE SHORTNESS OF BREATH, ) Subjective transferred out of ICU Objective Vital Signs Last 24 Hour Vital Signs Date Time Temp Pulse Resp B/P Pulse Ox O2 Delivery O2 Flow Rate FiO2 12/20/16 08:01 84 12/20/16 08:00 97.5 84 20 99/65 96 Nasal Cannula 4.0 12/20/16 07:33 84 20 96 Nasal Cannula 4.0 12/20/16 07:23 86 22 91 Nasal Cannula 4.0 12/20/16 07:21 Nasal Cannula 4.0 12/20/16 07:20 92 Nasal Cannula 4.0 12/20/16 04:20 86 12/20/16 04:00 97.7 82 24 98/63 94 Nasal Cannula 5.0 12/20/16 02:53 96 20 97 Nasal Cannula 4.0 36 12/20/16 02:45 36 12/20/16 02:45 94 20 93 Nasal Cannula 4.0 36 12/20/16 00:00 108 12/19/16 23:26 113 22 95 Nasal Cannula 4.0 36 12/19/16 23:18 36 12/19/16 23:18 112 22 94 Nasal Cannula 4.0 36 12/19/16 22:43 97.4 90 20 104/59 93 Nasal Cannula 4.0 12/19/16 20:00 97.4 90 20 104/59 93 Nasal Cannula 4.0 12/19/16 20:00 111 12/19/16 19:59 102 23 96 Nasal Cannula 4.0 36 12/19/16 19:49 95 Nasal Cannula 4.0 36 12/19/16 19:49 36 12/19/16 19:49 Nasal Cannula 4.0 36 12/19/16 19:49 101 22 95 Nasal Cannula 4.0 36 12/19/16 17:02 97.9 86 20 110/75 92 12/19/16 16:00 104 12/19/16 16:00 97.5 99 20 96/54 90 Nasal Cannula 12/19/16 15:18 99 24 95 Nasal Cannula 4.0 36 12/19/16 15:10 36 12/19/16 15:10 95 24 94 Nasal Cannula 4.0 36 12/19/16 14:00 85 25 98/70 95 Nasal Cannula 3.0 12/19/16 13:00 103 25 110/75 93 Nasal Cannula 3.0 12/19/16 12:00 96.9 110 25 103/73 93 Nasal Cannula 3.0 12/19/16 12:00 93 12/19/16 11:42 102 24 95 Nasal Cannula 4.0 36 12/19/16 11:30 36 12/19/16 11:30 104 24 94 Nasal Cannula 4.0 36 12/19/16 11:00 94 25 87/45 95 Nasal Cannula 3.0 12/19/16 10:00 108 31 124/60 90 Nasal Cannula 3.0 Height (Feet): 5 Height (Inches): 5.00 Weight (Pounds): 135 HEENT: anicteric Respiratory/Chest: normal breath sounds Cardiovascular: regular rhythm Abdomen: no organomegaly Microbiology Date/Time Source Procedure Growth Status 12/18/16 13:00 Urine,Clean Catch Urine Culture - Preliminary NO GROWTH Resulted Laboratory Tests Test 12/20/16 04:00 12/20/16 08:40 White Blood Count 9.4 K/UL (4.8-10.8) Red Blood Count 5.52 M/UL (4.70-6.10) Hemoglobin 14.0 G/DL (14.2-18.0) L Hematocrit 43.0 % (42.0-52.0) Mean Corpuscular Volume 78 FL (80-99) L Mean Corpuscular Hemoglobin 25.3 PG (27.0-31.0) L Mean Corpuscular Hemoglobin Concent 32.5 G/DL (32.0-36.0) Red Cell Distribution Width 16.4 % (11.6-14.8) H Platelet Count 206 K/UL (150-450) Mean Platelet Volume 6.7 FL (6.5-10.1) Neutrophils (%) (Auto) 82.5 % (45.0-75.0) H Lymphocytes (%) (Auto) 3.7 % (20.0-45.0) L Monocytes (%) (Auto) 12.1 % (1.0-10.0) H Eosinophils (%) (Auto) 0.9 % (0.0-3.0) Basophils (%) (Auto) 0.8 % (0.0-2.0) Sodium Level 134 mEQ/L (135-145) L Potassium Level 3.8 mEQ/L (3.4-4.9) Chloride Level 92 mEQ/L (98-107) L Carbon Dioxide Level 20 mEQ/L (20-30) Anion Gap 22 (5-15) H Blood Urea Nitrogen 109 mg/dL (7-23) H Creatinine 3.7 mg/dL (0.7-1.2) H Estimat Glomerular Filtration Rate mL/min (>60) Glucose Level 93 mg/dL (74-106) Calcium Level 8.2 mg/dL (8.6-10.2) L Phosphorus Level 5.0 mg/dL (2.5-4.8) H Magnesium Level 2.5 mg/dL (1.7-2.5) Total Bilirubin 2.1 mg/dL (0.0-1.2) H Direct Bilirubin 1.0 mg/dL (0.1-0.3) H Aspartate Amino Transf (AST/SGOT) 500 U/L (5-40) H Alanine Aminotransferase (ALT/SGPT) 1727 U/L (3-41) H Alkaline Phosphatase 141 U/L (40-129) H Total Protein 5.4 g/dL (6.6-8.7) L Albumin 2.9 g/dL (3.5-5.2) L Globulin 2.5 g/dL Albumin/Globulin Ratio 1.1 (1.0-2.7) Arterial Blood pH 7.370 (7.350-7.450) Arterial Blood Partial Pressure CO2 34.1 mmHg (35.0-45.0) L Arterial Blood Partial Pressure O2 61.7 mmHg (75.0-100.0) L Arterial Blood HCO3 19.5 mmol/L (22.0-26.0) L Arterial Blood Oxygen Saturation 89.7 % (92.0-98.0) L Arterial Blood Base Excess -4.8 Arnie Test Positive Current Medications Medications (Trade) Dose Ordered Sig/Curtis Route PRN Reason Start Time Stop Time Status Last Admin Dose Admin Albuterol/ Ipratropium (DuoNeb 0.5-3(2.5)mg/3ml) 3 ml Q4H PRN HHN Shortness of breath 12/19/16 15:00 12/24/16 14:59 Albuterol/ Ipratropium (DuoNeb 0.5-3(2.5)mg/3ml) 3 ml Q4HRT HHN 12/19/16 15:00 12/24/16 14:59 12/20/16 07:21 Aspirin (Ecotrin) 81 mg DAILY ORAL 12/20/16 09:00 01/19/17 08:59 Dextrose (Dextrose 50%) STAT PRN IV Hypoglycemia 12/19/16 15:00 01/18/17 14:59 Heparin Sodium (Porcine) (Heparin 5000 units/ml) 5,000 units EVERY 12 HOURS SUBQ 12/19/16 21:00 01/18/17 20:59 12/19/16 20:02 Lorazepam (Ativan 2mg/ml 1ml) 0.5 mg Q4H PRN IV For Anxiety 12/19/16 15:15 12/26/16 15:14 12/19/16 18:59 Metoprolol Succinate (Toprol XL) 25 mg DAILY ORAL 12/20/16 09:00 01/19/17 08:59 Metoprolol Tartrate (Lopressor) 2.5 mg Q3H PRN IVP HR > 120 12/19/16 15:00 01/18/17 14:59 Morphine Sulfate (Morphine Sulfate) 1 mg Q4H PRN IVP For Pain 7-10 12/19/16 17:15 12/26/16 17:14 12/20/16 01:08 Nitroglycerin (Ntg) 0.4 mg Q5M X 3 DOSES PRN SL Prn Chest Pain 12/19/16 14:30 01/18/17 14:29 Ondansetron HCl (Zofran) 4 mg Q6H PRN IVP Nausea & Vomiting 12/19/16 15:00 01/18/17 14:59 Pantoprazole (Protonix) 40 mg DAILY IVP 12/20/16 09:00 01/19/17 08:59 Polyethylene Glycol (Miralax) 17 gm HSPRN PRN ORAL Constipation 12/19/16 21:00 01/18/17 20:59 12/19/16 21:43 Promethazine HCl/ Codeine (Phenergan with Codeine) 5 ml Q4H PRN ORAL For Cough 12/19/16 15:00 01/18/17 14:59 12/19/16 19:59 ALY FALCON M.D. Dec 20, 2016 09:24
[2016-12-20] MEDS: Pantoprazole Inj IVP SCH (09:25)
[2016-12-20] MEDS: Aspirin EC 81mg tab ORAL SCH (09:26)
[2016-12-20] MEDS: Heparin 5000 units/ml inj SUBQ SCH ×2 (09:27→20:56)
[2016-12-20 12:00] VITALS: BP 103/63
--- NOTE | 2016-12-20 12:24 | Pulmonology Progress Note ---
Assessment/Plan Problems: (1) ATN (acute tubular necrosis) (2) Pneumonia (3) Aortic stenosis (4) Anemia in chronic illness (5) Chronic kidney disease (CKD) (6) Syncope (7) Solitary kidney Respiratory: monitor respiratory rate, adjust FIO2 Cardiac: continue to monitor HR/BP Renal: F/U I&O, check electrolytes Gastrointestinal: continue feedings/current rate Endocrine: monitor blood sugar Neurologic: PRN Ativan, PRN Morphine Prophylaxis: Heparin Notes Reviewed: cardio, 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 with: nurses, consultants, casey saw operator Subjective ROS Limited/Unobtainable: No Constitutional: Reports: no symptoms Allergies: Coded Allergies: CIPROFLOXACIN (Verified Allergy, Unknown, SEVERE SHORTNESS OF BREATH, 12/15) PENICILLINS (Verified Allergy, Unknown, SEVERE SHORTNESS OF BREATH, ) Objective Last 24 Hour Vital Signs Date Time Temp Pulse Resp B/P Pulse Ox O2 Delivery O2 Flow Rate FiO2 12/20/16 11:28 87 12/20/16 11:05 87 20 97 Venturi Mask 8.0 40 12/20/16 10:55 105 22 93 Venturi Mask 8.0 40 12/20/16 09:00 84 99/65 12/20/16 08:01 84 12/20/16 08:00 97.5 84 20 99/65 96 Nasal Cannula 4.0 12/20/16 07:33 84 20 96 Nasal Cannula 4.0 12/20/16 07:23 86 22 91 Nasal Cannula 4.0 12/20/16 07:21 Nasal Cannula 4.0 12/20/16 07:20 92 Nasal Cannula 4.0 12/20/16 04:20 86 12/20/16 04:00 97.7 82 24 98/63 94 Nasal Cannula 5.0 12/20/16 02:53 96 20 97 Nasal Cannula 4.0 36 12/20/16 02:45 36 12/20/16 02:45 94 20 93 Nasal Cannula 4.0 36 12/20/16 00:00 108 12/19/16 23:26 113 22 95 Nasal Cannula 4.0 36 12/19/16 23:18 36 12/19/16 23:18 112 22 94 Nasal Cannula 4.0 36 12/19/16 22:43 97.4 90 20 104/59 93 Nasal Cannula 4.0 12/19/16 20:00 97.4 90 20 104/59 93 Nasal Cannula 4.0 12/19/16 20:00 111 12/19/16 19:59 102 23 96 Nasal Cannula 4.0 36 12/19/16 19:49 95 Nasal Cannula 4.0 36 12/19/16 19:49 36 12/19/16 19:49 Nasal Cannula 4.0 36 12/19/16 19:49 101 22 95 Nasal Cannula 4.0 36 12/19/16 17:02 97.9 86 20 110/75 92 12/19/16 16:00 104 12/19/16 16:00 97.5 99 20 96/54 90 Nasal Cannula 12/19/16 15:18 99 24 95 Nasal Cannula 4.0 36 12/19/16 15:10 36 12/19/16 15:10 95 24 94 Nasal Cannula 4.0 36 12/19/16 14:00 85 25 98/70 95 Nasal Cannula 3.0 12/19/16 13:00 103 25 110/75 93 Nasal Cannula 3.0 Intake and Output 12/19/16 12/20/16 19:00 07:00 Intake Total 80 ml 120 ml Output Total 315 ml 2490 ml Balance -235 ml -2370 ml Intake Oral 80 ml 120 ml Output Urine Total 315 ml 2490 ml General Appearance: WD/WN HEENT: normocephalic, anicteric Respiratory/Chest: chest wall non-tender, normal breath sounds Cardiovascular: normal peripheral pulses, normal rate Abdomen: normal bowel sounds, soft, non tender Extremities: no cyanosis, no clubbing Skin: no rash 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/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 grossly normal, abnormal gait, normal mood/ affect Microbiology Date/Time Source Procedure Growth Status 12/18/16 13:00 Urine,Clean Catch Urine Culture - Preliminary NO GROWTH AFTER 24 HOURS Resulted Laboratory Tests 12/20/16 04:00: White Blood Count 9.4, Red Blood Count 5.52, Hemoglobin 14.0L, Hematocrit 43.0, Mean Corpuscular Volume 78L, Mean Corpuscular Hemoglobin 25.3L, Mean Corpuscular Hemoglobin Concent 32.5, Red Cell Distribution Width 16.4H, Platelet Count 206, Mean Platelet Volume 6.7, Neutrophils (%) (Auto) 82.5H, Lymphocytes (%) (Auto) 3.7L, Monocytes (%) (Auto) 12.1H, Eosinophils (%) (Auto) 0.9, Basophils (%) (Auto) 0.8, Sodium Level 134L, Potassium Level 3.8, Chloride Level 92L, Carbon Dioxide Level 20, Anion Gap 22H, Blood Urea Nitrogen 109H, Creatinine 3.7H, Estimat Glomerular Filtration Rate , Glucose Level 93, Calcium Level 8.2L, Phosphorus Level 5.0H, Magnesium Level 2.5, Total Bilirubin 2.1H, Direct Bilirubin 1.0H, Aspartate Amino Transf (AST/SGOT) 500H, Alanine Aminotransferase (ALT/SGPT) 1727H, Alkaline Phosphatase 141H, Total Protein 5.4L , Albumin 2.9L, Globulin 2.5, Albumin/Globulin Ratio 1.1 12/20/16 08:40: Arterial Blood pH 7.370, Arterial Blood Partial Pressure CO2 34.1L, Arterial Blood Partial Pressure O2 61.7L, Arterial Blood HCO3 19.5L, Arterial Blood Oxygen Saturation 89.7L, Arterial Blood Base Excess -4.8, Arnie Test Positive Current Medications Medications (Trade) Dose Ordered Sig/Curtis Route PRN Reason Start Time Stop Time Status Last Admin Dose Admin Albuterol/ Ipratropium (DuoNeb 0.5-3(2.5)mg/3ml) 3 ml Q4H PRN HHN Shortness of breath 12/19/16 15:00 12/24/16 14:59 Albuterol/ Ipratropium (DuoNeb 0.5-3(2.5)mg/3ml) 3 ml Q4HRT HHN 12/19/16 15:00 12/24/16 14:59 12/20/16 11:00 Aspirin (Ecotrin) 81 mg DAILY ORAL 12/20/16 09:00 01/19/17 08:59 12/20/16 09:26 Dextrose (Dextrose 50%) STAT PRN IV Hypoglycemia 12/19/16 15:00 01/18/17 14:59 Heparin Sodium (Porcine) (Heparin 5000 units/ml) 5,000 units EVERY 12 HOURS SUBQ 12/19/16 21:00 01/18/17 20:59 12/20/16 09:27 Lorazepam (Ativan 2mg/ml 1ml) 0.5 mg Q4H PRN IV For Anxiety 12/19/16 15:15 28/17 15:14 12/19/16 18:59 Metoprolol Succinate (Toprol XL) 25 mg DAILY ORAL 12/20/16 09:00 01/19/17 08:59 Metoprolol Tartrate (Lopressor) 2.5 mg Q3H PRN IVP HR > 120 12/19/16 15:00 01/18/17 14:59 Morphine Sulfate (Morphine Sulfate) 1 mg Q4H PRN IVP For Pain 7-10 12/19/16 17:15 12/26/16 17:14 12/20/16 01:08 Nitroglycerin (Ntg) 0.4 mg Q5M X 3 DOSES PRN SL Prn Chest Pain 12/19/16 14:30 01/18/17 14:29 Ondansetron HCl (Zofran) 4 mg Q6H PRN IVP Nausea & Vomiting 12/19/16 15:00 01/18/17 14:59 Pantoprazole (Protonix) 40 mg DAILY IVP 12/20/16 09:00 01/19/17 08:59 12/20/16 09:25 Polyethylene Glycol (Miralax) 17 gm HSPRN PRN ORAL Constipation 12/19/16 21:00 01/18/17 20:59 12/19/16 21:43 Promethazine HCl/ Codeine (Phenergan with Codeine) 5 ml Q4H PRN ORAL For Cough 12/19/16 15:00 01/18/17 14:59 12/19/16 19:59 FRANNY MENDES Dec 20, 2016 12:24
--- NOTE | 2016-12-20 12:31 | Diagnostic Imaging Report ---
Indications: DYSPNEA Technique: Portable AP chest Findings: Comparison: 12/19/2016 Cardiomegaly, pulmonary vascular redistribution, bilateral interstitial traits, left midlung subsegmental atelectasis persists, unchanged. Costophrenic angle indistinctness has increased on the right and developed on the left. Central venous catheter remains in place. IMPRESSION: Persistent bilateral congestive changes with apparent increase in bibasilar pleural effusions
--- NOTE | 2016-12-20 12:59 | Diagnostic Imaging Report ---
Indication: Dyspnea Comparison: 12/15/16 A single view chest radiograph was obtained. Findings: There is enlargement of the cardiac silhouette with pulmonary vascular redistribution and prominence, hazy vessel margins and the suggestion of interstitial edema consistent with CHF. Aorta is calcified. There is a right subclavian line in good position unchanged. There is a probable right pleural effusion. Impression: CHF. Findings are relatively unchanged
--- NOTE | 2016-12-20 13:37 | General Progress Note ---
Assessment/Plan Status: unchanged Status Narrative Cr lower- High LFTs declining Assessment/Plan status; Renal failure , likely chronic . Has one functioning kidney- lost one after trauma in [place] at age 13- WORSENING ? AL, rising Troponin CHF improved- At fib admitted for Syncope- Anemia Gout Plan: still on list for [facility] being also attempted- KCL ( as needed) and Allopurinol Off Amiodarone due to high LFTs Optimize cardiac status Urine studies- Monitor renal parameters- Avoid Nephrotoxics- Kidney JOSÉ- : Impression: Negative for hydronephrosis Echogenic atrophic right kidney. Massive prostatomegaly Multiple renal calcifications, may be parenchymal or calyceal Incidental finding of left renal cysts Per orders Subjective ROS Limited/Unobtainable: No Constitutional: Reports: malaise Respiratory: Reports: shortness of breath Allergies: Coded Allergies: CIPROFLOXACIN (Verified Allergy, Unknown, SEVERE SHORTNESS OF BREATH, 12/15) PENICILLINS (Verified Allergy, Unknown, SEVERE SHORTNESS OF BREATH, ) Objective Last 24 Hour Vital Signs Date Time Temp Pulse Resp B/P Pulse Ox O2 Delivery O2 Flow Rate FiO2 12/20/16 12:00 97.2 104 18 103/63 97 Venturi Mask 40 12/20/16 11:28 87 12/20/16 11:05 87 20 97 Venturi Mask 8.0 40 12/20/16 10:55 105 22 93 Venturi Mask 8.0 40 12/20/16 09:00 84 99/65 12/20/16 08:01 84 12/20/16 08:00 97.5 84 20 99/65 96 Nasal Cannula 4.0 12/20/16 07:33 84 20 96 Nasal Cannula 4.0 12/20/16 07:23 86 22 91 Nasal Cannula 4.0 12/20/16 07:21 Nasal Cannula 4.0 12/20/16 07:20 92 Nasal Cannula 4.0 12/20/16 04:20 86 12/20/16 04:00 97.7 82 24 98/63 94 Nasal Cannula 5.0 12/20/16 02:53 96 20 97 Nasal Cannula 4.0 36 12/20/16 02:45 36 12/20/16 02:45 94 20 93 Nasal Cannula 4.0 36 12/20/16 00:00 108 12/19/16 23:26 113 22 95 Nasal Cannula 4.0 36 12/19/16 23:18 36 12/19/16 23:18 112 22 94 Nasal Cannula 4.0 36 12/19/16 22:43 97.4 90 20 104/59 93 Nasal Cannula 4.0 12/19/16 20:00 97.4 90 20 104/59 93 Nasal Cannula 4.0 12/19/16 20:00 111 12/19/16 19:59 102 23 96 Nasal Cannula 4.0 36 12/19/16 19:49 95 Nasal Cannula 4.0 36 12/19/16 19:49 36 12/19/16 19:49 Nasal Cannula 4.0 36 12/19/16 19:49 101 22 95 Nasal Cannula 4.0 36 12/19/16 17:02 97.9 86 20 110/75 92 12/19/16 16:00 104 12/19/16 16:00 97.5 99 20 96/54 90 Nasal Cannula 12/19/16 15:18 99 24 95 Nasal Cannula 4.0 36 12/19/16 15:10 36 12/19/16 15:10 95 24 94 Nasal Cannula 4.0 36 12/19/16 14:00 85 25 98/70 95 Nasal Cannula 3.0 Intake and Output 12/19/16 12/20/16 19:00 07:00 Intake Total 80 ml 120 ml Output Total 315 ml 2490 ml Balance -235 ml -2370 ml Intake Oral 80 ml 120 ml Output Urine Total 315 ml 2490 ml Laboratory Tests 12/20/16 04:00: White Blood Count 9.4, Red Blood Count 5.52, Hemoglobin 14.0L, Hematocrit 43.0, Mean Corpuscular Volume 78L, Mean Corpuscular Hemoglobin 25.3L, Mean Corpuscular Hemoglobin Concent 32.5, Red Cell Distribution Width 16.4H, Platelet Count 206, Mean Platelet Volume 6.7, Neutrophils (%) (Auto) 82.5H, Lymphocytes (%) (Auto) 3.7L, Monocytes (%) (Auto) 12.1H, Eosinophils (%) (Auto) 0.9, Basophils (%) (Auto) 0.8, Sodium Level 134L, Potassium Level 3.8, Chloride Level 92L, Carbon Dioxide Level 20, Anion Gap 22H, Blood Urea Nitrogen 109H, Creatinine 3.7H, Estimat Glomerular Filtration Rate , Glucose Level 93, Calcium Level 8.2L, Phosphorus Level 5.0H, Magnesium Level 2.5, Total Bilirubin 2.1H, Direct Bilirubin 1.0H, Aspartate Amino Transf (AST/SGOT) 500H, Alanine Aminotransferase (ALT/SGPT) 1727H, Alkaline Phosphatase 141H, Total Protein 5.4L , Albumin 2.9L, Globulin 2.5, Albumin/Globulin Ratio 1.1 12/20/16 08:40: Arterial Blood pH 7.370, Arterial Blood Partial Pressure CO2 34.1L, Arterial Blood Partial Pressure O2 61.7L, Arterial Blood HCO3 19.5L, Arterial Blood Oxygen Saturation 89.7L, Arterial Blood Base Excess -4.8, Arnie Test Positive Height (Feet): 5 Height (Inches): 5.00 Weight (Pounds): 135 General Appearance: lethargic, mild distress Cardiovascular: tachycardia Respiratory/Chest: decreased breath sounds Abdomen: distended Objective other PE not changed KEESHA MOYER Dec 20, 2016 13:37
[2016-12-20 16:14] VITALS: BP 97/60
--- NOTE | 2016-12-20 17:51 | Cardiology Progress Note ---
Assessment/Plan Assessment/Plan 1. Syncope. 2. Significant aortic stenosis. 3. History of coronary artery disease. 4. hs of Renal insufficiency with a solitary kidney. 5. chf acute diastolic 6. afib rvr paroxysmal recurrent now appears intolerant of amiod 7. abn lft amiod induced 8. ARF 9. transient hypotension 10. NSTEMI 11. metabolic acidosis 12. coagulopathy phone joce form dtr requested possible trasfer to [facility] notified d/w student services rep as well suzie grahamo in sinus lft improved inr elevated yest will repeat in ma off anticoagulation remain azotemic likley due to low fo young flow due ot sever oxygen decreased lasix one dose tonite cxr reviewed tele reviewed Subjective Cardiovascular: Denies: chest pain, lightheadedness, palpitations Respiratory: Reports: shortness of breath Gastrointestinal/Abdominal: Denies: abdominal pain Genitourinary: Denies: burning Subjective seems to indicate he is feelign better Objective Last 24 Hour Vital Signs Date Time Temp Pulse Resp B/P Pulse Ox O2 Delivery O2 Flow Rate FiO2 12/20/16 16:14 98.4 98 20 97/60 94 Venturi Mask 40 12/20/16 15:28 95 20 95 Venturi Mask 8.0 40 12/20/16 15:15 103 20 94 Venturi Mask 8.0 40 12/20/16 12:00 97.2 104 18 103/63 97 Venturi Mask 40 12/20/16 11:28 87 12/20/16 11:05 87 20 97 Venturi Mask 8.0 40 12/20/16 10:55 105 22 93 Venturi Mask 8.0 40 12/20/16 09:00 84 99/65 12/20/16 08:01 84 12/20/16 08:00 97.5 84 20 99/65 96 Nasal Cannula 4.0 12/20/16 07:33 84 20 96 Nasal Cannula 4.0 12/20/16 07:23 86 22 91 Nasal Cannula 4.0 12/20/16 07:21 Nasal Cannula 4.0 12/20/16 07:20 92 Nasal Cannula 4.0 12/20/16 04:20 86 12/20/16 04:00 97.7 82 24 98/63 94 Nasal Cannula 5.0 12/20/16 02:53 96 20 97 Nasal Cannula 4.0 36 12/20/16 02:45 36 12/20/16 02:45 94 20 93 Nasal Cannula 4.0 36 12/20/16 00:00 108 12/19/16 23:26 113 22 95 Nasal Cannula 4.0 36 12/19/16 23:18 36 12/19/16 23:18 112 22 94 Nasal Cannula 4.0 36 12/19/16 22:43 97.4 90 20 104/59 93 Nasal Cannula 4.0 12/19/16 20:00 97.4 90 20 104/59 93 Nasal Cannula 4.0 12/19/16 20:00 111 12/19/16 19:59 102 23 96 Nasal Cannula 4.0 36 12/19/16 19:49 95 Nasal Cannula 4.0 36 12/19/16 19:49 36 12/19/16 19:49 Nasal Cannula 4.0 36 12/19/16 19:49 101 22 95 Nasal Cannula 4.0 36 General Appearance: no apparent distress, alert Neck: supple Cardiovascular: regular rhythm, regularly irregular Respiratory/Chest: decreased breath sounds Abdomen: normal bowel sounds, non tender, soft Extremities: no swelling Intake and Output 12/19/16 12/20/16 19:00 07:00 Intake Total 80 ml 120 ml Output Total 315 ml 2490 ml Balance -235 ml -2370 ml Intake Oral 80 ml 120 ml Output Urine Total 315 ml 2490 ml Laboratory Tests Test 12/20/16 04:00 12/20/16 08:40 White Blood Count 9.4 K/UL (4.8-10.8) Red Blood Count 5.52 M/UL (4.70-6.10) Hemoglobin 14.0 G/DL (14.2-18.0) L Hematocrit 43.0 % (42.0-52.0) Mean Corpuscular Volume 78 FL (80-99) L Mean Corpuscular Hemoglobin 25.3 PG (27.0-31.0) L Mean Corpuscular Hemoglobin Concent 32.5 G/DL (32.0-36.0) Red Cell Distribution Width 16.4 % (11.6-14.8) H Platelet Count 206 K/UL (150-450) Mean Platelet Volume 6.7 FL (6.5-10.1) Neutrophils (%) (Auto) 82.5 % (45.0-75.0) H Lymphocytes (%) (Auto) 3.7 % (20.0-45.0) L Monocytes (%) (Auto) 12.1 % (1.0-10.0) H Eosinophils (%) (Auto) 0.9 % (0.0-3.0) Basophils (%) (Auto) 0.8 % (0.0-2.0) Sodium Level 134 mEQ/L (135-145) L Potassium Level 3.8 mEQ/L (3.4-4.9) Chloride Level 92 mEQ/L (98-107) L Carbon Dioxide Level 20 mEQ/L (20-30) Anion Gap 22 (5-15) H Blood Urea Nitrogen 109 mg/dL (7-23) H Creatinine 3.7 mg/dL (0.7-1.2) H Estimat Glomerular Filtration Rate mL/min (>60) Glucose Level 93 mg/dL (74-106) Calcium Level 8.2 mg/dL (8.6-10.2) L Phosphorus Level 5.0 mg/dL (2.5-4.8) H Magnesium Level 2.5 mg/dL (1.7-2.5) Total Bilirubin 2.1 mg/dL (0.0-1.2) H Direct Bilirubin 1.0 mg/dL (0.1-0.3) H Aspartate Amino Transf (AST/SGOT) 500 U/L (5-40) H Alanine Aminotransferase (ALT/SGPT) 1727 U/L (3-41) H Alkaline Phosphatase 141 U/L (40-129) H Total Protein 5.4 g/dL (6.6-8.7) L Albumin 2.9 g/dL (3.5-5.2) L Globulin 2.5 g/dL Albumin/Globulin Ratio 1.1 (1.0-2.7) Arterial Blood pH 7.370 (7.350-7.450) Arterial Blood Partial Pressure CO2 34.1 mmHg (35.0-45.0) L Arterial Blood Partial Pressure O2 61.7 mmHg (75.0-100.0) L Arterial Blood HCO3 19.5 mmol/L (22.0-26.0) L Arterial Blood Oxygen Saturation 89.7 % (92.0-98.0) L Arterial Blood Base Excess -4.8 Arnie Test Positive Microbiology Date/Time Source Procedure Growth Status 12/18/16 13:00 Urine,Clean Catch Urine Culture - Preliminary NO GROWTH AFTER 24 HOURS Resulted MEY DELEON Dec 20, 2016 17:51
[2016-12-20 20:00] VITALS: BP 93/61
[2016-12-20] MEDS ORDERED: Tubing IV Secondary IV ONE (21:16)
[2016-12-20] MEDS ORDERED: NS 275ml ONE (21:16)
[2016-12-20] MEDS: Promethazine/Codeine 5ml UD ORAL PRN (23:40)
[2016-12-20 23:48] VITALS: BP 102/75
[2016-12-21] MEDS: DuoNeb 0.5-3(2.5)mg/3ml neb HHN SCH ×5 (03:00→19:13)
[2016-12-21 03:54] VITALS: BP 104/63
[2016-12-21 06:01] LABS: EOSINOPHILS % (AUTO) 3.6 % (0.0-3.0); LYMPHOCYTES % (AUTO) 6.3 % (20.0-45.0); MEAN CORPUSCULAR HEMOGLOBIN 25.7 PG (27.0-31.0); MEAN CORPUSCULAR HGB CONC 32.6 G/DL (32.0-36.0); MEAN CORPUSCULAR VOLUME 79 FL (80-99); MONOCYTES % (AUTO) 17.9 % (1.0-10.0); NEUTROPHILS % (AUTO) 71.2 % (45.0-75.0); PLATELET COUNT 188 K/UL (150-450); RED BLOOD COUNT 5.39 M/UL (4.70-6.10); RED CELL DISTRIBUTION WIDTH 16.8 % (11.6-14.8); WHITE BLOOD COUNT 7.6 K/UL (4.8-10.8)
[2016-12-21 06:36] LABS: INR 1.5 (0.9-1.1); PROTHROMBIN TIME 15.1 SEC (9.30-11.50)
[2016-12-21 06:54] LABS: ALBUMIN/GLOBULIN RATIO 1.1 (1.0-2.7); ANION GAP 19 (5-15); ASPARTATE AMINO TRANSFERASE 268 U/L (5-40); CALCIUM 8.3 mg/dL (8.6-10.2); CARBON DIOXIDE 21 mEQ/L (20-30); CHLORIDE 99 mEQ/L (98-107); CREATININE 2.9 mg/dL (0.7-1.2); HEMOLYSIS 4; POTASSIUM 3.9 mEQ/L (3.4-4.9); SODIUM 139 mEQ/L (135-145); TOTAL PROTEIN 5.4 g/dL (6.6-8.7)
[2016-12-21 07:14] LABS: ALANINE AMINOTRANSFERASE > 700 U/L (3-41)
[2016-12-21 08:00] VITALS: BP 96/33
[2016-12-21] MEDS: Aspirin EC 81mg tab ORAL SCH (09:41)
[2016-12-21] MEDS: Pantoprazole Inj IVP SCH (09:41)
[2016-12-21] MEDS: Heparin 5000 units/ml inj SUBQ SCH (09:43)
--- NOTE | 2016-12-21 10:30 | Diagnostic Imaging Report ---
Indication: DYSPNEA Technique: One view of the chest Comparison: 12/20/2016 Findings: Suboptimal inspiration. Parenchymal infiltrates versus edema have improved bilaterally, with some residual. Suspect small residual bilateral pleural effusions. Right subclavian central venous catheter remains Impression: Considerable improvement of bilateral right lung infiltrates versus edema, over one day
[2016-12-21 12:00] VITALS: BP 100/65
--- NOTE | 2016-12-21 12:02 | Cardiology Report ---
APPROVED REPORT EKG Measurement Heart [id number] HI P59 [id number] Sinus rhythm with PACs and occasional premature ventricular complexes Left axis deviation Right bundle branch block T wave abnormality, consider lateral ischemia Abnormal ECG
--- NOTE | 2016-12-21 12:59 | General Progress Note ---
Assessment/Plan Status: stable - from renal stand point Status Narrative Cr lower Assessment/Plan status; Renal failure , likely chronic . acute component is resolving- Has one functioning kidney- lost one after trauma in [place] at age 13- WORSENING ? [place], rising Troponin CHF improved- At fib admitted for Syncope- Anemia Gout Plan: still on list for [facility] being also attempted- KCL ( as needed) and Allopurinol Off Amiodarone due to high LFTs Optimize cardiac status Urine studies- Monitor renal parameters- Avoid Nephrotoxics- Kidney JOSÉ- : Impression: Negative for hydronephrosis Echogenic atrophic right kidney. Massive prostatomegaly Multiple renal calcifications, may be parenchymal or calyceal Incidental finding of left renal cysts Per orders Subjective ROS Limited/Unobtainable: No Constitutional: Reports: malaise, weakness Allergies: Coded Allergies: CIPROFLOXACIN (Verified Allergy, Unknown, SEVERE SHORTNESS OF BREATH, 12/15) PENICILLINS (Verified Allergy, Unknown, SEVERE SHORTNESS OF BREATH, ) Objective Last 24 Hour Vital Signs Date Time Temp Pulse Resp B/P Pulse Ox O2 Delivery O2 Flow Rate FiO2 12/21/16 12:00 97 12/21/16 12:00 97.5 92 20 100/65 96 Nasal Cannula 5.0 12/21/16 11:07 96 18 94 Nasal Cannula 4.0 36 12/21/16 11:04 36 12/21/16 11:03 95 18 95 Nasal Cannula 4.0 36 12/21/16 09:00 113 96/33 12/21/16 08:00 97.2 113 18 96/33 93 Nasal Cannula 5.0 12/21/16 08:00 93 12/21/16 07:04 97 20 98 Nasal Cannula 5.0 40 12/21/16 07:04 40 12/21/16 07:03 Nasal Cannula 5.0 40 12/21/16 07:03 95 22 94 Nasal Cannula 5.0 40 12/21/16 07:02 94 Nasal Cannula 5.0 40 12/21/16 03:54 96.6 93 20 104/63 93 Nasal Cannula 5.0 12/21/16 03:47 108 12/21/16 03:00 81 20 97 Nasal Cannula 5.0 40 12/21/16 03:00 81 20 97 Nasal Cannula 5.0 40 12/20/16 23:54 82 20 95 Nasal Cannula 5.0 40 12/20/16 23:48 96.3 91 20 102/75 93 Nasal Cannula 5.0 12/20/16 23:44 91 20 96 Nasal Cannula 5.0 40 12/20/16 23:41 92 12/20/16 20:00 90 12/20/16 20:00 96.6 87 18 93/61 95 Nasal Cannula 5.0 12/20/16 19:48 91 20 97 Nasal Cannula 5.0 40 12/20/16 19:41 91 20 97 Nasal Cannula 5.0 40 12/20/16 19:29 97 Nasal Cannula 5.0 40 12/20/16 19:29 Nasal Cannula 5.0 40 12/20/16 16:14 98.4 98 20 97/60 94 Venturi Mask 40 12/20/16 16:00 105 12/20/16 15:28 95 20 95 Venturi Mask 8.0 40 12/20/16 15:15 103 20 94 Venturi Mask 8.0 40 Intake and Output 12/20/16 12/21/16 19:00 07:00 Intake Total 240 ml 300 ml Output Total 500 ml 1450 ml Balance -260 ml -1150 ml Intake Oral 240 ml 300 ml Output Urine Total 500 ml 1450 ml Laboratory Tests 12/21/16 05:00: White Blood Count 7.6, Red Blood Count 5.39, Hemoglobin 13.8L, Hematocrit 42.4, Mean Corpuscular Volume 79L, Mean Corpuscular Hemoglobin 25.7L, Mean Corpuscular Hemoglobin Concent 32.6, Red Cell Distribution Width 16.8H, Platelet Count 188, Mean Platelet Volume 6.0L, Neutrophils (%) (Auto) 71.2, Lymphocytes (%) (Auto) 6.3L, Monocytes (%) (Auto) 17.9H, Eosinophils (%) (Auto) 3.6H, Basophils (%) (Auto) 1.0, Prothrombin Time 15.1H, Prothromb Time International Ratio 1.5H, Activated Partial Thromboplast Time 35H, Sodium Level 139, Potassium Level 3.9, Chloride Level 99, Carbon Dioxide Level 21, Anion Gap 19H, Blood Urea Nitrogen 99H, Creatinine 2.9H, Estimat Glomerular Filtration Rate , Glucose Level 106, Calcium Level 8.3L, Total Bilirubin 2.1H, Direct Bilirubin 1.0H, Aspartate Amino Transf (AST/SGOT) 268H, Alanine Aminotransferase (ALT/SGPT) > 700H, Alkaline Phosphatase 125, Total Protein 5.4L , Albumin 2.9L, Globulin 2.5, Albumin/Globulin Ratio 1.1 Height (Feet): 5 Height (Inches): 5.00 Weight (Pounds): 134 General Appearance: mild distress Objective other PE not changed KEESHA MOYER Dec 21, 2016 12:59
[2016-12-21 15:38] VITALS: BP 93/62
--- NOTE | 2016-12-21 15:38 | Pulmonology Progress Note ---
Assessment/Plan Assessment/Plan ASSESSMENT acute hypoxemic respiratory failure sepsis possible PNA, s/p rx paroxysmal recurrent AF (with RVR -resolved) significant NSTEMI, s/p Heparin drip hx of CAD ATN on CKD with solitary kidney anemia of chronic disease syncope 2 to significant HTN acute diastolic CHF metabolic acidosis moderate pulmonary HTN severe MR abnormal LFT, Amiodarone induced PLAN OF CARE CLAUDIO status O2 , keep sat above 92%, pulmonary toilet CXR with persistent bilateral congestive changes fup with CXR cardio follows no amiodarone 2 to liver toxicity LFT started to trend down diuresis Lasix x 1 12/20, was on anticoagulation, stopped 2 to coagulopathy, ? resume as per cardio ECHO with EF 50% and RVSP of 49 c/w moderate pulmonary HTN, + severe MR, + critical as per cardio - needs transfer to [facility] when bed available monitor renal parameters, lytes creat started to trend down, avoid nephrotic renal US no hydro, R echogenic kidney sputum cx negative , blood cx negative, urine cx negative s/p abx Rx , per ID : monitor patient off abx CT head no acute intracranial pathology Carotid Duplex no evidence of stenosis DVT, GI prophylaxis continue ASA and BB, pain management with Morphine and Nitro prn transfer to [facility] when bed available case discussed and evaluated by supervising physician Subjective Allergies: Coded Allergies: CIPROFLOXACIN (Verified Allergy, Unknown, SEVERE SHORTNESS OF BREATH, 12/15) PENICILLINS (Verified Allergy, Unknown, SEVERE SHORTNESS OF BREATH, ) Subjective leukocytosis resolved, afebrile weaned to O2 via NC, renal parameters with cerat down to 2.9 reports intermittent SOB, weakness, intermittent dizziness, no chest pain, Objective Last 24 Hour Vital Signs Date Time Temp Pulse Resp B/P Pulse Ox O2 Delivery O2 Flow Rate FiO2 12/21/16 14:57 93 20 93 Nasal Cannula 2.0 28 12/21/16 14:51 94 20 94 Nasal Cannula 2.0 28 12/21/16 12:00 97 12/21/16 12:00 97.5 92 20 100/65 96 Nasal Cannula 5.0 12/21/16 11:07 96 18 94 Nasal Cannula 4.0 36 12/21/16 11:04 36 12/21/16 11:03 95 18 95 Nasal Cannula 4.0 36 12/21/16 09:00 113 96/33 2/3/17 08:00 97.2 113 18 96/33 93 Nasal Cannula 5.0 12/21/16 08:00 93 12/21/16 07:04 97 20 98 Nasal Cannula 5.0 40 12/21/16 07:04 40 12/21/16 07:03 Nasal Cannula 5.0 40 12/21/16 07:03 95 22 94 Nasal Cannula 5.0 40 12/21/16 07:02 94 Nasal Cannula 5.0 40 12/21/16 03:54 96.6 93 20 104/63 93 Nasal Cannula 5.0 12/21/16 03:47 108 12/21/16 03:00 81 20 97 Nasal Cannula 5.0 40 12/21/16 03:00 81 20 97 Nasal Cannula 5.0 40 12/20/16 23:54 82 20 95 Nasal Cannula 5.0 40 12/20/16 23:48 96.3 91 20 102/75 93 Nasal Cannula 5.0 12/20/16 23:44 91 20 96 Nasal Cannula 5.0 40 12/20/16 23:41 92 12/20/16 20:00 90 12/20/16 20:00 96.6 87 18 93/61 95 Nasal Cannula 5.0 12/20/16 19:48 91 20 97 Nasal Cannula 5.0 40 12/20/16 19:41 91 20 97 Nasal Cannula 5.0 40 12/20/16 19:29 97 Nasal Cannula 5.0 40 12/20/16 19:29 Nasal Cannula 5.0 40 12/20/16 16:14 98.4 98 20 97/60 94 Venturi Mask 40 12/20/16 16:00 105 12/20/16 15:28 95 20 95 Venturi Mask 8.0 40 Intake and Output 12/20/16 12/21/16 19:00 07:00 Intake Total 240 ml 300 ml Output Total 500 ml 1450 ml Balance -260 ml -1150 ml Intake Oral 240 ml 300 ml Output Urine Total 500 ml 1450 ml General Appearance: WD/WN, no acute distress, other - elderly frail AA male HEENT: normocephalic, atraumatic, anicteric Respiratory/Chest: chest wall non-tender, decreased breath sounds Cardiovascular: regularly irregular Abdomen: normal bowel sounds, soft, non tender, non distended Genitourinary: normal external genitalia Extremities: no edema Neurologic/Psychiatric: abnormal gait, alert, responsive Musculoskeletal: atrophy - BLE Microbiology Date/Time Source Procedure Growth Status 12/19/16 14:45 Blood Blood Culture - Preliminary NO GROWTH AFTER 24 HOURS Resulted 12/19/16 12:45 Blood Blood Culture - Preliminary NO GROWTH AFTER 24 HOURS Resulted Laboratory Tests 12/21/16 05:00: White Blood Count 7.6, Red Blood Count 5.39, Hemoglobin 13.8L, Hematocrit 42.4, Mean Corpuscular Volume 79L, Mean Corpuscular Hemoglobin 25.7L, Mean Corpuscular Hemoglobin Concent 32.6, Red Cell Distribution Width 16.8H, Platelet Count 188, Mean Platelet Volume 6.0L, Neutrophils (%) (Auto) 71.2, Lymphocytes (%) (Auto) 6.3L, Monocytes (%) (Auto) 17.9H, Eosinophils (%) (Auto) 3.6H, Basophils (%) (Auto) 1.0, Prothrombin Time 15.1H, Prothromb Time International Ratio 1.5H, Activated Partial Thromboplast Time 35H, Sodium Level 139, Potassium Level 3.9, Chloride Level 99, Carbon Dioxide Level 21, Anion Gap 19H, Blood Urea Nitrogen 99H, Creatinine 2.9H, Estimat Glomerular Filtration Rate , Glucose Level 106, Calcium Level 8.3L, Total Bilirubin 2.1H, Direct Bilirubin 1.0H, Aspartate Amino Transf (AST/SGOT) 268H, Alanine Aminotransferase (ALT/SGPT) > 700H, Alkaline Phosphatase 125, Total Protein 5.4L , Albumin 2.9L, Globulin 2.5, Albumin/Globulin Ratio 1.1 Current Medications Medications (Trade) Dose Ordered Sig/Curtis Route PRN Reason Start Time Stop Time Status Last Admin Dose Admin Albuterol/ Ipratropium (DuoNeb 0.5-3(2.5)mg/3ml) 3 ml Q4H PRN HHN Shortness of breath 12/19/16 15:00 12/24/16 14:59 Albuterol/ Ipratropium (DuoNeb 0.5-3(2.5)mg/3ml) 3 ml Q4HRT HHN 12/19/16 15:00 12/24/16 14:59 12/21/16 14:51 Aspirin (Ecotrin) 81 mg DAILY ORAL 12/20/16 09:00 01/19/17 08:59 12/21/16 09:41 Dextrose (Dextrose 50%) STAT PRN IV Hypoglycemia 12/19/16 15:00 01/18/17 14:59 Heparin Sodium (Porcine) (Heparin 5000 units/ml) 5,000 units EVERY 12 HOURS SUBQ 12/19/16 21:00 01/18/17 20:59 12/21/16 09:43 Lorazepam (Ativan 2mg/ml 1ml) 0.5 mg Q4H PRN IV For Anxiety 12/19/16 15:15 12/26/16 15:14 12/19/16 18:59 Metoprolol Succinate (Toprol XL) 25 mg DAILY ORAL 12/20/16 09:00 01/19/17 08:59 Metoprolol Tartrate (Lopressor) 2.5 mg Q3H PRN IVP HR > 120 12/19/16 15:00 01/18/17 14:59 Morphine Sulfate (Morphine Sulfate) 1 mg Q4H PRN IVP For Pain 7-10 12/19/16 17:15 12/26/16 17:14 12/20/16 01:08 Nitroglycerin (Ntg) 0.4 mg Q5M X 3 DOSES PRN SL Prn Chest Pain 12/19/16 14:30 01/18/17 14:29 Ondansetron HCl (Zofran) 4 mg Q6H PRN IVP Nausea & Vomiting 12/19/16 15:00 01/18/17 14:59 Pantoprazole (Protonix) 40 mg DAILY IVP 12/20/16 09:00 01/19/17 08:59 12/21/16 09:41 Polyethylene Glycol (Miralax) 17 gm HSPRN PRN ORAL Constipation 12/19/16 21:00 01/18/17 20:59 12/19/16 21:43 Promethazine HCl/ Codeine (Phenergan with Codeine) 5 ml Q4H PRN ORAL For Cough 12/19/16 15:00 01/18/17 14:59 12/20/16 23:40 Atiya Valdes NP (Vanchtein) Dec 21, 2016 15:38
[2016-12-21] MEDS: LORazepam Inj 2mg/ml 1ml IV PRN (16:02)
--- NOTE | 2016-12-21 18:54 | Infectious Diseases Prog Note ---
Assessment/Plan Assessment/Plan A: The patient is an 86-year-old male with Leukocytosis, ( m/l due to Urinary retentions ,SP Guillory ) improved sepsis, SP probable Pneumonia SCx: no sig growth SP Rx C- x-ray: Considerable improvement of bilateral right lung infiltrates versus edema, Off Amiodarone due to high LFTs , improving DANIEL improving CE + History of aortic valve stenosis. CAD. Gout HTN PLAN: monitor pt off of AB Rx ( 12/17 SP Aztreonam and Doxy d# 6, IV Vanco d# 5 ) monitor CBC. monitor BMP. Monitor chest x-ray Cultures ( blood ) Transfer to [facility] Subjective Constitutional: Denies: anorexia, chills, drenching sweats, fatigue, fever, no symptoms, other Allergies: Coded Allergies: CIPROFLOXACIN (Verified Allergy, Unknown, SEVERE SHORTNESS OF BREATH, 12/15) PENICILLINS (Verified Allergy, Unknown, SEVERE SHORTNESS OF BREATH, ) Objective Vital Signs Last 24 Hour Vital Signs Date Time Temp Pulse Resp B/P Pulse Ox O2 Delivery O2 Flow Rate FiO2 12/21/16 16:00 85 12/21/16 15:38 96.4 97 20 93/62 93 Nasal Cannula 2.0 28 12/21/16 14:57 93 20 93 Nasal Cannula 2.0 28 12/21/16 14:51 94 20 94 Nasal Cannula 2.0 28 12/21/16 12:00 97 12/21/16 12:00 97.5 92 20 100/65 96 Nasal Cannula 5.0 12/21/16 11:07 96 18 94 Nasal Cannula 4.0 36 12/21/16 11:04 36 12/21/16 11:03 95 18 95 Nasal Cannula 4.0 36 12/21/16 09:00 113 96/33 12/21/16 08:00 97.2 113 18 96/33 93 Nasal Cannula 5.0 12/21/16 08:00 93 12/21/16 07:04 97 20 98 Nasal Cannula 5.0 40 12/21/16 07:04 40 12/21/16 07:03 Nasal Cannula 5.0 40 12/21/16 07:03 95 22 94 Nasal Cannula 5.0 40 12/21/16 07:02 94 Nasal Cannula 5.0 40 12/21/16 03:54 96.6 93 20 104/63 93 Nasal Cannula 5.0 12/21/16 03:47 108 12/21/16 03:00 81 20 97 Nasal Cannula 5.0 40 12/21/16 03:00 81 20 97 Nasal Cannula 5.0 40 12/20/16 23:54 82 20 95 Nasal Cannula 5.0 40 12/20/16 23:48 96.3 91 20 102/75 93 Nasal Cannula 5.0 12/20/16 23:44 91 20 96 Nasal Cannula 5.0 40 12/20/16 23:41 92 12/20/16 20:00 90 12/20/16 20:00 96.6 87 18 93/61 95 Nasal Cannula 5.0 12/20/16 19:48 91 20 97 Nasal Cannula 5.0 40 12/20/16 19:41 91 20 97 Nasal Cannula 5.0 40 12/20/16 19:29 97 Nasal Cannula 5.0 40 12/20/16 19:29 Nasal Cannula 5.0 40 Height (Feet): 5 Height (Inches): 5.00 Weight (Pounds): 134 HEENT: anicteric Respiratory/Chest: no respiratory distress Cardiovascular: regularly irregular Abdomen: no mass Microbiology Date/Time Source Procedure Growth Status 12/19/16 14:45 Blood Blood Culture - Preliminary NO GROWTH AFTER 24 HOURS Resulted 12/19/16 12:45 Blood Blood Culture - Preliminary NO GROWTH AFTER 24 HOURS Resulted Laboratory Tests Test 12/21/16 05:00 White Blood Count 7.6 K/UL (4.8-10.8) Red Blood Count 5.39 M/UL (4.70-6.10) Hemoglobin 13.8 G/DL (14.2-18.0) L Hematocrit 42.4 % (42.0-52.0) Mean Corpuscular Volume 79 FL (80-99) L Mean Corpuscular Hemoglobin 25.7 PG (27.0-31.0) L Mean Corpuscular Hemoglobin Concent 32.6 G/DL (32.0-36.0) Red Cell Distribution Width 16.8 % (11.6-14.8) H Platelet Count 188 K/UL (150-450) Mean Platelet Volume 6.0 FL (6.5-10.1) L Neutrophils (%) (Auto) 71.2 % (45.0-75.0) Lymphocytes (%) (Auto) 6.3 % (20.0-45.0) L Monocytes (%) (Auto) 17.9 % (1.0-10.0) H Eosinophils (%) (Auto) 3.6 % (0.0-3.0) H Basophils (%) (Auto) 1.0 % (0.0-2.0) Prothrombin Time 15.1 SEC (9.30-11.50) H Prothromb Time International Ratio 1.5 (0.9-1.1) H Activated Partial Thromboplast Time 35 SEC (23-33) H Sodium Level 139 mEQ/L (135-145) Potassium Level 3.9 mEQ/L (3.4-4.9) Chloride Level 99 mEQ/L (98-107) Carbon Dioxide Level 21 mEQ/L (20-30) Anion Gap 19 (5-15) H Blood Urea Nitrogen 99 mg/dL (7-23) H Creatinine 2.9 mg/dL (0.7-1.2) H Estimat Glomerular Filtration Rate mL/min (>60) Glucose Level 106 mg/dL (74-106) Calcium Level 8.3 mg/dL (8.6-10.2) L Total Bilirubin 2.1 mg/dL (0.0-1.2) H Direct Bilirubin 1.0 mg/dL (0.1-0.3) H Aspartate Amino Transf (AST/SGOT) 268 U/L (5-40) H Alanine Aminotransferase (ALT/SGPT) > 700 U/L (3-41) H Alkaline Phosphatase 125 U/L (40-129) Total Protein 5.4 g/dL (6.6-8.7) L Albumin 2.9 g/dL (3.5-5.2) L Globulin 2.5 g/dL Albumin/Globulin Ratio 1.1 (1.0-2.7) Current Medications Medications (Trade) Dose Ordered Sig/Curtis Route PRN Reason Start Time Stop Time Status Last Admin Dose Admin Albuterol/ Ipratropium (DuoNeb 0.5-3(2.5)mg/3ml) 3 ml Q4H PRN HHN Shortness of breath 12/19/16 15:00 12/24/16 14:59 Albuterol/ Ipratropium (DuoNeb 0.5-3(2.5)mg/3ml) 3 ml Q4HRT HHN 12/19/16 15:00 12/24/16 14:59 12/21/16 14:51 Aspirin (Ecotrin) 81 mg DAILY ORAL 12/20/16 09:00 01/19/17 08:59 12/21/16 09:41 Dextrose (Dextrose 50%) STAT PRN IV Hypoglycemia 12/19/16 15:00 01/18/17 14:59 Heparin Sodium (Porcine) (Heparin 5000 units/ml) 5,000 units EVERY 12 HOURS SUBQ 12/19/16 21:00 01/18/17 20:59 12/21/16 09:43 Lorazepam (Ativan 2mg/ml 1ml) 0.5 mg Q4H PRN IV For Anxiety 12/19/16 15:15 12/26/16 15:14 12/21/16 16:02 Metoprolol Succinate (Toprol XL) 25 mg DAILY ORAL 12/20/16 09:00 01/19/17 08:59 Metoprolol Tartrate (Lopressor) 2.5 mg Q3H PRN IVP HR > 120 12/19/16 15:00 01/18/17 14:59 Morphine Sulfate (Morphine Sulfate) 1 mg Q4H PRN IVP For Pain 7-10 12/19/16 17:15 12/26/16 17:14 12/20/16 01:08 Nitroglycerin (Ntg) 0.4 mg Q5M X 3 DOSES PRN SL Prn Chest Pain 12/19/16 14:30 01/18/17 14:29 Ondansetron HCl (Zofran) 4 mg Q6H PRN IVP Nausea & Vomiting 12/19/16 15:00 01/18/17 14:59 Pantoprazole (Protonix) 40 mg DAILY IVP 12/20/16 09:00 01/19/17 08:59 12/21/16 09:41 Polyethylene Glycol (Miralax) 17 gm HSPRN PRN ORAL Constipation 12/19/16 21:00 01/18/17 20:59 12/19/16 21:43 Promethazine HCl/ Codeine (Phenergan with Codeine) 5 ml Q4H PRN ORAL For Cough 12/19/16 15:00 01/18/17 14:59 12/20/16 23:40 ALY FALCON M.D. Dec 21, 2016 18:54
--- NOTE | 2016-12-21 19:53 | Cardiology Progress Note ---
Assessment/Plan Assessment/Plan 1. Syncope. 2. Significant aortic stenosis. 3. History of coronary artery disease. 4. hs of Renal insufficiency with a solitary kidney. 5. chf acute diastolic 6. afib rvr paroxysmal recurrent now appears intolerant of amiod 7. abn lft amiod induced 8. ARF 9. transient hypotension 10. NSTEMI 11. metabolic acidosis 12. coagulopathy bed avialbe at [facility] tonite will be transferred shortly hsi inr is better renal function is better lft are better chf is better maybe by saturday cr will improve enough to decrease the risk from contrast that he will need for cath and cts will consider anticoagulation at [facility] tele sinus mainly off amio due to abn lfts d/w dtr at bedside Subjective Cardiovascular: Denies: chest pain, lightheadedness, palpitations Respiratory: Denies: shortness of breath Gastrointestinal/Abdominal: Denies: abdominal pain Genitourinary: Denies: discharge Subjective has been stabel today Objective Last 24 Hour Vital Signs Date Time Temp Pulse Resp B/P Pulse Ox O2 Delivery O2 Flow Rate FiO2 12/21/16 19:23 90 18 93 Nasal Cannula 3.5 12/21/16 19:13 93 22 95 Nasal Cannula 2.0 28 12/21/16 19:13 95 Nasal Cannula 2.0 28 12/21/16 19:13 Nasal Cannula 2.0 28 12/21/16 16:00 85 12/21/16 15:38 96.4 97 20 93/62 93 Nasal Cannula 2.0 28 12/21/16 14:57 93 20 93 Nasal Cannula 2.0 28 12/21/16 14:51 94 20 94 Nasal Cannula 2.0 28 12/21/16 12:00 97 12/21/16 12:00 97.5 92 20 100/65 96 Nasal Cannula 5.0 12/21/16 11:07 96 18 94 Nasal Cannula 4.0 36 12/21/16 11:04 36 12/21/16 11:03 95 18 95 Nasal Cannula 4.0 36 12/21/16 09:00 113 96/33 12/21/16 08:00 97.2 113 18 96/33 93 Nasal Cannula 5.0 12/21/16 08:00 93 12/21/16 07:04 97 20 98 Nasal Cannula 5.0 40 12/21/16 07:04 40 12/21/16 07:03 Nasal Cannula 5.0 40 12/21/16 07:03 95 22 94 Nasal Cannula 5.0 40 12/21/16 07:02 94 Nasal Cannula 5.0 40 12/21/16 03:54 96.6 93 20 104/63 93 Nasal Cannula 5.0 12/21/16 03:47 108 12/21/16 03:00 81 20 97 Nasal Cannula 5.0 40 12/21/16 03:00 81 20 97 Nasal Cannula 5.0 40 12/20/16 23:54 82 20 95 Nasal Cannula 5.0 40 12/20/16 23:48 96.3 91 20 102/75 93 Nasal Cannula 5.0 12/20/16 23:44 91 20 96 Nasal Cannula 5.0 40 12/20/16 23:41 92 12/20/16 20:00 90 12/20/16 20:00 96.6 87 18 93/61 95 Nasal Cannula 5.0 General Appearance: no apparent distress Neck: supple Cardiovascular: normal rate, regular rhythm, systolic murmur Respiratory/Chest: lungs clear, crackles/rales - left base Abdomen: normal bowel sounds, non tender, soft Extremities: no swelling Intake and Output 12/20/16 12/21/16 19:00 07:00 Intake Total 240 ml 300 ml Output Total 500 ml 1450 ml Balance -260 ml -1150 ml Intake Oral 240 ml 300 ml Output Urine Total 500 ml 1450 ml Laboratory Tests Test 12/21/16 05:00 White Blood Count 7.6 K/UL (4.8-10.8) Red Blood Count 5.39 M/UL (4.70-6.10) Hemoglobin 13.8 G/DL (14.2-18.0) L Hematocrit 42.4 % (42.0-52.0) Mean Corpuscular Volume 79 FL (80-99) L Mean Corpuscular Hemoglobin 25.7 PG (27.0-31.0) L Mean Corpuscular Hemoglobin Concent 32.6 G/DL (32.0-36.0) Red Cell Distribution Width 16.8 % (11.6-14.8) H Platelet Count 188 K/UL (150-450) Mean Platelet Volume 6.0 FL (6.5-10.1) L Neutrophils (%) (Auto) 71.2 % (45.0-75.0) Lymphocytes (%) (Auto) 6.3 % (20.0-45.0) L Monocytes (%) (Auto) 17.9 % (1.0-10.0) H Eosinophils (%) (Auto) 3.6 % (0.0-3.0) H Basophils (%) (Auto) 1.0 % (0.0-2.0) Prothrombin Time 15.1 SEC (9.30-11.50) H Prothromb Time International Ratio 1.5 (0.9-1.1) H Activated Partial Thromboplast Time 35 SEC (23-33) H Sodium Level 139 mEQ/L (135-145) Potassium Level 3.9 mEQ/L (3.4-4.9) Chloride Level 99 mEQ/L (98-107) Carbon Dioxide Level 21 mEQ/L (20-30) Anion Gap 19 (5-15) H Blood Urea Nitrogen 99 mg/dL (7-23) H Creatinine 2.9 mg/dL (0.7-1.2) H Estimat Glomerular Filtration Rate mL/min (>60) Glucose Level 106 mg/dL (74-106) Calcium Level 8.3 mg/dL (8.6-10.2) L Total Bilirubin 2.1 mg/dL (0.0-1.2) H Direct Bilirubin 1.0 mg/dL (0.1-0.3) H Aspartate Amino Transf (AST/SGOT) 268 U/L (5-40) H Alanine Aminotransferase (ALT/SGPT) > 700 U/L (3-41) H Alkaline Phosphatase 125 U/L (40-129) Total Protein 5.4 g/dL (6.6-8.7) L Albumin 2.9 g/dL (3.5-5.2) L Globulin 2.5 g/dL Albumin/Globulin Ratio 1.1 (1.0-2.7) Microbiology Date/Time Source Procedure Growth Status 12/19/16 14:45 Blood Blood Culture - Preliminary NO GROWTH AFTER 24 HOURS Resulted 12/19/16 12:45 Blood Blood Culture - Preliminary NO GROWTH AFTER 24 HOURS Resulted MEY DELEON Dec 21, 2016 19:53
[2016-12-21 20:00] VITALS: BP 93/55
[2016-12-21] MEDS ORDERED: NS 275ml ONE ×2 (20:59)
--- NOTE | 2016-12-24 13:51 | Discharge Summary ---
Discharge Summary Hospital Course Date of Admission Dec 10, 2016 at 23:52 Date of Discharge Dec 21, 2016 at 21:00 Admitting Diagnosis syncope BENITO Santiago is a 86 year old male who was admitted on Dec 10, 2016 at 23:52 for Syncope Hospital Course dc summary dictated #[id number] Discharge Medications New Medications: Aspirin Ec* (Aspirin Ec*) 81 Mg Tablet.dr 81 MG ORAL DAILY for 30 Days, TAB Heparin Sod (Porcine) (Heparin Sodium*) 5 000/1 Ml Vial 5000 UNITS SUBQ EVERY 12 HOURS, #20 VIAL Ipratropium/Albuterol Sulfate (DuoNeb 0.5-3(2.5)mg/3ml) 3 Ml Ampul.neb 3 ML HHN Q4H PRN, #20 EA Metoprolol Succinate* (Metoprolol Succinate*) 25 Mg Tab.er.24h 25 MG ORAL DAILY for 30 Days, TAB Nitroglycerin (Nitrostat) 0.4 Mg Tab.subl 0.4 MG SL .Q5M X 3 DOSES PRN, #5 TAB Ondansetron* (Zofran*) 4 Mg/2 Ml Vial 4 MG IVP Q6H PRN, #5 VIAL Pantoprazole* (Protonix*) 40 Mg Vial 40 MG IVP DAILY for 28 Days, VIAL Polyethylene Glycol 3350* (Miralax*) 17 Gm Powd.pack 17 GM ORAL HSPRN PRN, #5 PACK [Morphine Sulfate] () 2 MG/ML INJ 1 MG IVP Q4H PRN, #5 Discharge Discharge Disposition Patient was discharged to Discharge Diagnoses: Lucio (Gerri)Atiya NP Dec 24, 2016 13:51
--- NOTE | 2016-12-24 22:19 | Discharge Summary 2 SIG ---
DATE OF ADMISSION: 12/10/2016 DATE OF DISCHARGE: 12/21/2016 REASON FOR ADMISSION: The patient is an 86-year-old male with a history of coronary artery disease with significant aortic stenosis with history of previous stents, had a astrochemist at [facility], who told him that he might need a valve replacement surgery because of the aortic stenosis. The patient was doing well until the night he came to emergency department. He said that he was watching TV and got up to go to the bathroom, however, suddenly became weak, lightheaded, dizzy, and diaphoretic. He did not pass out. He sat down the toilet and felt better, but then felt nauseated and weak. He never had this problem before. He denied chest pain or palpitations. There was no any focal deficit. Emergency room workup revealed EKG with normal sinus rhythm. No acute ST changes. Heart rate in 80s. Chest x-ray revealed no consolidation, no effusion, and no pneumothorax, but indicated cardiomegaly with a congestive heart failure. CT of the head was negative for any acute intracranial pathology, no bleeding, and no mass effect. The patient was on room air. Saturation was stable. The patient was transferred to [facility] for further management. Cardiology, ID, and Nephrology were involved in the care of this patient. ADMITTING DIAGNOSES: 1. Near syncope. 2. Significant aortic stenosis. 3. Acute diastolic congestive heart failure. HOSPITAL COURSE: The patient was admitted to [facility]. Supplemental oxygen provided. The patient initially with evidence of acute respiratory failure, required vent mask of 40% to maintain saturation above 92%. Subsequently, the patient was able to be weaned to nasal cannula, currently on 2 liters via nasal cannula. Pulse oximetry stable. The patient with evidence of paroxysmal recurrent atrial fibrillation with rapid ventricular response. The patient does have a significant aortic stenosis. Cardiology followed. Diuresis x1 given. The patient was also noted to have elevated LFT. Amiodarone stopped secondary to liver toxicity. Echocardiogram revealed ejection fraction of 50% and right ventricular systolic pressure of 49 consistent with moderate pulmonary hypertension as well as severe mitral regurgitation and significant aortic stenosis. Per astrochemist, the patient needed a transfer to [facility] when bed become available. The patient had evidence of non-STEMI. The patient was on the heparin drip, which was subsequently discontinued. Coumadin stopped secondary to coagulopathy. It will be resumed upon transfer to [facility]. with close monitoring of INR. Renal parameters and electrolytes were closely monitored. Creatinine started to trend down. Avoid nephrotoxics. Humidifier Attendant followed. Renal ultrasound revealed no hydronephrosis, but evidence of right echogenic kidney. Sputum culture negative. Blood culture negative. Urine culture negative. The patient status post antibiotic treatment. Per ID recommendations, monitor patient off antibiotics. CT of the head revealed no acute intracranial pathology. Carotid duplex revealed no evidence of stenosis. DVT and GI prophylaxis provided. Aspirin and beta elba continued. Pain management provided with morphine and nitroglycerin as needed. Cardiopulmonary status was optimized and the patient was able to be weaned to nasal cannula. Renal function with some improvement. Creatinine trending down. INR in therapeutic range, resume Coumadin in [facility] after transfer for atrial fibrillation. Congestive heart failure improved. Creatinine continued to trend more down. Possibly if creatinine down to normal in day or two ( to decrease the risk for contrast), the patient may be stable for cardiac catheterization as well as the CTA - as per Cardiology discretion in [facility]. LFTs trending down. DVT and GI prophylaxes provided. Pain management provided. Hemoglobin and hematocrit stable, at baseline, no trend down. Patient was stable for transfer to [facility] for further management. DISCHARGE DIAGNOSES: 1. Acute hypoxemic respiratory failure, resolved. 2. Sepsis. 3. Possible pneumonia, status post treatment. 4. Paroxysmal recurrent atrial fibrillation with rapid ventricular response/resolved. 5. Significant aortic stenosis, requires surgery. 6. Non-ST elevation myocardial infarction, status post heparin drip. 7. History of coronary artery disease. 8. Acute tubular necrosis on chronic kidney disease with solitary kidney. 9. Anemia of chronic disease. 10. Syncope secondary to significant aortic stenosis. 11. Hypertension. 12. Acute diastolic congestive heart failure. 13. Metabolic acidosis. 14. Moderate pulmonary hypertension. 15. Severe mitral regurgitation. 16. Abnormal liver function test, amiodarone induced. DISCHARGE MEDICATIONS: See medication reconciliation list. DISCHARGE INSTRUCTIONS: The patient was transferred to [facility] via [facility] ambulance for further management and possible aortic valve replacement. Charlette Schwartz M.D. Atiya Valdes N.P. (Vanchtein) DR: JULISA JOB#: [id number] CC: [facility]
--- NOTE | 2016-12-25 20:25 | Cardiology Report ---
APPROVED REPORT EKG Measurement Heart [id number] FL [id number] Sinus rhythm with 1st degree AV block with occasional premature ventricular complexes Possible Left atrial enlargement Left axis deviation Right bundle branch block with LAFB Septal infarct, age undetermined Abnormal ECG
--- NOTE | 2017-01-12 03:26 | Cardiology Report ---
APPROVED REPORT EKG Measurement Heart [id number] SD [id number] Sinus rhythm with 1st degree AV block with occasional premature ventricular complexes Left axis deviation Right bundle branch block Abnormal ECG
--- NOTE | 2017-01-15 10:02 | Cardiology Report ---
APPROVED REPORT EXAM: Two-dimensional and M-mode echocardiogram with Doppler and color Doppler. INDICATION Left ventricular function M-Mode DIMENSIONS IVSd0.9 (0.7-1.1cm)Left Atrium (MM)4.0 (1.6-4.0cm) LVDd5.6 (3.5-5.6cm)Aortic Root2.9 (2.0-3.7cm) PWd0.8 (0.7-1.1cm)Aortic Cusp Exc.0.8 (1.5-2.0cm) LVDs4.9 (2.5-4.0cm) PWs1.1 cm Normal left ventricular chamber size, systolic function and wall motion. Left ventricular ejection fraction estimated to be 50%. No evidence of left ventricular hypertrophy. Small posterior pericardial effusion. Mild bi-atrial enlargement by 2D. Aortic valve calcification with decreased cusp excursion c/w severe aortic stenosis. Moderatly thickened mitral valve leaflets with normal excursion. Mild mitral annulus and aortic root calcification. Pulmonic valve not well visualized. Normal tricuspid valve structure. IVC is normal in size with physiologic collapse. A color flow and spectral Doppler study was performed and revealed: No aortic regurgitation. Peak aortic valve gradient of 81mmHg and a mean of 46 mmHg. Aortic valve area 0.3 cm2 calculated by continuity equation. Severe mitral regurgitation (2jets) Left ventricular diastolic dysfunction not obtainable due to arrhythmia. Moderate tricuspid regurgitation. Tricuspid systolic velocities suggests peak right ventricular systolic pressure of 49 mmHg Consistent with moderate pulmonary hypertension. Clinical criteria: MINDI Schulte and Dr. Schwartz have been notified on 12/11/15 at 1pm.
== END 2016-12-21 21:00 | disposition short-term general hospital (02) | DRG 280 ==
LOC: EDBD 23:02 → EMR 23:30 → 2E 23:52 → EDBEDREQ 12-11 00:33 → ICU 12-12 03:26 → 2W 12-19 14:10
PROC: 05H533Z Insertion of Infusion Device into Right Subclavian Vein, Percutaneous Approach (ICD-10-PCS; principal; 2016-12-15)
DX: I50.31 Acute diastolic (congestive) heart failure (principal); A41.9 Sepsis, unspecified organism; I21.4 Non-ST elevation (NSTEMI) myocardial infarction; N17.0 Acute kidney failure with tubular necrosis; J96.01 Acute respiratory failure with hypoxia; G93.40 Encephalopathy, unspecified; J18.9 Pneumonia, unspecified organism; K71.9 Toxic liver disease, unspecified; I48.0 Paroxysmal atrial fibrillation; I48.91 Unspecified atrial fibrillation; D64.9 Anemia, unspecified; R55 Syncope and collapse; I25.10 Atherosclerotic heart disease of native coronary artery without angina pectoris; M10.9 Gout, unspecified; N18.9 Chronic kidney disease, unspecified; I35.2 Nonrheumatic aortic (valve) stenosis with insufficiency; Z88.1 Allergy status to other antibiotic agents; Z88.0 Allergy status to penicillin; Z95.5 Presence of coronary angioplasty implant and graft; D63.8 Anemia in other chronic diseases classified elsewhere; I12.9 Hypertensive chronic kidney disease with stage 1 through stage 4 chronic kidney disease, or unspecified chronic kidney disease; I08.0 Rheumatic disorders of both mitral and aortic valves; Z79.01 Long term (current) use of anticoagulants; Z90.5 Acquired absence of kidney; Z87.891 Personal history of nicotine dependence; N40.1 Benign prostatic hyperplasia with lower urinary tract symptoms; R33.8 Other retention of urine; T46.2X5A Adverse effect of other antidysrhythmic drugs, initial encounter
CPT/HCPCS: 36415; 36600; 70450; 71010; 72020; 76775; 80053; 80061; 80202; 81001; 82140; 82248; 82436; 82533; 82550; 82553; 82803; 82962; 82977; 83036; 83735; 83880; 83930; 83935; 84100; 84133; 84300; 84439; 84443; 84481; 84484; 84550; 85007; 85025; 85610; 85730; 86140; 87040; 87070; 87086; 87205; 89050; 93005; 93306; 93880; 94640; 94664; 94760; J0282; J2405; J7620; J8499